=== PATIENT | male | born 1935 | race Caucasian/White ===

== ENCOUNTER 2017-09-19 16:04 | Emergency (ER) | payer MEDICARE, OTHER, SELFPAY ==
--- NOTE | 2017-09-19 16:33 | ED_ITS ---
HPI - Fall <Kina Garcia PA-C - Last Filed: 09/19/17 21:56> General Chief Complaint: Extremity Injury, Lower Stated Complaint: left foot pain,he slipped and twisted it Time Seen by Provider: 09/19/17 16:28 Source: patient Mode of arrival: ambulatory Limitations: no limitations History of Present Illness HPI Narrative: This 82 year gentleman states he was out raking his lawn at which time today when slipped and twisted his ankle behind him. He thinks he felt a snap or a pop. He states he has had swelling and is becoming increasingly painful to bear weight on this since. He states that he did not actually fall, denies hitting his head or any other injury. He does not have pain in the foot itself. Related Data Previous Rx's Medication Instructions Recorded Disabled Parking Permit ea #1 08/06/16 Test Strips - Freestyle str #100 08/06/16 hydroxyzine HCl 50 mg PO Q6HP PRN #60 tab 08/06/16 nitroglycerin [Nitrostat] 0.4 mg SUBLINGUAL PRN PRN #25 tab 08/06/16 metformin [Glucophage] 1,000 mg PO BIDCC #360 tab 04/23/17 metoprolol succinate [Toprol XL] 25 mg PO QDAY #90 ter 07/02/17 atorvastatin [Lipitor] 20 mg PO HS #90 tab 07/09/17 losartan 50 mg OR Q DAY #90 tab 07/09/17 sitagliptin [Januvia] 100 mg PO QDAY #90 tab 07/09/17 alfuzosin ER 10 mg tablet,extended 10 mg PO QDAY #90 tab 09/03/17 release 24 hr Allergies Allergy/AdvReac Type Severity Reaction Status Date / Time No Known Drug Allergies Allergy Verified 09/19/17 16:34 Review of Systems <Kina Garcia PA-C - Last Filed: 09/19/17 21:56> Review of Systems All systems reviewed & are unremarkable except as noted in HPI and below Exam <Kina Garcia PA-C - Last Filed: 09/19/17 21:56> Narrative Exam Narrative: GENERAL: Pleasant patient sitting comfortably MUSCULOSKELETAL: Left ankle trace effusion. Moderate tenderness anterior to and at the inferior border of the lateral malleolus, no tenderness elsewhere. Achilles is intact by palpation. He has normal flexion and extension of the ankle without obvious laxity. NEUROVASCULAR: Left foot is warm and pink with intact pedal pulses. Sensation grossly intact Initial Vital Signs Initial Vital Signs: Vital Signs Temperature 97.1 F L 09/19/17 16:34 Pulse Rate 65 09/19/17 16:34 Respiratory Rate 14 09/19/17 16:34 Blood Pressure 126/65 H 09/19/17 16:34 Pulse Oximetry 97 09/19/17 16:34 <DO Faizan Edward Last Filed: 09/22/17 00:50> Initial Vital Signs Initial Vital Signs: Vital Signs Temperature 97.1 F L 09/19/17 16:34 Pulse Rate 65 09/19/17 16:34 Respiratory Rate 14 09/19/17 16:34 Blood Pressure 126/65 H 09/19/17 16:34 Pulse Oximetry 97 09/19/17 16:34 Course <MAY Lopez Last Filed: 09/19/17 21:56> Orders Ordered: ED Orders 09/19/17 16:33 XR ankle LT min 3V Stat Vital Signs - 8 hr 09/19/17 16:34 09/19/17 17:44 Temperature 97.1 F L Pulse Rate 65 56 L Respiratory Rate 14 13 Blood Pressure 126/65 H Blood Pressure [Left Arm] 136/64 H Pulse Oximetry 97 97 <DO Faizan Edward Last Filed: 09/22/17 00:50> Orders Ordered: ED Orders 09/19/17 16:33 XR ankle LT min 3V Stat Vital Signs - 8 hr 09/19/17 16:34 09/19/17 17:44 Temperature 97.1 F L Pulse Rate 65 56 L Respiratory Rate 14 13 Blood Pressure 126/65 H Blood Pressure [Left Arm] 136/64 H Pulse Oximetry 97 97 MDM - Fall <MAY Lopez Last Filed: 09/19/17 21:56> Imaging Data extremity: Radiologist's impression: View Report History [address] [address] XRay Report Signed Patient: Lv Langley MR#: [id number] : 1935 Acct:[id number] Age/Sex: 82 / M Date of Service: 09/19/17 Loc: ED Accession Number: [id number] Procedure: XR ankle LT min 3V Ordering Provider: Kina Garcia P.A-C PROCEDURE: XR ANKLE LT MIN 3V INDICATIONS: twisted ankle TECHNIQUE: 3 views of the ankle were acquired. COMPARISON: [facility], , TOE MINIMUM 2 VIEWS LEFT, 03/02/2017, 12:05. FINDINGS: Bones: No fractures or dislocations. Ankle mortise is normally aligned. No suspicious bony lesions. Soft tissues: No tibiotalar joint effusion. Achilles tendon appears normal. IMPRESSION: No trauma found. Dictated by: Dedrick Zhou M.D. on 09/19/2017 at 16:56 Approved by: Dedrick Zhou M.D. on 09/19/2017 at 16:57 Discharge Plan Departure Patient Disposition: Home, Self-Care Clinical Impression: Ankle sprain Discharge Date/Time: 09/19/17 17:46 Interventions: ED Discharge Assessment Last Done: 09/19/17 17:45 Instructions: DI for Ankle Sprain Activity Restrictions/Additional Instructions: Use ice tonight. Use Tylenol as needed for pain. Use the Arya wrap for support comfort. Gentle walking on flat ground is okay as tolerated. Return if you have any new or acutely worsening symptoms. Follow up with your PCP next week as this may need repeat x-rays or further testing if it is not better. Prescriptions: No Action hydroxyzine HCl 50 MG tablet 50 mg PO Q6HP PRNQty: 60 RF: 3 nitroglycerin [Nitrostat] 0.4 MG tablet, sublingual 0.4 mg Sublingual PRN PRNQty: 25 RF: 3 Disabled Parking Permit Qty: 1 RF: 0 Test Strips - Freestyle Qty: 100 RF: 3 metformin [Glucophage] 500 MG tablet 1,000 mg PO BIDCC Qty: 360 RF: 2 metoprolol succinate [Toprol XL] 25 MG tablet extended release 24 hr 25 mg PO QDAY Qty: 90 RF: 0 atorvastatin [Lipitor] 20 MG tablet 20 mg PO HS Qty: 90 RF: 0 sitagliptin [Januvia] 100 MG tablet 100 mg PO QDAY Qty: 90 RF: 0 losartan 50 MG tablet 50 mg OR Q DAY Qty: 90 RF: 3 alfuzosin 10 mg tablet extended release 24 hr 10 mg PO QDAY Qty: 90 RF: 3 Referrals: Chris Ivy MD [Primary Care Provider] - <Reji Pike DO - Last Filed: 09/22/17 00:50> Cosign ED Attending Coscarterature Attestation: I was immediately available in the department for consultation. Documentation has been reviewed. I agree with assessment and plan.
[2017-09-19 16:34] VITALS: BP 126/65; PULSE 65; RESP 14; TEMP 36.2; O2SAT 97; BMI 29.2
[2017-09-19 17:44] VITALS: BP 136/64; PULSE 56; RESP 13; O2SAT 97
== END 2017-09-19 17:46 | disposition home or self-care (01) ==
PROVIDERS: Emergency Provider Internal Medicine; Family Provider Family Medicine; PCP Family Medicine
DX: S93.402A Sprain of unspecified ligament of left ankle, initial encounter (principal); W01.0XXA Fall on same level from slipping, tripping and stumbling without subsequent striking against object, initial encounter
CPT/HCPCS: 73610; 99283

== ENCOUNTER → 2017-10-17 06:58 | Outpatient (CLI) | payer MEDICARE, OTHER, SELFPAY ==
[2017-10-17 08:32] LABS: Add Manual Diff / Slide Review NO; Basophils Percent Auto 0.7 % (0-2); Eosinophils Percent Auto 4.2 % (2-4); Hematocrit 36.9 % (41-53); Hemoglobin 12.3 g/dL (13.5-17.5); Lymphocytes Percent Auto 14.3 % (25-40); Mean Corpuscular HGB Conc 33.3 % (30-36); Monocytes Percent Auto 8.3 % (3-14); Neutrophils Absolute Auto 7300 /uL (3000-5900); Neutrophils Percent Auto 72.5 % (50-75); Platelet Count 245 X10^3/uL (150-400); Red Blood Cell Count 4.39 X10^6/uL (4.5-5.9); Red Cell Distribution Width 15.8 % (11.6-14.8); White Blood Cell Count 10.1 X10^3/uL (4.5-11.0)
[2017-10-17 08:39] LABS: Hemoglobin A1C% w Est Avg Glu 7.8 % (4.0-6.0)
[2017-10-17 08:55] LABS: Creatinine Urine Random 151.6 mg/dL
[2017-10-17 08:58] LABS: Alanine Aminotransferase 32 IU/L (21-72); Albumin Globulin Ratio 1.3 (1.0-2.8); Alkaline Phosphatase 70 U/L (38-126); Aspartate Aminotransferase 24 IU/L (17-59); Bilirubin Total 0.5 mg/dL (0.2-1.3); Blood Urea Nitrogen 13 mg/dL (9-20); Calcium 9.2 mg/dL (8.4-10.2); Carbon Dioxide 27 mmol/L (22-32); Chloride 104 mmol/L (98-107); Cholesterol 175 mg/dL (140-199); Estimated Glomerular Filt Rate > 60.0 mL/min (>60); Globulin 3.1 g/dL (1.7-4.1); Glucose 156 mg/dL (80-110); HDL Cholesterol 28 mg/dL (40-60); HEMOLYSIS < 15 (0-50); LDL Cholesterol Calculated 105 mg/dL (<100); Potassium 4.3 mmol/L (3.4-5.1); Sodium 140 mmol/L (137-145); Total Protein 7.1 g/dL (6.3-8.2); Triglycerides 209 mg/dL (35-150)
[2017-10-17 09:00] LABS: Microalbumi Creatinin Ratio Ur 75.1 ug/mg CR (<30); Microalbumin Urine Random 11.4 mg/dL (0-1.6)
[2017-10-17 09:23] LABS: Prostate Specific Antigen 0.405 ng/mL (0.10-4.00)
== END ==
PROVIDERS: PCP Family Medicine; Visit Provider Family Medicine
DX: E11.9 Type 2 diabetes mellitus without complications (principal); Z12.5 Encounter for screening for malignant neoplasm of prostate; E78.00 Pure hypercholesterolemia, unspecified
CPT/HCPCS: 36415; 80053; 80061; 82043; 82570; 83036; 84153; 85025; G0103

== ENCOUNTER → 2017-10-24 15:32 | Outpatient (CLI) | payer MEDICARE, OTHER, SELFPAY ==
--- NOTE | 2017-10-24 15:34 | DI.US.S_ITS ---
PROCEDURE: US ABDOMEN COMPLETE INDICATIONS: ABDOMINAL DISTENTION TECHNIQUE: Real-time scanning was performed of the abdominal and retroperitoneal organs, with image documentation. COMPARISON: None. FINDINGS: Liver: Liver is diffusely increased in echogenicity. No focal hepatic abnormalities identified. Normal hepatic size. Gallbladder: Multiple mobile gallstones present largest measuring 1.3 cm. No gallbladder wall thickening. Biliary ducts: Intrahepatic bile ducts are non-dilated. Extrahepatic bile duct caliber measures 5.0 mm. Normal is 6-7 mm or less in diameter, or 10 mm or less post-cholecystectomy. Pancreas: Not visualized. Spleen: Spleen is normal in size and homogeneous in echotexture. Kidneys: Kidneys are normal in size and echotexture. Right kidney measures 12.1 cm long; left kidney measures 12.0 cm long. Mild bilateral renal cortical thinning. No hydronephrosis or nephrolithiasis. No solid masses. Aorta: Visualized aorta is normal in caliber at less than 3 cm. Iliacs: Proximal common iliac arteries are normal in caliber at less than 2.5 cm. IVC: Intrahepatic inferior vena cava is patent. Miscellaneous: No free abdominal fluid. IMPRESSION: 1. Increased hepatic echogenicity noted possibly related to hepatic steatosis but other sources of hepatocellular disease cannot be excluded. Recommend clinical correlation. 2. Mild bilateral renal cortical thinning. 3. Cholelithiasis without acute cholecystitis. Dictated by: Rios DODD Interpreted: Dev Morillo MD on 10/24/2017 at 16:52 Approved by: Dev Morillo M.D. on 10/28/2017 at 9:02
== END ==
PROVIDERS: PCP Family Medicine; Visit Provider Family Medicine
DX: R14.0 Abdominal distension (gaseous) (principal); K80.20 Calculus of gallbladder without cholecystitis without obstruction
CPT/HCPCS: 76700

== ENCOUNTER → 2017-11-05 11:23 | Outpatient (CLI) | payer MEDICARE, OTHER, SELFPAY ==
[2017-11-05 14:15] LABS: BUN Creatinine Ratio 10.9 (6-22); Blood Urea Nitrogen 12 mg/dL (9-20); Estimated Glomerular Filt Rate > 60.0 mL/min (>60)
== END ==
PROVIDERS: PCP Family Medicine; Visit Provider Family Medicine
DX: E11.9 Type 2 diabetes mellitus without complications (principal)
CPT/HCPCS: 36415; 82565; 84520

== ENCOUNTER → 2017-11-07 07:45 | Outpatient (CLI) | payer MEDICARE, OTHER, SELFPAY ==
--- NOTE | 2017-11-07 08:32 | DI.CT.S_ITS ---
PROCEDURE: CT ABDOMEN PELVIS W CON INDICATIONS: Abdominal distension and pain. TECHNIQUE: After the administration of oral and intravenous contrast, 5 mm thick sections acquired from the diaphragms to the symphysis. 5 mm thick coronal and sagittal reformats were performed. For radiation dose reduction, the following was used: automated exposure control, adjustment of mA and/or kV according to patient size. COMPARISON: [facility], , US ABDOMEN COMPLETE, 10/24/2017, 16:17. FINDINGS: Image quality: Excellent. ABDOMEN: Lung bases: There is a 5 mm nodule in the left lower lobe (series 3 image 1). Lung bases are clear. Heart size is normal. Small hiatal hernia. Solid organs: There is diffuse hepatic fatty infiltration. Liver is normal in size and enhancement. Gallbladder contains gallstones. Biliary system is non-dilated. Pancreas enhances normally. Spleen is normal in size and enhancement. No adrenal nodules. Kidneys are normal in size and enhancement, without hydronephrosis. There is a 2.4 x 1.6 cm exophytic cortical cyst in the right kidney. Peritoneum and bowel: Stomach, small bowel, and colon loops are normal in caliber and wall thickness. There are scattered colonic diverticula. There is no evidence for active diverticulitis. Appendix is normal. No free fluid or air. Nodes and vessels: No retroperitoneal or mesenteric adenopathy. No infrarenal abdominal aortic aneurysm measuring 3 cm. There are postsurgical in the distal aorta. There is atherosclerosis. Miscellaneous: There is ventral hernia repair. No evidence for recurrent ventral hernia. PELVIS: Genitourinary: Bladder wall thickness is normal. Prostate is enlarged. Miscellaneous: No inguinal hernias or adenopathy. Bones: No suspicious bony lesions. No vertebral body compression fractures. IMPRESSION: 1. Prior ventral hernia repair. No evidence for recurrent ventral hernia. 2. Diverticulosis without acute diverticulitis. 3. Mild infrarenal abdominal aortic aneurysm measuring 3 cm. Post surgical changes in the distal aorta is noted. 4. Cholelithiasis. No acute cholecystitis. 5. A 2.4 x 1.6 cm simple appearing right renal cortical cyst. 6. Hepatic steatosis. 7. A 5 mm left lower lobe nodule. Please see enclosed followup recommendation. Fleischner Society criteria for SOLID lung nodule followup. Nodule size (mm)Low-risk patientHigh-risk patient?4No follow-up neededFollow-up at 12 mo; if no change, no further follow-up>[id number] CT at 12 mo; if no change, no further follow-up needed.Initial follow-up CT at 6-12 mo, then 18-24 mo if no change. >6-8Initial follow-up CT at 6-12 mo, then 18-24 mo if no change. Initial follow-up CT at 3-6 mo, then 9-12 mo and 24 mo if no change. Multiple sub-solid nodulesPure ground glass nodules [address] at 2 and 4 years. Pure ground glass nodules >5 mm without dominant lesion. [address] to confirm persistence, then annual followup CT for at least 3 years. Dominant nodule(s) with part-solid or solid component. [address] to confirm persistence. If persistent, consider biopsy or surgical resection, bee if lesions have >5 mm solid component. Dictated by: Bobby Holder M.D. on 11/07/2017 at 14:59 Approved by: Bobby Holder M.D. on 11/07/2017 at 15:24
== END ==
PROVIDERS: PCP Family Medicine; Visit Provider Family Medicine
DX: I71.4 Abdominal aortic aneurysm, without rupture (principal); K57.90 Diverticulosis of intestine, part unspecified, without perforation or abscess without bleeding; N28.1 Cyst of kidney, acquired; K76.0 Fatty (change of) liver, not elsewhere classified; R91.1 Solitary pulmonary nodule; K80.20 Calculus of gallbladder without cholecystitis without obstruction; R14.0 Abdominal distension (gaseous); R10.9 Unspecified abdominal pain
CPT/HCPCS: 74177; Q9967

== ENCOUNTER → 2018-01-03 12:43 | Outpatient (CLI) | payer MEDICARE, OTHER, SELFPAY ==
--- NOTE | 2018-01-03 | DI.MRI.S_ITS ---
PROCEDURE: MR LUMBAR SPINE WO CON INDICATIONS: LOW BACK PAIN TECHNIQUE: Noncontrast sagittal T1 spin echo and T2 fast echo, sagittal STIR, axial T1 and T2 fast spin echo through the lumbar spine. In cases with scoliosis, additional coronal T2 fast spin echo may be performed. COMPARISON: [facility], CT, CT ABDOMEN PELVIS W CON, 11/07/2017, 8:35. [facility], CR, XR LUMBAR SPINE WITH OLBIQUES PLUS FLEXION EXTENSION, 12/17/2017, 10:24. FINDINGS: Image quality: Excellent. Alignment and Curvature: There is normal bony alignment. Bone Marrow: There is an intraosseous hemangioma in right iliac bone. Marrow signal is otherwise normal. No acute vertebral body compression fractures. Spinal Cord: Conus medullaris terminates at the L1-L2 level. Visualized cord demonstrates normal signal and size. Paraspinous Soft Tissues: No paravertebral masses. There is a 2 cm right renal cortical cyst. L1-L2: Preserved disc height. Moderate disc desiccation. There is diffuse posterior disc bulge. Mild bilateral facet arthropathy. The central canal is patent. No foraminal stenosis. L2-L3: Preserved disc height. Moderate disc desiccation. There is diffuse posterior disc bulge. Mild bilateral facet arthropathy. The central canal is patent. Moderate left foraminal stenosis. No right foraminal stenosis. L3-L4: Mild loss of disc height. Moderate disc desiccation. There is diffuse posterior disc bulge. Mild bilateral facet arthropathy. The central canal is patent. Moderate left and mild right foraminal stenosis. L4-L5: Mild loss of disc height. Moderate disc desiccation. There is diffuse posterior disc bulge. Mild bilateral facet arthropathy. The central canal is patent. [id number] left and [id number] right foraminal stenosis. L5-S1: Preserved disc height and mild disc desiccation. There is diffuse posterior disc bulge. The central canal is patent. Qbyj-[id number] bilateral foraminal stenosis. IMPRESSION: 1. Multilevel degenerative disc disease and facet arthropathy as described. 2. No central canal stenosis. 3. Multilevel foraminal stenosis as described. Dictated by: Bobby Holder M.D. on 01/03/2018 at 17:14 Transcribed by: INDRA on 01/03/2018 at 17:21 Approved by: Bobby Holder M.D. on 01/03/2018 at 18:31
== END ==
PROVIDERS: PCP Family Medicine; Visit Provider Physical Medicine & Rehabilitation
DX: M54.5 Low back pain (principal); M51.36 Other intervertebral disc degeneration, lumbar region; M51.37 Other intervertebral disc degeneration, lumbosacral region; M47.816 Spondylosis without myelopathy or radiculopathy, lumbar region; M48.061 Spinal stenosis, lumbar region without neurogenic claudication; M48.07 Spinal stenosis, lumbosacral region
CPT/HCPCS: 72148

== ENCOUNTER → 2018-01-30 10:31 | Outpatient (CLI) | payer MEDICARE, OTHER, SELFPAY | PROVIDERS: PCP Student in an Organized Health Care Education/Training Program; Visit Provider Nurse Practitioner Family | DX: T17.908A Unspecified foreign body in respiratory tract, part unspecified causing other injury, initial encounter (principal); Z53.9 Procedure and treatment not carried out, unspecified reason ==

== ENCOUNTER → 2018-05-13 14:39 | Outpatient (CLI) | payer MEDICARE, OTHER, SELFPAY ==
[2018-05-13 15:00] LABS: Add Manual Diff / Slide Review NO; Basophils Absolute Auto 100 /uL (0-100); Basophils Percent Auto 1.2 % (0-2); Eosinophils Absolute Auto 300 /uL (0-450); Eosinophils Percent Auto 4.8 % (2-4); Hematocrit 36.4 % (41-53); Hemoglobin 12.2 g/dL (13.5-17.5); Lymphocytes Absolute Auto 1300 /uL (1100-4500); Lymphocytes Percent Auto 22.7 % (25-40); Mean Corpuscular HGB Conc 33.4 % (30-36); Mean Corpuscular Hemoglobin 28.2 PG (26-34); Mean Corpuscular Volume 84.4 fL (80-100); Monocytes Absolute Auto 500 /uL (0-900); Monocytes Percent Auto 9.8 % (3-14); Neutrophils Absolute Auto 3400 /uL (1500-7000); Neutrophils Percent Auto 61.5 % (50-75); Platelet Count 215 X10^3/uL (150-400); Red Blood Cell Count 4.31 X10^6/uL (4.5-5.9); Red Cell Distribution Width 15.8 % (11.6-14.8); White Blood Cell Count 5.6 X10^3/uL (4.5-11.0)
[2018-05-13 15:15] LABS: Hemoglobin A1C% w Est Avg Glu 9.9 % (4.0-6.0)
[2018-05-13 15:29] LABS: Blood Urea Nitrogen 13 mg/dL (9-20); Carbon Dioxide 26 mmol/L (22-32); Chloride 102 mmol/L (98-107); Estimated Glomerular Filt Rate > 60.0 mL/min (>60); Glucose 259 mg/dL (80-110); HEMOLYSIS < 15 (0-50); Potassium 4.2 mmol/L (3.4-5.1); Sodium 139 mmol/L (137-145)
[2018-05-13 15:45] LABS: Vitamin D 25 Hydroxy (D3) 55.7 ng/mL (30.0-100.0)
== END ==
PROVIDERS: PCP Student in an Organized Health Care Education/Training Program; Visit Provider Student in an Organized Health Care Education/Training Program
DX: E55.9 Vitamin D deficiency, unspecified (principal); D64.9 Anemia, unspecified; I10 Essential (primary) hypertension; E11.9 Type 2 diabetes mellitus without complications
CPT/HCPCS: 36415; 80048; 82306; 83036; 85025

== ENCOUNTER → 2018-05-28 09:29 | Outpatient (CLI) | payer MEDICARE, OTHER, SELFPAY ==
--- NOTE | 2018-05-28 09:33 | DI.US.S_ITS ---
PROCEDURE: US RETRO PERITONEAL LIMITED INDICATIONS: ABDOMINAL AORTIC ANEURYSM FOLLOW UP TECHNIQUE: Real time scanning was performed of the aorta and iliac arteries, with image documentation. COMPARISON: [facility], , RENAL OR RETROPERITONEAL LIMIT, 02/24/2015, 13:08. [facility], US, US ABDOMEN COMPLETE, 10/24/2017, 16:17. [facility], CT, CT ABDOMEN PELVIS W CON, 11/07/2017, 8:35. FINDINGS: Aorta: Proximal aortic diameter measures 2.4 x 2.3 cm (previously 2.1 cm). Mid-aorta measures 2.2 x 2.1 cm (previously obscured). Distal aortic obscured by overlying bowel gas (previously 2.3 cm). Iliac arteries: Right common iliac artery measures 1.4 cm (previously 1.0 cm). Left common iliac artery measures 1.5 cm (previously 0.9 cm). IMPRESSION: The abdominal aorta is normal in caliber measuring up to 2.4 cm in the proximal aorta. It has slightly increased in size since 02/24/2015. Distal abdominal aorta is obscured by overlying bowel gas. The proximal common iliac arteries also demonstrate mildly interval enlargement since the last exam. A followup exam is shifted in 5 years. Dictated by: Bobby Holder M.D. on 05/28/2018 at 16:29 Approved by: Bobby Holder M.D. on 05/28/2018 at 16:36
--- NOTE | 2018-05-28 09:33 | DI.ECHO.S_ITS ---
[place] [facility]---------+ [facility] +---------+ : : [id number] : : : : [id number] : : : : Phone: [phone]+ Echocardiogram Report + + :Name: PRASHANT FENG Study Date: 05/28/2018 Height: 69 in : :[facility] Exam Location: [facility] Weight: 212 lb : : Gender: Male BSA: 2.1 m2 : :: 1935 Age: 83 yrs BP: 120/70 mmHg: :Reason For Study: Thoracic aortic ectasia : : Performed By: Caitlyn Page : :Referring: OZIEL HARO : + + Interpretation Summary The left ventricle is normal in size. Left ventricular systolic function is normal without focal wall motion abnormalities. The ejection fraction is estimated to be 60-65%. Diastolic parameters suggest a relaxation abnormality of the left ventricle, consistent with probable normal filling pressures. The right ventricle is normal in size and function. Pulmonary artery pressures cannot be estimated because of the lack of a measurable TR jet velocity. Both atria are normal in size. A PFO was suspected on the prior exam but is not appreciated on today's exam. There is no significant valvular heart disease. The aortic root is moderately dilated. This is increased compared to the previous study. The ascending aorta is mild-moderately enlarged. This is increased compared to the previous study. Procedure: A two-dimensional transthoracic echocardiogram with color flow and Doppler was performed. The study quality was technically adequate. Comparison is made with the echocardiogram of 02/01/2016. The patient was in normal sinus rhythm during the exam. Left Ventricle: The left ventricle is normal in size. Left ventricular wall thickness is borderline increased. Left ventricular systolic function is normal without focal wall motion abnormalities. The ejection fraction is estimated to be 60-65%. Diastolic parameters suggest a relaxation abnormality of the left ventricle, consistent with probable normal filling pressures. Right Ventricle: The right ventricle is normal in size and function. Atria: Both atria are normal in size. There is no Doppler evidence for an interatrial shunt. A PFO was suspected on the prior exam but is not appreciated on today's exam. Mitral Valve: The mitral valve leaflets appear mildly thickened, but open well. There is trace mitral regurgitation. Aortic Valve: The aortic valve is trileaflet. The aortic valve opens well. There is trace aortic regurgitation. Tricuspid Valve: The tricuspid valve is normal in structure and function. There is a trace or physiologic amount of tricuspid regurgitation. Pulmonary artery pressures cannot be estimated because of the lack of a measurable TR jet velocity. Pulmonic Valve: The pulmonic valve is not well visualized. There is trace pulmonic regurgitation. There is no significant valvular heart disease. Great Vessels: The aortic root is moderately dilated. This is increased compared to the previous study. The ascending aorta is mild-moderately enlarged. This is increased compared to the previous study. The aortic arch is normal in size. The pulmonary artery is not well visualized, but is probably normal size. The inferior vena cava was not visualized. Pericardium/ Pleura There is no pericardial effusion. There is no pleural effusion. MMode/2D Measurements & Calculations LVIDd: 5.1 cm LVOT diam: 2.4 cm LVIDs: 2.7 cm Ao root diam: 4.7 cm FS: 46.3 % asc Aorta Diam: 4.1 cm EPSS: 0.54 cm Ao Arch Diam (Prox Trans): 2.9 cm IVSd: 0.98 cm LVPWd: 0.90 cm LV perdomo. diameter/BSA (cm/m^2): 2.4 LV sys. diameter/BSA (cm/m^2): 1.3 LA A2 area: 23.0 cm2 RA long axis: 5.8 cm LA A4 area: 18.1 cm2 RA area: 15.9 cm2 LA length (vol): 5.3 cm RA vol: 37.2 ml LA vol: 66.7 ml RA : 17.6 ml/m2 LA vol index: 31.5 ml/m2 RVD1 (basal): 3.9 cm TAPSE: 2.4 cm Doppler Measurements & Calculations Ao V2 max: 116.1 cm/sec LVOT Max Romeo: 113.6 cm/sec Ao V2 mean: 81.2 cm/sec LV V1 max P.2 mmHg Ao max P.4 mmHg LV V1 VTI: 19.6 cm Ao mean P.9 mmHg KAMERON(I,D): 3.5 cm2 Ao V2 VTI: 25.2 cm KAMERON(V,D): 4.5 cm2 sev ratio: 0.78 KAMERON indexed to BSA (cm^2/m^2): 1.7 MV E max romeo: 52.3 cm/sec PA V2 max: 76.8 cm/sec MV A max romeo: 101.6 cm/sec PA V2 mean: 53.4 cm/sec MV E/A: 0.51 PA mean P.2 mmHg Med Peak E' Romeo: 3.7 cm/sec PA Accel Time: 0.12 sec E/E' med: 14.2 Lat Peak E' Romeo: 4.5 cm/sec E/E' lat: 11.5 E/e' average: 12.9 MV dec time: 0.29 sec MV P1/2t: 86.1 msec MV P1/2t max romeo: 52.8 cm/sec SV(LVOT): 89.1 ml MVA(P1/2t): 2.6 cm2 Reading Physician:12:27 PM
--- NOTE | 2018-05-28 09:40 | DI.CT.S_ITS ---
PROCEDURE: CT CHEST WO CON INDICATIONS: follow up lung nodule TECHNIQUE: Noncontrast 2.0-2.5 mm thick sections acquired from the pulmonary apices to the posterior costophrenic angles. 7 mm thick coronal and sagittal MIP reformats were then acquired. A low radiation dose technique was utilized. COMPARISON: [facility], CT, CT ABDOMEN PELVIS W CON, 11/07/2017, 8:35. FINDINGS: Image quality: Diagnostic, given the low radiation dose technique. Lungs and pleura: A 4 mm pulmonary nodule is present within the right upper lobe (series 2, image 39). A 4 mm pulmonary nodule is present in the right oblique fissure at the right lung base (series 2, image 108). A 5 mm pulmonary nodule is redemonstrated at the left lung base unchanged in the study dated 11/07/17 (series 2, image 117). A partially calcified 5 mm nodule is present in the lingula (series 2, image 88). A 5 mm pulmonary nodule is present within the left upper lobe (series 2, image 40). No acute air space opacities. No pleural effusion or pneumothorax. Mediastinum: Heart size is normal. No pericardial effusion. No mediastinal adenopathy by size criteria. The central pulmonary arteries are normal in size. There is ectasia of the ascending thoracic aorta which measures up to 4.4 cm in oblique axial diameter. Scattered atheromatous calcifications are present within the aortic arch. Esophagus is normal in caliber. No hiatal hernia. Bones and chest wall: No suspicious bony lesions. No vertebral body compression fractures. No axillary or supraclavicular adenopathy by size criteria. Thyroid gland is unremarkable. Abdomen: Visualized upper abdomen solid organs and bowel loops appear normal in the absence of contrast. IMPRESSION: 1. Multiple bilateral 4 and 5 mm in diameter pulmonary nodules as above. Please see followup guidelines below. As nodule the left lung base is now demonstrated 7 months stability. In a low risk patient, no further followup is needed. In high risk patient, consider 12 month followup. 2. Annuloaortic ectasia. Cardiology consultation recommended. Fleischner Society criteria for SOLID lung nodule followup. Nodule size (mm)Low-risk patientHigh-risk patient<6 (single or multiple)No routine followup.Optional CT at 12 months. 6-8 (single or multiple)CT at 6-12 months, then optional CT at 18-24 mo.CT at 6-12 months, then CT at 18-24 months. >8 (single)CT at 3 months, PET-CT, or biopsy. Same as for low-risk pts. >8 (multiple)CT at 3-6 months, then optional CT at 18-24 mo.CT at 3-6 months, then CT at 18-24 months. Fleischner Society criteria for SUB-SOLID lung nodule followup. Solitary pure ground-glass nodules<6 mm (ground glass or part solid)No followup needed. 6 mm or larger (ground glass)CT at 6-12 months to confirm persistence, then CT every 2 years until 5 years.6 mm or larger (part solid)CT at 3-6 months to confirm persistence, then annual CT until 5 years if unchanged and solid component remains <6 mm. Multiple sub-solid nodules<6 mmCT at 3-6 months, then CT consider at 2 & 4 years for high risk patients. [address] at 3-6 months. Subsequent management based on most suspicious lesions. Recommendations do not apply to lung cancer screening, patients with immunosuppression, or patients with known primary cancer. Dictated by: Heather Rivera M.D. on 05/28/2018 at 9:59 Approved by: Heather Rivera M.D. on 05/28/2018 at 10:06
== END ==
PROVIDERS: PCP Student in an Organized Health Care Education/Training Program; Visit Provider Student in an Organized Health Care Education/Training Program
DX: I77.810 Thoracic aortic ectasia (principal); R91.8 Other nonspecific abnormal finding of lung field
CPT/HCPCS: 71250; 76775; 93306

== ENCOUNTER → 2018-08-04 08:10 | Outpatient (CLI) | payer MEDICARE, OTHER, SELFPAY ==
--- NOTE | 2018-08-04 | DI.NM.S_ITS ---
PROCEDURE: IN [facility] PERF SPECT R&S PHARM Rest and pharmacological stress myocardial perfusion SPECT with gated imaging and ejection fraction RADIOPHARMACEUTICAL: 24.4 mCi Tc-99m tetrafosmin IV at rest and 25.7 mCi Tc-99m tetrafosmin IV at peak effect of pharmacological stress. [id number] was performed. INDICATIONS: Disorder of arteries and arterioles, unspecified TECHNIQUE: Radiopharmaceutical was injected at peak stress test, and also at rest. SPECT images were obtained. SPECT myocardial perfusion images were displayed in short axis, horizontal long axis, and vertical long axis views. Gated images were reviewed using [employer] software. COMPARISON: [facility], [place], LEXISCAN MYOCARDIAL PERFUSION, 02/24/2015, 14:01. CARDIAC STRESS: A pharmacologic stress test was performed under the supervision of an attending staff, using an infusion of lexiscan 0.4mg IV X1. Hemodynamic data: There is normal blood pressure and heart rate response to pharmacologic stress. Symptoms: The patient denied anginal chest pain. Aminophylline: none EKG: Resting ECG shows sinus rhythm with non-specific T wave changes. No diagnostic changes of ischemia with lexiscan; occasional PVCs present. FINDINGS: Raw data: There is good myocardial uptake of radiotracer. No significant motion artifacts. Czrd-zz-rdnob ratio is 0.35 (normal is less than 0.38 for tetrafosmin tracer). Left ventricle function: Gated images demonstrate normal left ventricular wall thickening. No segmental wall motion abnormalities. No transient ischemic dilation; TID is 1.17 (normal less than 1.3). Left ventricle resting end diastolic volume is 72 mL. Left ventricle stress ejection fraction is 85%; normal range is above 45%. Myocardial perfusion: There is a mild defect in the inferior wall and the inferoapex that worsens with stress but improves significantly with prone imaging, suggesting probable soft tissue attenuation but underlying ischemia can't be excluded. SSS 7, SRS 1. Direct comparison of images [facility] the [facility] 02/24/2015 reveal very similar perfusion images IMPRESSION: Probably normal study but small amount of ischemia can not be excluded. 1) Probably normal perfusion images. There is a mild defect in the inferior wall and the inferoapex that worsens with stress but improves significantly with prone imaging, suggesting probable soft tissue attenuation but small amount of underlying ischemia or small prior subendocardial DE can't be excluded. SSS 7, SRS 1. Direct comparison of images from the [facility] 02/24/2015 reveal very similar perfusion images. 2) Normal left ventricular size, wall motion, and systolic function (post stress EF 85%. 3) No ischemic ECG changes with lexiscan. 4) No angina during the study. 5) Compared to the prior lexiscan nuclear stress test done 02/24/2015, no significant change when compared visually. Dictated by: Allen Mace MD on 08/05/2018 at 13:03 Approved by: Allen Mace MD on 08/05/2018 at 13:10
--- NOTE | 2018-08-04 09:17 | P.PCN_ITS ---
Cardiac Stress Test Report Referral & Results Date Patient Seen: 08/04/18 Requesting provider: Shoaib Orozco Indication: Chest pain Rest ECG: Unremarkable Procedure Note: After both written and verbal informed consent the patient had an IV started by the diagnostic imaging RN and then was hooked up to the treadmill monitoring system. The patient was placed on the treadmill at 1 mile an hour with no elevation and was then injected with the Patricia scan material. The Cardiolite was then immediately administered. The patient spent an additional 2-3 minutes on the treadmill before being returned to the [facility] in the supine position. The patient had a normal response to all infused materials. Patient had occasional PVC during the monitoring period. Impression: Normal response to infuse materials Please see perfusion imaging report for details regarding possible ischemia Please note: Actual ECG tracings can be found in the PACS system.
== END ==
PROVIDERS: PCP Student in an Organized Health Care Education/Training Program; Visit Provider Internal Medicine Cardiovascular Disease
DX: R07.9 Chest pain, unspecified (principal); I77.9 Disorder of arteries and arterioles, unspecified; I49.3 Ventricular premature depolarization
CPT/HCPCS: 78452; 93016; 93017; 93018; A9502; J2785

== ENCOUNTER → 2018-08-08 12:32 | Outpatient (CLI) | payer MEDICARE, OTHER, SELFPAY ==
[2018-08-08 13:20] LABS: Hemoglobin A1C% w Est Avg Glu 7.3 % (4.0-6.0)
== END ==
PROVIDERS: PCP Student in an Organized Health Care Education/Training Program; Visit Provider Student in an Organized Health Care Education/Training Program
DX: E11.9 Type 2 diabetes mellitus without complications (principal)
CPT/HCPCS: 36415; 83036

== ENCOUNTER → 2018-11-10 09:22 | Outpatient (CLI) | payer MEDICARE, OTHER, SELFPAY ==
[2018-11-10 10:06] LABS: Hemoglobin A1C% w Est Avg Glu 8.6 % (4.0-6.0)
== END ==
PROVIDERS: PCP Student in an Organized Health Care Education/Training Program; Visit Provider Student in an Organized Health Care Education/Training Program
DX: E11.9 Type 2 diabetes mellitus without complications (principal)
CPT/HCPCS: 36415; 83036

== ENCOUNTER → 2019-01-30 06:50 | Outpatient (CLI) | payer MEDICARE, OTHER, SELFPAY ==
[2019-01-30 09:24] LABS: Blood Urea Nitrogen 15 mg/dL (9-20); Carbon Dioxide 29 mmol/L (22-32); Chloride 103 mmol/L (98-107); Cholesterol 176 mg/dL (140-199); Estimated Glomerular Filt Rate > 60.0 mL/min (>60); Glucose 143 mg/dL (80-110); HEMOLYSIS < 15 (0-50); Potassium 4.1 mmol/L (3.4-5.1); Sodium 140 mmol/L (137-145); Triglycerides 251 mg/dL (35-150)
[2019-01-30 09:26] LABS: HDL Cholesterol 25 mg/dL (40-60); LDL Cholesterol Calculated 101 mg/dL (<100)
[2019-01-30 09:33] LABS: Hemoglobin A1C% w Est Avg Glu 7.2 % (4.0-6.0)
== END ==
PROVIDERS: PCP Student in an Organized Health Care Education/Training Program; Visit Provider Student in an Organized Health Care Education/Training Program
DX: E11.9 Type 2 diabetes mellitus without complications (principal); I10 Essential (primary) hypertension
CPT/HCPCS: 36415; 80048; 80061; 83036

== ENCOUNTER 2019-04-25 16:26 | Emergency (ER) | payer MEDICARE, OTHER, SELFPAY ==
[2019-04-25 16:34] VITALS: BP 154/87; PULSE 70; RESP 16; TEMP 36.6; O2SAT 96; BMI 31.0
--- NOTE | 2019-04-25 16:34 | DI.RAD.S_ITS ---
PROCEDURE: XR CHEST 1V INDICATIONS: chest pain TECHNIQUE: One view of the chest was acquired. COMPARISON: [facility], , CHEST 1 VIEW, 07/29/2015, 6:18. FINDINGS: Surgical changes and devices: None. Lungs and pleura: Lungs are clear. No pleural effusions or pneumothorax. Mediastinum: Mediastinal contours appear normal. Heart size is normal. Bones and chest wall: No suspicious bony lesions. Overlying soft tissues appear unremarkable. IMPRESSION: No acute cardiopulmonary pathology. Dictated by: Franki Dior M.D. on 04/25/2019 at 17:22 Approved by: Franki Dior M.D. on 04/25/2019 at 17:23
--- NOTE | 2019-04-25 16:37 | ED.CHESTPAIN ---
HPI - Chest Pain <Latisha Kadeem, DO - Last Filed: 04/26/19 07:19> General Chief Complaint: Chest Pain Stated Complaint: Chest Pain Time Seen by Provider: 04/25/19 16:32 Source: patient Mode of arrival: Ambulatory Limitations: no limitations History of Present Illness HPI narrative: Patient is an 84-year-old male history of diabetes presenting with generalized weakness and chest pain. He says that for the past week he has overall been extremely weak use gotten worse over last 2 days and especially this afternoon. As I said he woke up from his nap any weak all over and can't get warm. He also complains of some chest discomfort which she has intermittently but today had it when he woke up from his nap in the center of his chest which lasted for about 30 seconds. He currently does not have any chest pain he has no known history of coronary artery disease. He denies any productive cough or fevers. He says that he continues to feel weak but speaks in full sentences without any difficulty and appears comfortable. Related Data Previous Rx's Medication Instructions Recorded nitroglycerin [Nitrostat] 0.4 mg SUBLINGUAL PRN PRN #25 tab 08/06/16 metoprolol succinate 25 mg 25 mg PO QDAY #90 ter 06/06/18 tablet,extended release 24 hr alfuzosin 10 mg tablet,extended 10 mg PO QDAY #90 tab 08/29/18 release 24 hr Test Strips - Freestyle #100 each 09/01/18 losartan 50 mg tablet 50 mg PO Q DAY #90 tab 09/04/18 triamcinolone acetonide 0.5 % 1 applictn TOP BID #15 gram 11/14/18 topical ointment glipizide 5 mg tablet 7.5 mg PO DAILY #135 tab 12/25/18 metformin 500 mg tablet 1,000 mg PO BIDCC #360 tab 01/05/19 sitagliptin 100 mg tablet 100 mg PO QDAY #90 tab 01/13/19 atorvastatin 20 mg tablet 20 mg PO HS #90 tab 01/19/19 furosemide 40 mg tablet 40 mg PO QAM #30 tab 02/06/19 hydroxyzine HCl 50 mg tablet 50 mg PO Q6H PRN #60 tab 02/06/19 Allergies Allergy/AdvReac Type Severity Reaction Status Date / Time No Known Drug Allergies Allergy Verified 02/06/19 09:51 Review of Systems <Latisha Quan DO - Last Filed: 04/26/19 07:19> Review of Systems ROS Unobtainable: All systems reviewed & are unremarkable except as noted in HPI and below Constitutional Constitutional: Reports chills, Denies fever(s), Denies frequent falls, Denies headache(s), Denies malaise and Reports weakness Eyes Eyes: Denies change in vision, Denies eye discharge, Denies irritation and Denies loss of vision ENT Ears, Nose, Mouth, and Throat: Denies headache(s) Cardiovascular Cardiovascular: Reports as per HPI and Reports chest pain Gastrointestinal Gastrointestinal: Denies abdominal pain, Denies change in bowel habits, Denies diarrhea, Denies nausea and Denies vomiting Musculoskeletal Musculoskeletal: Denies back pain, Denies muscle weakness, Denies numbness and Denies tingling Integumentary/Breasts Skin/Breast: Denies pruritus, Denies erythema, Denies rash and Denies wounds Neurologic Neurologic: Denies frequent falls, Denies headache(s), Denies loss of vision, Denies numbness, Denies tingling and Reports weakness Patient History <Latisha Quan DO - Last Filed: 04/26/19 07:19> Medical History Abdominal aortic aneurysm (AAA) without rupture (Chronic 07/26/15) Benign non-nodular prostatic hyperplasia without lower urinary tract symptoms (Chronic 04/26/15) BPH (benign prostatic hyperplasia) (Chronic) Diabetes (Chronic) Essential hypertension (Chronic 04/26/15) 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) HTN (hypertension) (Chronic) EMILEE (obstructive sleep apnea) (Chronic) Pre-ulcerative corn or callous (Chronic 01/06/16) Pulmonary nodule, left (Chronic) Pure hypercholesterolemia (Chronic 11/09/16) Type 2 diabetes mellitus without complication (Chronic 04/26/15) Surgical History S/P aneurysm repair (Resolved) Status post epigastric hernia repair, follow-up exam (Resolved) Family History Father Heart disease Mother Cancer Social History marital status: household members: spouse lives independently: Yes Smoking Status: Former smoker alcohol intake: never substance use type: does not use Smoking Status: Former smoker alcohol intake frequency: 0-2 drinks per day Substance Use Type: does not use Exam <Latisha Quan DO - Last Filed: 04/26/19 07:19> Initial Vital Signs Initial Vital Signs: Vital Signs Temperature 97.8 F 04/25/19 16:34 Pulse Rate 70 04/25/19 16:34 Respiratory Rate 16 04/25/19 16:34 Blood Pressure 154/87 H 04/25/19 16:34 Pulse Oximetry 96 04/25/19 16:34 GENERAL alert talkative well-appearing 84-year-old male HEENT: Head atraumatic,EOMI, pupils reactive, face symmetric CARDIOVASCULAR: Regular rate and rhythm without murmurs, rubs or gallops. RESPIRATORY: Breath sounds equal bilaterally, no wheezes rales or rhonchi. ABDOMEN: Soft, nontender. Normoactive bowel sounds all 4 quadrants. No guarding or rebound. No pulsatile masses : No CVA tenderness EXTREMITIES: Normal range of motion, no clubbing or edema. Neurovascularly intact NEUROLOGICAL: Alert and oriented x4.Normal gait and speech. SKIN: Warm, dry, no laceration, no petechiae, no rashes or lesions. <Reji Pike DO - Last Filed: 04/26/19 03:24> Initial Vital Signs Initial Vital Signs: Vital Signs Temperature 97.8 F 04/25/19 16:34 Pulse Rate 70 04/25/19 16:34 Respiratory Rate 16 04/25/19 16:34 Blood Pressure 154/87 H 04/25/19 16:34 Pulse Oximetry 96 04/25/19 16:34 Course <Latisha Quan DO - Last Filed: 04/26/19 07:19> Orders Ordered: ED Orders 04/25/19 18:53 Troponin I Stat Vital Signs Vital signs: Vital Signs - 8 hr 04/25/19 20:06 Pulse Rate 71 Respiratory Rate 14 Blood Pressure 131/44 L Pulse Oximetry 95 <Reji Pike DO - Last Filed: 04/26/19 03:24> Course Course Narrative: Received in sign-out from Dr. Quan. I have performed an independent history and physical. Description of pain is nonischemic, repeat troponin continues to be unremarkable. Patient understands and agrees with plan for discharge that was set forth by Dr. Quan. He has had his questions answered to his apparent satisfaction and understands return precautions Orders Ordered: ED Orders 04/25/19 18:53 Troponin I Stat Vital Signs Vital signs: Vital Signs - 8 hr 04/25/19 20:06 Pulse Rate 71 Respiratory Rate 14 Blood Pressure 131/44 L Pulse Oximetry 95 MDM - Chest Pain <Latisha Quan, - Last Filed: 04/26/19 07:19> Lab Data Attestation: I reviewed the patient's lab results. Result diagrams: 04/25/19 16:45 04/25/19 16:45 Labs: Lab Results 04/25/19 04/25/19 04/25/19 Range/Units 16:45 16:45 16:45 WBC 7.6 (4.5-11.0) X10^3/uL RBC 4.03 L (4.5-5.9) X10^6/uL Hgb 12.0 L (13.5-17.5) g/dL Hct 35.7 L (41-53) % MCV 88.6 (80-100) fL MCH 29.8 (26-34) PG MCHC 33.6 (30-36) % RDW 16.1 H (11.6-14.8) % Plt Count 210 (150-400) X10^3/uL Neut % (Auto) 61.0 (50-75) % Lymph % (Auto) 22.5 L (25-40) % [place] % (Auto) 10.5 (3-14) % Eos % (Auto) 5.0 H (2-4) % Baso % (Auto) 1.0 (0-2) % Neut # (Auto) 4600 (8039-5687) /uL Lymph # (Auto) 1700 (4219-5757) /uL [place] # (Auto) 800 (0-900) /uL Eos # (Auto) 400 (0-450) /uL Baso # (Auto) 100 (0-100) /uL PT 11.0 (10.1-12.7) SECONDS INR 1.0 (0.9-1.3) APTT 27 (26.4-36.2) SECONDS Sodium 140 (137-145) mmol/L Potassium 4.3 (3.4-5.1) mmol/L Chloride 104 (98-107) mmol/L Carbon Dioxide 27 (22-32) mmol/L BUN 17 (9-20) mg/dL Creatinine 1.00 (0.66-1.25) mg/dL Estimated GFR > 60.0 (>60) mL/min BUN/Creatinine Ratio 17.0 (6-22) Glucose 147 H (80-110) mg/dL Calcium 9.6 (8.4-10.2) mg/dL Total Bilirubin 0.3 (0.2-1.3) mg/dL AST 21 (17-59) IU/L ALT 16 (<50) IU/L Alkaline Phosphatase 53 (38-126) U/L Total Creatine Kinase 61 (55-170) U/L CK-MB (CK-2) TNP CK-MB (CK-2) Rel Index TNP Troponin I < 0.012 (0.01-0.034) ng/mL B-Natriuretic Peptide (<100) Total Protein 6.9 (6.3-8.2) g/dL Albumin 4.3 (3.5-5.0) g/dL Globulin 2.6 (1.7-4.1) g/dL Albumin/Globulin Ratio 1.7 (1.0-2.8) Lipase 336 H (23-300) U/L Influenza A (RT-PCR) (NEGATIVE) Influenza B (RT-PCR) (NEGATIVE) 04/25/19 04/25/19 04/25/19 Range/Units 16:49 17:45 18:53 WBC (4.5-11.0) X10^3/uL RBC (4.5-5.9) X10^6/uL Hgb (13.5-17.5) g/dL Hct (41-53) % MCV (80-100) fL MCH (26-34) PG MCHC (30-36) % RDW (11.6-14.8) % Plt Count (150-400) X10^3/uL Neut % (Auto) (50-75) % Lymph % (Auto) (25-40) % [place] % (Auto) (3-14) % Eos % (Auto) (2-4) % Baso % (Auto) (0-2) % Neut # (Auto) (7408-4115) /uL Lymph # (Auto) (7654-8423) /uL [place] # (Auto) (0-900) /uL Eos # (Auto) (0-450) /uL Baso # (Auto) (0-100) /uL PT (10.1-12.7) SECONDS INR (0.9-1.3) APTT (26.4-36.2) SECONDS Sodium (137-145) mmol/L Potassium (3.4-5.1) mmol/L Chloride (98-107) mmol/L Carbon Dioxide (22-32) mmol/L BUN (9-20) mg/dL Creatinine (0.66-1.25) mg/dL Estimated GFR (>60) mL/min BUN/Creatinine Ratio (6-22) Glucose (80-110) mg/dL Calcium (8.4-10.2) mg/dL Total Bilirubin (0.2-1.3) mg/dL AST (17-59) IU/L ALT (<50) IU/L Alkaline Phosphatase (38-126) U/L Total Creatine Kinase (55-170) U/L CK-MB (CK-2) CK-MB (CK-2) Rel Index Troponin I < 0.012 (0.01-0.034) ng/mL B-Natriuretic Peptide < 100 (<100) Total Protein (6.3-8.2) g/dL Albumin (3.5-5.0) g/dL Globulin (1.7-4.1) g/dL Albumin/Globulin Ratio (1.0-2.8) Lipase (23-300) U/L Influenza A (RT-PCR) Flu a negative (NEGATIVE) Influenza B (RT-PCR) Flu b negative (NEGATIVE) Imaging Data Chest x-ray: Radiologist's Impression: PROCEDURE: XR CHEST 1V INDICATIONS: chest pain TECHNIQUE: One view of the chest was acquired. COMPARISON: [facility], , CHEST 1 VIEW, 07/29/2015, 6:18. FINDINGS: Surgical changes and devices: None. Lungs and pleura: Lungs are clear. No pleural effusions or pneumothorax. Mediastinum: Mediastinal contours appear normal. Heart size is normal. Bones and chest wall: No suspicious bony lesions. Overlying soft tissues appear unremarkable. IMPRESSION: No acute cardiopulmonary pathology. Dictated by: Franki Dior M.D. on 04/25/2019 at 17:22 ECG Data Attestation: I personally reviewed and interpreted this ECG as follows: Prior ECG tracings: available for review Interpretation: Normal sinus rhythm rate 76 p.r. interval 199 QRS 90 QTC 421 low voltage through out similar to previous EKG Q-waves noted in anterior septal leads similar to previous EKG in 2016 <Reji Pike DO - Last Filed: 04/26/19 03:24> Lab Data Labs: Lab Results 04/25/19 04/25/19 04/25/19 Range/Units 16:45 16:45 16:45 WBC 7.6 (4.5-11.0) X10^3/uL RBC 4.03 L (4.5-5.9) X10^6/uL Hgb 12.0 L (13.5-17.5) g/dL Hct 35.7 L (41-53) % MCV 88.6 (80-100) fL MCH 29.8 (26-34) PG MCHC 33.6 (30-36) % RDW 16.1 H (11.6-14.8) % Plt Count 210 (150-400) X10^3/uL Neut % (Auto) 61.0 (50-75) % Lymph % (Auto) 22.5 L (25-40) % [place] % (Auto) 10.5 (3-14) % Eos % (Auto) 5.0 H (2-4) % Baso % (Auto) 1.0 (0-2) % Neut # (Auto) 4600 (5238-7824) /uL Lymph # (Auto) 1700 (0970-6294) /uL [place] # (Auto) 800 (0-900) /uL Eos # (Auto) 400 (0-450) /uL Baso # (Auto) 100 (0-100) /uL PT 11.0 (10.1-12.7) SECONDS INR 1.0 (0.9-1.3) APTT 27 (26.4-36.2) SECONDS Sodium 140 (137-145) mmol/L Potassium 4.3 (3.4-5.1) mmol/L Chloride 104 (98-107) mmol/L Carbon Dioxide 27 (22-32) mmol/L BUN 17 (9-20) mg/dL Creatinine 1.00 (0.66-1.25) mg/dL Estimated GFR > 60.0 (>60) mL/min BUN/Creatinine Ratio 17.0 (6-22) Glucose 147 H (80-110) mg/dL Calcium 9.6 (8.4-10.2) mg/dL Total Bilirubin 0.3 (0.2-1.3) mg/dL AST 21 (17-59) IU/L ALT 16 (<50) IU/L Alkaline Phosphatase 53 (38-126) U/L Total Creatine Kinase 61 (55-170) U/L CK-MB (CK-2) TNP CK-MB (CK-2) Rel Index TNP Troponin I < 0.012 (0.01-0.034) ng/mL B-Natriuretic Peptide (<100) Total Protein 6.9 (6.3-8.2) g/dL Albumin 4.3 (3.5-5.0) g/dL Globulin 2.6 (1.7-4.1) g/dL Albumin/Globulin Ratio 1.7 (1.0-2.8) Lipase 336 H (23-300) U/L Influenza A (RT-PCR) (NEGATIVE) Influenza B (RT-PCR) (NEGATIVE) 04/25/19 04/25/19 04/25/19 Range/Units 16:49 17:45 18:53 WBC (4.5-11.0) X10^3/uL RBC (4.5-5.9) X10^6/uL Hgb (13.5-17.5) g/dL Hct (41-53) % MCV (80-100) fL MCH (26-34) PG MCHC (30-36) % RDW (11.6-14.8) % Plt Count (150-400) X10^3/uL Neut % (Auto) (50-75) % Lymph % (Auto) (25-40) % [place] % (Auto) (3-14) % Eos % (Auto) (2-4) % Baso % (Auto) (0-2) % Neut # (Auto) (2365-6767) /uL Lymph # (Auto) (7339-6251) /uL [place] # (Auto) (0-900) /uL Eos # (Auto) (0-450) /uL Baso # (Auto) (0-100) /uL PT (10.1-12.7) SECONDS INR (0.9-1.3) APTT (26.4-36.2) SECONDS Sodium (137-145) mmol/L Potassium (3.4-5.1) mmol/L Chloride (98-107) mmol/L Carbon Dioxide (22-32) mmol/L BUN (9-20) mg/dL Creatinine (0.66-1.25) mg/dL Estimated GFR (>60) mL/min BUN/Creatinine Ratio (6-22) Glucose (80-110) mg/dL Calcium (8.4-10.2) mg/dL Total Bilirubin (0.2-1.3) mg/dL AST (17-59) IU/L ALT (<50) IU/L Alkaline Phosphatase (38-126) U/L Total Creatine Kinase (55-170) U/L CK-MB (CK-2) CK-MB (CK-2) Rel Index Troponin I < 0.012 (0.01-0.034) ng/mL B-Natriuretic Peptide < 100 (<100) Total Protein (6.3-8.2) g/dL Albumin (3.5-5.0) g/dL Globulin (1.7-4.1) g/dL Albumin/Globulin Ratio (1.0-2.8) Lipase (23-300) U/L Influenza A (RT-PCR) Flu a negative (NEGATIVE) Influenza B (RT-PCR) Flu b negative (NEGATIVE) Discharge Plan Departure Patient Disposition: Home Clinical Impression: Atypical chest pain Discharge Date/Time: 04/25/19 20:08 Instructions: DI for Atypical Chest Pain Prescriptions: No Action nitroglycerin [Nitrostat] 0.4 MG tablet, sublingual 0.4 mg Sublingual PRN PRNQty: 25 RF: 3 metoprolol succinate [Toprol XL] 25 mg tablet extended release 24 hr 25 mg PO QDAY Qty: 90 RF: 3 alfuzosin 10 mg tablet extended release 24 hr 10 mg PO QDAY Qty: 90 RF: 3 (DME) Test Strips - Freestyle 0 .Route .MEDSUPPLY Qty: 100 RF: 3 losartan 50 mg tablet 50 mg PO Q DAY Qty: 90 RF: 3 glipizide 5 mg tablet 7.5 mg PO DAILY Qty: 135 RF: 1 metformin [Glucophage] 500 mg tablet 1,000 mg PO BIDCC Qty: 360 RF: 1 Januvia 100 mg tablet 100 mg PO QDAY Qty: 90 RF: 1 atorvastatin [Lipitor] 20 mg tablet 20 mg PO HS Qty: 90 RF: 1 triamcinolone acetonide 0.5 % ointment 1 applictn TOP BID Qty: 15 RF: 2 hydroxyzine HCl 50 mg tablet 50 mg PO Q6H PRN (Reason: itching) Qty: 60 RF: 5 furosemide 40 mg tablet 40 mg PO QAM Qty: 30 RF: 0 Referrals: Trenton Oliveira MD [Primary Care Provider] -
[2019-04-25 17:00] VITALS: BP 136/74; PULSE 72; RESP 18; O2SAT 96
[2019-04-25 17:01] LABS: Add Manual Diff / Slide Review NO; Basophils Absolute Auto 100 /uL (0-100); Eosinophils Absolute Auto 400 /uL (0-450); Hematocrit 35.7 % (41-53); Lymphocytes Absolute Auto 1700 /uL (1100-4500); Lymphocytes Percent Auto 22.5 % (25-40); Mean Corpuscular HGB Conc 33.6 % (30-36); Mean Corpuscular Hemoglobin 29.8 PG (26-34); Mean Corpuscular Volume 88.6 fL (80-100); Monocytes Absolute Auto 800 /uL (0-900); Monocytes Percent Auto 10.5 % (3-14); Neutrophils Absolute Auto 4600 /uL (1500-7000); Platelet Count 210 X10^3/uL (150-400); Red Blood Cell Count 4.03 X10^6/uL (4.5-5.9); Red Cell Distribution Width 16.1 % (11.6-14.8); White Blood Cell Count 7.6 X10^3/uL (4.5-11.0)
[2019-04-25 17:09] LABS: PTT Partial Thromboplastin Tim 27 SECONDS (26.4-36.2)
[2019-04-25 17:11] LABS: Alanine Aminotransferase 16 IU/L (<50); Albumin 4.3 g/dL (3.5-5.0); Albumin Globulin Ratio 1.7 (1.0-2.8); Alkaline Phosphatase 53 U/L (38-126); Aspartate Aminotransferase 21 IU/L (17-59); Bilirubin Total 0.3 mg/dL (0.2-1.3); Blood Urea Nitrogen 17 mg/dL (9-20); Calcium 9.6 mg/dL (8.4-10.2); Carbon Dioxide 27 mmol/L (22-32); Chloride 104 mmol/L (98-107); Creatine Kinase 61 U/L (55-170); Estimated Glomerular Filt Rate > 60.0 mL/min (>60); Globulin 2.6 g/dL (1.7-4.1); Glucose 147 mg/dL (80-110); HEMOLYSIS < 15 (0-50); Lipase 336 U/L (23-300); Potassium 4.3 mmol/L (3.4-5.1); Sodium 140 mmol/L (137-145); Total Protein 6.9 g/dL (6.3-8.2)
[2019-04-25 17:21] LABS: Troponin I < 0.012 ng/mL (0.01-0.034)
[2019-04-25 17:26] LABS: B Type Natriuretic Peptide < 100 (<100)
[2019-04-25 17:30] VITALS: BP 144/69; PULSE 72; RESP 14; O2SAT 96
[2019-04-25 18:00] VITALS: BP 125/57; PULSE 70; RESP 16; O2SAT 97
[2019-04-25 18:21] LABS: Influenza A - CEPHEID Flu A NEGATIVE (NEGATIVE); Influenza B - CEPHEID Flu B NEGATIVE (NEGATIVE)
[2019-04-25 19:09] VITALS: BP 135/62; PULSE 67; RESP 17; O2SAT 96
[2019-04-25 19:24] LABS: Troponin I < 0.012 ng/mL (0.01-0.034)
[2019-04-25 20:06] VITALS: BP 131/44; PULSE 71; RESP 14; O2SAT 95
== END 2019-04-25 20:08 | disposition home or self-care (01) ==
PROVIDERS: Emergency Medicine; Emergency Provider Emergency Medicine; PCP Student in an Organized Health Care Education/Training Program
DX: R07.89 Other chest pain (principal); R53.1 Weakness
CPT/HCPCS: 36415; 71045; 80053; 82550; 83690; 83880; 84484; 85025; 85610; 85730; 87502; 93005; 99284; 99285

== ENCOUNTER → 2019-07-08 06:56 | Outpatient (CLI) | payer MEDICARE, OTHER, SELFPAY ==
[2019-07-08 08:39] LABS: Hemoglobin A1C% w Est Avg Glu 8.5 % (4.0-6.0)
== END ==
PROVIDERS: PCP Student in an Organized Health Care Education/Training Program; Referring Provider Student in an Organized Health Care Education/Training Program; Visit Provider Student in an Organized Health Care Education/Training Program
DX: E11.9 Type 2 diabetes mellitus without complications (principal)
CPT/HCPCS: 36415; 83036

== ENCOUNTER → 2019-09-09 14:39 | Outpatient (CLI) | payer MEDICARE, OTHER, SELFPAY ==
--- NOTE | 2019-09-09 | DI.ECHO.S_ITS ---
[facility] [place] +---------+ [facility] +---------+ : : [address] : : : : [id number] : : : : Phone: [phone]+ Echocardiogram Report + + :Name: PRASHANT FENG Study Date: 09/09/2019 Height: 69 in : :[facility] Weight: 215 lb : : Gender: Male BSA: 2.1 m2 : :: 1935 Age: 84 yrs BP: 150/70 mmHg: :Reason For Study: Thoracic aortic ectasia : :Ordering Physician: Rudi : :Ernesto Aguilar Performed By: Yesika Sibley : :Referring: RUDI OROZCO : + + Interpretation Summary There is mild concentric left ventricular hypertrophy. Left ventricular systolic function is normal without focal wall motion abnormalities. The ejection fraction is estimated to be 55-60%. There is a mild dyssynchronous contraction pattern due to the paced rhythm. Diastolic function could not be accurately assessed due to paced rhythm. The right ventricle is normal in size and function. Pulmonary artery pressures cannot be estimated because of the lack of a measurable TR jet velocity. Both atria are normal in size. There is no significant valvular heart disease. The ascending aorta is mild-moderately enlarged. Procedure: A two-dimensional transthoracic echocardiogram with color flow and Doppler was performed. The study quality was technically adequate. Comparison is made with the echocardiogram of 05/28/2018. The patient was in normal sinus rhythm during the exam. The patient had occasional PVCs during the exam. Segment of bigeminy visualized during exam. Left Ventricle: The left ventricle is normal in size. There is mild concentric left ventricular hypertrophy. Left ventricular systolic function is normal without focal wall motion abnormalities. The ejection fraction is estimated to be 55-60%. There is a mild dyssynchronous contraction pattern due to the paced rhythm. Diastolic function could not be accurately assessed due to paced rhythm. Right Ventricle: The right ventricle is normal in size and function. Atria: Both atria are normal in size. There is no Doppler evidence for an interatrial shunt. Mitral Valve: The mitral valve is normal in structure and function. There is trace mitral regurgitation. Aortic Valve: The aortic valve opens well. There is no aortic valve stenosis. No aortic regurgitation is present. Tricuspid Valve: The tricuspid valve is normal in structure and function. There is a trace or physiologic amount of tricuspid regurgitation. Pulmonary artery pressures cannot be estimated because of the lack of a measurable TR jet velocity. Pulmonic Valve: The pulmonic valve is not well seen, but is grossly normal. There is mild pulmonic regurgitation. There is no significant valvular heart disease. Great Vessels: The aortic root is normal size. The ascending aorta is mild- moderately enlarged. The inferior vena cava was not well visualized. Pericardium/ Pleura There is no pericardial effusion. There is an anterior echo-free space consistent with a fat pad. There is no pleural effusion. MMode/2D Measurements & Calculations LVIDd: 5.3 cm LVOT diam: 2.4 cm LVIDs: 3.7 cm Ao root diam: 4.4 cm FS: 30.6 % asc Aorta Diam: 4.0 cm IVSd: 0.98 cm Ao Arch Diam (Prox Trans): 3.1 cm LVPWd: 1.2 cm LV perdomo. diameter/BSA (cm/m^2): 2.5 LV sys. diameter/BSA (cm/m^2): 1.7 LA A2 area: 22.6 cm2 RA long axis: 5.2 cm LA A4 area: 13.8 cm2 RA area: 15.4 cm2 LA length (vol): 4.6 cm RA vol: 38.9 ml LA vol: 58.0 ml RA : 18.3 ml/m2 LA vol index: 27.2 ml/m2 RVD1 (basal): 3.3 cm TAPSE: 2.0 cm Doppler Measurements & Calculations Ao V2 max: 112.0 cm/sec LVOT Max Romeo: 89.6 cm/sec Ao V2 mean: 73.8 cm/sec LV V1 max P.2 mmHg Ao max P.0 mmHg LV V1 VTI: 21.3 cm Ao mean P.6 mmHg KAMERON(I,D): 3.4 cm2 Ao V2 VTI: 27.3 cm KAMERON(V,D): 3.5 cm2 sev ratio: 0.78 KAMERON indexed to BSA (cm^2/m^2): 1.6 MV E max romeo: 61.4 cm/sec PA V2 max: 89.3 cm/sec MV A max romeo: 112.8 cm/sec PA V2 mean: 57.2 cm/sec MV E/A: 0.54 PA mean P.5 mmHg Med Peak E' Romeo: 4.9 cm/sec E/E' med: 12.4 Lat Peak E' Romeo: 8.5 cm/sec E/E' lat: 7.2 E/e' average: 9.8 MV dec time: 0.40 sec SV(LVOT): 93.1 ml Reading Physician:05:27 PM
== END ==
PROVIDERS: PCP Student in an Organized Health Care Education/Training Program; Referring Provider Internal Medicine Cardiovascular Disease; Visit Provider Internal Medicine Cardiovascular Disease
DX: I37.1 Nonrheumatic pulmonary valve insufficiency (principal); I77.810 Thoracic aortic ectasia
CPT/HCPCS: 93306

== ENCOUNTER → 2019-10-26 08:39 | Outpatient (CLI) | payer MEDICARE, OTHER, SELFPAY ==
[2019-10-26 10:49] LABS: Hemoglobin A1C% w Est Avg Glu 8.5 % (4.0-6.0)
== END ==
PROVIDERS: PCP Student in an Organized Health Care Education/Training Program; Referring Provider Student in an Organized Health Care Education/Training Program; Visit Provider Student in an Organized Health Care Education/Training Program
DX: E11.9 Type 2 diabetes mellitus without complications (principal)
CPT/HCPCS: 36415; 83036

== ENCOUNTER 2019-11-06 14:56 | Inpatient (IN) | payer MEDICARE, OTHER, SELFPAY ==
[2019-11-06] VITALS (10 sets, daily range): BP systolic 147–169; BP diastolic 68–81; PULSE 62–76; RESP 15–36; TEMP 36.3–37.2; O2SAT 94–98; BMI 31.0
[2019-11-06 16:04] LABS: Prothrombin Time 11.2 SECONDS (10.1-12.7)
[2019-11-06 16:06] LABS: Add Manual Diff / Slide Review NO; Basophils Absolute Auto 100 /uL (0-100); Basophils Percent Auto 0.5 % (0-2); Eosinophils Absolute Auto 300 /uL (0-450); Eosinophils Percent Auto 2.9 % (2-4); Hematocrit 39.5 % (41-53); Hemoglobin 13.2 g/dL (13.5-17.5); Lymphocytes Absolute Auto 900 /uL (1100-4500); Lymphocytes Percent Auto 8.6 % (25-40); Mean Corpuscular HGB Conc 33.3 % (30-36); Mean Corpuscular Hemoglobin 29.5 PG (26-34); Mean Corpuscular Volume 88.4 fL (80-100); Monocytes Absolute Auto 800 /uL (0-900); Monocytes Percent Auto 7.4 % (3-14); Neutrophils Absolute Auto 8300 /uL (1500-7000); Neutrophils Percent Auto 80.6 % (50-75); Platelet Count 213 X10^3/uL (150-400); Red Blood Cell Count 4.47 X10^6/uL (4.5-5.9); Red Cell Distribution Width 14.8 % (11.6-14.8); White Blood Cell Count 10.3 X10^3/uL (4.5-11.0)
[2019-11-06 16:07] LABS: PTT Partial Thromboplastin Tim 30 SECONDS (26.4-36.2)
[2019-11-06 16:08] LABS: Alanine Aminotransferase 26 IU/L (<50); Albumin 4.5 g/dL (3.5-5.0); Albumin Globulin Ratio 1.6 (1.0-2.8); Alkaline Phosphatase 69 U/L (38-126); Aspartate Aminotransferase 27 IU/L (17-59); BUN Creatinine Ratio 16.8 (6-22); Bilirubin Total 0.6 mg/dL (0.2-1.3); Blood Urea Nitrogen 17 mg/dL (9-20); Calcium 10.1 mg/dL (8.4-10.2); Carbon Dioxide 26 mmol/L (22-32); Chloride 101 mmol/L (98-107); Estimated Glomerular Filt Rate > 60.0 mL/min (>60); Globulin 2.8 g/dL (1.7-4.1); Glucose 220 mg/dL (80-110); HEMOLYSIS < 15 (0-50); Lipase 111 U/L (23-300); Potassium 4.6 mmol/L (3.4-5.1); Sodium 136 mmol/L (137-145); Total Protein 7.3 g/dL (6.3-8.2)
--- NOTE | 2019-11-06 16:42 | ED_ITS ---
HPI - Abdominal Pain General Chief Complaint: Abdominal Pain Stated Complaint: stomach pains and weakness Time Seen by Provider: 11/06/19 16:16 Source: patient Mode of arrival: Family Vehicle Limitations: no limitations History of Present Illness HPI narrative: An 84-year-old male with history of AAA repair and diabetes presenting with lower abdominal pain. He said he has had some cramping for the last few days however this morning it was quite intense. He has had some nausea but no vomiting or change in bowel habits. He does feel like his abdomen is a little bit more distended and hard in some places. He denies any fever, chest pain or shortness of breath MD complaint: abdominal pain Onset (ago): day(s) Pain Consistency: constant Location: diffuse Quality: cramping Radiation: none Migration to: no migration Relieving factors: nothing Exacerbating factors: nothing Related Data Previous Rx's Medication Instructions Recorded nitroglycerin [Nitrostat] 0.4 mg SUBLINGUAL PRN PRN #25 tab 08/06/16 alfuzosin 10 mg tablet,extended 10 mg PO QDAY #90 tab 08/29/18 release 24 hr Test Strips - Freestyle #100 each 09/01/18 triamcinolone acetonide 0.5 % 1 applictn TOP BID #15 gram 11/14/18 topical ointment furosemide 40 mg tablet 40 mg PO QAM #30 tab 02/06/19 hydroxyzine HCl 50 mg tablet 50 mg PO Q6H PRN #60 tab 02/06/19 metoprolol succinate 25 mg 25 mg PO QDAY #90 ter 06/02/19 tablet,extended release 24 hr sitagliptin 100 mg tablet 100 mg PO QDAY #90 tab 07/07/19 metformin 500 mg tablet 1,000 mg PO BIDCC #360 tab 07/14/19 atorvastatin 20 mg tablet 20 mg PO HS #90 tab 07/20/19 losartan 50 mg tablet 50 mg PO Q DAY #90 tab 09/02/19 glipizide 10 mg tablet, extended 10 mg PO BID #180 tab 10/27/19 release 24 hr Allergies Allergy/AdvReac Type Severity Reaction Status Date / Time No Known Drug Allergies Allergy Verified 11/06/19 15:38 Review of Systems Review of Systems Narrative: GENERAL: Denies chills, fatigue, malaise, fever, sweats, travel HEENT: Denies sinus pain, ear pain, sore throat, difficulty swallowing, neck pain RESPIRATORY: Denies dyspnea, cough, wheezing, hemoptysis, sputum. CARDIOVASCULAR: Denies chest pain, palpitations, orthopnea, edema GASTROINTESTINAL: See HPI : Denies dysuria, frequency, incontinence, hematuria, urinary retention, flank pain. MUSCULOSKELETAL: Denies weakness, joint pain, or bony pain SKIN: No rash, no erythema, no pruritus NEUROLOGIC: Denies weakness, dizziness, headache, numbness, change in speech, confusion PSYCHIATRIC: No concerning psychosocial issues. 12 point review of systems is negative except for those stated above and HPI Patient History Medical History Abdominal aortic aneurysm (AAA) without rupture (Chronic 07/26/15) Benign non-nodular prostatic hyperplasia without lower urinary tract symptoms (Chronic 04/26/15) BPH (benign prostatic hyperplasia) (Chronic) Diabetes (Chronic) Essential hypertension (Chronic 04/26/15) 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) HTN (hypertension) (Chronic) EMILEE (obstructive sleep apnea) (Chronic) Pre-ulcerative corn or callous (Chronic 01/06/16) Pulmonary nodule, left (Chronic) Pure hypercholesterolemia (Chronic 11/09/16) Type 2 diabetes mellitus without complication (Chronic 04/26/15) Surgical History S/P aneurysm repair (Resolved) Status post epigastric hernia repair, follow-up exam (Resolved) Family History Father Heart disease Mother Cancer Social History marital status: household members: spouse lives independently: Yes Smoking Status: Former smoker alcohol intake: never substance use type: does not use Smoking Status: Former smoker alcohol intake frequency: 0-2 drinks per day Substance Use Type: does not use Exam Initial Vital Signs Initial Vital Signs: Vital Signs Temperature 97.3 F L 11/06/19 15:34 Pulse Rate 70 11/06/19 15:34 Respiratory Rate 19 11/06/19 15:34 Blood Pressure 152/71 H 11/06/19 15:34 Pulse Oximetry 96 11/06/19 15:34 GENERAL: Alert pleasant well-appearing elderly male and in no acute distress. HEENT: Head atraumatic,EOMI, pupils reactive, face symmetric, moist mucous membranes CARDIOVASCULAR: Regular rate and rhythm without murmurs, rubs or gallops. RESPIRATORY: Breath sounds equal bilaterally, no wheezes rales or rhonchi. ABDOMEN: Soft, slightly distended large scar noted sternum to pelvis, increased bowel sounds, mild tenderness no guarding no rebound EXTREMITIES: Normal range of motion, no clubbing or edema. Neurovascularly intact NEUROLOGICAL: Alert and oriented x4.Normal gait and speech. Cranial nerves II through XII grossly intact. SKIN: Warm, dry, no laceration, no petechiae, no rashes or lesions. Course Orders Ordered: ED Orders 11/06/19 15:39 EKG-12 Lead Stat 11/06/19 15:49 Complete Blood Count AUTO DIFF Stat Comprehensive Metabolic Panel Stat Lipase Stat Partial Thromboplastin Time Stat Prothrombin Time INR Stat 11/06/19 16:56 CT abdomen pelvis w con Stat Discontinued Medications Ondansetron HCl (Zofran) 4 mg IV NOW ONE Stop: 11/06/19 16:57 Last Admin: 11/06/19 17:34 Dose: 4 mg Documented by: RODGER Vital Signs Vital signs: Vital Signs - 8 hr 11/06/19 15:34 11/06/19 17:25 11/06/19 17:26 Temperature 97.3 F L Pulse Rate 70 67 65 Respiratory Rate 19 Blood Pressure 152/71 H 154/68 H Pulse Oximetry 96 98 96 MDM - Abdominal Pain Lab Data Attestation: I reviewed the patient's lab results. Result diagrams: 11/06/19 15:49 11/06/19 15:49 Labs: Lab Results 11/06/19 11/06/19 11/06/19 Range/Units 15:49 15:49 15:49 WBC 10.3 (4.5-11.0) X10^3/uL RBC 4.47 L (4.5-5.9) X10^6/uL Hgb 13.2 L (13.5-17.5) g/dL Hct 39.5 L (41-53) % MCV 88.4 (80-100) fL MCH 29.5 (26-34) PG MCHC 33.3 (30-36) % RDW 14.8 (11.6-14.8) % Plt Count 213 (150-400) X10^3/uL Neut % (Auto) 80.6 H (50-75) % Lymph % (Auto) 8.6 L (25-40) % [place] % (Auto) 7.4 (3-14) % Eos % (Auto) 2.9 (2-4) % Baso % (Auto) 0.5 (0-2) % Neut # (Auto) 8300 H (4480-7674) /uL Lymph # (Auto) 900 L (3099-7571) /uL [place] # (Auto) 800 (0-900) /uL Eos # (Auto) 300 (0-450) /uL Baso # (Auto) 100 (0-100) /uL PT 11.2 (10.1-12.7) SECONDS INR 1.0 (0.9-1.3) APTT 30 D (26.4-36.2) SECONDS Sodium 136 L (137-145) mmol/L Potassium 4.6 (3.4-5.1) mmol/L Chloride 101 (98-107) mmol/L Carbon Dioxide 26 (22-32) mmol/L BUN 17 (9-20) mg/dL Creatinine 1.01 (0.66-1.25) mg/dL Estimated GFR > 60.0 (>60) mL/min BUN/Creatinine Ratio 16.8 (6-22) Glucose 220 H (80-110) mg/dL Calcium 10.1 (8.4-10.2) mg/dL Total Bilirubin 0.6 (0.2-1.3) mg/dL AST 27 (17-59) IU/L ALT 26 (<50) IU/L Alkaline Phosphatase 69 (38-126) U/L Total Protein 7.3 (6.3-8.2) g/dL Albumin 4.5 (3.5-5.0) g/dL Globulin 2.8 (1.7-4.1) g/dL Albumin/Globulin Ratio 1.6 (1.0-2.8) Lipase 111 (23-300) U/L Imaging Data CT scan - abdomen/pelvis: Radiologist's Impression: PROCEDURE: CT ABDOMEN PELVIS W CON INDICATIONS: ab pain and nausea hx AAA TECHNIQUE: After the administration of intravenous contrast, 5 mm thick sections acquired from the diaphragm to the symphysis. 5 mm coronal and sagittal reformats were acquired. For radiation dose reduction, the following was used: automated exposure control, a djustment of mA and/or kV according to patient size. COMPARISON: [facility], CT, CT ABDOMEN PELVIS W CON, 11/07/2017, 8:35. FINDINGS: Image quality: Excellent. ABDOMEN: Lung bases: Lung bases are clear. Heart size is normal. Coronary artery calcifications. Solid organs: Liver is normal in size and enhancement. Gallbladder is contracted and contains multiple stones. No gallbladder wall thickening.. Biliary system is non dilated. Pancreas enhances normally. Spleen is normal in size and enhancement. No adrenal nodules. Kidneys demonstrate normal size and enhancement, without hydronephrosis. Peritoneum and bowel: Moderate gastric distention. Dilated jejunum measuring up to 4.3 cm. Small bowel obstruction. Ileal loops are normal in caliber. No free fluid or air. Sigmoid diverticulosis without evidence of diverticulitis. Nodes and vessels: No retroperitoneal or mesenteric adenopathy by size criteria. Small infrarenal abdominal aortic aneurysm, measuring 3.3 cm. Miscellaneous: No ventral hernias. PELVIS: Genitourinary: Bladder wall thickness is normal. Miscellaneous: No inguinal hernias or adenopathy. Bones: No suspicious bony lesions. No vertebral body compression fractures. IMPRESSION: 1. Proximal small bowel obstruction. 2. Cholelithiasis. 3. Coronary artery disease. 4. Small infrarenal abdominal aortic aneurysm. Dictated by: Goyo Wheat M.D. on 11/06/2019 at 17:56 Approved by: Goyo Wheat M.D. on 11/06/2019 at 18:00 ECG Data Attestation: I personally reviewed and interpreted this ECG as follows: Prior ECG tracings: available for review Interpretation: Low voltage sinus rhythm rate 65 p.r. interval 192 QTC [address] changes MDM Narrative Medical decision making narrative: The patient does not want anything for pain or nausea. He is found to have a small-bowel obstruction on CT. Patient is hemodynamically stable and overall appears well. Dr. Huerta, surgery notified of results recommends NG tube and observation. Discharge Plan Departure Patient Disposition: Admitted as Observation Clinical Impression: Complete small bowel obstruction Admit Date/Time: 11/06/19 18:26 Admit Provider: Jen Huerta
--- NOTE | 2019-11-06 16:56 | DI.CT.S_ITS ---
PROCEDURE: CT ABDOMEN PELVIS W CON INDICATIONS: ab pain and nausea hx AAA TECHNIQUE: After the administration of intravenous contrast, 5 mm thick sections acquired from the diaphragm to the symphysis. 5 mm coronal and sagittal reformats were acquired. For radiation dose reduction, the following was used: automated exposure control, adjustment of mA and/or kV according to patient size. COMPARISON: [facility], CT, CT ABDOMEN PELVIS W CON, 11/07/2017, 8:35. FINDINGS: Image quality: Excellent. ABDOMEN: Lung bases: Lung bases are clear. Heart size is normal. Coronary artery calcifications. Solid organs: Liver is normal in size and enhancement. Gallbladder is contracted and contains multiple stones. No gallbladder wall thickening.. Biliary system is non dilated. Pancreas enhances normally. Spleen is normal in size and enhancement. No adrenal nodules. Kidneys demonstrate normal size and enhancement, without hydronephrosis. Peritoneum and bowel: Moderate gastric distention. Dilated jejunum measuring up to 4.3 cm. Small bowel obstruction. Ileal loops are normal in caliber. No free fluid or air. Sigmoid diverticulosis without evidence of diverticulitis. Nodes and vessels: No retroperitoneal or mesenteric adenopathy by size criteria. Small infrarenal abdominal aortic aneurysm, measuring 3.3 cm. Miscellaneous: No ventral hernias. PELVIS: Genitourinary: Bladder wall thickness is normal. Miscellaneous: No inguinal hernias or adenopathy. Bones: No suspicious bony lesions. No vertebral body compression fractures. IMPRESSION: 1. Proximal small bowel obstruction. 2. Cholelithiasis. 3. Coronary artery disease. 4. Small infrarenal abdominal aortic aneurysm. Dictated by: Goyo Wheat M.D. on 11/06/2019 at 17:56 Approved by: Goyo Wheat M.D. on 11/06/2019 at 18:00
[2019-11-06] MEDS: ONDANSETRON 4 MG/2 ML INJ IV (17:34)
--- NOTE | 2019-11-06 19:31 | PM.HP.1 ---
History of Present Illness History of Present Illness Date Patient Seen: 11/06/19 Time Patient Seen: 19:31 Chief complaint: stomach pains and weakness Narrative: This is an 84-year-old man with history of AAA repair, laparoscopic ventral hernia repair with intraperitoneal mesh, HTN, and diabetes. He came intot he ER today complaining of several days of lower abdominal pain and cramping. He has had nausea but no vomiting. He passes some gas and stool today. He feels he is markedly distended, although better since NGT was placed in the ER. CT scan in the ER was consistent with SBO. His last colonoscopy was over ten years ago. ROS: GENERAL: Denies chills, fatigue, malaise, fever, sweats, travel HEENT: Denies sinus pain, ear pain, sore throat, difficulty swallowing, neck pain RESPIRATORY: Denies dyspnea, cough, wheezing, hemoptysis, sputum. CARDIOVASCULAR: Denies chest pain, palpitations, orthopnea, edema GASTROINTESTINAL: See HPI : Denies dysuria, frequency, incontinence, hematuria, urinary retention, flank pain. MUSCULOSKELETAL: Denies weakness, joint pain, or bony pain SKIN: No rash, no erythema, no pruritus NEUROLOGIC: Denies weakness, dizziness, headache, numbness, change in speech, confusion PSYCHIATRIC: No concerning psychosocial issues. Thirteen system review is otherwise negative other than as mentioned below and in HPI. PE: GENERAL: Alert, comfortable. Appears stated age. Answers questions promptly and appropriately. Vital signs noted. HENT: Normocephalic, atraumatic. Hearing intact. Oral mucosa is pink and moist. NGT in place with thick quintana/bilious output EYES: Conjunctiva pink, sclera white, no periorbital swelling. CARDIOVASCULAR: Regular rate. No pedal edema. RESPIRATORY: Non-tachypneic, breathing comfortably on room air. GASTROINTESTINAL: Abdomen tense, distended, nontender, well healed midline incisional scar GENITALURINARY: No flank tenderness. MUSCULOSKELETAL: Equal tone and mass bilaterally. SKIN: Warm, dry, soft, appropriate color for ethnicity. No other lesions, rashes, or wounds. NEURO: Alert and Oriented X 3. No gross sensory deficits, or cognitive issues. PSYCH: Appropriate affect and mood. Patient History Medical History Abdominal aortic aneurysm (AAA) without rupture (Chronic 04/05/16) Benign non-nodular prostatic hyperplasia without lower urinary tract symptoms (Chronic 04/26/15) BPH (benign prostatic hyperplasia) (Chronic) Diabetes (Chronic) Essential hypertension (Chronic 04/26/15) 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) HTN (hypertension) (Chronic) EMILEE (obstructive sleep apnea) (Chronic) Pre-ulcerative corn or callous (Chronic 01/06/16) Pulmonary nodule, left (Chronic) Pure hypercholesterolemia (Chronic 11/09/16) Type 2 diabetes mellitus without complication (Chronic 04/26/15) Surgical History S/P aneurysm repair (Resolved) Status post epigastric hernia repair, follow-up exam (Resolved) Family & Social History Family History Father Heart disease Mother Cancer Social History: household members spouse lives independently Yes Safety & Behavioral: Feels Safe in Current Yes Environment Been Physically Hurt or No Threatened By a Person Tobacco & Substance use: Smoking Status Former smoker alcohol intake never alcohol intake frequency 0-2 drinks per day Substance Use Type does not use Meds Home Medications and Allergies Home Medications Medication Instructions Recorded Confirmed Type nitroglycerin [Nitrostat] 0.4 mg SUBLINGUAL PRN PRN #25 tab 08/06/16 07/14/19 Rx alfuzosin 10 mg tablet,extended 10 mg PO QDAY #90 tab 08/29/18 07/14/19 Rx release 24 hr Test Strips - Freestyle #100 each 09/01/18 07/14/19 Rx triamcinolone acetonide 0.5 % 1 applictn TOP BID #15 gram 11/14/18 07/14/19 Rx topical ointment furosemide 40 mg tablet 40 mg PO QAM #30 tab 02/06/19 07/14/19 Rx hydroxyzine HCl 50 mg tablet 50 mg PO Q6H PRN #60 tab 02/06/19 07/14/19 Rx metoprolol succinate 25 mg 25 mg PO QDAY #90 ter 06/02/19 07/14/19 Rx tablet,extended release 24 hr sitagliptin 100 mg tablet 100 mg PO QDAY #90 tab 07/07/19 07/14/19 Rx metformin 500 mg tablet 1,000 mg PO BIDCC #360 tab 07/14/19 07/14/19 Rx atorvastatin 20 mg tablet 20 mg PO HS #90 tab 07/20/19 Rx losartan 50 mg tablet 50 mg PO Q DAY #90 tab 09/02/19 Rx glipizide 10 mg tablet, extended 10 mg PO BID #180 tab 10/27/19 Rx release 24 hr Allergies Allergy/AdvReac Type Severity Reaction Status Date / Time No Known Drug Allergies Allergy Verified 11/06/19 15:38 Exam Vital Signs (past 8 hours): - 11/06/19 15:34 11/06/19 17:25 11/06/19 17:26 Temperature 97.3 F L Pulse Rate 70 67 65 Respiratory Rate 19 Blood Pressure 152/71 H 154/68 H Pulse Oximetry 96 98 96 11/06/19 17:30 11/06/19 18:00 11/06/19 18:01 Temperature Pulse Rate 62 67 69 Respiratory Rate 15 25 H 32 H Blood Pressure 169/77 H 151/70 H Pulse Oximetry 97 94 94 11/06/19 18:30 11/06/19 18:31 11/06/19 19:00 Temperature Pulse Rate 69 67 76 Respiratory Rate 24 18 36 H Blood Pressure 168/72 H 147/76 H Pulse Oximetry 96 96 94 Oxygen Delivery Method Room Air Objective Imaging CT scan - abdomen: My impression: SBO; large ventral mesh intraperitoneal position with tacks Radiologist's impression: [place] [address] CT Scan Report Signed Patient: Lv Langley R#: [id number] : [id number] Age/Sex: 84 / MDate of Service: 11/06/19 Loc: ED Accession Number: [id number] Procedure: CT abdomen pelvis w con Ordering Provider: Latisha Quan D.O. PROCEDURE: CT ABDOMEN PELVIS W CON INDICATIONS: ab pain and nausea hx AAA TECHNIQUE: After the administration of intravenous contrast, 5 mm thick sections acquired from the diaphragm to the symphysis. 5 mm coronal and sagittal reformats were acquired. For radiation dose reduction, the following was used: automated exposure control, adjustment of mA and/or kV according to patient size. COMPARISON: [facility], CT, CT ABDOMEN PELVIS W CON, 11/07/2017, 8:35. FINDINGS: Image quality: Excellent. ABDOMEN: Lung bases: Lung bases are clear. Heart size is normal. Coronary artery calcifications. Solid organs: Liver is normal in size and enhancement. Gallbladder is contracted and contains multiple stones. No gallbladder wall thickening.. Biliary system is non dilated. Pancreas enhances normally. Spleen is normal in size and enhancement. No adrenal nodules. Kidneys demonstrate normal size and enhancement, without hydronephrosis. Peritoneum and bowel: Moderate gastric distention. Dilated jejunum measuring up to 4.3 cm. Small bowel obstruction. Ileal loops are normal in caliber. No free fluid or air. Sigmoid diverticulosis without evidence of diverticulitis. Nodes and vessels: No retroperitoneal or mesenteric adenopathy by size criteria. Small infrarenal abdominal aortic aneurysm, measuring 3.3 cm. Miscellaneous: No ventral hernias. PELVIS: Genitourinary: Bladder wall thickness is normal. Miscellaneous: No inguinal hernias or adenopathy. Bones: No suspicious bony lesions. No vertebral body compression fractures. IMPRESSION: 1. Proximal small bowel obstruction. 2. Cholelithiasis. 3. Coronary artery disease. 4. Small infrarenal abdominal aortic aneurysm. Dictated by: Goyo Wheat M.D. on 11/06/2019 at 17:56 Approved by: Goyo Wheat M.D. on 11/06/2019 at 18:00 Labs Result Diagrams: 11/06/19 15:49 11/06/19 15:49 Labs: Laboratory Results - last 24 hr 11/06/19 11/06/19 11/06/19 15:49 15:49 15:49 WBC 10.3 RBC 4.47 L Hgb 13.2 L Hct 39.5 L MCV 88.4 MCH 29.5 MCHC 33.3 RDW 14.8 Plt Count 213 Neut % (Auto) 80.6 H Lymph % (Auto) 8.6 L [place] % (Auto) 7.4 Eos % (Auto) 2.9 Baso % (Auto) 0.5 Neut # (Auto) 8300 H Lymph # (Auto) 900 L [place] # (Auto) 800 Eos # (Auto) 300 Baso # (Auto) 100 PT 11.2 INR 1.0 APTT 30 D Sodium 136 L Potassium 4.6 Chloride 101 Carbon Dioxide 26 BUN 17 Creatinine 1.01 Estimated GFR > 60.0 BUN/Creatinine Ratio 16.8 Glucose 220 H Calcium 10.1 Total Bilirubin 0.6 AST 27 ALT 26 Alkaline Phosphatase 69 Total Protein 7.3 Albumin 4.5 Globulin 2.8 Albumin/Globulin Ratio 1.6 Lipase 111 Assessment & Plan Assessment and plan (1) SBO (small bowel obstruction): Status: Acute (2) Obesity (BMI 30.0-34.9): Status: Acute (3) Type 2 diabetes mellitus without complication: Qualifiers: 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 I discussed with the patient the plan for management which includes NG tube, ambulation, correct electrolytes, and IV fluid hydration. Once the NG tube output slows down, we will attempt a diagnostic and therapeutic small-bowel follow-through study. Right now he has copious output from the NG tube in so we will likely delay this study until at least tomorrow. Given his history of hypertension and diabetes, we will attempt medical management of this through IV medications. We will consider hospitalist consult if assistance is needed. Plan: NG tube, NPO, IV fluids, ambulation, correct electrolytes, small-bowel follow-through possibly tomorrow DVT prophylaxis GI prophylaxis Home meds or similar COVID-19 test COVID-19 COVID-19 status: Result pending Time Spent With Patient Time with patient: Greater than 35 minutes Quality VTE Deep Vein Thrombosis/Pulmonary Embolism Present on Admission: No
[2019-11-06 19:51] LABS: COVID19 -Nasal RAPID Negative (Negative)
--- NOTE | 2019-11-06 19:59 | PC.NURSE ---
Addendum entered by Dennise Buckley R.N. 11/06/19 23:33: Resting quietly in bed with eyes closed. No concerns or complaints verbalized. No retching or c/o pain. Abdomen remains large and distended. Pt admits to passing flatus. NG to LIS continues to draw light brown colored fluid. Addendum entered by Dennise Buckley R.N. 11/06/19 20:27: Pt was informed pharmacy does not stock alfuzosin as per [facility] pharmacist and pt will need to provide. Tele placed on pt to administer iv metoprolol. Addendum entered by Dennise Buckley R.N. 11/06/19 20:26: Phone call to clarify iv fluid orders with Dr. Huerta. Verbal order pt may have ice chips/sips with po meds. Original Note: Pt to room 206 from E.R. awake, alert, conversant and ambulatory. Toilets self in bathroom. Denies abdominal pain. NG connected to LIS with brown liquid freely flowing. Bowel tones are present prior to connecting pt to suction at wall. Abdomen is firm and distended. Admits to slight nausea and gags periodically. Noted was medicated in E.R. for nausea and will continue to monitor. NPO. Head of bed elevated. Bed alarm set and call light available with instruction provided to pt.
[2019-11-06] MEDS: METOPROLOL TARTRATE 5 MG/5 ML INJ IV (20:37)
[2019-11-06] MEDS: SODIUM CHLORIDE 0.9% 1,000 ML 100 ML IV (20:42)
[2019-11-06] MEDS: PANTOPRAZOLE 40 MG VIAL 20 MG IV (21:36)
[2019-11-07] VITALS (7 sets, daily range): BP systolic 118–140; BP diastolic 62–94; PULSE 74–89; RESP 17–20; TEMP 35.3–37.1; O2SAT 92–95
[2019-11-07] MEDS: MORPHINE 2 MG/ML INJ IV (01:55)
[2019-11-07] MEDS: METOPROLOL TARTRATE 5 MG/5 ML INJ IV ×4 (02:10→20:00)
[2019-11-07] MEDS: ONDANSETRON 4 MG/2 ML INJ IV ×3 (02:27→11:45)
--- NOTE | 2019-11-07 03:29 | PC.NURSE ---
Pt sleeping now after medicated with 2 mg. of Morphine for abdominal pain. 4 mg. of Zofran IVP C/O nausea, no emesis noted NGT draining approximately 300 cc of brown drainage. Will cont. POC & monitor.
[2019-11-07 06:03] LABS: Add Manual Diff / Slide Review NO; Basophils Absolute Auto 100 /uL (0-100); Basophils Percent Auto 0.5 % (0-2); Eosinophils Absolute Auto 0 /uL (0-450); Eosinophils Percent Auto 0.2 % (2-4); Hematocrit 40.8 % (41-53); Hemoglobin 13.1 g/dL (13.5-17.5); Lymphocytes Absolute Auto 300 /uL (1100-4500); Lymphocytes Percent Auto 2.6 % (25-40); Mean Corpuscular HGB Conc 32.2 % (30-36); Mean Corpuscular Hemoglobin 28.7 PG (26-34); Mean Corpuscular Volume 89.2 fL (80-100); Monocytes Absolute Auto 700 /uL (0-900); Monocytes Percent Auto 6.5 % (3-14); Neutrophils Absolute Auto 9900 /uL (1500-7000); Neutrophils Percent Auto 90.2 % (50-75); Platelet Count 216 X10^3/uL (150-400); Red Blood Cell Count 4.57 X10^6/uL (4.5-5.9); Red Cell Distribution Width 15.4 % (11.6-14.8)
[2019-11-07 06:12] LABS: BUN Creatinine Ratio 17.3 (6-22); Blood Urea Nitrogen 18 mg/dL (9-20); Calcium 9.3 mg/dL (8.4-10.2); Carbon Dioxide 25 mmol/L (22-32); Chloride 101 mmol/L (98-107); Estimated Glomerular Filt Rate > 60.0 mL/min (>60); Glucose 246 mg/dL (80-110); HEMOLYSIS 15 (0-50); Potassium 4.6 mmol/L (3.4-5.1); Sodium 136 mmol/L (137-145)
[2019-11-07 06:24] LABS: Magnesium 1.7 mg/dL (1.6-2.3)
[2019-11-07] MEDS: SODIUM CHLORIDE 0.9% 1,000 ML 100 ML IV ×2 (07:35→19:59)
[2019-11-07] MEDS: ENOXAPARIN 40 MG/0.4 ML SYRINGE SUBCUT (08:20)
[2019-11-07] MEDS: PANTOPRAZOLE 40 MG VIAL 20 MG IV ×2 (08:36→20:50)
[2019-11-07] MEDS: INSULIN ASPART 100 UNIT/ML INSULN PEN SUBCUT ×2 (08:43→17:42)
[2019-11-07] MEDS: FUROSEMIDE 20 MG/2 ML VIAL IV (08:54)
[2019-11-07] MEDS: MAGNESIUM SULFATE 2 GM/50 ML PIGGYBACK IV (10:07)
--- NOTE | 2019-11-07 10:17 | CM.DANOTE ---
DCP: Case received, EMR reviewed and met with patient. Introduced self and role. Was able to meet with patient in his room and obtain some information regarding his baseline activity level prior to hospitalization, and living situation. DCP assessment completed with information currently available. Patient is an 84 year old male who admitted yesterday afternoon to the care of the hospitalist team. PCP: Dr. Oliveira. Payer: confirmed: Medicare/[employer]. Patient came to the hospital via private vehicle secondary to abdominal pain and cramping. Patient holds current diagnosis of proximal small bowel obstruction. He currently has an NG tube. Patient also has history of aortic aneurism. Met with patient in his room. He is alert and oriented, and was laying in bed. According to nursing note, patient has been ambulating in room to the bathroom with no barriers. He is independent at baseline, drives. He mentioned that he lives with his who has dementia, but indicated that her children are caring for her while he is here in the hospital. P:DCP to continue to follow for any needs. Patient should be able to go home when he is medically stable. Ale Gandhi RN/Systems Planner
--- NOTE | 2019-11-07 10:33 | DI.RAD.S_ITS ---
PROCEDURE: FL SMALL BOWEL FOLLOW THROUGH INDICATIONS: small bowel obstruction, use Gastrografin, timed films COMPARISON: [facility], CT, CT ABDOMEN PELVIS W CON, 11/06/2019, 17:08. FINDINGS: KUB: No suspicious abdominal calcifications. Visualized solid organ contours appear normal. No suspicious bony abnormalities. Herniorrhaphy sutures are present at midline. Small bowel: At 2 hours after oral Gastrografin administration, the patient had a large loose bowel movement. The study was terminated at that time. Prior to this bowel movement, contrast is visualized throughout the small bowel which appears moderately dilated throughout its course. No mucosal thickening. Oral contrast is visualized within the ascending colon and likely within the proximal portion of the transverse colon. No definite contrast visualized within the descending colon or sigmoid colon. IMPRESSION: 1. Early termination of the Gastrografin challenge secondary to large bowel movement at 2 hours. Of note, the small bowel appears dilated throughout its course without mucosal thickening. In the setting of a recent bowel movement, findings suggest partial bowel obstruction or ileus. Dictated by: Heather Rivera M.D. on 11/07/2019 at 15:40 Approved by: Heather Rivera M.D. on 11/07/2019 at 15:44
--- NOTE | 2019-11-07 10:58 | PM.PN.1 ---
Subjective Subjective Date Patient Seen: 11/07/19 Time Patient Seen: 10:58 Interval history: No acute overnight events. Nasogastric tube continues to have high volume bilious output. Maybe flatus, no bowel movement Exam Vital Signs (past 8 hours): - 11/07/19 04:21 11/07/19 08:00 Temperature 97.9 F 95.6 F L Pulse Rate 78 87 Respiratory Rate 20 18 Blood Pressure 138/62 139/77 Pulse Oximetry 94 93 Oxygen Delivery Method Room Air Oxygen Flow Rate 0 Narrative Exam Narrative: General adult male alert oriented no acute distress Abdomen distended minimally tender to palpation Extremities warm well perfused Objective Labs Result Diagrams: 11/07/19 05:40 11/07/19 05:40 Labs: Laboratory Results - last 24 hr 11/06/19 11/06/19 11/06/19 15:49 15:49 15:49 WBC 10.3 RBC 4.47 L Hgb 13.2 L Hct 39.5 L MCV 88.4 MCH 29.5 MCHC 33.3 RDW 14.8 Plt Count 213 Neut % (Auto) 80.6 H Lymph % (Auto) 8.6 L [place] % (Auto) 7.4 Eos % (Auto) 2.9 Baso % (Auto) 0.5 Neut # (Auto) 8300 H Lymph # (Auto) 900 L [place] # (Auto) 800 Eos # (Auto) 300 Baso # (Auto) 100 PT 11.2 INR 1.0 APTT 30 D Sodium 136 L Potassium 4.6 Chloride 101 Carbon Dioxide 26 BUN 17 Creatinine 1.01 Estimated GFR > 60.0 BUN/Creatinine Ratio 16.8 Glucose 220 H Calcium 10.1 Magnesium Total Bilirubin 0.6 AST 27 ALT 26 Alkaline Phosphatase 69 Total Protein 7.3 Albumin 4.5 Globulin 2.8 Albumin/Globulin Ratio 1.6 Lipase 111 COVID-19 PCR 11/06/19 11/07/19 11/07/19 18:54 05:40 05:40 WBC 11.0 RBC 4.57 Hgb 13.1 L Hct 40.8 L MCV 89.2 MCH 28.7 MCHC 32.2 RDW 15.4 H Plt Count 216 Neut % (Auto) 90.2 H Lymph % (Auto) 2.6 L [place] % (Auto) 6.5 Eos % (Auto) 0.2 L Baso % (Auto) 0.5 Neut # (Auto) 9900 H Lymph # (Auto) 300 L [place] # (Auto) 700 Eos # (Auto) 0 Baso # (Auto) 100 PT INR APTT Sodium 136 L Potassium 4.6 Chloride 101 Carbon Dioxide 25 BUN 18 Creatinine 1.04 Estimated GFR > 60.0 BUN/Creatinine Ratio 17.3 Glucose 246 H Calcium 9.3 Magnesium 1.7 Total Bilirubin AST ALT Alkaline Phosphatase Total Protein Albumin Globulin Albumin/Globulin Ratio Lipase COVID-19 PCR Negative Assessment & Plan Assessment & Plan narrative: 84-year-old man with previous abdominal surgery here with a small-bowel obstruction. He has a nasogastric tube in place with high volume output. No indication for surgical intervention at this time, no peritonitis no leukocytosis. Will perform a small-bowel follow-through today. -sliding scale insulin for diabetes -SCDs and Lovenox for VT prophylaxis Quality VTE Deep Vein Thrombosis/Pulmonary Embolism Present on Admission: No
[2019-11-07 12:29] LABS: Bacteria Urine None Seen; RBC Urine None Seen (0-5/HPF); WBC Urine None Seen (0-5/HPF)
[2019-11-07 12:30] LABS: Appearance Urine UA CLEAR; Bilirubin Urine UA NEGATIVE (NEGATIVE); Color Urine UA YELLOW; Glucose Urine UA TRACE g/dL (Negative); Ketones Urine UA NEGATIVE (NEGATIVE); Leukocyte Esterase Urine UA NEGATIVE (NEGATIVE); Nitrite Urine UA NEGATIVE (Negative); Occult Blood Urine UA TRACE-LYSED (Negative); Protein Urine UA NEGATIVE (Negative); Urobilinogen Urine UA 0.2 E.U./dL (0.2)
[2019-11-07 12:40] LABS: Culture Indicated Urine Cult Not Indicated
--- NOTE | 2019-11-07 15:39 | PC.NURSE ---
Addendum entered by Dennise Buckley R.N. 11/07/19 17:46: Blood sugar rechecked for 89. Multiple staff members assist pt to stand and pt is able to assist with standing and pivot transfer to bed. Easily tearful. Explained to pt what is happening and pt verbalizes agreement and understanding. To CT scanner and pt is awake throughout. Appropriate conversation. Scan completed and pt returned to room 208 for more careful observation. Holding prandial insulin until pt consumes some of evening meal. Dr. Guerra aware warfarin not yet given pending CT scan. Original Note: Pt awake and alert resting quietly in bed. Head of bed is elevated. NG to LIS with light green fluid in tubing. Injected air into blue NG pigtail to clear of gastric secretions and filter replaced. Watery brown stool emptied from commode. Pt admits to abdominal soreness, but denies pain and refuses analgesia. Denies nausea. Occasional moist cough and pt reports sputum is white in color. Sips and chips sparingly and this was reinforced to pt.
--- NOTE | 2019-11-07 17:52 | PC.NURSE ---
Addendum entered by Dennise Buckley R.N. 11/07/19 22:20: No complaints of nausea or abdominal pain this shift. States feeling overall better. Attempting to moderate pt's po intake as requests water frequently. Stopped pt after 240 cc's oral intake for this shift. Addendum entered by Dennise Buckley R.N. 11/07/19 18:49: Irrigated NG with 60 cc's sterile water without resistance or difficulty. Returned to LIS. Addendum entered by Dennise Buckley R.N. 11/07/19 18:40: Ambulates in hallway with standby assistance. NG clamped for this activity. Original Note: Pt awake and alert in bed with head of bed elevated. NG to LIS draining scant amount light green colored fluid. Pt admits to abdominal soreness, but denies pain. Denies nausea. Blue pigtail of NG flushed with air bolus to clear gastric secretions and filter replaced. Discussed with pt sips and chips and limiting these amounts per MD. Pt had watery brown stool on commode.
[2019-11-08 00:10] VITALS: BP 151/80; PULSE 72; RESP 18; TEMP 36.9; O2SAT 93
[2019-11-08] MEDS: METOPROLOL TARTRATE 5 MG/5 ML INJ IV (02:04)
[2019-11-08 04:00] VITALS: BP 135/68; PULSE 65; RESP 20; TEMP 37.2; O2SAT 94
[2019-11-08 05:09] LABS: Add Manual Diff / Slide Review NO; Basophils Absolute Auto 0 /uL (0-100); Basophils Percent Auto 0.6 % (0-2); Eosinophils Absolute Auto 100 /uL (0-450); Eosinophils Percent Auto 0.9 % (2-4); Hematocrit 36.6 % (41-53); Lymphocytes Absolute Auto 1000 /uL (1100-4500); Mean Corpuscular HGB Conc 32.7 % (30-36); Mean Corpuscular Hemoglobin 29.2 PG (26-34); Mean Corpuscular Volume 89.3 fL (80-100); Monocytes Absolute Auto 900 /uL (0-900); Monocytes Percent Auto 11.4 % (3-14); Neutrophils Absolute Auto 5800 /uL (1500-7000); Neutrophils Percent Auto 74.1 % (50-75); Platelet Count 213 X10^3/uL (150-400); Red Cell Distribution Width 15.4 % (11.6-14.8); White Blood Cell Count 7.9 X10^3/uL (4.5-11.0)
[2019-11-08 05:15] LABS: BUN Creatinine Ratio 19.6 (6-22); Blood Urea Nitrogen 20 mg/dL (9-20); Calcium 8.6 mg/dL (8.4-10.2); Carbon Dioxide 29 mmol/L (22-32); Chloride 105 mmol/L (98-107); Estimated Glomerular Filt Rate > 60.0 mL/min (>60); Glucose 167 mg/dL (80-110); HEMOLYSIS < 15 (0-50); Magnesium 2.3 mg/dL (1.6-2.3); Potassium 4.2 mmol/L (3.4-5.1); Sodium 138 mmol/L (137-145)
[2019-11-08] MEDS: SODIUM CHLORIDE 0.9% 1,000 ML 100 ML IV (05:58)
--- NOTE | 2019-11-08 06:07 | PC.NURSE ---
No output this shift from NG tube. Bowel tones hypoactive. The patient had 2 small mixed urine and stool output. 60cc of icechips given. Irrigation of NG done w/ sterile water 30cc.
[2019-11-08 08:00] VITALS: BP 140/69; PULSE 66; RESP 18; TEMP 36.9; O2SAT 95
[2019-11-08] MEDS: METOPROLOL ER 25 MG TABLET PO (08:09)
[2019-11-08] MEDS: FUROSEMIDE 20 MG/2 ML VIAL IV (08:09)
[2019-11-08] MEDS: PANTOPRAZOLE 40 MG VIAL 20 MG IV (08:09)
[2019-11-08 09:15] VITALS: PULSE 73
--- NOTE | 2019-11-08 09:34 | PM.DS.1 ---
History of Present Illness History of Present Illness Date Patient Seen: 11/08/19 Time Patient Seen: 09:34 Chief complaint: stomach pains and weakness Narrative: This 84-year-old man with history of prior abdominal surgery who presents with a small-bowel obstruction. On admission he was afebrile without leukocytosis CT abdomen pelvis demonstrates a small-bowel obstruction. Discharge Providers Provider Date of admission: 11/06/19 18:26 Discharge Date: 11/08/19 Primary care physician: Trenton Oliveira MD Discharge provider: Colby Sanchez MD Summary Hospital Course Discharge Diagnosis: Small-bowel obstruction Hospital Course: He was managed for a small-bowel obstruction conservatively. Nasogastric tube was placed he had a small-bowel follow-through performed that demonstrates normal passage of contrast into the colon. He had return of bowel function his nasogastric tube was discontinued and his diet was advanced as tolerated. On the date of discharge he is feeling well he has no abdominal pain he is tolerating a regular diet. Status at Discharge Cognitive/behavioral status at discharge: oriented Time Spent with Patient Time spent: Greater than 30 minutes Exam Vital Signs (past 8 hours): - 11/08/19 04:00 11/08/19 08:00 11/08/19 09:15 Temperature 98.9 F 98.5 F Pulse Rate 65 66 73 Respiratory Rate 20 18 Blood Pressure 135/68 140/69 Pulse Oximetry 94 95 Oxygen Delivery Method Room Air Oxygen Flow Rate 0 Narrative Exam Narrative: General elderly man alert oriented no acute distress Abdomen soft obese nontender nondistended Objective Labs Result Diagrams: 11/08/19 04:55 11/08/19 04:55 Labs: Laboratory Results - last 24 hr 11/07/19 11/08/19 11/08/19 12:15 04:55 04:55 WBC 7.9 RBC 4.10 L Hgb 12.0 L Hct 36.6 L MCV 89.3 MCH 29.2 MCHC 32.7 RDW 15.4 H Plt Count 213 Neut % (Auto) 74.1 Lymph % (Auto) 13.0 L [place] % (Auto) 11.4 Eos % (Auto) 0.9 L Baso % (Auto) 0.6 Neut # (Auto) 5800 Lymph # (Auto) 1000 L [place] # (Auto) 900 Eos # (Auto) 100 Baso # (Auto) 0 Sodium 138 Potassium 4.2 Chloride 105 Carbon Dioxide 29 BUN 20 Creatinine 1.02 Estimated GFR > 60.0 BUN/Creatinine Ratio 19.6 Glucose 167 H Calcium 8.6 Magnesium 2.3 Urine Color Yellow Urine Appearance Clear Urine pH 5.0 Ur Specific [place] 1.020 Urine Protein Negative Urine Glucose (UA) Trace H Urine Ketones Negative Urine Occult Blood Trace-lysed Urine Nitrate Negative Urine Bilirubin Negative Urine Urobilinogen 0.2 Ur Leukocyte Esterase Negative Urine RBC None seen Urine WBC None seen Urine Bacteria None seen Ur Culture Indicated? Cult not indicated Discharge Plan Discharge Plan Patient Disposition: Home Discharge orders & Medications Prescriptions: Continued nitroglycerin [Nitrostat] 0.4 MG tablet, sublingual 0.4 mg Sublingual PRN PRNQty: 25 RF: 3 alfuzosin 10 mg tablet extended release 24 hr 10 mg PO QDAY Qty: 90 RF: 3 (DME) Test Strips - Freestyle 0 .Route .MEDSUPPLY Qty: 100 RF: 3 metoprolol succinate [Toprol XL] 25 mg tablet extended release 24 hr 25 mg PO QDAY Qty: 90 RF: 3 Januvia 100 mg tablet 100 mg PO QDAY Qty: 90 RF: 1 atorvastatin [Lipitor] 20 mg tablet 20 mg PO HS Qty: 90 RF: 3 losartan 50 mg tablet 50 mg PO Q DAY Qty: 90 RF: 3 glipizide 10 mg tablet extended release 24hr 10 mg PO BID Qty: 180 RF: 1 metformin [Glucophage] 500 mg tablet 1,000 mg PO BIDCC Qty: 360 RF: 1 triamcinolone acetonide 0.5 % ointment 1 applictn TOP BID Qty: 15 RF: 2 hydroxyzine HCl 50 mg tablet 50 mg PO Q6H PRN (Reason: itching) Qty: 60 RF: 5 furosemide 40 mg tablet 40 mg PO QAM Qty: 30 RF: 0 aspirin 325 mg Tablet 325 mg PO DAILY RF: 0 Follow up/Referrals: Trenton Oliveira MD [Primary Care Provider] - Diet/Activity/Treatments Diet: Regular Skin/Wound/Dressing Care Report to your healthcare provider any signs of infection, such as:: increased pain Visit Report/Discharge Packet Visit Report Forms: Patient Portal/API, Stroke Signs & Symptoms Discharge Data Primary Care Provider: Trenton Oliveira Attending Provider: Jen Huerta Admit Date/Time: 11/06/19 18:26 Quality VTE Deep Vein Thrombosis/Pulmonary Embolism Present on Admission: No
--- NOTE | 2019-11-08 10:06 | PC.NURSE ---
PT DISCHARGED TO HOME FOLLOWING MD REMOVAL OF NGT - TOOK FLUIDS WELL AND ADVANCED TO E[employer] SANDWICH WITHOUT DIFFICULTY- PT EAGER TO BE DISCHARGED AND REVIEWED POST HOPSITALIZATION PLAN FWITH HIM AND ANSWERED ALL HIS QUESTIONS TO HIS SATISFACTION- DISCHARGED FROM HOSPITAL AT THIS TIME
== END 2019-11-08 10:12 | disposition home or self-care (01) | DRG 390 ==
LOC: ED 16:16 → AC 18:27
PROVIDERS: Surgery; Admitting Provider Surgery; Emergency Provider Emergency Medicine; PCP Student in an Organized Health Care Education/Training Program; Referring Provider Emergency Medicine; Visit Provider Surgery
DX: K56.50 Intestinal adhesions [bands], unspecified as to partial versus complete obstruction (principal); I10 Essential (primary) hypertension; E11.9 Type 2 diabetes mellitus without complications; Z79.84 Long term (current) use of oral hypoglycemic drugs; Z11.59 Encounter for screening for other viral diseases
CPT/HCPCS: 36415; 74177; 74250; 80048; 80053; 81001; 82962; 83690; 83735; 85025; 85610; 85730; 87635; 93005; 93010; 96374; 99221; 99232; 99238; 99285; G0378; C9113; J1650; J1940; J2270; J2405

== ENCOUNTER → 2020-02-01 10:18 | Outpatient (CLI) | payer MEDICARE, OTHER, SELFPAY ==
[2019-11-06 19:39] VITALS: BMI 31.0
[2020-02-01 11:36] LABS: Hemoglobin A1C% w Est Avg Glu 6.7 % (4.0-6.0)
== END ==
PROVIDERS: PCP Student in an Organized Health Care Education/Training Program; Referring Provider Student in an Organized Health Care Education/Training Program; Visit Provider Student in an Organized Health Care Education/Training Program
DX: E11.9 Type 2 diabetes mellitus without complications (principal)
CPT/HCPCS: 36415; 83036

== ENCOUNTER → 2020-05-11 06:56 | Outpatient (CLI) | payer MEDICARE, OTHER, SELFPAY ==
[2019-11-06 19:39] VITALS: BMI 31.0
[2020-05-11 08:03] LABS: Hemoglobin A1C% w Est Avg Glu 7.6 % (4.0-6.0)
== END ==
PROVIDERS: PCP Student in an Organized Health Care Education/Training Program; Referring Provider Student in an Organized Health Care Education/Training Program; Visit Provider Student in an Organized Health Care Education/Training Program
DX: E11.9 Type 2 diabetes mellitus without complications (principal)
CPT/HCPCS: 36415; 83036

== ENCOUNTER → 2020-08-02 08:05 | Outpatient (CLI) | payer MEDICARE, OTHER, SELFPAY ==
[2019-11-06 19:39] VITALS: BMI 31.0
[2020-08-02 09:40] LABS: Hemoglobin A1C% w Est Avg Glu 7.9 % (4.0-6.0)
== END ==
PROVIDERS: PCP Student in an Organized Health Care Education/Training Program; Referring Provider Student in an Organized Health Care Education/Training Program; Visit Provider Student in an Organized Health Care Education/Training Program
DX: E11.9 Type 2 diabetes mellitus without complications (principal)
CPT/HCPCS: 36415; 83036

== ENCOUNTER → 2020-10-03 12:34 | Outpatient (CLI) | payer MEDICARE, OTHER, SELFPAY ==
[2019-11-06 19:39] VITALS: BMI 31.0
== END ==
PROVIDERS: PCP Student in an Organized Health Care Education/Training Program; Visit Provider Physician Assistant
DX: N34.3 Urethral syndrome, unspecified (principal)
CPT/HCPCS: 87077; 87086

== ENCOUNTER → 2020-11-09 06:52 | Outpatient (CLI) | payer MEDICARE, OTHER, SELFPAY ==
[2019-11-06 19:39] VITALS: BMI 31.0
[2020-11-09 07:48] LABS: Hemoglobin A1C% w Est Avg Glu 7.3 % (4.0-6.0)
== END ==
PROVIDERS: PCP Student in an Organized Health Care Education/Training Program; Referring Provider Student in an Organized Health Care Education/Training Program; Visit Provider Student in an Organized Health Care Education/Training Program
DX: E11.9 Type 2 diabetes mellitus without complications (principal)
CPT/HCPCS: 36415; 83036

== ENCOUNTER 2020-11-17 09:00 | Emergency (ER) | payer MEDICARE, OTHER, SELFPAY ==
[2019-11-06 19:39] VITALS: BMI 31.0
[2020-11-17] VITALS (8 sets, daily range): BP systolic 140–172; BP diastolic 60–67; PULSE 56–71; RESP 13–19; TEMP 36.6; O2SAT 95–97; BMI 28.8
[2020-11-17 10:06] LABS: Add Manual Diff / Slide Review NO; Basophils Absolute Auto 100 /uL (0-100); Eosinophils Absolute Auto 400 /uL (0-450); Eosinophils Percent Auto 6.6 % (2-4); Hematocrit 34.3 % (41-53); Hemoglobin 11.2 g/dL (13.5-17.5); Lymphocytes Absolute Auto 1100 /uL (1100-4500); Lymphocytes Percent Auto 17.6 % (25-40); Mean Corpuscular HGB Conc 32.5 % (30-36); Mean Corpuscular Hemoglobin 28.3 PG (26-34); Mean Corpuscular Volume 86.8 fL (80-100); Monocytes Absolute Auto 500 /uL (0-900); Monocytes Percent Auto 7.4 % (3-14); Neutrophils Absolute Auto 4200 /uL (1500-7000); Neutrophils Percent Auto 67.4 % (50-75); Platelet Count 228 X10^3/uL (150-400); Red Blood Cell Count 3.95 X10^6/uL (4.5-5.9); Red Cell Distribution Width 16.1 % (11.6-14.8); White Blood Cell Count 6.2 X10^3/uL (4.5-11.0)
[2020-11-17 10:15] LABS: Alanine Aminotransferase 19 IU/L (<50); Albumin 3.8 g/dL (3.5-5.0); Albumin Globulin Ratio 1.3 (1.0-2.8); Alkaline Phosphatase 58 U/L (38-126); Aspartate Aminotransferase 25 IU/L (17-59); BUN Creatinine Ratio 13.1 (6-22); Bilirubin Total 0.4 mg/dL (0.2-1.3); Blood Urea Nitrogen 13 mg/dL (9-20); Calcium 9.4 mg/dL (8.4-10.2); Carbon Dioxide 23 mmol/L (22-32); Chloride 106 mmol/L (98-107); Estimated Glomerular Filt Rate > 60.0 mL/min (>60); Globulin 2.9 g/dL (1.7-4.1); Glucose 230 mg/dL (80-110); HEMOLYSIS < 15 (0-50); Potassium 4.6 mmol/L (3.4-5.1); Sodium 136 mmol/L (137-145); Total Protein 6.7 g/dL (6.3-8.2)
[2020-11-17 10:26] LABS: Troponin I < 0.012 ng/mL (0.01-0.034)
--- NOTE | 2020-11-17 12:46 | ED_ITS ---
HPI - Dizziness General Chief Complaint: Dizziness Stated Complaint: Vertigo. Ingrown toenail/bleeding Time Seen by Provider: 11/17/20 09:08 Source: patient Mode of arrival: Ambulatory Limitations: no limitations History of Present Illness HPI Narrative: 85-year-old male former smoker with history of hypertension hy perlipidemia as well as diabetes presents with a chief complaint of some dizziness when standing off and on for the past days, weeks or months. He denies any head injury. He denies any chest pain or shortness of breath. Denies nausea, vomiting or diarrhea. Denies any fever or chills. He denies any change in medication or diet. He largely feels well. Denies any recent upper respiratory infection such as runny nose, sore throat or cough. Additionally use changing his socks yesterday and noted his great toe and his left foot was bleeding and he is concerned about a ingrown toenail which he knows is concerning given his history of diabetes Related Data Home Medications Medication Instructions Recorded Confirmed aspirin 325 mg tablet 325 mg PO DAILY 11/06/19 10/03/20 Previous Rx's Medication Instructions Recorded nitroglycerin 0.4 mg sublingual 0.4 mg SUBLINGUAL PRN PRN #25 tab 08/06/16 tablet (Nitrostat) triamcinolone acetonide 0.5 % 1 applictn TOP BID #15 gram 11/14/18 topical ointment Test Strips - Freestyle #250 each 12/01/19 alfuzosin 10 mg tablet,extended 10 mg PO QDAY #90 tab 05/18/20 release 24 hr atorvastatin 20 mg tablet (Lipitor) 20 mg PO HS #90 tab 05/18/20 hydroxyzine HCl 50 mg tablet 50 mg PO Q6H PRN #120 tab 05/18/20 metformin 500 mg tablet 1,000 mg PO BIDCC #360 tab 05/18/20 (Glucophage) metoprolol succinate 25 mg 25 mg PO QDAY #90 tab 05/18/20 tablet,extended release 24 hr (Toprol XL) sitagliptin 100 mg tablet (Januvia) 100 mg PO QDAY #90 tab 07/01/20 glipizide 10 mg tablet, extended 10 mg PO BID #180 tab 07/25/20 release 24 hr losartan 50 mg tablet 50 mg PO Q DAY #90 tab 08/29/20 Allergies Allergy/AdvReac Type Severity Reaction Status Date / Time No Known Drug Allergies Allergy Verified 11/17/20 09:23 Review of Systems Review of Systems Narrative: GENERAL: See HP HEENT: Denies sinus pain, ear pain, sore throat, difficulty swallowing, dizziness. RESPIRATORY: Denies dyspnea, cough, wheezing, hemoptysis, sputum. CARDIOVASCULAR: See HPI GASTROINTESTINAL: Denies nausea, vomiting, abdominal pain, diarrhea, constipation, melena. : Denies dysuria, frequency, incontinence, hematuria, urinary retention. MUSCULOSKELETAL: See HPI SKIN: Denies rash, skin lesions, or other NEUROLOGIC: Denies weakness, headache, numbness, change in speech, confusion, seizures, incoordination. PSYCHIATRIC: No concerning psychosocial issues. 12 point review of systems is negative except for those stated above Patient History Medical History Abdominal aortic aneurysm (AAA) without rupture (07/26/15) Benign non-nodular prostatic hyperplasia without lower urinary tract symptoms (04/26/15) BPH (benign prostatic hyperplasia) Closed nondisplaced fracture of distal phalanx of right great toe with routine healing, subsequent encounter (03/20/17) Diabetes Essential hypertension (04/26/15) Fracture of left great toe Hammer toe of right foot (01/06/16) HTN (hypertension) Laceration of left great toe EMILEE (obstructive sleep apnea) Pulmonary nodule, left Type 2 diabetes mellitus without complication (04/26/15) Surgical History S/P aneurysm repair Status post epigastric hernia repair, follow-up exam Family History Father Heart disease Mother Cancer Social History marital status: household members: spouse lives independently: Yes Smoking Status: Former smoker alcohol intake: former substance use type: does not use Smoking Status: Former smoker alcohol intake frequency: holidays/special occasions only Substance Use Type: does not use Exam Narrative Exam Narrative: GENERAL: [85] year old patient appears stated age. Well- developed patient, in mild distress. HEAD: Atraumatic. Normocephalic. EYES: Pupils equal round and reactive. Extraocular motions intact. No scleral icterus. No injection or drainage. No nystagmus, no positional change ENT: Nose without bleeding, purulent drainage. Throat without erythema, tonsillar hypertrophy or exudate. Airway patent. NECK: Trachea midline. Non tender CARDIOVASCULAR: Regular rate and rhythm without murmurs, gallops, or rubs. RESPIRATORY: Clear to auscultation. Breath sounds equal bilaterally. No wheezes, rales, or rhonchi. GASTROINTESTINAL: Abdomen soft, non-tender, nondistended. EXTREMITIES: Left great toe with mild ingrown toenail, no fluctuance or exudate, no red streaking or erythema No edema or joint tenderness. BACK: Nontender without deformity or crepitance. No flank tenderness. NEURO: AOx3. SKIN: No rash or erythema of visible areas Initial Vital Signs Initial Vital Signs: Vital Signs Temperature 97.8 F 11/17/20 09:23 Pulse Rate 71 11/17/20 09:23 Respiratory Rate 16 11/17/20 09:23 Blood Pressure 144/66 H 11/17/20 09:23 Pulse Oximetry 97 11/17/20 09:23 Procedures [facility] Procedure Name of Procedure: ingrown toenail trimmed on L great toe nail Course Orders Ordered: ED Orders 11/17/20 09:30 Complete Blood Count AUTO DIFF Stat Comprehensive Metabolic Panel Stat Troponin I Stat 11/17/20 09:31 EKG-12 Lead Stat 11/17/20 13:18 Troponin I Stat Discontinued Medications Lidocaine/Sodium Bicarbonate (Lido 1%/Sod Bicarb 8.4% (10ml) 10 Ml Syringe) 10 ml INJ NOW ONE Stop: 11/17/20 13:08 Last Admin: 11/17/20 13:35 Dose: 10 ml Documented by: [email or web address] Vital Signs Vital signs: Vital Signs - 8 hr 11/17/20 09:23 11/17/20 12:44 11/17/20 12:46 Temperature 97.8 F Pulse Rate 71 60 64 Respiratory Rate 16 19 Blood Pressure 144/66 H 172/65 H Pulse Oximetry 97 97 96 11/17/20 13:00 11/17/20 13:30 Temperature Pulse Rate 60 64 Respiratory Rate 18 Blood Pressure 140/60 146/67 H Pulse Oximetry 95 96 MDM - Dizziness Lab Data Result diagrams: 11/17/20 09:30 11/17/20 09:30 Labs: Lab Results 11/17/20 11/17/20 11/17/20 Range/Units 09:30 09:30 13:18 WBC 6.2 (4.5-11.0) X10^3/uL RBC 3.95 L (4.5-5.9) X10^6/uL Hgb 11.2 L (13.5-17.5) g/dL Hct 34.3 L (41-53) % MCV 86.8 (80-100) fL MCH 28.3 (26-34) PG MCHC 32.5 (30-36) % RDW 16.1 H (11.6-14.8) % Plt Count 228 (150-400) X10^3/uL Neut % (Auto) 67.4 (50-75) % Lymph % (Auto) 17.6 L (25-40) % [place] % (Auto) 7.4 (3-14) % Eos % (Auto) 6.6 H (2-4) % Baso % (Auto) 1.0 (0-2) % Neut # (Auto) 4200 (3580-4096) /uL Lymph # (Auto) 1100 (5511-4256) /uL [place] # (Auto) 500 (0-900) /uL Eos # (Auto) 400 (0-450) /uL Baso # (Auto) 100 (0-100) /uL Sodium 136 L (137-145) mmol/L Potassium 4.6 (3.4-5.1) mmol/L Chloride 106 (98-107) mmol/L Carbon Dioxide 23 (22-32) mmol/L BUN 13 (9-20) mg/dL Creatinine 0.99 (0.66-1.25) mg/dL Estimated GFR > 60.0 (>60) mL/min BUN/Creatinine Ratio 13.1 (6-22) Glucose 230 H (80-110) mg/dL Calcium 9.4 (8.4-10.2) mg/dL Total Bilirubin 0.4 (0.2-1.3) mg/dL AST 25 (17-59) IU/L ALT 19 (<50) IU/L Alkaline Phosphatase 58 (38-126) U/L Troponin I < 0.012 < 0.012 (0.01-0.034) ng/mL Total Protein 6.7 (6.3-8.2) g/dL Albumin 3.8 (3.5-5.0) g/dL Globulin 2.9 (1.7-4.1) g/dL Albumin/Globulin Ratio 1.3 (1.0-2.8) Point of Care Testing Glucose POC 204 Discharge Plan Departure Patient Disposition: Home Clinical Impression: Dizziness, Ingrown left big toenail Instructions: DI for Ingrown Toenail, DI for Dizziness-Nonvertigo Activity Restrictions/Additional Instructions: *You have been diagnosed with [acute on chronic episodic dizziness and mild left ingrown toenail] *What to do: *Please continue to take your regular medications as directed. [ ] New medication prescriptions sent to your pharmacy: [ ] [ ] New medication written as a paper prescription [x ] No new medications given *Please follow up with your primary care provider in 2-3 days, call for an appointment. Let them know you were seen in the Emergency Department and that we ask that you be seen in follow up. We will electronically transmit a record of today's note if your PCP is in our system *If you do not have a primary care provider please contact the [facility] Resource line at [phone]. They will ask some questions about your medical history and help get you set up with a doctor in the community. *Return to Emergency Department if you should have any new, worsening or concerning symptoms, such as [fever greater than 101 F, shaking chills, worsening pain, persistent vomiting or other bothersome symptoms] Prescriptions: No Action nitroglycerin [Nitrostat] 0.4 MG tablet, sublingual 0.4 mg Sublingual PRN PRNQty: 25 RF: 3 (DME) Test Strips - Freestyle 0 .Route .MEDSUPPLY Qty: 250 RF: 3 Januvia 100 mg tablet 100 mg PO QDAY Qty: 90 RF: 1 glipizide 10 mg tablet extended release 24hr 10 mg PO BID Qty: 180 RF: 1 losartan 50 mg tablet 50 mg PO Q DAY Qty: 90 RF: 2 alfuzosin 10 mg tablet extended release 24 hr 10 mg PO QDAY Qty: 90 RF: 3 hydroxyzine HCl 50 mg tablet 50 mg PO Q6H PRN (Reason: itching) Qty: 120 RF: 5 atorvastatin [Lipitor] 20 mg tablet 20 mg PO HS Qty: 90 RF: 3 metformin [Glucophage] 500 mg tablet 1,000 mg PO BIDCC Qty: 360 RF: 1 metoprolol succinate [Toprol XL] 25 mg tablet extended release 24 hr 25 mg PO QDAY Qty: 90 RF: 3 triamcinolone acetonide 0.5 % ointment 1 applictn TOP BID Qty: 15 RF: 2 aspirin 325 mg Tablet 325 mg PO DAILY RF: 0 Referrals: Trenton Oliveira MD [Primary Care Provider] -
[2020-11-17] MEDS: LIDO 1%/SOD BICARB 8.4% (10ML) 10 ML SYRINGE INJ (13:35)
[2020-11-17 13:53] LABS: Troponin I < 0.012 ng/mL (0.01-0.034)
== END 2020-11-17 14:53 | disposition home or self-care (01) ==
PROVIDERS: Emergency Provider Emergency Medicine; PCP Student in an Organized Health Care Education/Training Program
DX: R42 Dizziness and giddiness (principal); L60.0 Ingrowing nail
CPT/HCPCS: 36415; 80053; 82962; 84484; 85025; 93005; 99283; 99284

== ENCOUNTER → 2021-05-19 06:55 | Outpatient (CLI) | payer MEDICARE, OTHER, SELFPAY ==
[2019-11-06 19:39] VITALS: BMI 31.0
[2021-05-19 08:23] LABS: Hemoglobin A1C% w Est Avg Glu 8.1 % (4.0-6.0)
[2021-05-19 09:06] LABS: Creatinine Urine Random 63.5 mg/dL
[2021-05-19 09:10] LABS: Microalbumi Creatinin Ratio Ur 64.5 ug/mg CR (<30); Microalbumin Urine Random 4.1 mg/dL (0-1.6)
== END ==
PROVIDERS: PCP Student in an Organized Health Care Education/Training Program; Referring Provider Student in an Organized Health Care Education/Training Program; Visit Provider Student in an Organized Health Care Education/Training Program
DX: E11.9 Type 2 diabetes mellitus without complications (principal)
CPT/HCPCS: 36415; 82043; 82570; 83036

== ENCOUNTER → 2021-08-24 09:51 | Outpatient (CLI) | payer MEDICARE, OTHER, SELFPAY ==
[2019-11-06 19:39] VITALS: BMI 31.0
[2021-08-24 11:09] LABS: Hemoglobin A1C% w Est Avg Glu 7.8 % (4.0-6.0)
[2021-08-24 11:16] LABS: BUN Creatinine Ratio 16.2 (6-22); Blood Urea Nitrogen 18 mg/dL (9-20); Estimated Glomerular Filt Rate > 60 mL/min (>60)
== END ==
PROVIDERS: PCP Student in an Organized Health Care Education/Training Program; Referring Provider Student in an Organized Health Care Education/Training Program; Visit Provider Student in an Organized Health Care Education/Training Program
DX: E11.9 Type 2 diabetes mellitus without complications (principal); I10 Essential (primary) hypertension; R80.9 Proteinuria, unspecified
CPT/HCPCS: 82565; 83036; 84520

== ENCOUNTER → 2021-08-29 14:50 | Outpatient (CLI) | payer MEDICARE, OTHER, SELFPAY ==
[2019-11-06 19:39] VITALS: BMI 31.0
--- NOTE | 2021-08-29 | DI.RAD.S_ITS ---
PROCEDURE: XR HAND LT MIN 3V INDICATIONS: pain in left thumb, crush injury TECHNIQUE: 3 views of the hand(s) acquired. COMPARISON: None. FINDINGS: Bones: No fractures or dislocations. Degenerative changes of the 3rd metacarpophalangeal joint. Carpal bones are normally aligned. No suspicious bony lesions. Soft tissues: No suspicious soft tissue calcifications. IMPRESSION: No acute abnormality of the left hand Dictated by: Soham Johnson M.D. on 08/29/2021 at 17:15 Approved by: Soham Johnson M.D. on 08/29/2021 at 17:16
== END ==
PROVIDERS: PCP Student in an Organized Health Care Education/Training Program; Referring Provider Physician Assistant; Visit Provider Physician Assistant
DX: S67.02XA Crushing injury of left thumb, initial encounter (principal); M79.645 Pain in left finger(s); X58.XXXA Exposure to other specified factors, initial encounter
CPT/HCPCS: 73130

== ENCOUNTER → 2021-11-20 09:52 | Outpatient (CLI) | payer MEDICARE, OTHER, SELFPAY ==
[2019-11-06 19:39] VITALS: BMI 31.0
[2021-11-20 11:02] LABS: Add Manual Diff / Slide Review NO; Basophils Absolute Auto 100 /uL (0-100); Basophils Percent Auto 0.7 % (0-2); Eosinophils Absolute Auto 300 /uL (0-450); Eosinophils Percent Auto 3.7 % (2-4); Hemoglobin 10.2 g/dL (13.5-17.5); Lymphocytes Absolute Auto 1100 /uL (1100-4500); Lymphocytes Percent Auto 13.9 % (25-40); Mean Corpuscular Hemoglobin 26.1 PG (26-34); Mean Corpuscular Volume 79.2 fL (80-100); Monocytes Absolute Auto 500 /uL (0-900); Neutrophils Absolute Auto 5800 /uL (1500-7000); Neutrophils Percent Auto 74.7 % (50-75); Platelet Count 303 X10^3/uL (150-400); Red Blood Cell Count 3.91 X10^6/uL (4.5-5.9); Red Cell Distribution Width 16.6 % (11.6-14.8); White Blood Cell Count 7.8 X10^3/uL (4.5-11.0)
[2021-11-20 11:47] LABS: Alanine Aminotransferase 15 IU/L (<50); Albumin 3.8 g/dL (3.5-5.0); Albumin Globulin Ratio 1.2 (1.0-2.8); Alkaline Phosphatase 69 U/L (38-126); Aspartate Aminotransferase 21 IU/L (17-59); BUN Creatinine Ratio 11.8 (6-22); Bilirubin Total 0.4 mg/dL (0.2-1.3); Blood Urea Nitrogen 12 mg/dL (9-20); Calcium 8.8 mg/dL (8.4-10.2); Carbon Dioxide 23 mmol/L (22-32); Chloride 104 mmol/L (98-107); Estimated Glomerular Filt Rate > 60 mL/min (>60); Globulin 3.2 g/dL (1.7-4.1); Glucose 184 mg/dL (80-110); HEMOLYSIS < 15 (0-50); Potassium 4.3 mmol/L (3.4-5.1); Sodium 137 mmol/L (137-145)
[2021-11-20 12:00] LABS: Microalbumi Creatinin Ratio Ur 42.8 ug/mg CR (<30); Microalbumin Urine Random 4.2 mg/dL (0-1.6)
[2021-11-21 08:09] LABS: Fructosamine 227 umol/L (0-285)
== END ==
PROVIDERS: PCP Student in an Organized Health Care Education/Training Program; Referring Provider Student in an Organized Health Care Education/Training Program; Visit Provider Student in an Organized Health Care Education/Training Program
DX: I10 Essential (primary) hypertension (principal); E11.9 Type 2 diabetes mellitus without complications; R80.9 Proteinuria, unspecified; E16.2 Hypoglycemia, unspecified; R53.83 Other fatigue; E11.69 Type 2 diabetes mellitus with other specified complication; E78.5 Hyperlipidemia, unspecified
CPT/HCPCS: 36415; 80053; 82043; 82570; 82985; 85025

== ENCOUNTER → 2021-12-19 13:53 | Outpatient (CLI) | payer MEDICARE, OTHER, SELFPAY ==
[2019-11-06 19:39] VITALS: BMI 31.0
[2021-12-19 14:28] LABS: Hematocrit 31.7 % (41-53); Hemoglobin 10.4 g/dL (13.5-17.5); Mean Corpuscular Hemoglobin 26.7 PG (26-34); Mean Corpuscular Volume 81.1 fL (80-100); Platelet Count 221 X10^3/uL (150-400); Red Cell Distribution Width 17.9 % (11.6-14.8); Reticulocyte Count, Percent 1.7 % (0.9-2.6); White Blood Cell Count 5.8 X10^3/uL (4.5-11.0)
[2021-12-19 14:55] LABS: BUN Creatinine Ratio 15.7 (6-22); Blood Urea Nitrogen 17 mg/dL (9-20); Estimated Glomerular Filt Rate > 60 mL/min (>60)
[2021-12-19 15:09] LABS: HEMOLYSIS < 15 (0-50); Iron 57 ug/dL (49-181)
[2021-12-19 15:21] LABS: Ferritin 9 ng/mL (18-464); Percent Iron Saturation 15 % (20-50); Total Iron Binding Capacity 376 ug/dL (261-462); Transferrin 277 mg/dL (206-381)
== END ==
PROVIDERS: PCP Student in an Organized Health Care Education/Training Program; Referring Provider Student in an Organized Health Care Education/Training Program; Visit Provider Student in an Organized Health Care Education/Training Program
DX: D50.9 Iron deficiency anemia, unspecified (principal); E11.9 Type 2 diabetes mellitus without complications; R80.9 Proteinuria, unspecified
CPT/HCPCS: 36415; 82565; 82728; 83540; 83550; 84520; 85027; 85045

== ENCOUNTER 2021-12-26 13:51 | Observation (INO) | payer MEDICARE, OTHER, SELFPAY ==
[2019-11-06 19:39] VITALS: BMI 31.0
[2021-12-26] VITALS (12 sets, daily range): BP systolic 115–176; BP diastolic 63–76; PULSE 78–104; RESP 14–24; TEMP 35.8–36.6; O2SAT 94–98; BMI 28.2
--- NOTE | 2021-12-26 | DI.ECHO.S_ITS ---
[facility] +---------+ : : [address] : : : : [id number] : : : : Phone: [phone] Echocardiogram Report + + :Name: PRASHANT FENG Study Date: 12/27/2021 Height: 66 in : :[facility] ReadingLocation: Weight: 175 lb : : Gender: Male BSA: 1.9 m2 : :: 1935 Age: 86 yrs BP: 126/68 mmHg: :Reason For Study: CHEST PAIN, LEFT BUNDLE BRANCH BLOCK : :Ordering Physician: Macy INTERIANOformed By: Yesika Sibley : :Referring: GURINDER INTERIANO : + + Interpretation Summary The left ventricle is normal in size and wall thickness. The ejection fraction is estimated to be 40-45%. There is a significant dyssynchronous contraction pattern, consistent with a conduction abnormality. There appears to be at least mild global hypokinesis with worsening hypokinesis and distal inferior wall. Previous LV EF reported to be 55 to 60%. LV function has decreased. The right ventricle is normal in size and function. Previously pacemaker was mentioned. I do not see any obvious pacemaker lead. Reviewed the patient's chart. No mentioning of permanent pacemaker. No significant valvular pathology. The ascending aorta is moderately enlarged. 4.1 cm in diameter. Previously 4.0 cm in diameter. Procedure: A two-dimensional transthoracic echocardiogram with color flow and Doppler was performed. The study quality was technically adequate. Comparison is made with the echocardiogram of 09/09/2019. The heart rate ranged between 50-76 bpm during the study. The patient was in normal sinus rhythm during the exam. The patient had a bundle branch block rhythm during the exam. Left Ventricle: The left ventricle is normal in size and wall thickness. There is no thrombus. The ejection fraction is estimated to be 40-45%. There is a significant dyssynchronous contraction pattern, consistent with a conduction abnormality. Diastolic parameters suggest a relaxation abnormality of the left ventricle, consistent with probable normal filling pressures. Right Ventricle: The right ventricle is normal in size and function. Atria: The left atrial size is normal. There has been no significant change since the previous study. Right atrial size is normal. There is no Doppler evidence for an interatrial shunt. Mitral Valve: The mitral valve leaflets are slightly calcified. There is systolic anterior motion of the chordal apparatus. The mitral valve chordae are thickened and/or calcified. There is trace mitral regurgitation. Aortic Valve: The aortic valve opens well. The aortic valve is trileaflet. There is no aortic valve stenosis. There is trace aortic regurgitation. Tricuspid Valve: The tricuspid valve is normal in structure and function. There is trace tricuspid regurgitation. Pulmonary artery pressures cannot be estimated because of the lack of a measurable TR jet velocity. Pulmonic Valve: The pulmonic valve is not well visualized. There is no pulmonic valvular regurgitation. Great Vessels: The aortic root is normal size. The ascending aorta is moderately enlarged. The IVC is dilated (diameter is greater than 2.1 cm) yet it collapses greater than 50% with a sniff. This suggests a right atrial pressure of 8 mm Hg. Pericardium/ Pleura There is no pericardial effusion. There is no pleural effusion. MMode/2D Measurements & Calculations LVIDd: 5.4 cm asc Aorta Diam: 4.1 cm LVIDs: 3.9 cm Ao Arch Diam (Prox Trans): 2.7 cm FS: 26.4 % IVSd: 1.1 cm LVPWd: 0.98 cm LV perdomo. diameter/BSA (cm/m^2): 2.8 LV sys. diameter/BSA (cm/m^2): 2.1 LA A2 area: 17.2 cm2 RA long axis: 4.8 cm LA A4 area: 14.3 cm2 RA area: 14.3 cm2 LA length (vol): 4.8 cm RA vol: 36.5 ml LA vol: 43.4 ml RA : 19.3 ml/m2 LA vol index: 23.0 ml/m2 IVC diam: 2.3 cm RVD1 (basal): 3.9 cm RVD2 (mid): 3.3 cm TAPSE: 2.1 cm Doppler Measurements & Calculations Ao V2 max: 118.4 cm/sec LVOT Max Romeo: 80.9 cm/sec Ao V2 mean: 91.0 cm/sec LV V1 max P.6 mmHg Ao max P.6 mmHg LV V1 VTI: 17.7 cm Ao mean P.6 mmHg sev ratio: 0.65 Ao V2 VTI: 27.3 cm MV E max romeo: 42.5 cm/sec PA V2 max: 87.9 cm/sec MV A max romeo: 93.4 cm/sec PA V2 mean: 62.7 cm/sec MV E/A: 0.46 PA mean P.7 mmHg Med Peak E' Romeo: 4.5 cm/sec PA pr(Accel): 36.2 mmHg E/E' med: 9.4 Lat Peak E' Romeo: 11.2 cm/sec E/E' lat: 3.8 E/e' average: 6.6 MV dec time: 0.46 sec Reading Physician:11:29 AM
--- NOTE | 2021-12-26 14:00 | DI.RAD.S_ITS ---
PROCEDURE: XR CHEST 1V INDICATIONS: chest pain TECHNIQUE: One view of the chest was acquired. COMPARISON: [facility], CR, XR CHEST 1V, 04/25/2019, 16:50. FINDINGS: Surgical changes and devices: None. Lungs and pleura: Streaky opacities are present at the right lung base. The lungs are otherwise clear. No pleural effusion or pneumothorax. Mediastinum: Mediastinal contours appear normal. Heart size is normal. Bones and chest wall: No suspicious bony lesions. Overlying soft tissues appear unremarkable. IMPRESSION: Right basilar pulmonary radiopacities suspicious for atelectasis. Aspiration/infection could also be considered in the differential. Short interval followup is recommended with resolution of the patient's symptoms to ensure there is no underlying pulmonary pathology. Dictated by: Heather Rivera M.D. on 12/26/2021 at 15:08 Approved by: Heather Rivera M.D. on 12/26/2021 at 15:09
[2021-12-26 14:18] LABS: Add Manual Diff / Slide Review NO; Basophils Absolute Auto 100 /uL (0-100); Basophils Percent Auto 0.9 % (0-2); Eosinophils Absolute Auto 200 /uL (0-450); Eosinophils Percent Auto 3.2 % (2-4); Hematocrit 34.5 % (41-53); Hemoglobin 11.3 g/dL (13.5-17.5); Lymphocytes Absolute Auto 1200 /uL (1100-4500); Lymphocytes Percent Auto 15.1 % (25-40); Mean Corpuscular HGB Conc 32.8 % (30-36); Mean Corpuscular Hemoglobin 26.9 PG (26-34); Mean Corpuscular Volume 82.1 fL (80-100); Monocytes Absolute Auto 700 /uL (0-900); Monocytes Percent Auto 9.4 % (3-14); Neutrophils Absolute Auto 5600 /uL (1500-7000); Neutrophils Percent Auto 71.4 % (50-75); Platelet Count 261 X10^3/uL (150-400); Red Cell Distribution Width 18.3 % (11.6-14.8); White Blood Cell Count 7.9 X10^3/uL (4.5-11.0)
[2021-12-26 14:26] LABS: Prothrombin Time 11.4 SECONDS (10.1-12.7)
[2021-12-26 14:29] LABS: PTT Partial Thromboplastin Tim 29 SECONDS (26-36)
[2021-12-26 14:33] LABS: Alanine Aminotransferase 21 IU/L (<50); Albumin 4.3 g/dL (3.5-5.0); Albumin Globulin Ratio 1.4 (1.0-2.8); Alkaline Phosphatase 58 U/L (38-126); Aspartate Aminotransferase 26 IU/L (17-59); BUN Creatinine Ratio 18.6 (6-22); Bilirubin Total 0.5 mg/dL (0.2-1.3); Blood Urea Nitrogen 21 mg/dL (9-20); Calcium 9.6 mg/dL (8.4-10.2); Carbon Dioxide 21 mmol/L (22-32); Chloride 102 mmol/L (98-107); Creatine Kinase 40 U/L (55-170); Estimated Glomerular Filt Rate > 60 mL/min (>60); Glucose 133 mg/dL (80-110); HEMOLYSIS < 15 (0-50); Lipase 117 U/L (23-300); Magnesium 1.5 mg/dL (1.6-2.3); Sodium 137 mmol/L (137-145); Total Protein 7.3 g/dL (6.3-8.2)
[2021-12-26 14:44] LABS: COVID19 -Nasal RAPID Negative (Negative)
[2021-12-26 14:45] LABS: Troponin I < 0.012 ng/mL (0.01-0.034)
--- NOTE | 2021-12-26 15:17 | ED.CHESTPAIN ---
HPI - Chest Pain General Chief Complaint: Chest Pain Stated Complaint: Weakness, fast pulse Time Seen by Provider: 12/26/21 15:11 History of Present Illness HPI narrative: Lv Langley is an 86-year-old man with intermittent chest pains and fast heart rate. He is noticed fast heart rate over the past few days as high as 125 beats per minute. Also reports intermittent chest pain that is sharp and in the anterior chest lasting for a few moments to up to a half an hour at a time. He sometimes feels quite lightheaded as if he might faint but he has not fainted. He does not have shortness of breath or sweats. He has no abdominal pain or vomiting but does have some nausea. No urinary symptoms. No fever, no cough no URI symptoms. Related Data Home Medications Medication Instructions Recorded Confirmed aspirin 325 mg tablet 325 mg PO DAILY 11/06/19 12/19/21 clobetasol 0.05 % topical ointment 1 applic topical BID 02/08/21 12/19/21 ferrous sulfate 325 mg (65 mg 325 mg PO DAILY 12/21/21 12/21/21 iron) tablet Previous Rx's Medication Instructions Recorded nitroglycerin 0.4 mg sublingual 0.4 mg sublingual PRN PRN #25 tabs 08/06/16 tablet (Nitrostat) metoprolol succinate 25 mg 25 mg PO QDAY #90 tabs 04/10/21 tablet,extended release 24 hr (Toprol XL) losartan 25 mg tablet 25 mg PO DAILY #90 tabs 05/19/21 hydroxyzine HCl 50 mg tablet 50 mg PO Q6H PRN itching #120 tabs 08/01/21 alfuzosin 10 mg tablet,extended 10 mg PO QDAY #90 tabs 09/07/21 release 24 hr famotidine 40 mg tablet 40 mg PO BEDTIME #90 tabs 09/07/21 metformin 500 mg tablet 1,000 mg PO BIDCC #360 tabs 09/07/21 sitagliptin 100 mg tablet (Januvia) 100 mg PO DAILY #90 tabs 09/07/21 Test Strips - Freestyle #250 ea 10/30/21 atorvastatin 20 mg tablet (Lipitor) 20 mg PO HS #90 tabs 12/11/21 Allergies Allergy/AdvReac Type Severity Reaction Status Date / Time No Known Drug Allergies Allergy Verified 12/19/21 13:22 Review of Systems Review of Systems Narrative: Complete review of systems is negative other than as noted above. Patient History Medical History (Updated 12/26/21 @ 15:33 by Mp Hercules MD) Abdominal aortic aneurysm (AAA) without rupture (07/26/15) Benign non-nodular prostatic hyperplasia without lower urinary tract symptoms (04/26/15) BPH (benign prostatic hyperplasia) Closed nondisplaced fracture of distal phalanx of right great toe with routine healing, subsequent encounter (03/20/17) Costochondritis Diabetes Essential hypertension (04/26/15) Fracture of left great toe Hammer toe of right foot (01/06/16) HTN (hypertension) Laceration of left great toe EMILEE (obstructive sleep apnea) Pulmonary nodule, left Type 2 diabetes mellitus without complication (04/26/15) Surgical History S/P aneurysm repair Status post epigastric hernia repair, follow-up exam Family History Father Heart disease Mother Cancer Social History marital status: household members: spouse lives independently: Yes Smoking Status: Former smoker alcohol intake: former substance use type: does not use Smoking Status: Former smoker alcohol intake frequency: holidays/special occasions only Substance Use Type: does not use Exam Narrative Exam Narrative: GENERAL: Alert, cooperative and in no distress. HEAD: Atraumatic. Normocephalic. EYES: Sclera are clear without icterus. Extraocular movements are full. ENT: No rhinorrhea. Oropharynx is moist. Mouth exam is benign. NECK: Supple. Full range of motion. CARDIOVASCULAR: Normal rate and rhythm without murmur gallop or rub. RESPIRATORY: Clear to auscultation. Breath sounds equal bilaterally. No wheezes, rales, or rhonchi. GASTROINTESTINAL: Abdomen soft, non-tender, nondistended. EXTREMITIES: No edema, full range of motion. No obvious trauma. BACK: Normal inspection, no CVA tenderness. NEURO: Nonfocal examination, normal speech, normal gait. SKIN: No rash or erythema of visible areas PSYCH: Normally oriented. Normal range of affect. Appropriate behavior Initial Vital Signs Initial Vital Signs: Vital Signs Temperature 97.8 F 12/26/21 13:53 Pulse Rate 103 H 12/26/21 13:53 Respiratory Rate 18 12/26/21 13:53 Blood Pressure 149/68 H 12/26/21 13:53 Pulse Oximetry 96 12/26/21 13:53 Oxygen Delivery Method 12/26/21 13:53 Course Orders Ordered: ED Orders 12/26/21 14:00 XR chest 1V Stat EKG-12 Lead Stat 12/26/21 14:11 Complete Blood Count AUTO DIFF Stat Comprehensive Metabolic Panel Stat Lipase Stat Magnesium Stat Partial Thromboplastin Time Stat Prothrombin Time INR Stat Troponin & CK Cardiac Panel Stat 12/26/21 14:14 COVID19 -Nasal RAPID/Pre-Proc Stat Vital Signs Vital signs: Vital Signs - 8 hr 12/26/21 13:53 12/26/21 13:59 12/26/21 14:00 Temperature 97.8 F Pulse Rate 103 H Respiratory Rate 18 Blood Pressure 149/68 H 176/73 H Pulse Oximetry 96 98 Oxygen Delivery Method Room Air 12/26/21 14:00 12/26/21 14:30 Temperature Pulse Rate 104 H 93 H Respiratory Rate 15 Blood Pressure Pulse Oximetry 96 95 Oxygen Delivery Method MDM - Chest Pain Lab Data Result diagrams: 12/26/21 14:11 12/26/21 14:11 Labs: Lab Results 12/26/21 12/26/21 12/26/21 Range/Units 14:11 14:11 14:11 WBC 7.9 (4.5-11.0) X10^3/uL RBC 4.20 L (4.5-5.9) X10^6/uL Hgb 11.3 L (13.5-17.5) g/dL Hct 34.5 L (41-53) % MCV 82.1 (80-100) fL MCH 26.9 (26-34) PG MCHC 32.8 (30-36) % RDW 18.3 H (11.6-14.8) % Plt Count 261 (150-400) X10^3/uL Neut % (Auto) 71.4 (50-75) % Lymph % (Auto) 15.1 L (25-40) % [place] % (Auto) 9.4 (3-14) % Eos % (Auto) 3.2 (2-4) % Baso % (Auto) 0.9 (0-2) % Neut # (Auto) 5600 (1674-9696) /uL Lymph # (Auto) 1200 (9634-1854) /uL [place] # (Auto) 700 (0-900) /uL Eos # (Auto) 200 (0-450) /uL Baso # (Auto) 100 (0-100) /uL PT 11.4 (10.1-12.7) SECONDS INR 1.0 (0.9-1.3) APTT 29 (26-36) SECONDS Sodium 137 (137-145) mmol/L Potassium 4.0 (3.4-5.1) mmol/L Chloride 102 (98-107) mmol/L Carbon Dioxide 21 L (22-32) mmol/L BUN 21 H (9-20) mg/dL Creatinine 1.13 (0.66-1.25) mg/dL Estimated GFR > 60 (>60) mL/min BUN/Creatinine Ratio 18.6 (6-22) Glucose 133 H (80-110) mg/dL Calcium 9.6 (8.4-10.2) mg/dL Magnesium 1.5 L (1.6-2.3) mg/dL Total Bilirubin 0.5 (0.2-1.3) mg/dL AST 26 (17-59) IU/L ALT 21 (<50) IU/L Alkaline Phosphatase 58 (38-126) U/L Total Creatine Kinase 40 L (55-170) U/L CK-MB (CK-2) TNP CK-MB (CK-2) Rel Index TNP Troponin I < 0.012 (0.01-0.034) ng/mL Total Protein 7.3 (6.3-8.2) g/dL Albumin 4.3 (3.5-5.0) g/dL Globulin 3.0 (1.7-4.1) g/dL Albumin/Globulin Ratio 1.4 (1.0-2.8) Lipase 117 (23-300) U/L SARS-CoV-2 (PCR) (Negative) 12/26/21 Range/Units 14:14 WBC (4.5-11.0) X10^3/uL RBC (4.5-5.9) X10^6/uL Hgb (13.5-17.5) g/dL Hct (41-53) % MCV (80-100) fL MCH (26-34) PG MCHC (30-36) % RDW (11.6-14.8) % Plt Count (150-400) X10^3/uL Neut % (Auto) (50-75) % Lymph % (Auto) (25-40) % [place] % (Auto) (3-14) % Eos % (Auto) (2-4) % Baso % (Auto) (0-2) % Neut # (Auto) (8726-1933) /uL Lymph # (Auto) (0316-6480) /uL [place] # (Auto) (0-900) /uL Eos # (Auto) (0-450) /uL Baso # (Auto) (0-100) /uL PT (10.1-12.7) SECONDS INR (0.9-1.3) APTT (26-36) SECONDS Sodium (137-145) mmol/L Potassium (3.4-5.1) mmol/L Chloride (98-107) mmol/L Carbon Dioxide (22-32) mmol/L BUN (9-20) mg/dL Creatinine (0.66-1.25) mg/dL Estimated GFR (>60) mL/min BUN/Creatinine Ratio (6-22) Glucose (80-110) mg/dL Calcium (8.4-10.2) mg/dL Magnesium (1.6-2.3) mg/dL Total Bilirubin (0.2-1.3) mg/dL AST (17-59) IU/L ALT (<50) IU/L Alkaline Phosphatase (38-126) U/L Total Creatine Kinase (55-170) U/L CK-MB (CK-2) CK-MB (CK-2) Rel Index Troponin I (0.01-0.034) ng/mL Total Protein (6.3-8.2) g/dL Albumin (3.5-5.0) g/dL Globulin (1.7-4.1) g/dL Albumin/Globulin Ratio (1.0-2.8) Lipase (23-300) U/L SARS-CoV-2 (PCR) Negative (Negative) Imaging Data Chest x-ray: Radiologist's Impression: IMPRESSION: Right basilar pulmonary radiopacities suspicious for atelectasis. Aspiration/infection could also be considered in the differential. Short interval followup is recommended with resolution of the patient's symptoms to ensure there is no underlying pulmonary pathology. Dictated by: Heather Rivera M.D. on 12/26/2021 at 15:08 Approved by: Heather Rivera M.D. on 12/26/2021 at 15:09 ECG Data Interpretation: EKG obtained at 2:04 p.m. reveals a ventricular rate of 92 beats per minute. Sinus rhythm. QTC 484. Left bundle branch block. MDM Narrative Medical decision making narrative: Last stress test was done 3 years ago was probably normal. New symptoms now for a number of days with intermittent chest pain that is nonexertional and intermittent tachycardia. I feel like more definitive workup needs to be accomplished prior to discharge from the hospital. Workup here in the ED is reassuring. EKG shows no acute ischemia. Initial troponin is negative. I spoke to Dr. Carlisle who agrees to admit the patient for further workup. Discharge Plan Departure Patient Disposition: Admitted As Inpatient Clinical Impression: Chest pain, Tachycardia Prescriptions: No Action nitroglycerin [Nitrostat] 0.4 MG tablet, sublingual 0.4 mg Sublingual PRN PRNQty: 25 3RF clobetasol 0.05 % ointment 1 applic topical BID metoprolol succinate [Toprol XL] 25 mg tablet extended release 24 hr 25 mg PO QDAY Qty: 90 2RF losartan 25 mg tablet 25 mg PO DAILY Qty: 90 3RF Hold Instructions: Dizziness hydroxyzine HCl 50 mg tablet 50 mg PO Q6H PRN (Reason: itching) Qty: 120 5RF (DME) Test Strips - Freestyle 0 .Route .MEDSUPPLY Qty: 250 3RF Dose Instruction: As directed Rx Instructions: As directed CHECK BLOOD SUGAR TWICE A DAY atorvastatin [Lipitor] 20 mg tablet 20 mg PO HS Qty: 90 1RF famotidine 40 mg tablet 40 mg PO BEDTIME Qty: 90 1RF Rx Instructions: Begin after pantoprazole alfuzosin 10 mg tablet extended release 24 hr 10 mg PO QDAY Qty: 90 3RF metformin 500 mg tablet 1,000 mg PO BIDCC Qty: 360 1RF Januvia 100 mg tablet 100 mg PO DAILY Qty: 90 1RF ferrous sulfate 325 mg (65 mg iron) tablet 325 mg PO DAILY aspirin 325 mg Tablet 325 mg PO DAILY Referrals: Trenton Oliveira MD [Primary Care Provider] -
--- NOTE | 2021-12-26 18:34 | PC.NURSE ---
new admit arrived from ED: dx chest pain. a/o, voices needs. sba mobility, uses bathroom. denies c/p or discomfort at this time. reports chest pain off/on over the past 10 days. 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 appears to be a little bit stressed out about who will be taking care of her while he is here, but so far he is able to discuss clearly and seems to have a good handle on things. tele applied, NSR. diet - HH. skin issues are superficial scratches on abdomen and legs. encouraged to stop scratching.
--- NOTE | 2021-12-26 20:37 | DI.NM.S_ITS ---
PROCEDURE: NM YAMILET PERF SPECT R&S PHARM Rest and pharmacological stress myocardial perfusion SPECT with gated imaging and ejection fraction RADIOPHARMACEUTICAL: 12.9 mCi Tc-99m tetrafosmin IV at rest and 27 mCi Tc-99m tetrafosmin IV at peak effect of pharmacological stress. [id number] was performed. INDICATIONS: chest pain, lBBB TECHNIQUE: Radiopharmaceutical was injected at peak stress test, and also at rest. SPECT images were obtained. SPECT myocardial perfusion images were displayed in short axis, horizontal long axis, and vertical long axis views. Gated images were reviewed using [employer] software. COMPARISON: None. CARDIAC STRESS: A pharmacologic stress test was performed under the supervision of an attending staff, using an infusion of lexiscan 0.4mg IV X1 . Hemodynamic data: There is normal blood pressure and heart rate response to pharmacologic stress. Symptoms: The patient denied anginal chest pain. Aminophylline: none EKG: Resting ECG showed sinus rhythm with LBBB. Non-diagnostic ECG with lexiscan due to baseline LBBB; no ectopy. FINDINGS: Raw data: There is good myocardial uptake of radiotracer. No significant motion artifacts. Left ventricle function: Gated images demonstrate normal left ventricular wall thickening. No segmental wall motion abnormalities. No transient ischemic dilation; TID is 0.94 (normal less than 1.3). Left ventricle resting end diastolic volume is 92 mL. Left ventricle stress ejection fraction is 69%; normal range is above 45%. Myocardial perfusion: There is a moderately intense fixed inferior and lateral wall defect consistent with prior infarction but artifact can't be excluded given the patient declined prone imaging. No ischemia. IMPRESSION: Abnormal nuclear stress consistent with prior infarction vs artifact. No ischemia. 1) There is a moderately intense fixed inferior and lateral wall defect consistent with prior infarction but artifact can't be excluded given the patient declined prone imaging. No ischemia. 2) Normal left ventricular size, wall motion, and systolic function (EF 69% post stress). 3) Non-diagnostic ECG due to baseline LBBB. 4) No angina during the study. 5) Compared to the nuc stress done 08/04/2018, the lateral wall defect is new on this study and inferior wall defect had essentially resolved on the prior study due to prone imaging done on that study. Dictated by: Allen Mace MD on 12/28/2021 at 13:11 Approved by: Allen Mace MD on 12/28/2021 at 13:15
[2021-12-26] MEDS: ATORVASTATIN 20 MG TABLET 40 MG PO (21:06)
[2021-12-26] MEDS: LOSARTAN 25 MG TABLET PO (21:06)
[2021-12-26] MEDS: INSULIN GLARGINE 100 UNIT/ML 3ML PEN SUBCUT (21:07)
[2021-12-26 21:15] LABS: Hemoglobin A1C% w Est Avg Glu 7.3 % (4.0-6.0)
--- NOTE | 2021-12-26 21:15 | P.HP_ITS ---
History of Present Illness History of Present Illness Date Patient Seen: 12/26/21 Time Patient Seen: 21:16 Chief complaint: Weakness, fast pulse Narrative: Lv Langley is an 86 male with a history of diabetes type 2, essential hypertension, history of aortic aneurysm repair remotely, coronary artery disease, history of costochondritis presented with persistent weakness and dizziness more so than normal. He saw his PCP on December 21 apparently scheduled him for an echocardiogram this coming . His main complaint is that he has noticed that he has had palpitations and took his blood pressures and heart rates and states that his pulse has been 90 throughout past weekend and it is normally in the 70s and 80s. He also noticed that his blood pressures have been lower for example 1112/73. He states his blood pressures and heart rates have been all over the place. He states that he was taken off metoprolol in advance of the echocardiogram and started on losartan because his ?kidneys showed a leak?. Patient states that his PCP ran some sort of 2 week test that projected his A1c would be closer to 5.5. Review of Dr. Paris's notes did not indicate that he had changed his medications but did apparently order a echocardiogram during his visit on December 19. Please see extensive review of systems below. Last echocardiogram was done in 2019 indicated a preserved ejection fraction of 55-60% with a mildly enlarged ascending aorta, no valvular disease seen at that point. He also underwent stress testing in 2019 that gina cated a mild defect in the inferior wall and inferior 0 apex that worsens with stress but improves with prone imaging and at that time indicating that and a small subendocardial VT could not be excluded at that time. Chest x-ray reported the following ??Right basilar pulmonary radiopacities suspicious for atelectasis.?Aspiration/infection could also be considered in the differential.? EKG indicated a left bundle branch block which was present on priors. Patient is afebrile, blood pressure 135/76, heart rate 78, respiratory rate 18, oxygen saturation of 96% on room air, he weighs 80.5 kg with a BMI of 28.2. He is mildly anemic with a hemoglobin and hematocrit of 11.3 and 34.5 respectively, bicarb is 21, BUN barely elevated at 21, no prior abnormal renal values were noted in the chart, glucose 133, A1c is 7.3, magnesium 1.5, troponins were both negative, and COVID -19 pcr is negative. FH: Reviewed with the patient and updated as below. Patient History Medical History Abdominal aortic aneurysm (AAA) without rupture (07/26/15) Benign non-nodular prostatic hyperplasia without lower urinary tract symptoms (04/26/15) BPH (benign prostatic hyperplasia) Closed nondisplaced fracture of distal phalanx of right great toe with routine healing, subsequent encounter (03/20/17) Costochondritis Diabetes Essential hypertension (04/26/15) Fracture of left great toe Hammer toe of right foot (01/06/16) HTN (hypertension) Laceration of left great toe EMILEE (obstructive sleep apnea) Pulmonary nodule, left Type 2 diabetes mellitus without complication (04/26/15) Surgical History S/P aneurysm repair Status post epigastric hernia repair, follow-up exam Family & Social History Family History Father Heart disease Mother Cancer Brother Lung disease Social History: household members spouse Prior Living Arrangements House lives independently Yes Safety & Behavioral: Feels Safe in Current Yes Environment Been Physically Hurt or No Threatened By a Person Tobacco & Substance use: Smoking Status Former smoker alcohol intake former alcohol intake frequency holiday/special occasion Substance Use Type does not use Meds Home Medications and Allergies Home Medications Medication Instructions Recorded Confirmed Type aspirin 325 mg tablet 325 mg PO DAILY 11/06/19 12/26/21 History clobetasol 0.05 % topical ointment 1 applic topical BID PRN Itching 02/08/21 12/26/21 History alfuzosin 10 mg tablet,extended 10 mg PO QDAY #90 tabs 09/07/21 12/26/21 Rx release 24 hr famotidine 40 mg tablet 40 mg PO BEDTIME #90 tabs 09/07/21 12/26/21 Rx metformin 500 mg tablet 1,000 mg PO BIDCC #360 tabs 09/07/21 12/26/21 Rx atorvastatin 20 mg tablet (Lipitor) 20 mg PO HS #90 tabs 12/11/21 12/26/21 Rx ferrous sulfate 325 mg (65 mg 325 mg PO DAILY 12/21/21 12/26/21 History iron) tablet latanoprost 0.005 % eye drops 1 drp ophthalmic (eye) DAILY 12/26/21 12/26/21 History losartan 25 mg tablet 25 mg PO BEDTIME 12/26/21 12/26/21 History nitroglycerin 0.4 mg sublingual 0.4 mg sublingual PRN PRN Chest 12/26/21 12/26/21 History tablet (Nitrostat) Pain sitagliptin 100 mg tablet (Januvia) 100 mg PO DAILY 12/26/21 12/26/21 History Allergies Allergy/AdvReac Type Severity Reaction Status Date / Time No Known Drug Allergies Allergy Verified 12/19/21 13:22 Review of Systems Constitutional Constitutional: Denies chills, Reports fatigue, Denies fever(s), Denies frequent falls, Denies headache(s) and Reports weakness Eyes Eyes: Denies other visual disturbances ENT Ears, Nose, Mouth, and Throat: Yes dizziness and No headache(s) Cardiovascular Cardiovascular: Reports chest pain (Squeezy pain, radiates to left arm), Denies chest pain at rest, Reports rapid heart rate (Has been over 90 all weekend normally is closer to 70-80 beats per minute), Reports pedal edema, Denies irregular heart rhythm, Reports leg edema, Denies palpitations, Denies dyspnea, Denies paroxysmal nocturnal dyspnea, Denies slow heart rate and Reports other (Orthopnea) Respiratory Respiratory: Reports system reviewed and no additional complaints, except as documented, Denies cough and Denies dyspnea Gastrointestinal Gastrointestinal: Reports abdominal pain, Denies hematochezia, Reports change in bowel habits (Soft stools today), Denies constipation, Denies cramping, Reports heartburn (Started medication for bile, it stated it dropped his blood sugar.), Denies fecal incontinence and Denies nausea Genitourinary Comments: States he used to urinate every 2 hours at nighttime and now sometimes he can go better part of the night without urinating. Musculoskeletal Musculoskeletal: Denies myalgias, Reports muscle cramps (Persistent in the right leg), Denies muscle weakness and Denies numbness Comments: Previously diagnosed with costochondritis. Neurologic Neurologic: Reports dizziness, Denies frequent falls, Denies headache(s), Denies lack of coordination, Denies numbness, Denies seizure-like activity, Reports weakness and Denies other (Denies history of a CVA) Endocrine Endocrine: Reports fatigue, Denies palpitations and Reports other (Patient diabetic and started medications for heartburn dropped his sugars) Exam Vital Signs (past 8 hours): - 12/26/21 13:53 12/26/21 13:59 12/26/21 14:00 Temperature 97.8 F Pulse Rate 103 H Respiratory Rate 18 Blood Pressure 149/68 H 176/73 H Pulse Oximetry 96 98 Oxygen Delivery Method Room Air Oxygen Flow Rate 12/26/21 14:00 12/26/21 14:30 12/26/21 15:00 Temperature Pulse Rate 104 H 93 H 87 Respiratory Rate 15 14 Blood Pressure Pulse Oximetry 96 95 94 Oxygen Delivery Method Oxygen Flow Rate 12/26/21 15:26 12/26/21 15:26 12/26/21 15:30 Temperature Pulse Rate 84 Respiratory Rate 24 Blood Pressure 153/67 H 146/72 H Pulse Oximetry 94 Oxygen Delivery Method Oxygen Flow Rate 12/26/21 15:30 12/26/21 16:00 12/26/21 16:00 Temperature Pulse Rate 88 81 Respiratory Rate 24 Blood Pressure 115/63 Pulse Oximetry 95 95 Oxygen Delivery Method Oxygen Flow Rate 12/26/21 16:30 12/26/21 17:05 12/26/21 19:20 Temperature 96.5 F L 96.5 F L 97.0 F L Pulse Rate 79 79 78 Respiratory Rate 17 17 18 Blood Pressure 150/76 H 150/76 H 135/76 Pulse Oximetry 96 96 96 Oxygen Delivery Method Oxygen Flow Rate 0 0 0 12/26/21 21:06 Temperature Pulse Rate 78 Respiratory Rate Blood Pressure 135/76 Pulse Oximetry Oxygen Delivery Method Oxygen Flow Rate Oxygen Delivery Method Room Air Oxygen Flow Rate 0 Narrative Exam Narrative: Gen: Alert, oriented, well-developed 86 y.o. male, talkative HEENT: normocephalic, atraumatic, conjunctiva clear, sclera non-icteric, oral mucosa pink and moist Neck: supple, full ROM, no JVD, trachea is midline Resp: Lungs CTA, non-labored breathing CV: RRR, no murmur or rubs appreciated Abd: soft, non-tender, normoactive BTs Skin: pale, no lesions or rashes, dry and intact Neuro: Alert and oriented X 4 w/no focal deficits. Speech clear and coherent. Extremities: trace edema, moves all 4 extremities, is ambulatory, negative Canelo?s sign Psyche: normal mood and affect. Objective Labs Result Diagrams: 12/26/21 14:11 12/26/21 14:11 Labs: Laboratory Results - last 24 hr 12/26/21 12/26/21 12/26/21 14:11 14:11 14:11 WBC 7.9 RBC 4.20 L Hgb 11.3 L Hct 34.5 L MCV 82.1 MCH 26.9 MCHC 32.8 RDW 18.3 H Plt Count 261 Neut % (Auto) 71.4 Lymph % (Auto) 15.1 L [place] % (Auto) 9.4 Eos % (Auto) 3.2 Baso % (Auto) 0.9 Neut # (Auto) 5600 Lymph # (Auto) 1200 [place] # (Auto) 700 Eos # (Auto) 200 Baso # (Auto) 100 PT 11.4 INR 1.0 APTT 29 Sodium 137 Potassium 4.0 Chloride 102 Carbon Dioxide 21 L BUN 21 H Creatinine 1.13 Estimated GFR > 60 BUN/Creatinine Ratio 18.6 Glucose 133 H Calcium 9.6 Magnesium 1.5 L Total Bilirubin 0.5 AST 26 ALT 21 Alkaline Phosphatase 58 Total Creatine Kinase 40 L CK-MB (CK-2) TNP CK-MB (CK-2) Rel Index TNP Troponin I < 0.012 Total Protein 7.3 Albumin 4.3 Globulin 3.0 Albumin/Globulin Ratio 1.4 Lipase 117 SARS-CoV-2 (PCR) 12/26/21 14:14 WBC RBC Hgb Hct MCV MCH MCHC RDW Plt Count Neut % (Auto) Lymph % (Auto) [place] % (Auto) Eos % (Auto) Baso % (Auto) Neut # (Auto) Lymph # (Auto) [place] # (Auto) Eos # (Auto) Baso # (Auto) PT INR APTT Sodium Potassium Chloride Carbon Dioxide BUN Creatinine Estimated GFR BUN/Creatinine Ratio Glucose Calcium Magnesium Total Bilirubin AST ALT Alkaline Phosphatase Total Creatine Kinase CK-MB (CK-2) CK-MB (CK-2) Rel Index Troponin I Total Protein Albumin Globulin Albumin/Globulin Ratio Lipase SARS-CoV-2 (PCR) Negative Assessment & Plan Assessment & Plan narrative: Lv Langley is placed into observation for dizziness, near syncope, and chest pain. Presyncope, acute on chronic, present on admission * Orthostatic vitals Q 6 hours Hypomagnemesia, acute and present on admission * Mag was 1.5 * He is ordered for a 2 gram rider of IV magnesium Chest pain r/o ACS, acute, present on admission ? Echo in am ? Pharmacological stress test will order pending results of echo, if with reduced EF will not do. ? Start ASA 81 mg ? EKG shows chronic ischemic changes left bundle branch block ? Trend troponin X 3, 1st 2 are negative Hypertension ? Will need to confirm with Dr. Paris is office whether he was actually taken off of metoprolol but continue losartan. He appeared to have discontinued losartan at an outpatient visit on November 21. Diabetes type 2 suboptimally controlled * Oral anti diabetics are being held * Have ordered Lantus 5 units in the morning and at bedtime with low dose correctional insulin scale * Carb controlled diet with achs glucose checks HLD ? Lipid panel, pending ? Start/continue atorvastatin 40 mg po at bedtime Risk stratification ? Fasting lipid panel scheduled for 0500 labs ? A1c 7.3 suboptimally controlled % VTE Prophylaxis: Wells risk score 0 Enoxaparin 40 mg subQ once daily Bilateral SCDs Patient is placed into observation as his stay is not expected to exceed 2 midnights. FEN: IV fluids: saline lock, diet: carb controlled diet, labs: CBC, C/BMP, liver enzymes, Mag, PT/INR Consultants None Dispo: probable d/c to home Code status: Full code as discussed with the patient who identifies his son in law Jordan Armas his surrogate and POA. [X] I have utilized all available immediate resources to obtain, update, or review of the patient's current medications VTE Deep Vein Thrombosis/Pulmonary Embolism Present on Admission: No MIPS - Admit I confirm the patient?s Advance Care Plan is present, Code status is documented, Surrogate decision maker is in patient?s record: Yes MIPS - DC The patient has current or prior documentation of left ventricular ejection fr action (LVEF) less than 40%, or moderate or severely depressed left ventricular systolic function.: No COVID-19 COVID-19 status: Negative Result date/Date tested (Pos, Neg/Pending): 12/26/21 Quality VTE Deep Vein Thrombosis/Pulmonary Embolism Present on Admission: No
[2021-12-26 21:20] LABS: Troponin I < 0.012 ng/mL (0.01-0.034)
[2021-12-26] MEDS: MAGNESIUM SULFATE 2 GM/50 ML PIGGYBACK IV (22:06)
--- NOTE | 2021-12-26 22:36 | PC.NURSE ---
Patient is alert and oriented. Breath sounds CTA with RA sat of 96%. HRR w/telemetry reading of SR. Reports intermittent left chest pressure and cramping with severity no greater than 4/10 and lasting between 30 seconds and 4 minutes; declines pain medication. Denies radiation from chest pain. Complains of lightheadedness and weakness when getting up to bathroom. Denies nausea. BT present and abdomen is soft. Voiding without dysuria; urine is clear yellow. Is able to turn himself in bed and up to bathroom with SBA. Bilateral calf SCD's applied. Scabbed abrasions noted on back, abdomen and all extremities; reports problem with itchiness and has been seeing tower equipment repairer. Fall risk score is moderate and bed alarm is activated.
[2021-12-27] VITALS (12 sets, daily range): BP systolic 97–140; BP diastolic 57–69; PULSE 58–88; RESP 16–18; TEMP 36.1–36.6; O2SAT 93–98
[2021-12-27 02:58] LABS: Add Manual Diff / Slide Review NO; Basophils Absolute Auto 100 /uL (0-100); Eosinophils Absolute Auto 300 /uL (0-450); Eosinophils Percent Auto 5.8 % (2-4); Hematocrit 32.1 % (41-53); Hemoglobin 10.4 g/dL (13.5-17.5); Lymphocytes Absolute Auto 1100 /uL (1100-4500); Lymphocytes Percent Auto 20.5 % (25-40); Mean Corpuscular HGB Conc 32.6 % (30-36); Mean Corpuscular Hemoglobin 26.5 PG (26-34); Mean Corpuscular Volume 81.4 fL (80-100); Monocytes Absolute Auto 600 /uL (0-900); Monocytes Percent Auto 11.3 % (3-14); Neutrophils Absolute Auto 3400 /uL (1500-7000); Neutrophils Percent Auto 61.4 % (50-75); Platelet Count 230 X10^3/uL (150-400); Red Blood Cell Count 3.94 X10^6/uL (4.5-5.9); Red Cell Distribution Width 18.1 % (11.6-14.8); White Blood Cell Count 5.6 X10^3/uL (4.5-11.0)
[2021-12-27 03:09] LABS: Alanine Aminotransferase 17 IU/L (<50); Albumin 3.7 g/dL (3.5-5.0); Albumin Globulin Ratio 1.3 (1.0-2.8); Alkaline Phosphatase 49 U/L (38-126); Aspartate Aminotransferase 20 IU/L (17-59); Bilirubin Total 0.4 mg/dL (0.2-1.3); Blood Urea Nitrogen 20 mg/dL (9-20); Calcium 9.1 mg/dL (8.4-10.2); Carbon Dioxide 26 mmol/L (22-32); Chloride 101 mmol/L (98-107); Cholesterol 154 mg/dL (140-199); Estimated Glomerular Filt Rate > 60 mL/min (>60); Globulin 2.8 g/dL (1.7-4.1); Glucose 140 mg/dL (80-110); HDL Cholesterol 24 mg/dL (40-60); HEMOLYSIS < 15 (0-50); LDL Cholesterol Calculated 104 mg/dL (<100); Potassium 3.8 mmol/L (3.4-5.1); Sodium 135 mmol/L (137-145); Total Protein 6.5 g/dL (6.3-8.2); Triglycerides 132 mg/dL (35-150)
[2021-12-27 03:20] LABS: Troponin I < 0.012 ng/mL (0.01-0.034)
[2021-12-27 03:45] LABS: Thyroid Stimulating Hormone 3.68 uIU/mL (0.47-4.68)
[2021-12-27] MEDS: INSULIN GLARGINE 100 UNIT/ML 3ML PEN SUBCUT ×2 (08:04→20:34)
[2021-12-27] MEDS: ENOXAPARIN 40 MG/0.4 ML SYRINGE SUBCUT (08:26)
[2021-12-27] MEDS: ASPIRIN EC 81 MG TABLET PO (08:27)
[2021-12-27] MEDS: SODIUM CHLORIDE 0.9% FLUSH 10 ML IV ×2 (08:27→20:38)
[2021-12-27] MEDS: FERROUS SULFATE 325 MG TABLET PO (08:27)
--- NOTE | 2021-12-27 09:20 | P.PN_ITS ---
Subjective Subjective Date Patient Seen: 12/27/21 Time Patient Seen: 09:00 Interval history: Lv Langley is an 86 male with a history of diabetes type 2, essential hypertension, history of aortic aneurysm repair remotely, coronary artery disease, history of costochondritis presented with persistent weakness and dizziness more so than normal as well as intermittent chest pain and intermittent tachycardia. Has pending pharmacological stress test. Getting intermittent chest pain left side over the heart. Not tender in that area. Pain is mostly an aching type pain. No radiation of pain. Exam Vital Signs (past 8 hours): - 12/27/21 04:13 12/27/21 06:40 12/27/21 08:00 Temperature 97.8 F Pulse Rate 65 Pulse Rate [Orthostatic Lying] 58 L Pulse Rate [Orthostatic Sitting] 66 Pulse Rate [Orthostatic Standing] 76 Respiratory Rate 18 Blood Pressure 124/62 Blood Pressure [Orthostatic Lying] 132/69 Blood Pressure [Orthostatic Sitting] 122/57 L Blood Pressure [Orthostatic Standing] 97/66 Pulse Oximetry 94 94 Oxygen Delivery Method Room Air Oxygen Flow Rate 0 0 Oxygen Delivery Method Room Air Oxygen Flow Rate 0 Narrative Exam Narrative: Gen: Alert, oriented, well-developed 86 y.o. male, talkative HEENT: normocephalic, atraumatic, conjunctiva clear, sclera non-icteric, oral mucosa pink and moist Neck: supple, full ROM, no JVD, trachea is midline Resp: Lungs CTA, non-labored breathing CV: RRR, no murmur or rubs appreciated Abd: soft, non-tender, normoactive BTs Skin: pale, no lesions or rashes, dry and intact Neuro: Alert and oriented X 4 w/no focal deficits. Speech clear and coherent. Extremities: trace edema, moves all 4 extremities, is ambulatory, negative Canelo?s sign Psyche: normal mood and affect. Objective Labs Result Diagrams: 12/27/21 02:48 12/27/21 02:48 Labs: Laboratory Results - last 24 hr 12/26/21 12/26/21 12/26/21 14:11 14:11 14:11 WBC 7.9 RBC 4.20 L Hgb 11.3 L Hct 34.5 L MCV 82.1 MCH 26.9 MCHC 32.8 RDW 18.3 H Plt Count 261 Neut % (Auto) 71.4 Lymph % (Auto) 15.1 L [place] % (Auto) 9.4 Eos % (Auto) 3.2 Baso % (Auto) 0.9 Neut # (Auto) 5600 Lymph # (Auto) 1200 [place] # (Auto) 700 Eos # (Auto) 200 Baso # (Auto) 100 PT 11.4 INR 1.0 APTT 29 Sodium 137 Potassium 4.0 Chloride 102 Carbon Dioxide 21 L BUN 21 H Creatinine 1.13 Estimated GFR > 60 BUN/Creatinine Ratio 18.6 Glucose 133 H Hemoglobin A1c Calcium 9.6 Magnesium 1.5 L Total Bilirubin 0.5 AST 26 ALT 21 Alkaline Phosphatase 58 Total Creatine Kinase 40 L CK-MB (CK-2) TNP CK-MB (CK-2) Rel Index TNP Troponin I < 0.012 Total Protein 7.3 Albumin 4.3 Globulin 3.0 Albumin/Globulin Ratio 1.4 Triglycerides Cholesterol LDL Cholesterol, Calc HDL Cholesterol Lipase 117 TSH SARS-CoV-2 (PCR) 12/26/21 12/26/21 12/26/21 14:14 20:45 20:45 WBC RBC Hgb Hct MCV MCH MCHC RDW Plt Count Neut % (Auto) Lymph % (Auto) [place] % (Auto) Eos % (Auto) Baso % (Auto) Neut # (Auto) Lymph # (Auto) [place] # (Auto) Eos # (Auto) Baso # (Auto) PT INR APTT Sodium Potassium Chloride Carbon Dioxide BUN Creatinine Estimated GFR BUN/Creatinine Ratio Glucose Hemoglobin A1c 7.3 H Calcium Magnesium Total Bilirubin AST ALT Alkaline Phosphatase Total Creatine Kinase CK-MB (CK-2) CK-MB (CK-2) Rel Index Troponin I < 0.012 Total Protein Albumin Globulin Albumin/Globulin Ratio Triglycerides Cholesterol LDL Cholesterol, Calc HDL Cholesterol Lipase TSH SARS-CoV-2 (PCR) Negative 12/27/21 12/27/21 12/27/21 02:48 02:48 02:48 WBC 5.6 RBC 3.94 L Hgb 10.4 L Hct 32.1 L MCV 81.4 MCH 26.5 MCHC 32.6 RDW 18.1 H Plt Count 230 Neut % (Auto) 61.4 Lymph % (Auto) 20.5 L [place] % (Auto) 11.3 Eos % (Auto) 5.8 H Baso % (Auto) 1.0 Neut # (Auto) 3400 Lymph # (Auto) 1100 [place] # (Auto) 600 Eos # (Auto) 300 Baso # (Auto) 100 PT INR APTT Sodium 135 L Potassium 3.8 Chloride 101 Carbon Dioxide 26 BUN 20 Creatinine 0.91 Estimated GFR > 60 BUN/Creatinine Ratio 22.0 Glucose 140 H Hemoglobin A1c Calcium 9.1 Magnesium Total Bilirubin 0.4 AST 20 ALT 17 Alkaline Phosphatase 49 Total Creatine Kinase CK-MB (CK-2) CK-MB (CK-2) Rel Index Troponin I < 0.012 Total Protein 6.5 Albumin 3.7 Globulin 2.8 Albumin/Globulin Ratio 1.3 Triglycerides 132 Cholesterol 154 LDL Cholesterol, Calc 104 H HDL Cholesterol 24 L Lipase TSH SARS-CoV-2 (PCR) 12/27/21 02:48 WBC RBC Hgb Hct MCV MCH MCHC RDW Plt Count Neut % (Auto) Lymph % (Auto) [place] % (Auto) Eos % (Auto) Baso % (Auto) Neut # (Auto) Lymph # (Auto) [place] # (Auto) Eos # (Auto) Baso # (Auto) PT INR APTT Sodium Potassium Chloride Carbon Dioxide BUN Creatinine Estimated GFR BUN/Creatinine Ratio Glucose Hemoglobin A1c Calcium Magnesium Total Bilirubin AST ALT Alkaline Phosphatase Total Creatine Kinase CK-MB (CK-2) CK-MB (CK-2) Rel Index Troponin I Total Protein Albumin Globulin Albumin/Globulin Ratio Triglycerides Cholesterol LDL Cholesterol, Calc HDL Cholesterol Lipase TSH 3.68 SARS-CoV-2 (PCR) [facility] Medical History Abdominal aortic aneurysm (AAA) without rupture (07/26/15) Benign non-nodular prostatic hyperplasia without lower urinary tract symptoms (04/26/15) BPH (benign prostatic hyperplasia) Closed nondisplaced fracture of distal phalanx of right great toe with routine healing, subsequent encounter (03/20/17) Costochondritis Diabetes Essential hypertension (04/26/15) Fracture of left great toe Hammer toe of right foot (01/06/16) HTN (hypertension) Laceration of left great toe EMILEE (obstructive sleep apnea) Pulmonary nodule, left Type 2 diabetes mellitus without complication (04/26/15) Surgical History S/P aneurysm repair Status post epigastric hernia repair, follow-up exam Family History Father Heart disease Mother Cancer Brother Lung disease Social History marital status: household members: spouse lives independently: Yes Smoking Status: Former smoker alcohol intake: former substance use type: does not use Assessment & Plan Assessment and plan (1) Chest pain: Status: Acute Assessment & Plan narrative: 1. Presyncope, acute on chronic, present on admission Orthostatic vitals Q 6 hours 2.Hypomagnemesia, acute and present on admission Mag was 1.5 on presentation 2 gram rider of IV magnesium given 3. Chest pain r/o ACS, acute, present on admission Needs to be present. Intermittently. Echo if but not read. Pharmacological stress test pending. ASA 81 mg EKG shows chronic ischemic changes left bundle branch block Trend troponin X 3, all three are negative. 4. Hypertension. Treating with losartan. 5. Tachycardia prior to presentation. Patient reports up to 120 rate. Heart r ate 103 in the ER. We decreased to 61. Due to variability will do telemetry monitoring. 6. Diabetes type 2 suboptimally controlled Oral anti diabetics are being held Lantus 5 units in the morning and at bedtime with low dose correctional insulin scale Carb controlled diet Hemoglobin A1c 7.3. This is better than a few months ago. 7. Hyperlipidemia On atorvastatin 40 mg po at bedtime VTE Prophylaxis: Wells risk score 0 Enoxaparin 40 mg subQ once daily? Bilateral SCDs FEN: IV fluids: saline lock, diet: carb controlled diet Consultants? None Dispo: probable d/c to home Code status: Full code. Son in law Jordan Armas his surrogate and POA. Time Spent With Patient Critical Care time: I spent a total of [] minutes of critical care time on this patient's care today; this time is exclusive of procedural time. Quality VTE Deep Vein Thrombosis/Pulmonary Embolism Present on Admission: No
[2021-12-27 09:38] LABS: Troponin I < 0.012 ng/mL (0.01-0.034)
--- NOTE | 2021-12-27 10:05 | PC.NURSE ---
Pt to Radiology via w/c by [facility]. for Stress test
--- NOTE | 2021-12-27 10:57 | PC.NURSE ---
Pt back to room at 1030, tele placed back on Pt
[2021-12-27] MEDS: INSULIN LISPRO 100 UNIT/ML 3ML VIAL SUBCUT ×2 (12:15→20:35)
--- NOTE | 2021-12-27 15:24 | CM.DANOTE ---
Initial DCP Assessment Note Pt is an 86 yo male, resident [facility], arrives with persistent weakness and dizziness admitted observation for medical w/u, chest pain r/o, echo, stress test etc PCP: Trenton Oliveira Payer: [facility] Life Reviewed chart, pt discussed in multidisciplinary rounds this morning. Patient scheduled for cardiac w/u today; expected to discharge home w/supportive family and close outpatient follow up upon discharge No barriers identified at this time to patient's safe discharge home w/family to assist; close outpatient f/u recommended. GABBY Mendenhall Discharge Planning/Care Management CM Discharge Assessment Start: 12/27/21 15:19 Freq: Status: Active Protocol: Document 12/27/21 15:19 CARY (Rec: 12/27/21 15:23 CARY [id number]) Discharge Planning Assessment Assigned Home Comfort Advisor GABBY Leblanc DPOA/Assigned Designee Name Flori Langley, spouse Contact Information [phone] Advance Directives? No History Provided By Patient,Medical Record Prior Living Arrangements House Household Members spouse Type of transportation used prior to Drives own vehicle admit Independent with ADL's Yes Is patient alert and oriented? Yes Needs Assistance With Home Chores / Shopping Barriers to Discharge No Comment Home w/spouse expected Discharge Plan Home Transportation Arrangement Family member Referrals Initiated None needed Additional Comment Will follow closely to see if any resources are needed.
[2021-12-27] MEDS: ATORVASTATIN 20 MG TABLET 40 MG PO (20:33)
[2021-12-27] MEDS: LOSARTAN 25 MG TABLET PO (20:33)
--- NOTE | 2021-12-27 22:54 | PC.NURSE ---
Patient is alert and oriented. Breath sounds CTA with RA sat of 93%. HRR w/telemetry reading of SR w/BBB. States he is still having intermittent left chest pain but episodes are fewer. Still with some lightheadedness when first getting out of bed so reminded to sit on edge of bed until resolved before getting up to walk. Denies nausea. BT hyperactive; abdomen is soft. Denies dysuria, frequency or urgency with urination; urine is clear yellow. Is able to move himself in bed. Still complains of some LE weakness so is using a walker and SBA when out of bed. Wearing bilateral calf SCD's. Fall risk score is high and bed alarm is activated.
[2021-12-28] VITALS (7 sets, daily range): BP systolic 110–150; BP diastolic 61–82; PULSE 58–99; RESP 12–17; TEMP 35.9–36.2; O2SAT 92–97
[2021-12-28 06:06] LABS: Add Manual Diff / Slide Review NO; Basophils Absolute Auto 100 /uL (0-100); Basophils Percent Auto 0.9 % (0-2); Eosinophils Absolute Auto 400 /uL (0-450); Eosinophils Percent Auto 6.3 % (2-4); Hematocrit 33.2 % (41-53); Hemoglobin 11.1 g/dL (13.5-17.5); Lymphocytes Absolute Auto 1000 /uL (1100-4500); Lymphocytes Percent Auto 18.1 % (25-40); Mean Corpuscular HGB Conc 33.2 % (30-36); Mean Corpuscular Volume 81.1 fL (80-100); Monocytes Absolute Auto 600 /uL (0-900); Monocytes Percent Auto 11.2 % (3-14); Neutrophils Absolute Auto 3600 /uL (1500-7000); Neutrophils Percent Auto 63.5 % (50-75); Platelet Count 232 X10^3/uL (150-400); Red Cell Distribution Width 18.6 % (11.6-14.8); White Blood Cell Count 5.7 X10^3/uL (4.5-11.0)
[2021-12-28 06:10] LABS: Alanine Aminotransferase 17 IU/L (<50); Albumin 3.8 g/dL (3.5-5.0); Albumin Globulin Ratio 1.3 (1.0-2.8); Alkaline Phosphatase 55 U/L (38-126); Aspartate Aminotransferase 22 IU/L (17-59); BUN Creatinine Ratio 16.1 (6-22); Bilirubin Total 0.4 mg/dL (0.2-1.3); Blood Urea Nitrogen 15 mg/dL (9-20); Carbon Dioxide 27 mmol/L (22-32); Chloride 103 mmol/L (98-107); Estimated Glomerular Filt Rate > 60 mL/min (>60); Glucose 157 mg/dL (80-110); HEMOLYSIS < 15 (0-50); Potassium 4.3 mmol/L (3.4-5.1); Sodium 136 mmol/L (137-145); Total Protein 6.8 g/dL (6.3-8.2)
[2021-12-28] MEDS: FERROUS SULFATE 325 MG TABLET PO (09:14)
[2021-12-28] MEDS: ASPIRIN EC 81 MG TABLET PO (09:14)
[2021-12-28] MEDS: LATANOPROST 0.005% OPHTH 2.5 ML 1 DROPS EYE-BOTH (09:15)
[2021-12-28] MEDS: SODIUM CHLORIDE 0.9% FLUSH 10 ML IV (09:15)
[2021-12-28] MEDS: ENOXAPARIN 40 MG/0.4 ML SYRINGE SUBCUT (09:15)
[2021-12-28] MEDS: INSULIN GLARGINE 100 UNIT/ML 3ML PEN SUBCUT (09:16)
--- NOTE | 2021-12-28 11:50 | PC.NURSE ---
Pt to [facility] for second part of stress test via w/c by Radiology personnel.
[2021-12-28] MEDS: INSULIN LISPRO 100 UNIT/ML 3ML VIAL SUBCUT (12:42)
--- NOTE | 2021-12-28 13:40 | PM.DS.1 ---
History of Present Illness History of Present Illness Date Patient Seen: 12/28/21 Time Patient Seen: 13:00 Chief complaint: Weakness, fast pulse Narrative: Lv Langley is an 86 male with a history of diabetes type 2, essential hypertension, history of aortic aneurysm repair remotely, coronary artery disease, history of recent costochondritis who presented with persistent weakness and dizziness more so than normal.? His main complaint was that he has noticed that he has had palpitations and took his blood pressures and heart rates and states that his pulse has been 90 throughout past weekend and it is normally in the 70s and 80s.? He also noticed that his blood pressures have been lower for example 112/73.? He indicated that he was taken off metoprolol in advance of the echocardiogram and started on losartan.? Discharge Providers Provider Date of admission: 12/26/21 15:43 Discharge Date: 12/28/21 Primary care physician: Trenton Oliveira MD Discharge provider: Leila Payne MD Summary Hospital Course Discharge Diagnosis: Most responsible diagnosis for length of stay: Chest pain Pre admit diagnosis: Chest pain Presyncope Weakness and dizziness Uncontrolled diabetes Fixed inferior and lateral wall defect consistent with prior infarction Decreased ejection fraction and with HFrEF Elevated hemoglobin A1c (7.3) consistent with uncontrolled diabetes Post admit diagnosis: Confirmed normal stable troponin level during hospital stay Secondary diagnoses: Abdominal aortic aneurysm (AAA) without rupture (07/26/15) BPH (benign prostatic hyperplasia) Closed nondisplaced fracture of distal phalanx of right great toe with routine healing, subsequent encounter (03/20/17) Costochondritis Essential hypertension (04/26/15) Fracture of left great toe Hammer toe of right foot (01/06/16) Laceration of left great toe EMILEE (obstructive sleep apnea) Pulmonary nodule, left AAA repair Complication of cardiac standstill during AAA repair Status post epigastric hernia repair Hospital Course: The patient presented with weakness and dizziness. Orthostatic blood pressures were taken without indicating any problems. Serial troponins completed and they were normal. It was arranged for a pharmacological stress test. The quadruple stress test demonstrated a moderately intense fixed inferior and lateral wall defect consistent with prior infarction but artifact can't be excluded given the patient declined prone imaging. Patient's production support developer Dr. Orozco should be made aware of this and a follow-up appointment with him soon would be appropriate. A echocardiogram showed an ejection fraction is estimated to be 40-45%. This is a significant decrease from the previous echocardiogram completed in August of 2019. This as well should be reviewed by Dr. Orozco. Due to poor control of diabetes the patient was initiated on Lantus and also sliding scale Humalog during the hospital stay. On discharge patient will be continued on Lantus 10 units daily. His Hb A1c was 7.3. Medication changes during the hospital stay to be continued on discharge included 1) atorvastatin was increased to 40 mg daily, 2) Lantus 10 units in the evening daily and 3) nitroglycerin was provided. Status at Discharge Cognitive/behavioral status at discharge: at baseline, oriented Functional status at discharge: independent ambulation Overall status at discharge: patient is back to baseline Time Spent with Patient Time spent: Greater than 30 minutes Exam Vital Signs (past 8 hours): - 12/28/21 06:00 12/28/21 08:18 12/28/21 11:00 Temperature 96.7 F L Pulse Rate 66 Pulse Rate [Orthostatic Lying] 58 L Pulse Rate [Orthostatic Sitting] 64 Pulse Rate [Orthostatic Standing] 83 Respiratory Rate 16 Blood Pressure 136/79 Blood Pressure [Orthostatic Lying] 126/61 Blood Pressure [Orthostatic Sitting] 112/67 Blood Pressure [Orthostatic Standing] 110/63 Pulse Oximetry 97 96 Oxygen Delivery Method Room Air Oxygen Flow Rate 0 0 12/28/21 13:00 12/28/21 13:25 Temperature 96.7 F L Pulse Rate 89 Pulse Rate [Orthostatic Lying] 89 Pulse Rate [Orthostatic Sitting] 88 Pulse Rate [Orthostatic Standing] 99 H Respiratory Rate 16 Blood Pressure 150/82 H Blood Pressure [Orthostatic Lying] 150/82 H Blood Pressure [Orthostatic Sitting] 125/79 Blood Pressure [Orthostatic Standing] 147/72 H Pulse Oximetry 96 Oxygen Delivery Method Oxygen Flow Rate 0 Oxygen Delivery Method Room Air Oxygen Flow Rate 0 Narrative Exam Narrative: Gen: Alert, oriented, well-developed 86 y.o. male, talkative HEENT: normocephalic, atraumatic, conjunctiva clear, sclera non-icteric, oral mucosa pink and moist Neck: supple, full ROM, no JVD, trachea is midline Resp: Lungs CTA, non-labored breathing CV: RRR, no murmur or rubs appreciated Abd: soft, non-tender, normoactive BTs Skin: pale, no lesions or rashes, dry and intact Neuro: Alert and oriented X 4 w/no focal deficits. Speech clear and coherent. Extremities: trace edema, moves all 4 extremities, is ambulatory, negative Canelo?s sign Psyche: normal mood and affect. Objective Labs Result Diagrams: 12/28/21 05:48 12/28/21 05:48 Labs: Laboratory Results - last 24 hr 12/28/21 12/28/21 12/28/21 05:48 05:48 05:48 WBC 5.7 RBC 4.10 L Hgb 11.1 L Hct 33.2 L MCV 81.1 MCH 27.0 MCHC 33.2 RDW 18.6 H Plt Count 232 Neut % (Auto) 63.5 Lymph % (Auto) 18.1 L Ashley % (Auto) 11.2 Eos % (Auto) 6.3 H Baso % (Auto) 0.9 Neut # (Auto) 3600 Lymph # (Auto) 1000 L Ashley # (Auto) 600 Eos # (Auto) 400 Baso # (Auto) 100 Sodium 136 L Potassium 4.3 Chloride 103 Carbon Dioxide 27 BUN 15 Creatinine 0.93 Estimated GFR > 60 BUN/Creatinine Ratio 16.1 Glucose 157 H Calcium 9.0 Magnesium 2.0 Total Bilirubin 0.4 AST 22 ALT 17 Alkaline Phosphatase 55 Total Protein 6.8 Albumin 3.8 Globulin 3.0 Albumin/Globulin Ratio 1.3 [facility] Medical History Abdominal aortic aneurysm (AAA) without rupture (07/26/15) Benign non-nodular prostatic hyperplasia without lower urinary tract symptoms (04/26/15) BPH (benign prostatic hyperplasia) Closed nondisplaced fracture of distal phalanx of right great toe with routine healing, subsequent encounter (03/20/17) Costochondritis Diabetes Essential hypertension (04/26/15) Fracture of left great toe Hammer toe of right foot (01/06/16) HTN (hypertension) Laceration of left great toe EMILEE (obstructive sleep apnea) Pulmonary nodule, left Type 2 diabetes mellitus without complication (04/26/15) Surgical History S/P aneurysm repair Status post epigastric hernia repair, follow-up exam Family History Father Heart disease Mother Cancer Brother Lung disease Social History marital status: household members: spouse lives independently: Yes Smoking Status: Former smoker alcohol intake: former substance use type: does not use Discharge Assessment & Plan Assessment and Plan Assessment: Discharge home and follow-up with Dr. Oliveira within 1 week Plan of Treatment: Charge. Discharge Plan Discharge Plan Patient Disposition: Home Provider Discharge Comment: Patient to make an appointment with his family physician within 1 week. Lantus has been sent to [facility] as well as [facility]. Patient to use 10 units in the evening. He should continue this once he gets the Lantus from [facility]. However the [facility] Rx was written as 5 units twice a day. It would be reasonable to continue it at 10 units in the evening however. As well patient's atorvastatin has been increased to 40 mg daily. This new prescription has been sent to [facility]. Also nitroglycerin was sent as a prescription to [facility] Discharge orders & Medications Prescriptions: New atorvastatin [Lipitor] 20 mg Tablet 40 mg PO BEDTIME Qty: 30 0RF insulin glargine [Lantus Solostar U-100 Insulin] 100 unit/mL (3 mL) insulin pen 5 unit SUBCUT BID Qty: 15 0RF nitroglycerin [Nitrostat] 0.4 mg Tablet, Sublingual 0.4 mg sublingual [id number] PRN (Reason: Chest Pain) Qty: 30 0RF insulin glargine [Lantus Solostar U-100 Insulin] 100 unit/mL (3 mL) insulin pen 10 unit SUBCUT QPM Qty: 15 0RF Continued clobetasol 0.05 % ointment 1 applic topical BID PRN (Reason: Itching) famotidine 40 mg tablet 40 mg PO BEDTIME Qty: 90 1RF Rx Instructions: Begin after pantoprazole alfuzosin 10 mg tablet extended release 24 hr 10 mg PO QDAY Qty: 90 3RF metformin 500 mg tablet 1,000 mg PO BIDCC Qty: 360 1RF ferrous sulfate 325 mg (65 mg iron) tablet 325 mg PO DAILY aspirin 325 mg Tablet 325 mg PO DAILY Januvia 100 mg tablet 100 mg PO DAILY losartan 25 mg tablet 25 mg PO BEDTIME latanoprost 0.005 % drops 1 drp ophthalmic (eye) DAILY nitroglycerin [Nitrostat] 0.4 MG tablet, sublingual 0.4 mg Sublingual PRN PRN (Reason: Chest Pain) Discontinued atorvastatin [Lipitor] 20 mg tablet 20 mg PO HS Qty: 90 1RF Follow up/Referrals: Trenton Oliveira MD [Primary Care Provider] - Visit Report/Discharge Packet Instructions: DI for Atypical Chest Pain, DI for Iron Deficiency Anemia-Adult, DI for Tachycardia, Insulin Glargine (rDNA origin) Injection, Atorvastatin, Nitroglycerin Sublingual Discharge Data Primary Care Provider: Trenton Oliveira Attending Provider: Leila Payne VTE Deep Vein Thrombosis/Pulmonary Embolism Present on Admission: No
--- NOTE | 2021-12-28 14:24 | PC.NURSE ---
Pt is dressed and ready for discharge home with Halie. IV removed and tele removed. Went over d/c instructions with Pt -discussed d/c meds, time of last dose, new prescriptions, how to administer Lantus via pen injector and had Pt perform return demonstration, discussed use of Nitro for chest pain, follow up, and stroke education. Pt denies further questions and was taken out via w/c by RN to POV with Halie and all belongings.
== END 2021-12-28 14:28 | disposition home or self-care (01) ==
LOC: ED 15:33 → AC 15:44
PROVIDERS: Nurse Practitioner Family; Admitting Provider Neuromusculoskeletal Medicine, Sports Medicine; Emergency Provider Family Medicine Addiction Medicine; PCP Student in an Organized Health Care Education/Training Program; Referring Provider Family Medicine Addiction Medicine; Visit Provider Neuromusculoskeletal Medicine, Sports Medicine
DX: R07.9 Chest pain, unspecified (principal); E11.9 Type 2 diabetes mellitus without complications; Z79.84 Long term (current) use of oral hypoglycemic drugs; I10 Essential (primary) hypertension; G47.33 Obstructive sleep apnea (adult) (pediatric); I25.10 Atherosclerotic heart disease of native coronary artery without angina pectoris; R55 Syncope and collapse; Z20.822 Contact with and (suspected) exposure to COVID-19
CPT/HCPCS: 36415; 71045; 78452; 80053; 80061; 82550; 82962; 83036; 83690; 83735; 84443; 84484; 85025; 85610; 85730; 87635; 93005; 93010; 93017; 93306; 96360; 96361; 96372; 99284; C9803; G0378; A9502; J1650; J1815; J2785; J3475

== ENCOUNTER 2022-01-01 06:18 | Emergency (ER) | payer MEDICARE, OTHER, SELFPAY ==
[2021-12-29 16:51] VITALS: BMI 28.2
[2022-01-01] VITALS (17 sets, daily range): BP systolic 109–138; BP diastolic 57–71; PULSE 66–111; RESP 10–26; TEMP 36.3; O2SAT 93–98; BMI 28.0
--- NOTE | 2022-01-01 06:29 | DI.RAD.S_ITS ---
PROCEDURE: XR CHEST 1V INDICATIONS: chest pain TECHNIQUE: One view of the chest was acquired. COMPARISON: [facility], CR, XR CHEST 1V, 12/26/2021, 14:14. [facility], CR, XR CHEST 1V, 04/25/2019, 16:50. FINDINGS: Surgical changes and devices: None. Lungs and pleura: Mild pulmonary opacities are present at the bilateral lung bases, more confluent on the left than on the right. No pleural effusion or pneumothorax. Mediastinum: Mediastinal contours appear normal. Heart size is normal. Bones and chest wall: No suspicious bony lesions. Overlying soft tissues appear unremarkable. IMPRESSION: Mild basilar opacities. Differential considerations include atelectasis, aspiration, and infection. These findings are concordant with the overnight interpretation. Dictated by: Heather Rivera M.D. on 01/01/2022 at 8:36 Approved by: Heather Rivera M.D. on 01/01/2022 at 8:37
[2022-01-01 06:59] LABS: Add Manual Diff / Slide Review NO; Basophils Absolute Auto 0 /uL (0-100); Basophils Percent Auto 0.7 % (0-2); Eosinophils Absolute Auto 300 /uL (0-450); Eosinophils Percent Auto 5.3 % (2-4); Hemoglobin 11.2 g/dL (13.5-17.5); Lymphocytes Absolute Auto 1300 /uL (1100-4500); Lymphocytes Percent Auto 20.8 % (25-40); Mean Corpuscular HGB Conc 32.9 % (30-36); Mean Corpuscular Hemoglobin 26.9 PG (26-34); Monocytes Absolute Auto 600 /uL (0-900); Neutrophils Absolute Auto 4000 /uL (1500-7000); Neutrophils Percent Auto 63.2 % (50-75); Platelet Count 246 X10^3/uL (150-400); Prothrombin Time 11.5 SECONDS (10.1-12.7); Red Blood Cell Count 4.15 X10^6/uL (4.5-5.9); Red Cell Distribution Width 18.9 % (11.6-14.8); White Blood Cell Count 6.4 X10^3/uL (4.5-11.0)
[2022-01-01 07:02] LABS: PTT Partial Thromboplastin Tim 29 SECONDS (26-36)
[2022-01-01 07:05] LABS: Alanine Aminotransferase 20 IU/L (<50); Albumin 4.3 g/dL (3.5-5.0); Albumin Globulin Ratio 1.4 (1.0-2.8); Alkaline Phosphatase 67 U/L (38-126); Aspartate Aminotransferase 25 IU/L (17-59); BUN Creatinine Ratio 13.3 (6-22); Bilirubin Total 0.5 mg/dL (0.2-1.3); Blood Urea Nitrogen 13 mg/dL (9-20); Calcium 9.4 mg/dL (8.4-10.2); Carbon Dioxide 25 mmol/L (22-32); Chloride 100 mmol/L (98-107); Creatine Kinase 32 U/L (55-170); Estimated Glomerular Filt Rate > 60 mL/min (>60); Glucose 160 mg/dL (80-110); HEMOLYSIS < 15 (0-50); Lipase 109 U/L (23-300); Magnesium 1.7 mg/dL (1.6-2.3); Potassium 3.9 mmol/L (3.4-5.1); Sodium 134 mmol/L (137-145); Total Protein 7.3 g/dL (6.3-8.2)
--- NOTE | 2022-01-01 07:07 | ED_ITS ---
HPI - Chest Pain General Chief Complaint: Chest Pain Stated Complaint: thinks hes having a heartattack Time Seen by Provider: 01/01/22 06:20 Source: patient and family Mode of arrival: Ambulatory Limitations: no limitations History of Present Illness HPI narrative: This is an 86-year-old male with history of AAA repair, diabetes, hypertension and dyslipidemia, coronary artery disease and recent costochondritis who was hospitalized on 12/26/2021 and had stress testing and echo which showed ejection fraction of 40-45% which is decreased from prior in August of 2019 as well as a moderately intense fixed inferior and lateral wall defect consistent with prior infarct although possible artifact secondary to patient's declined prone imaging. Patient was discharged home on Lantus and had his atorvastatin increased to 40 mg daily. He states this morning he was watching news when he developed left-sided chest and shortness of breath, patient felt nauseated but did not have any diaphoresis. Denies radiation to his arms or neck. He took 3 nitro sublingual which helped but did not resolve his pain. Patient states that it made him feel very weak and lightheaded but no syncope. Patient came via private auto to the ER. Patient states he did notice some increased swelling yesterday so took an extra water pill at about 1:00 a.m. this morning. He notes he is had some abdominal discomfort for the last several days. Patient states normal bowel movements no issues with urination he is had a chronic cough which she is seen subspecialty including ENT for. The only thing that makes it better is a water and vinegar mixture. Patient had aneurysm repair in 2006 and states it was 10 cm, patient states he had ultrasound several years ago and was told that everything was stable. He denies any known drug allergies. Quit smoking 30 years ago but had a 40 pack year history before that, no alcohol, no illicit. His primary care is Dr. 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 Patient has not had his daily aspirin yet today. Related Data Home Medications Medication Instructions Recorded Confirmed aspirin 325 mg tablet 325 mg PO DAILY 11/06/19 12/26/21 clobetasol 0.05 % topical ointment 1 applic topical BID PRN Itching 02/08/21 12/26/21 ferrous sulfate 325 mg (65 mg 325 mg PO DAILY 12/21/21 12/26/21 iron) tablet latanoprost 0.005 % eye drops 1 drp ophthalmic (eye) DAILY 12/26/21 12/26/21 losartan 25 mg tablet 25 mg PO BEDTIME 12/26/21 12/26/21 nitroglycerin 0.4 mg sublingual 0.4 mg sublingual PRN PRN Chest 12/26/21 12/26/21 tablet (Nitrostat) Pain sitagliptin 100 mg tablet (Januvia) 100 mg PO DAILY 12/26/21 12/26/21 Previous Rx's Medication Instructions Recorded alfuzosin 10 mg tablet,extended 10 mg PO QDAY #90 tabs 09/07/21 release 24 hr famotidine 40 mg tablet 40 mg PO BEDTIME #90 tabs 09/07/21 metformin 500 mg tablet 1,000 mg PO BIDCC #360 tabs 09/07/21 atorvastatin 20 mg tablet (Lipitor) 40 mg PO BEDTIME #30 tabs 12/28/21 insulin glargine 100 unit/mL (3 5 unit (0.05 mL) SUBCUT BID #15 mL 12/28/21 mL) subcutaneous pen (Lantus Solostar U-100 Insulin) insulin glargine 100 unit/mL (3 10 unit (0.1 mL) SUBCUT QPM #15 mL 12/28/21 mL) subcutaneous pen (Lantus Solostar U-100 Insulin) nitroglycerin 0.4 mg sublingual 0.4 mg sublingual [id number] PRN 12/28/21 tablet (Nitrostat) Chest Pain #30 tabs pen needle, diabetic 31 gauge x #100 ea 01/01/2207/05 (BD Ultra-Fine Mini Pen Needle) Allergies Allergy/AdvReac Type Severity Reaction Status Date / Time No Known Drug Allergies Allergy Verified 12/19/21 13:22 Review of Systems Review of Systems ROS Unobtainable: All systems reviewed & are unremarkable except as noted in HPI and below Patient History Medical History Abdominal aortic aneurysm (AAA) without rupture (07/26/15) Benign non-nodular prostatic hyperplasia without lower urinary tract symptoms (04/26/15) BPH (benign prostatic hyperplasia) Closed nondisplaced fracture of distal phalanx of right great toe with routine healing, subsequent encounter (03/20/17) Costochondritis Diabetes Essential hypertension (04/26/15) Fracture of left great toe Hammer toe of right foot (01/06/16) HTN (hypertension) Laceration of left great toe EMILEE (obstructive sleep apnea) Pulmonary nodule, left Type 2 diabetes mellitus without complication (04/26/15) Surgical History S/P aneurysm repair Status post epigastric hernia repair, follow-up exam Family History Father Heart disease Mother Cancer Brother Lung disease Social History marital status: household members: spouse lives independently: Yes Smoking Status: Former smoker alcohol intake: former substance use type: does not use Smoking Status: Former smoker alcohol intake frequency: holidays/special occasions only Substance Use Type: does not use Exam Narrative Exam Narrative: GENERAL: Alert and oriented x three, elderly male in mild distress. HEENT: Head normocephalic, atraumatic, EOMI, pupils reactive, face symmetric, moist mucous membranes NECK: Supple, full range of motion CARDIOVASCULAR: Regular rate and rhythm without murmurs, rubs or gallops. No JVD. Trace edema bilateral feet. RESPIRATORY: Breath sounds equal bilaterally, no wheezes rales or rhonchi. No tachypnea or accessory muscle use. Occasional dry cough. ABDOMEN: Soft, mild generalized tenderness to palpation throughout the abdomen. Normoactive bowel sounds all 4 quadrants. No guarding or rebound, rigidity, no mass, no pulsatile mass or bruit : No CVA tenderness EXTREMITIES: Normal range of motion, no clubbing or edema. Neurovascularly intact. Pulses intact bilaterally lower extremities. NEUROLOGICAL: Cranial nerves II through XII grossly intact. Moving all extremities SKIN: Warm, dry, no petechiae, no rashes or lesions. Initial Vital Signs Initial Vital Signs: Vital Signs Temperature 97.4 F L 01/01/22 06:20 Pulse Rate 111 H 01/01/22 06:20 Respiratory Rate 20 01/01/22 06:20 Blood Pressure 132/64 01/01/22 06:20 Pulse Oximetry 95 01/01/22 06:20 Oxygen Delivery Method 01/01/22 06:20 Course Orders Ordered: Discontinued Medications Aspirin (Aspirin 81 Mg Chew Tab) 324 mg PO NOW ONE Stop: 01/01/22 07:40 Last Admin: 01/01/22 09:12 Dose: 324 mg Documented By: BEE Heparin Sodium (Porcine) (Heparin 5,000 Unit/Ml Vial) 5,000 unit IV NOW ONE Stop: 01/01/22 08:46 Last Admin: 01/01/22 09:16 Dose: 5,000 unit Documented By: BEE Heparin Sodium/Dextrose (Heparin Drip) 25,000 unit in 500 mls @ 20.684 mls/hr IV CONT SUSANNA; Protocol Last Titration: 01/01/22 11:52 Dose: 0 units/kg/hr, 0 mls/hr Documented By: Admin: 01/01/22 09:17 Dose: 12 units/kg/hr, 20.684 mls/hr Documented By: BEE Nitroglycerin (Nitroglycerin) 50 mg in 250 mls @ 1.5 mls/hr IV TITRATE SUSANNA; Protocol Last Titration: 01/01/22 11:51 Dose: 0 mcg/min, 0 mls/hr Documented By: Admin: 01/01/22 09:18 Dose: 5 mcg/min, 1.5 mls/hr Documented By: BEE Morphine Sulfate (Morphine 4 Mg/Ml Inj) 4 mg IV NOW ONE Stop: 01/01/22 07:40 Last Admin: 01/01/22 09:14 Dose: 4 mg Documented By: BEE Ondansetron HCl (Ondansetron 4 Mg/2 Ml Inj) 4 mg IV NOW ONE Stop: 01/01/22 07:40 Last Admin: 01/01/22 09:13 Dose: 4 mg Documented By: BEE Consultations Consultation #1: Dr. Brennan, cardiology at [facility]. Discussed patient's 2nd trop onin has not resulted but initial troponin was negative no acute changes on EKG with left bundle-branch still present patient had echo and stress test that showed change with a fixed defect and decrease in his EF in the last week. Also he had CT angio to evaluate his aortic aneurysm which appears stable but was noted to have 2 coronary artery aneurysms a 9 mm which he states these are more ectasia but does recommend heparin nitro and transfer for catheterization for unstable angina with serial troponins for at least 24 hours. Time: 08:46 Consultation #2: Dr. Siegel, cardiology [place] will be happy to see the patient they asked versus speak with the hospitalist. Reviewed patient's CTA findings with concern for coronary artery aneurysms versus ectasia, aortic aneurysm appears stable, troponins negative x2 with a longstanding left bundle-branch block with changes on myocardial perfusion stress and echo from 12/26/2021 Time: 10:30 Consultation #3: [facility] with plan for PC you, patient does still have some very mild chest pain 05/01. Time: 10:58 Vital Signs Vital signs: Vital Signs - 8 hr 01/01/22 06:20 01/01/22 06:30 01/01/22 06:30 Temperature 97.4 F L Pulse Rate 111 H 78 Respiratory Rate 20 10 L Blood Pressure 132/64 127/64 Pulse Oximetry 95 98 Oxygen Delivery Method Room Air 01/01/22 09:18 01/01/22 07:00 01/01/22 07:00 Temperature Pulse Rate 68 77 Respiratory Rate 13 Blood Pressure 132/60 138/65 Pulse Oximetry 95 Oxygen Delivery Method 01/01/22 07:20 01/01/22 07:20 01/01/22 07:30 Temperature Pulse Rate 69 Respiratory Rate 14 Blood Pressure 122/57 L 120/62 Pulse Oximetry 95 Oxygen Delivery Method 01/01/22 07:30 01/01/22 08:03 01/01/22 08:30 Temperature Pulse Rate 82 69 71 Respiratory Rate 22 12 23 Blood Pressure Pulse Oximetry 98 97 96 Oxygen Delivery Method 01/01/22 09:00 01/01/22 09:11 01/01/22 09:11 Temperature Pulse Rate 70 66 Respiratory Rate 22 16 Blood Pressure 132/60 Pulse Oximetry 96 97 Oxygen Delivery Method 01/01/22 09:30 01/01/22 10:00 01/01/22 10:00 Temperature Pulse Rate 71 78 Respiratory Rate 14 24 Blood Pressure 130/64 Pulse Oximetry 97 98 Oxygen Delivery Method 01/01/22 10:30 01/01/22 10:30 Temperature Pulse Rate 72 Respiratory Rate 26 H Blood Pressure 109/62 Pulse Oximetry Oxygen Delivery Method MDM - Chest Pain Lab Data Result diagrams: 01/01/22 06:40 01/01/22 06:40 Labs: Lab Results 01/01/22 01/01/22 01/01/22 Range/Units 06:40 06:40 06:40 WBC 6.4 (4.5-11.0) X10^3/uL RBC 4.15 L (4.5-5.9) X10^6/uL Hgb 11.2 L (13.5-17.5) g/dL Hct 34.0 L (41-53) % MCV 82.0 (80-100) fL MCH 26.9 (26-34) PG MCHC 32.9 (30-36) % RDW 18.9 H (11.6-14.8) % Plt Count 246 (150-400) X10^3/uL Neut % (Auto) 63.2 (50-75) % Lymph % (Auto) 20.8 L (25-40) % [place] % (Auto) 10.0 (3-14) % Eos % (Auto) 5.3 H (2-4) % Baso % (Auto) 0.7 (0-2) % Neut # (Auto) 4000 (2212-5371) /uL Lymph # (Auto) 1300 (2105-0193) /uL [place] # (Auto) 600 (0-900) /uL Eos # (Auto) 300 (0-450) /uL Baso # (Auto) 0 (0-100) /uL PT 11.5 (10.1-12.7) SECONDS INR 1.0 (0.9-1.3) APTT 29 (26-36) SECONDS Sodium 134 L (137-145) mmol/L Potassium 3.9 (3.4-5.1) mmol/L Chloride 100 (98-107) mmol/L Carbon Dioxide 25 (22-32) mmol/L BUN 13 (9-20) mg/dL Creatinine 0.98 (0.66-1.25) mg/dL Estimated GFR > 60 (>60) mL/min BUN/Creatinine Ratio 13.3 (6-22) Glucose 160 H (80-110) mg/dL Calcium 9.4 (8.4-10.2) mg/dL Magnesium 1.7 (1.6-2.3) mg/dL Total Bilirubin 0.5 (0.2-1.3) mg/dL AST 25 (17-59) IU/L ALT 20 (<50) IU/L Alkaline Phosphatase 67 (38-126) U/L Total Creatine Kinase 32 L (55-170) U/L CK-MB (CK-2) TNP CK-MB (CK-2) Rel Index TNP Troponin I < 0.012 (0.01-0.034) ng/mL NT-Pro-B Natriuret Pep (<450) pg/mL Total Protein 7.3 (6.3-8.2) g/dL Albumin 4.3 (3.5-5.0) g/dL Globulin 3.0 (1.7-4.1) g/dL Albumin/Globulin Ratio 1.4 (1.0-2.8) Lipase 109 (23-300) U/L SARS-CoV-2 (PCR) (Negative) 01/01/22 01/01/22 01/01/22 Range/Units 06:40 08:45 08:56 WBC (4.5-11.0) X10^3/uL RBC (4.5-5.9) X10^6/uL Hgb (13.5-17.5) g/dL Hct (41-53) % MCV (80-100) fL MCH (26-34) PG MCHC (30-36) % RDW (11.6-14.8) % Plt Count (150-400) X10^3/uL Neut % (Auto) (50-75) % Lymph % (Auto) (25-40) % [place] % (Auto) (3-14) % Eos % (Auto) (2-4) % Baso % (Auto) (0-2) % Neut # (Auto) (8273-7066) /uL Lymph # (Auto) (4659-0854) /uL [place] # (Auto) (0-900) /uL Eos # (Auto) (0-450) /uL Baso # (Auto) (0-100) /uL PT (10.1-12.7) SECONDS INR (0.9-1.3) APTT 30 (26-36) SECONDS Sodium (137-145) mmol/L Potassium (3.4-5.1) mmol/L Chloride (98-107) mmol/L Carbon Dioxide (22-32) mmol/L BUN (9-20) mg/dL Creatinine (0.66-1.25) mg/dL Estimated GFR (>60) mL/min BUN/Creatinine Ratio (6-22) Glucose (80-110) mg/dL Calcium (8.4-10.2) mg/dL Magnesium (1.6-2.3) mg/dL Total Bilirubin (0.2-1.3) mg/dL AST (17-59) IU/L ALT (<50) IU/L Alkaline Phosphatase (38-126) U/L Total Creatine Kinase (55-170) U/L CK-MB (CK-2) CK-MB (CK-2) Rel Index Troponin I < 0.012 (0.01-0.034) ng/mL NT-Pro-B Natriuret Pep 202 (<450) pg/mL Total Protein (6.3-8.2) g/dL Albumin (3.5-5.0) g/dL Globulin (1.7-4.1) g/dL Albumin/Globulin Ratio (1.0-2.8) Lipase (23-300) U/L SARS-CoV-2 (PCR) (Negative) 01/01/22 Range/Units 09:20 WBC (4.5-11.0) X10^3/uL RBC (4.5-5.9) X10^6/uL Hgb (13.5-17.5) g/dL Hct (41-53) % MCV (80-100) fL MCH (26-34) PG MCHC (30-36) % RDW (11.6-14.8) % Plt Count (150-400) X10^3/uL Neut % (Auto) (50-75) % Lymph % (Auto) (25-40) % [place] % (Auto) (3-14) % Eos % (Auto) (2-4) % Baso % (Auto) (0-2) % Neut # (Auto) (2608-4757) /uL Lymph # (Auto) (7041-4872) /uL [place] # (Auto) (0-900) /uL Eos # (Auto) (0-450) /uL Baso # (Auto) (0-100) /uL PT (10.1-12.7) SECONDS INR (0.9-1.3) APTT (26-36) SECONDS Sodium (137-145) mmol/L Potassium (3.4-5.1) mmol/L Chloride (98-107) mmol/L Carbon Dioxide (22-32) mmol/L BUN (9-20) mg/dL Creatinine (0.66-1.25) mg/dL Estimated GFR (>60) mL/min BUN/Creatinine Ratio (6-22) Glucose (80-110) mg/dL Calcium (8.4-10.2) mg/dL Magnesium (1.6-2.3) mg/dL Total Bilirubin (0.2-1.3) mg/dL AST (17-59) IU/L ALT (<50) IU/L Alkaline Phosphatase (38-126) U/L Total Creatine Kinase (55-170) U/L CK-MB (CK-2) CK-MB (CK-2) Rel Index Troponin I (0.01-0.034) ng/mL NT-Pro-B Natriuret Pep (<450) pg/mL Total Protein (6.3-8.2) g/dL Albumin (3.5-5.0) g/dL Globulin (1.7-4.1) g/dL Albumin/Globulin Ratio (1.0-2.8) Lipase (23-300) U/L SARS-CoV-2 (PCR) Negative (Negative) Imaging Data CT angio chest/abd/pelvis: Radiologist's Impression: Close Chest/Abdomen/Pelvis CTA (Signed) Fransico Villagomez - 01/01/22 Chest X-Ray 01/01/22 Launch?[place] [address] CT Scan Report Signed Patient: Lv Langley MR#: [id number] : 1935 Acct:[id number] Age/Sex: 86 / M Date of Service: 01/01/22 Loc: ED Accession Number: [id number] ?? Procedure: CT angio chest abdomen pelvis Ordering Provider: Hoa Zhou D.O. PROCEDURE:? CT ANGIO CHEST ABDOMEN PELVIS ? INDICATIONS:? chest/abd pain hx of aneurysm w/ repair ? TECHNIQUE:? Precontrast 5 mm thick sections acquired from the lung apices to the iliac crests.? After the administration of intravenous contrast, 2.5 mm thick sections again acquired from the lung apices to the iliac crests.? Maximum intensity projection (MIP) oblique sagittal and coronal reformats were then acquired.? For radiation dose reduction, the fo llowing was used:? automated exposure control.? ? COMPARISON:? None. ? FINDINGS:? Image quality:? Excellent.? ? AORTA:? There is mild fusiform aneurysmal dilatation of the ascending thoracic aorta measuring 42 mm short axis.? Abdominal aorta is normal in caliber.? Abdominal aortic aneurysm repair has been performed.? No evidence of dissection. ? CHEST:? Lungs and pleura:? No acute airspace opacities.? There is a spiculated nodule within the right lower lobe anteriorly and inferiorly measuring roughly 5 mm diameter .? Calcified nodule within the lateral lingula is present.? Spiculated nodular density within the anterior left lung base measuring 16 mm diameter.? 9 mm nodule within the left lateral lung base.? No pleural effusions or pneumothorax.? Central and peripheral airways are patent and normal in caliber.? ? Mediastinum:? Heart size is normal.? No pericardial effusion.? There is moderate calcification of the coronary vasculature.? There is focal aneurysmal dilatation of the left anterior descending coronary artery measuring roughly 9 mm.? There is probable aneurysmal dilatation of the right coronary artery measuring roughly 8 mm diameter.? No mediastinal or hilar adenopathy by size criteria.? Central pulmonary arteries are normal in size.? Esophagus is normal in caliber.? No hiatal hernias.? ? Bones and chest wall:? No axillary adenopathy by size criteria.? Thyroid gland is within normal limits .? No suspicious bony lesions.? No vertebral body compression fractures.? ? ? ABDOMEN:? Vasculature:? Celiac trunk and mesenteric arteries are patent.? Renal arteries are also patent.? ? Solid organs:? Liver is normal in size and enhancement.? Gallbladder demonstrates multiple dependent calculi within its lumen .? Biliary system is non dilated.? Pancreas enhances normally.? Spleen is normal in size and enhancement.? No adrenal nodules.? Both kidneys are normal in size and enhancement, without hydronephrosis.? ? Peritoneum and bowel:? No free fluid or air.? Bowel loops are normal in caliber and wall thickness.? Normal appendix. ? Nodes and vessels:? No retroperitoneal or mesenteric adenopathy by size criteria.? Inferior vena cava is normal in morphology.? ? Miscellaneous:? No ventral hernias.? Anterior abdominal wall repair has been performed. ? ? PELVIS:? Genitourinary:? Bladder wall thickness is normal.? ? Miscellaneous:? No inguinal hernias or adenopathy.? No ventral hernias.? ? Bones:? No suspicious bony lesions.? No vertebral body compression fractures.? ? ? IMPRESSION:? 1. No acute process. 2. Postsurgical sequelae. 3. Coronary artery aneurysms as described above.? This could be further assessed with coronary angiography, if clinically indicated. 4. Bilateral pulmonary nodules.? Follow-up is recommended as below. 5. Cholelithiasis.? No evidence of acute cholecystitis. 6. Normal appendix.? ? Fleischner Society criteria for SOLID lung nodule followup.? Nodule size (mm)Low-risk patientHigh-risk patient<6 (single or multiple)No routine followup.Optional CT at 12 months. 6-8 (single or multiple)CT at 6-[address], [address] at 18-24 mo.CT at 6-12 months, then CT at 18-24 months.? >8 (single)CT, PET-CT, or biopsy at 3 months. Same as for low-risk pts.? >8 (multiple)CT at 3-6 months, then optional CT at 18-24 mo.CT at 3-6 months, then CT at 18-24 months.? Fleischner Society criteria for SUB-SOLID lung nodule followup.? Solitary pure ground-glass nodules<6 mm (ground glass or part solid)No followup needed.? 6 mm or larger (ground glass)CT at 6-12 months to confirm persistence, then CT every 2 years until 5 years.6 mm or larger (part solid)CT at 3-6 months to confirm persistence, then annual CT until 5 years if unchanged and solid component remains <6 mm.? Multiple sub-solid nodules<6 mmCT at 3-6 months, then CT consider at 2 & 4 years for high risk patients. [address] at 3-6 months. Subsequent management based on most suspicious lesions. Recommendations do not apply to lung cancer screening, patients with immunosuppression, or patients with known primary cancer. ? Dictated by: Fransico Villagomez M.D. on 01/01/2022 at 8:14 ? ? Approved by: Fransico Villagomez M.D. on 01/01/2022 at 8:23 ECG Data Attestation: I personally reviewed and interpreted this ECG as follows: Interpretation: Sinus rhythm with sinus arrhythmia rate of 95 GA 176 QRS of 128 QTC of 492. Patient has left bundle-branch block with prior from 12/26/2021 appearing similar. Sinus rhythm rate of 63 GA 182 QRS of 130 care T of 480, patient has left bundle branch. MDM Narrative Medical decision making narrative: This is an 82-year-old male with chest pain that started this morning was responsive to nitro but did not completely resolve it. Initial EKG shows no dynamic changes with left bundle-branch still present. Initial lab work have a negative troponin, no other major electrolyte abnormalities normal renal function. Chest x-ray reviewed no major changes. Patient has had some abdominal discomfort as well has a history of aneurysm so CT angio was obtained aneurysm appears to be stable, patient does have some spiculated nodules which are concerning, patient also had right and left coronary artery aneurysms which were discussed and Dr. Brennan with Cardiology states this is more ectasia. Also discussed patient had stress test and echo which showed change fixed defect as well as a decrease in his EF on echo and he recommends transfer for heart catheterization with nitro and heparin. Patient already had aspirin 325 this morning. Patient initiated on heparin, nitro patient has occasional chest pain intermittently but has decreased in intensity to 1/10 at its maximum and less frequent according to the patient. Second troponin still negative. Discuss with cardiology at telling him as Dr[facility] Siegel[facility] reviewed all findings including CT angio and coronary ectasia/aneurysm it was not with cardiac angiography but chest abdomen pelvis CTA. New command findings, recent echo changes and decrease in EF, defect on nuclear med scan. Patient had aspirin 325 mg at home, morphine, nitro, heparin initiated. Patient had myocardial perfusion scan 12/26/2021 with a fixed defect appearing on the scan with mild global hypokinesis and worsening hypokinesis and distal inferior wall compared to prior. And echo that shows 40% EF decreased from 2020 when it was 55-60%. Critical Care Time Critical Care Time Critical Care Time: Yes Total Critical Care Time: 51 Attestation: The high probability of a clinically significant, sudden or life threatening deterioration of the [cardiac] system(s) required my full and direct attention, intervention and personal management. The aggregate critical care time was [] minutes. This time is in addition to time spent performing reported procedures but includes the following: [x] Data Review and interpretation [x] Patient assessment and monitoring of vital signs [x] Documentation [x] Medication orders and management Discharge Plan Departure Patient Disposition: er [facility] Clinical Impression: Aneurysm, coronary artery, Unstable angina, Lung nodules Prescriptions: No Action clobetasol 0.05 % ointment 1 applic topical BID PRN (Reason: Itching) (DME) pen needle, diabetic [BD Ultra-Fine Mini Pen Needle] 31 gauge x 3/16 needle See Rx Instructions .Route Qty: 100 3RF Rx Instructions: use for insulin twice a day famotidine 40 mg tablet 40 mg PO BEDTIME Qty: 90 1RF Rx Instructions: Begin after pantoprazole alfuzosin 10 mg tablet extended release 24 hr 10 mg PO QDAY Qty: 90 3RF metformin 500 mg tablet 1,000 mg PO BIDCC Qty: 360 1RF ferrous sulfate 325 mg (65 mg iron) tablet 325 mg PO DAILY aspirin 325 mg Tablet 325 mg PO DAILY Januvia 100 mg tablet 100 mg PO DAILY losartan 25 mg tablet 25 mg PO BEDTIME latanoprost 0.005 % drops 1 drp ophthalmic (eye) DAILY nitroglycerin [Nitrostat] 0.4 MG tablet, sublingual 0.4 mg Sublingual PRN PRN (Reason: Chest Pain) atorvastatin [Lipitor] 20 mg Tablet 40 mg PO BEDTIME Qty: 30 0RF insulin glargine [Lantus Solostar U-100 Insulin] 100 unit/mL (3 mL) insulin pen 5 unit SUBCUT BID Qty: 15 0RF nitroglycerin [Nitrostat] 0.4 mg Tablet, Sublingual 0.4 mg sublingual [id number] PRN (Reason: Chest Pain) Qty: 30 0RF insulin glargine [Lantus Solostar U-100 Insulin] 100 unit/mL (3 mL) insulin pen 10 unit SUBCUT QPM Qty: 15 0RF Referrals: Trenton Oliveira MD [Primary Care Provider] -
[2022-01-01 07:16] LABS: Troponin I < 0.012 ng/mL (0.01-0.034)
--- NOTE | 2022-01-01 07:39 | DI.CT.S_ITS ---
PROCEDURE: CT ANGIO CHEST ABDOMEN PELVIS INDICATIONS: chest/abd pain hx of aneurysm w/ repair TECHNIQUE: Precontrast 5 mm thick sections acquired from the lung apices to the iliac crests. After the administration of intravenous contrast, 2.5 mm thick sections again acquired from the lung apices to the iliac crests. Maximum intensity projection (MIP) oblique sagittal and coronal reformats were then acquired. For radiation dose reduction, the following was used: automated exposure control. COMPARISON: None. FINDINGS: Image quality: Excellent. 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 Abdominal aorta is normal in caliber. Abdominal aortic aneurysm repair has been performed. No evidence of dissection. CHEST: Lungs and pleura: No acute airspace opacities. There is a spiculated nodule within the right lower lobe anteriorly and inferiorly measuring roughly 5 mm diameter . Calcified nodule within the lateral lingula is present. Spiculated nodular density within the anterior left lung base measuring 16 mm diameter. 9 mm nodule within the left lateral lung base. No pleural effusions or pneumothorax. Central and peripheral airways are patent and normal in caliber. Mediastinum: Heart size is normal. No pericardial effusion. There is moderate calcification of the coronary vasculature. There is focal aneurysmal dilatation of the left anterior descending coronary artery measuring roughly 9 mm. There is probable aneurysmal dilatation of the right coronary artery measuring roughly 8 mm diameter. No mediastinal or hilar adenopathy by size criteria. Central pulmonary arteries are normal in size. Esophagus is normal in caliber. No hiatal hernias. Bones and chest wall: No axillary adenopathy by size criteria. Thyroid gland is within normal limits . No suspicious bony lesions. No vertebral body compression fractures. ABDOMEN: Vasculature: Celiac trunk and mesenteric arteries are patent. Renal arteries are also patent. Solid organs: Liver is normal in size and enhancement. Gallbladder demonstrates multiple dependent calculi within its lumen . Biliary system is non dilated. Pancreas enhances normally. Spleen is normal in size and enhancement. No adrenal nodules. Both kidneys are normal in size and enhancement, without hydronephrosis. Peritoneum and bowel: No free fluid or air. Bowel loops are normal in caliber and wall thickness. Normal appendix. Nodes and vessels: No retroperitoneal or mesenteric adenopathy by size criteria. Inferior vena cava is normal in morphology. Miscellaneous: No ventral hernias. Anterior abdominal wall repair has been performed. PELVIS: Genitourinary: Bladder wall thickness is normal. Miscellaneous: No inguinal hernias or adenopathy. No ventral hernias. Bones: No suspicious bony lesions. No vertebral body compression fractures. IMPRESSION: 1. No acute process. 2. Postsurgical sequelae. 3. Coronary artery aneurysms as described above. This could be further assessed with coronary angiography, if clinically indicated. 4. Bilateral pulmonary nodules. Follow-up is recommended as below. 5. Cholelithiasis. No evidence of acute cholecystitis. 6. Normal appendix. Fleischner Society criteria for SOLID lung nodule followup. Nodule size (mm)Low-risk patientHigh-risk patient<6 (single or multiple)No routine followup.Optional CT at 12 months. 6-8 (single or multiple)CT at 6-12 months, then optional CT at 18-24 mo.CT at 6-12 months, then CT at 18-24 months. >8 (single)CT, PET-CT, or biopsy at 3 months. Same as for low-risk pts. >8 (multiple)CT at 3-6 months, then optional CT at 18-24 mo.CT at 3-6 months, then CT at 18-24 months. Fleischner Society criteria for SUB-SOLID lung nodule followup. Solitary pure ground-glass nodules<6 mm (ground glass or part solid)No followup needed. 6 mm or larger (ground glass)CT at 6-12 months to confirm persistence, then CT every 2 years until 5 years.6 mm or larger (part solid)CT at 3-6 months to confirm persistence, then annual CT until 5 years if unchanged and solid component remains <6 mm. Multiple sub-solid nodules<6 mmCT at 3-6 months, then CT consider at 2 & 4 years for high risk patients. [address] at 3-6 months. Subsequent management based on most suspicious lesions. Recommendations do not apply to lung cancer screening, patients with immunosuppression, or patients with known primary cancer. Dictated by: Fransico Villagomez M.D. on 01/01/2022 at 8:14 Approved by: Fransico Villagomez M.D. on 01/01/2022 at 8:23
[2022-01-01 08:13] LABS: NT-proBNP (BNP-Adult 18+) 202 pg/mL (<450)
[2022-01-01] MEDS: ASPIRIN 81 MG CHEW TAB 324 MG PO (09:12)
[2022-01-01] MEDS: ONDANSETRON 4 MG/2 ML INJ IV (09:13)
[2022-01-01] MEDS: MORPHINE 4 MG/ML INJ IV (09:14)
[2022-01-01] MEDS: HEPARIN 5,000 UNIT/ML VIAL 5000 UNIT IV (09:16)
[2022-01-01] MEDS: HEPARIN DRIP 25,000 UNIT/500 ML IV.SOLN 20.684 UNIT IV (09:17)
[2022-01-01] MEDS: NITROGLYCERIN 50 MG/250 ML INFUS..BTL IV (09:18)
[2022-01-01 09:22] LABS: PTT Partial Thromboplastin Tim 30 SECONDS (26-36)
[2022-01-01 09:37] LABS: Troponin I < 0.012 ng/mL (0.01-0.034)
[2022-01-01 09:50] LABS: COVID19 -Nasal RAPID Negative (Negative)
--- NOTE | 2022-01-01 11:00 | PC.NURSE ---
Patient is chest pain free at this time.
== END 2022-01-01 11:54 | disposition short-term general hospital (02) ==
PROVIDERS: Emergency Medicine; Emergency Provider Emergency Medicine; PCP Student in an Organized Health Care Education/Training Program
DX: I20.0 Unstable angina (principal); I25.41 Coronary artery aneurysm; R91.8 Other nonspecific abnormal finding of lung field; Z20.822 Contact with and (suspected) exposure to COVID-19
CPT/HCPCS: 36415; 71045; 71275; 74174; 80053; 82550; 83690; 83735; 83880; 84484; 85025; 85610; 85730; 87635; 93005; 96365; 96366; 96368; 96375; 99284; 99291; C9803; J1644; J2270; J2405

== ENCOUNTER → 2022-01-31 10:12 | Outpatient (CLI) | payer MEDICARE, OTHER, SELFPAY ==
[2021-12-29 16:51] VITALS: BMI 28.2
--- NOTE | 2022-01-31 | DI.RAD.S_ITS ---
PROCEDURE: XR CHEST 2V INDICATIONS: pleural effusion TECHNIQUE: 2 views of the chest were acquired. COMPARISON: [facility], CR, XR CHEST 1V, 01/01/2022, 6:35. FINDINGS: Surgical changes and devices: Median sternotomy wires and fixation plates, CABG clips, and probable left atrial occluder device present. Lungs and pleura: Lungs are clear. No pleural effusions or pneumothorax. Mediastinum: Mediastinal contours are normal. Heart size is normal. Bones and chest wall: No suspicious bony abnormalities. Soft tissues appear unremarkable. IMPRESSION: 1. No acute opacities or pleural effusions. 2. Interval changes of cardiac surgery. Dictated by: Joyce Hope M.D. on 01/31/2022 at 13:06 Approved by: Joyce Hope M.D. on 01/31/2022 at 13:08
== END ==
PROVIDERS: PCP Student in an Organized Health Care Education/Training Program; Referring Provider Registered Nurse Registered Nurse First Assistant; Visit Provider Registered Nurse Registered Nurse First Assistant
DX: J90 Pleural effusion, not elsewhere classified (principal); Z98.890 Other specified postprocedural states; Z95.1 Presence of aortocoronary bypass graft
CPT/HCPCS: 71046

== ENCOUNTER → 2022-02-21 06:51 | Outpatient (CLI) | payer MEDICARE, OTHER, SELFPAY ==
[2021-12-29 16:51] VITALS: BMI 28.2
[2022-02-21 07:59] LABS: Hematocrit 39.6 % (41-53); Hemoglobin 12.9 g/dL (13.5-17.5); Mean Corpuscular HGB Conc 32.5 % (30-36); Mean Corpuscular Hemoglobin 28.4 PG (26-34); Mean Corpuscular Volume 87.4 fL (80-100); Platelet Count 258 X10^3/uL (150-400); Red Blood Cell Count 4.53 X10^6/uL (4.5-5.9); Red Cell Distribution Width 19.3 % (11.6-14.8); White Blood Cell Count 7.6 X10^3/uL (4.5-11.0)
[2022-02-21 08:21] LABS: HEMOLYSIS < 15 (0-50); Iron 52 ug/dL (49-181)
[2022-02-21 08:33] LABS: Percent Iron Saturation 14 % (20-50); Total Iron Binding Capacity 360 ug/dL (261-462); Transferrin 301 mg/dL (206-381)
[2022-02-22 07:09] LABS: Fructosamine 255 umol/L (0-285)
== END ==
PROVIDERS: PCP Student in an Organized Health Care Education/Training Program; Referring Provider Student in an Organized Health Care Education/Training Program; Visit Provider Student in an Organized Health Care Education/Training Program
DX: D50.9 Iron deficiency anemia, unspecified (principal); E11.9 Type 2 diabetes mellitus without complications
CPT/HCPCS: 36415; 82985; 83540; 83550; 85027

== ENCOUNTER 2022-03-17 07:44 | Emergency (ER) | payer MEDICARE, OTHER, SELFPAY ==
[2021-12-29 16:51] VITALS: BMI 28.2
[2022-03-17] VITALS (60 sets, daily range): BP systolic 103–159; BP diastolic 54–77; PULSE 61–84; RESP 13–32; TEMP 36.2; O2SAT 91–98; BMI 27.1
--- NOTE | 2022-03-17 07:59 | DI.RAD.S_ITS ---
PROCEDURE: XR CHEST 1V INDICATIONS: chest pain TECHNIQUE: One view of the chest was acquired. COMPARISON: [facility], CT, CT ANGIO CHEST ABDOMEN PELVIS, 01/01/2022, 7:51. [facility], CR, XR CHEST 1V, 01/01/2022, 6:35. [facility], CR, XR CHEST 2V, 01/31/2022, 10:23. FINDINGS: Surgical changes and devices: Sternotomy wires are seen. Stable cardiac postoperative change is seen. Right upper quadrant laparoscopic anchors are partially seen. Lungs and pleura: On this semiupright portable chest examination, no large pneumothorax or large pleural effusions are seen. No focal infiltrates are seen. Mediastinum: Mediastinal contours appear normal. Heart size is normal. Bones and chest wall: No suspicious bony lesions. Overlying soft tissues appear unremarkable. IMPRESSION: Limited portable chest abnormality, without an acute process seen. Postoperative and degenerative changes are seen. Dictated by: Sd Pinzon M.D. on 03/17/2022 at 7:30 Approved by: Sd Pinzon M.D. on 03/17/2022 at 7:32
--- NOTE | 2022-03-17 08:00 | ED_ITS ---
HPI - Chest Pain <Satya Dumas MD - Last Filed: 03/18/22 11:58> General Chief Complaint: Chest Pain Stated Complaint: cramp moved up to heart area 3am and still sore Time Seen by Provider: 03/17/22 07:59 History of Present Illness HPI narrative: Patient is status post CABG/3 vessels, January 04, 2022 at [facility]. He does see cardiology Dr. Orozco. Has been doing well since his bypass surgery. 3:00 a.m. this morning he felt discomfort in the left lower chest left upper abdominal discomfort now has settled in his left chest. At 1 point he thought it was reproducible but now it is nonreproducible chest discomfort 5/10. It is not causing him any shortness of breath. No syncope. No numbness tingling weakness. No diaphoresis. He states it does feel like his heart attack/similar to it before his bypass surgery. Patient is in no distress at this time. Related Data Home Medications Medication Instructions Recorded Confirmed latanoprost 0.005 % eye drops 1 drp ophthalmic (eye) DAILY 12/26/21 03/17/22 aspirin 81 mg tablet,delayed 81 mg PO DAILY 01/22/22 03/17/22 release atorvastatin 40 mg tablet 40 mg PO BEDTIME 01/22/22 01/22/22 clopidogrel 75 mg tablet 75 mg PO DAILY 01/22/22 01/22/22 metoprolol tartrate 25 mg tablet 12.5 mg PO BID 01/22/22 03/17/22 ferrous sulfate 325 mg (65 mg 325 mg PO 3XW 02/22/22 03/17/22 iron) tablet Previous Rx's Medication Instructions Recorded pen needle, diabetic 31 gauge x #100 ea 01/01/2207/05 (BD Ultra-Fine Mini Pen Needle) tamsulosin 0.4 mg capsule 0.4 mg PO DAILY #90 caps 02/15/22 famotidine 40 mg tablet 40 mg PO BEDTIME #90 tabs 02/16/22 sitagliptin 100 mg tablet (Januvia) 100 mg PO DAILY #90 tabs 03/06/22 metformin 500 mg tablet 1,000 mg PO BIDCC #360 tabs 03/07/22 isosorbide mononitrate 30 mg 30 mg PO DAILY #30 tabs 03/17/22 tablet,extended release 24 hr Allergies Allergy/AdvReac Type Severity Reaction Status Date / Time No Known Drug Allergies Allergy Verified 03/17/22 08:01 Review of Systems <Satya Dumas MD - Last Filed: 03/18/22 11:58> Review of Systems Narrative: GENERAL: negative chills, fatigue, malaise, fever, sweats. HEENT: negative sinus pain, ear pain, sore throat RESPIRATORY: negative dyspnea, cough CARDIOVASCULAR: Positive chest pain, negative palpitations GASTROINTESTINAL: negative nausea, vomiting, abdominal pain : negative dysuria, frequency, hematuria MUSCULOSKELETAL: negative muscle or bony pain SKIN: negative rash, skin lesions NEUROLOGIC: negative weakness, numbness ROS Unobtainable: All systems reviewed & are unremarkable except as noted in HPI and below Patient History <Satya Dumas MD - Last Filed: 03/18/22 11:58> Medical History Abdominal aortic aneurysm (AAA) without rupture (07/26/15) Benign non-nodular prostatic hyperplasia without lower urinary tract symptoms (04/26/15) BPH (benign prostatic hyperplasia) Closed nondisplaced fracture of distal phalanx of right great toe with routine healing, subsequent encounter (03/20/17) Coronary artery aneurysm Costochondritis Diabetes Essential hypertension (04/26/15) Fracture of left great toe Hammer toe of right foot (01/06/16) HTN (hypertension) Laceration of left great toe EMILEE (obstructive sleep apnea) Pulmonary nodule, left Type 2 diabetes mellitus without complication (04/26/15) Surgical History S/P aneurysm repair S/P CABG x 2 Status post epigastric hernia repair, follow-up exam Family History Father Heart disease Mother Cancer Brother Lung disease Social History marital status: household members: spouse lives independently: Yes Smoking Status: Former smoker alcohol intake: former substance use type: does not use Smoking Status: Former smoker alcohol intake frequency: holidays/special occasions only Substance Use Type: does not use Exam <Satya Dumas MD - Last Filed: 03/18/22 11:58> Narrative Exam Narrative: GENERAL: in no distress, not toxic not dyspneic HEAD: Normocephalic. EYES: Pupils equal round No scleral icterus. ENT: Mucous membranes moist. NECK: Trachea midline. CARDIOVASCULAR: Regular rate and rhythm without murmurs RESPIRATORY: Clear to auscultation. Breath sounds equal bilaterally. No wheezes, rales, or rhonchi. GASTROINTESTINAL: Abdomen soft, non-tender EXTREMITIES: No gross deformities. BACK: No flank tenderness. NEURO: AOx4. SKIN: Warm and dry PSYCH: Not anxious, is cooperative Initial Vital Signs Initial Vital Signs: Vital Signs Temperature 97.1 F L 03/17/22 07:44 Pulse Rate 70 03/17/22 07:44 Respiratory Rate 16 03/17/22 07:44 Blood Pressure 155/68 H 03/17/22 07:44 Pulse Oximetry 96 03/17/22 07:44 Oxygen Delivery Method 03/17/22 07:44 <Latisha Quan DO - Last Filed: 03/18/22 03:18> Initial Vital Signs Initial Vital Signs: Vital Signs Temperature 97.1 F L 03/17/22 07:44 Pulse Rate 70 03/17/22 07:44 Respiratory Rate 16 03/17/22 07:44 Blood Pressure 155/68 H 03/17/22 07:44 Pulse Oximetry 96 03/17/22 07:44 Oxygen Delivery Method 03/17/22 07:44 Course <Satya Dumas MD - Last Filed: 03/18/22 11:58> Course Course Narrative: 6:[address] Quan, callback pending from [facility] providers for acceptance. For continuity of care will need cardiology services for recent triple bypass surgery 2 months ago. Chest pain-free after nitro paste. Decision to Admit Date: 03/17/22 Decision to Admit time: 08:33 Orders Ordered: Discontinued Medications Aspirin (Aspirin 81 Mg Chew Tab) 324 mg PO NOW ONE Stop: 03/17/22 08:00 Last Admin: 03/17/22 08:36 Dose: 324 mg Documented By: ELLA Isosorbide Mononitrate (Isosorbide Mononitrate Er 30 Mg Tablet) 30 mg PO NOW ONE Stop: 03/17/22 19:49 Last Admin: 03/17/22 21:05 Dose: 30 mg Documented By: BT Nitroglycerin (Nitroglycerin Oint 1 Inch/Gm Oint...G.) 0.5 inch TOP NOW ONE Stop: 03/17/22 08:00 Last Admin: 03/17/22 16:07 Dose: 0.5 inch Documented By: ATTI Reevaluation(s) Reevaluation #1: Chest pain-free at this time. Updated patient results and awaiting for [facility] to get a bed. Patient understands. Time: 13:56 Vital Signs Vital signs: Vital Signs - 8 hr 03/17/22 19:20 03/17/22 19:30 03/17/22 19:30 Pulse Rate 72 67 Respiratory Rate 17 18 Blood Pressure 128/61 Pulse Oximetry 92 93 Oxygen Delivery Method 03/17/22 19:40 03/17/22 19:50 03/17/22 20:00 Pulse Rate 72 71 Respiratory Rate 20 20 Blood Pressure 121/58 L Pulse Oximetry 95 93 Oxygen Delivery Method 03/17/22 20:00 03/17/22 20:10 03/17/22 20:20 Pulse Rate 68 68 69 Respiratory Rate 22 19 18 Blood Pressure Pulse Oximetry 92 93 92 Oxygen Delivery Method 03/17/22 20:30 03/17/22 20:30 03/17/22 20:40 Pulse Rate 71 70 Respiratory Rate 21 19 Blood Pressure 132/60 Pulse Oximetry 94 92 Oxygen Delivery Method 03/17/22 20:50 03/17/22 21:00 03/17/22 21:01 Pulse Rate 70 84 77 Respiratory Rate 20 Blood Pressure Pulse Oximetry 92 95 93 Oxygen Delivery Method 03/17/22 21:01 03/17/22 21:10 03/17/22 21:20 Pulse Rate 70 72 Respiratory Rate 21 20 Blood Pressure 151/71 H 145/77 H Pulse Oximetry 94 98 Oxygen Delivery Method Room Air 03/17/22 21:47 Pulse Rate Respiratory Rate Blood Pressure 142/71 H Pulse Oximetry 98 Oxygen Delivery Method Room Air <Latisha Quan, DO - Last Filed: 03/18/22 03:18> Orders Ordered: Discontinued Medications Aspirin (Aspirin 81 Mg Chew Tab) 324 mg PO NOW ONE Stop: 03/17/22 08:00 Last Admin: 03/17/22 08:36 Dose: 324 mg Documented By: ELLA Isosorbide Mononitrate (Isosorbide Mononitrate Er 30 Mg Tablet) 30 mg PO NOW ONE Stop: 03/17/22 19:49 Last Admin: 03/17/22 21:05 Dose: 30 mg Documented By: RHIANNON Nitroglycerin (Nitroglycerin Oint 1 Inch/Gm Oint...G.) 0.5 inch TOP NOW ONE Stop: 03/17/22 08:00 Last Admin: 03/17/22 16:07 Dose: 0.5 inch Documented By: TATI Vital Signs Vital signs: Vital Signs - 8 hr 03/17/22 19:20 03/17/22 19:30 03/17/22 19:30 Pulse Rate 72 67 Respiratory Rate 17 18 Blood Pressure 128/61 Pulse Oximetry 92 93 Oxygen Delivery Method 03/17/22 19:40 03/17/22 19:50 03/17/22 20:00 Pulse Rate 72 71 Respiratory Rate 20 20 Blood Pressure 121/58 L Pulse Oximetry 95 93 Oxygen Delivery Method 03/17/22 20:00 03/17/22 20:10 03/17/22 20:20 Pulse Rate 68 68 69 Respiratory Rate 22 19 18 Blood Pressure Pulse Oximetry 92 93 92 Oxygen Delivery Method 03/17/22 20:30 03/17/22 20:30 03/17/22 20:40 Pulse Rate 71 70 Respiratory Rate 21 19 Blood Pressure 132/60 Pulse Oximetry 94 92 Oxygen Delivery Method 03/17/22 20:50 03/17/22 21:00 03/17/22 21:01 Pulse Rate 70 84 77 Respiratory Rate 20 Blood Pressure Pulse Oximetry 92 95 93 Oxygen Delivery Method 03/17/22 21:01 03/17/22 21:10 03/17/22 21:20 Pulse Rate 70 72 Respiratory Rate 21 20 Blood Pressure 151/71 H 145/77 H Pulse Oximetry 94 98 Oxygen Delivery Method Room Air 03/17/22 21:47 Pulse Rate Respiratory Rate Blood Pressure 142/71 H Pulse Oximetry 98 Oxygen Delivery Method Room Air MDM - Chest Pain <Satya Dumas MD - Last Filed: 03/18/22 11:58> Differential Diagnosis Differential diagnosis: Likely stable angina, unstable angina pectoris, atypical chest pain, st elevation myocardial infarction and chest pain Lab Data Result diagrams: 03/17/22 08:10 03/17/22 08:10 Labs: Lab Results 03/17/22 03/17/22 03/17/22 Range/Units 08:10 08:10 08:10 WBC 10.1 (4.5-11.0) X10^3/uL RBC 4.32 L (4.5-5.9) X10^6/uL Hgb 12.6 L (13.5-17.5) g/dL Hct 37.7 L (41-53) % MCV 87.4 (80-100) fL MCH 29.2 (26-34) PG MCHC 33.4 (30-36) % RDW 17.0 H (11.6-14.8) % Plt Count 208 (150-400) X10^3/uL Neut % (Auto) 73.8 (50-75) % Lymph % (Auto) 11.9 L (25-40) % [place] % (Auto) 8.7 (3-14) % Eos % (Auto) 5.1 H (2-4) % Baso % (Auto) 0.5 (0-2) % Neut # (Auto) 7400 H (5266-0063) /uL Lymph # (Auto) 1200 (8530-9893) /uL [place] # (Auto) 900 (0-900) /uL Eos # (Auto) 500 H (0-450) /uL Baso # (Auto) 100 (0-100) /uL PT 11.4 (10.1-12.7) SECONDS INR 1.0 (0.9-1.3) APTT 30 (26-36) SECONDS Sodium 136 L (137-145) mmol/L Potassium 4.1 (3.4-5.1) mmol/L Chloride 98 (98-107) mmol/L Carbon Dioxide 30 (22-32) mmol/L BUN 15 (9-20) mg/dL Creatinine 0.91 (0.66-1.25) mg/dL Estimated GFR > 60 (>60) mL/min BUN/Creatinine Ratio 16.5 (6-22) Glucose 178 H (80-110) mg/dL Calcium 9.6 (8.4-10.2) mg/dL Total Bilirubin 0.5 (0.2-1.3) mg/dL AST 25 (17-59) IU/L ALT 20 (<50) IU/L Alkaline Phosphatase 72 (38-126) U/L Total Creatine Kinase 23 L (55-170) U/L CK-MB (CK-2) TNP CK-MB (CK-2) Rel Index TNP Troponin I < 0.012 (0.01-0.034) ng/mL Total Protein 7.2 (6.3-8.2) g/dL Albumin 4.0 (3.5-5.0) g/dL Globulin 3.2 (1.7-4.1) g/dL Albumin/Globulin Ratio 1.3 (1.0-2.8) Urine RBC (0-5/HPF) Urine WBC (0-5/HPF) Urine Bacteria (None) Ur Culture Indicated? SARS-CoV-2 (PCR) (Negative) 03/17/22 03/17/22 03/17/22 Range/Units 09:18 11:11 12:15 WBC (4.5-11.0) X10^3/uL RBC (4.5-5.9) X10^6/uL Hgb (13.5-17.5) g/dL Hct (41-53) % MCV (80-100) fL MCH (26-34) PG MCHC (30-36) % RDW (11.6-14.8) % Plt Count (150-400) X10^3/uL Neut % (Auto) (50-75) % Lymph % (Auto) (25-40) % [place] % (Auto) (3-14) % Eos % (Auto) (2-4) % Baso % (Auto) (0-2) % Neut # (Auto) (5582-3153) /uL Lymph # (Auto) (8994-3235) /uL [place] # (Auto) (0-900) /uL Eos # (Auto) (0-450) /uL Baso # (Auto) (0-100) /uL PT (10.1-12.7) SECONDS INR (0.9-1.3) APTT (26-36) SECONDS Sodium (137-145) mmol/L Potassium (3.4-5.1) mmol/L Chloride (98-107) mmol/L Carbon Dioxide (22-32) mmol/L BUN (9-20) mg/dL Creatinine (0.66-1.25) mg/dL Estimated GFR (>60) mL/min BUN/Creatinine Ratio (6-22) Glucose (80-110) mg/dL Calcium (8.4-10.2) mg/dL Total Bilirubin (0.2-1.3) mg/dL AST (17-59) IU/L ALT (<50) IU/L Alkaline Phosphatase (38-126) U/L Total Creatine Kinase 20 L (55-170) U/L CK-MB (CK-2) TNP CK-MB (CK-2) Rel Index TNP Troponin I < 0.012 (0.01-0.034) ng/mL Total Protein (6.3-8.2) g/dL Albumin (3.5-5.0) g/dL Globulin (1.7-4.1) g/dL Albumin/Globulin Ratio (1.0-2.8) Urine RBC 0-1/hpf (0-5/HPF) Urine WBC 1-5/hpf (0-5/HPF) Urine Bacteria Occasional (0-1) (None) Ur Culture Indicated? Specimen cultured SARS-CoV-2 (PCR) Negative (Negative) 03/17/22 Range/Units 20:10 WBC (4.5-11.0) X10^3/uL RBC (4.5-5.9) X10^6/uL Hgb (13.5-17.5) g/dL Hct (41-53) % MCV (80-100) fL MCH (26-34) PG MCHC (30-36) % RDW (11.6-14.8) % Plt Count (150-400) X10^3/uL Neut % (Auto) (50-75) % Lymph % (Auto) (25-40) % [place] % (Auto) (3-14) % Eos % (Auto) (2-4) % Baso % (Auto) (0-2) % Neut # (Auto) (2721-2238) /uL Lymph # (Auto) (0782-2524) /uL [place] # (Auto) (0-900) /uL Eos # (Auto) (0-450) /uL Baso # (Auto) (0-100) /uL PT (10.1-12.7) SECONDS INR (0.9-1.3) APTT (26-36) SECONDS Sodium (137-145) mmol/L Potassium (3.4-5.1) mmol/L Chloride (98-107) mmol/L Carbon Dioxide (22-32) mmol/L BUN (9-20) mg/dL Creatinine (0.66-1.25) mg/dL Estimated GFR (>60) mL/min BUN/Creatinine Ratio (6-22) Glucose (80-110) mg/dL Calcium (8.4-10.2) mg/dL Total Bilirubin (0.2-1.3) mg/dL AST (17-59) IU/L ALT (<50) IU/L Alkaline Phosphatase (38-126) U/L Total Creatine Kinase (55-170) U/L CK-MB (CK-2) CK-MB (CK-2) Rel Index Troponin I < 0.012 (0.01-0.034) ng/mL Total Protein (6.3-8.2) g/dL Albumin (3.5-5.0) g/dL Globulin (1.7-4.1) g/dL Albumin/Globulin Ratio (1.0-2.8) Urine RBC (0-5/HPF) Urine WBC (0-5/HPF) Urine Bacteria (None) Ur Culture Indicated? SARS-CoV-2 (PCR) (Negative) Urine Dip Bedside Urine Glucose Negative Bedside Urine Bilirubin - Negative Bedside Urine Ketone - Negative Urine Specific [place] 1.020 Bedside Urine Occult Blood - Negative Bedside Urine pH 7 Bedside Urine Protein - Negative Bedside Urine Urobilinogen - Negative Bedside Urine Nitrite - Negative Bedside Urine Leukocytes +/- 15 Esterase Imaging Data Chest x-ray: Radiologist's Impression: [address] [address] XRay Report Signed Patient: Lv Langley MR#: [id number] : 1935 Acct:[id number] Age/Sex: 87 / M Date of Service: 03/17/22 Loc: ED Accession Number: [id number] ?? Procedure: XR chest 1V Ordering Provider: Satya Dumas MD PROCEDURE:? XR CHEST 1V ? INDICATIONS:? chest pain ? TECHNIQUE:? One view of the chest was acquired.? ? COMPARISON:? [facility], CT, CT ANGIO CHEST ABDOMEN PELVIS, 01/01/2022, 7:51.? [facility], CR, XR CHEST 1V, 01/01/2022, 6:35.? [facility], CR, XR CHEST 2V, 01/31/2022, 10:23. ? FINDINGS:? ? Surgical changes and devices:? Sternotomy wires are seen.? Stable cardiac postoperative change is seen.? Right upper quadrant laparoscopic anchors are partially seen. ? Lungs and pleura:? On this semiupright portable chest examination, no large pneumothorax or large pleural effusions are seen.? No focal infiltrates are seen.? ? Mediastinum:? Mediastinal contours appear normal.? Heart size is normal.? ? Bones and chest wall:? No suspicious bony lesions.? Overlying soft tissues appear unremarkable.? ? ? IMPRESSION:? Limited portable chest abnormality, without an acute process seen. ? Postoperative and degenerative changes are seen.? ? ? Dictated by: Sd Pinzon M.D. on 03/17/2022 at 7:30 ? ? Approved by: Sd Pinzon M.D. on 03/17/2022 at 7:32 ? ECG Data Interpretation: Normal sinus rhythm rate [address] elevation or depression MDM Narrative Medical decision making narrative: Appropriate for transfer for continuity of care. Patient just had triple bypass surgery 2 months ago. I did speak with transfer center [facility] transfer Center and they do want patient back to their facility for continuity of care <Latisha Quan, - Last Filed: 03/18/22 03:18> Lab Data Labs: Lab Results 03/17/22 03/17/22 03/17/22 Range/Units 08:10 08:10 08:10 WBC 10.1 (4.5-11.0) X10^3/uL RBC 4.32 L (4.5-5.9) X10^6/uL Hgb 12.6 L (13.5-17.5) g/dL Hct 37.7 L (41-53) % MCV 87.4 (80-100) fL MCH 29.2 (26-34) PG MCHC 33.4 (30-36) % RDW 17.0 H (11.6-14.8) % Plt Count 208 (150-400) X10^3/uL Neut % (Auto) 73.8 (50-75) % Lymph % (Auto) 11.9 L (25-40) % [place] % (Auto) 8.7 (3-14) % Eos % (Auto) 5.1 H (2-4) % Baso % (Auto) 0.5 (0-2) % Neut # (Auto) 7400 H (5764-9821) /uL Lymph # (Auto) 1200 (4788-6011) /uL [place] # (Auto) 900 (0-900) /uL Eos # (Auto) 500 H (0-450) /uL Baso # (Auto) 100 (0-100) /uL PT 11.4 (10.1-12.7) SECONDS INR 1.0 (0.9-1.3) APTT 30 (26-36) SECONDS Sodium 136 L (137-145) mmol/L Potassium 4.1 (3.4-5.1) mmol/L Chloride 98 (98-107) mmol/L Carbon Dioxide 30 (22-32) mmol/L BUN 15 (9-20) mg/dL Creatinine 0.91 (0.66-1.25) mg/dL Estimated GFR > 60 (>60) mL/min BUN/Creatinine Ratio 16.5 (6-22) Glucose 178 H (80-110) mg/dL Calcium 9.6 (8.4-10.2) mg/dL Total Bilirubin 0.5 (0.2-1.3) mg/dL AST 25 (17-59) IU/L ALT 20 (<50) IU/L Alkaline Phosphatase 72 (38-126) U/L Total Creatine Kinase 23 L (55-170) U/L CK-MB (CK-2) TNP CK-MB (CK-2) Rel Index TNP Troponin I < 0.012 (0.01-0.034) ng/mL Total Protein 7.2 (6.3-8.2) g/dL Albumin 4.0 (3.5-5.0) g/dL Globulin 3.2 (1.7-4.1) g/dL Albumin/Globulin Ratio 1.3 (1.0-2.8) Urine RBC (0-5/HPF) Urine WBC (0-5/HPF) Urine Bacteria (None) Ur Culture Indicated? SARS-CoV-2 (PCR) (Negative) 03/17/22 03/17/22 03/17/22 Range/Units 09:18 11:11 12:15 WBC (4.5-11.0) X10^3/uL RBC (4.5-5.9) X10^6/uL Hgb (13.5-17.5) g/dL Hct (41-53) % MCV (80-100) fL MCH (26-34) PG MCHC (30-36) % RDW (11.6-14.8) % Plt Count (150-400) X10^3/uL Neut % (Auto) (50-75) % Lymph % (Auto) (25-40) % [place] % (Auto) (3-14) % Eos % (Auto) (2-4) % Baso % (Auto) (0-2) % Neut # (Auto) (6032-1008) /uL Lymph # (Auto) (0803-9242) /uL [place] # (Auto) (0-900) /uL Eos # (Auto) (0-450) /uL Baso # (Auto) (0-100) /uL PT (10.1-12.7) SECONDS INR (0.9-1.3) APTT (26-36) SECONDS Sodium (137-145) mmol/L Potassium (3.4-5.1) mmol/L Chloride (98-107) mmol/L Carbon Dioxide (22-32) mmol/L BUN (9-20) mg/dL Creatinine (0.66-1.25) mg/dL Estimated GFR (>60) mL/min BUN/Creatinine Ratio (6-22) Glucose (80-110) mg/dL Calcium (8.4-10.2) mg/dL Total Bilirubin (0.2-1.3) mg/dL AST (17-59) IU/L ALT (<50) IU/L Alkaline Phosphatase (38-126) U/L Total Creatine Kinase 20 L (55-170) U/L CK-MB (CK-2) TNP CK-MB (CK-2) Rel Index TNP Troponin I < 0.012 (0.01-0.034) ng/mL Total Protein (6.3-8.2) g/dL Albumin (3.5-5.0) g/dL Globulin (1.7-4.1) g/dL Albumin/Globulin Ratio (1.0-2.8) Urine RBC 0-1/hpf (0-5/HPF) Urine WBC 1-5/hpf (0-5/HPF) Urine Bacteria Occasional (0-1) (None) Ur Culture Indicated? Specimen cultured SARS-CoV-2 (PCR) Negative (Negative) 03/17/22 Range/Units 20:10 WBC (4.5-11.0) X10^3/uL RBC (4.5-5.9) X10^6/uL Hgb (13.5-17.5) g/dL Hct (41-53) % MCV (80-100) fL MCH (26-34) PG MCHC (30-36) % RDW (11.6-14.8) % Plt Count (150-400) X10^3/uL Neut % (Auto) (50-75) % Lymph % (Auto) (25-40) % [place] % (Auto) (3-14) % Eos % (Auto) (2-4) % Baso % (Auto) (0-2) % Neut # (Auto) (5275-7356) /uL Lymph # (Auto) (2372-8136) /uL [place] # (Auto) (0-900) /uL Eos # (Auto) (0-450) /uL Baso # (Auto) (0-100) /uL PT (10.1-12.7) SECONDS INR (0.9-1.3) APTT (26-36) SECONDS Sodium (137-145) mmol/L Potassium (3.4-5.1) mmol/L Chloride (98-107) mmol/L Carbon Dioxide (22-32) mmol/L BUN (9-20) mg/dL Creatinine (0.66-1.25) mg/dL Estimated GFR (>60) mL/min BUN/Creatinine Ratio (6-22) Glucose (80-110) mg/dL Calcium (8.4-10.2) mg/dL Total Bilirubin (0.2-1.3) mg/dL AST (17-59) IU/L ALT (<50) IU/L Alkaline Phosphatase (38-126) U/L Total Creatine Kinase (55-170) U/L CK-MB (CK-2) CK-MB (CK-2) Rel Index Troponin I < 0.012 (0.01-0.034) ng/mL Total Protein (6.3-8.2) g/dL Albumin (3.5-5.0) g/dL Globulin (1.7-4.1) g/dL Albumin/Globulin Ratio (1.0-2.8) Urine RBC (0-5/HPF) Urine WBC (0-5/HPF) Urine Bacteria (None) Ur Culture Indicated? SARS-CoV-2 (PCR) (Negative) Urine Dip Bedside Urine Glucose Negative Bedside Urine Bilirubin - Negative Bedside Urine Ketone - Negative Urine Specific [place] 1.020 Bedside Urine Occult Blood - Negative Bedside Urine pH 7 Bedside Urine Protein - Negative Bedside Urine Urobilinogen - Negative Bedside Urine Nitrite - Negative Bedside Urine Leukocytes +/- 15 Esterase MDM Narrative Medical decision making narrative: Appropriate for transfer for continuity of care. Patient just had triple bypass surgery 2 months ago. I did speak with transfer center [facility] transfer Center and they do want patient back to their facility for continuity of care Patient signed out to me by Dr. Dumas. I have seen evaluated patient myself. Recent CABG in January 09 pain to at [facility] presenting today with chest discomfort. He said he has been doing cardiac rehab started having some chest discomfort will last week but thought it was tender to touch thought not to be cardiac at this time. Around last 2-3 a.m. this morning he developed a wave of chest discomfort. It comes and goes lasting sometimes seconds sometimes minutes. Goes to his left arm goes up to his jaw. He currently has nitro paste his pain is about a 2 does not completely take it away. He has 2- troponins and normal EKG. Waiting to hear back from Cardiology at [facility] , cardiology consulted he states that recheck a 3rd troponin if negative may start isosorbide. Seems to be tolerating nitro paste. Will need close outpatient follow-up. Recent EKG remains unchanged. I have discussed plan with patient who is happy with this. Patient's nitropaste was removed he tolerated isosorbide blood pressure did not drop. Pain remains about 1 to a 2 it has been fairly constant. He has 1/3- troponin no EKG changes. At this time recommend outpatient follow-up with Cardiology. Discharge Plan Departure Patient Disposition: Home Clinical Impression: Atypical chest pain Instructions: DI for Atypical Chest Pain Activity Restrictions/Additional Instructions: *You have been diagnosed with atypical chest pain *What to do: At this time it spoken to Cardiology will need close follow-up with them *Continue to take medications as directed --> SENT TO [facility] Start isosorbide 30 mg at night time. This can decrease her blood pressure if you feel dizzy or lightheaded please report this to your cord maker *Follow up with your primary care provider in 2-3 days or call [phone] *Return to ER if you should have decreasing chest pain lightheadedness shortness of breath passing out or any new, worsening or concerning symptoms Prescriptions: New isosorbide mononitrate 30 mg tablet extended release 24 hr 30 mg PO DAILY Qty: 30 0RF No Action (DME) pen needle, diabetic [BD Ultra-Fine Mini Pen Needle] 31 gauge x 3/16 needle See Rx Instructions .Route Qty: 100 3RF Rx Instructions: use for insulin twice a day tamsulosin 0.4 mg capsule 0.4 mg PO DAILY Qty: 90 3RF famotidine 40 mg tablet 40 mg PO BEDTIME Qty: 90 1RF Rx Instructions: Begin after pantoprazole ferrous sulfate 325 mg (65 mg iron) tablet 325 mg PO 3XW Januvia 100 mg tablet 100 mg PO DAILY Qty: 90 1RF metformin 500 mg tablet 1,000 mg PO BIDCC Qty: 360 1RF aspirin 81 mg tablet,delayed release (DR/EC) 81 mg PO DAILY clopidogrel 75 mg tablet 75 mg PO DAILY metoprolol tartrate 25 mg tablet 12.5 mg PO BID atorvastatin 40 mg tablet 40 mg PO BEDTIME latanoprost 0.005 % drops 1 drp ophthalmic (eye) DAILY Referrals: Trenton Oliveira MD [Primary Care Provider] - Shoaib Orozco MD [Physician] - Visit Report Forms: Patient Portal/API
[2022-03-17 08:35] LABS: Add Manual Diff / Slide Review NO; Basophils Absolute Auto 100 /uL (0-100); Basophils Percent Auto 0.5 % (0-2); Eosinophils Absolute Auto 500 /uL (0-450); Eosinophils Percent Auto 5.1 % (2-4); Hematocrit 37.7 % (41-53); Hemoglobin 12.6 g/dL (13.5-17.5); Lymphocytes Absolute Auto 1200 /uL (1100-4500); Lymphocytes Percent Auto 11.9 % (25-40); Mean Corpuscular HGB Conc 33.4 % (30-36); Mean Corpuscular Hemoglobin 29.2 PG (26-34); Mean Corpuscular Volume 87.4 fL (80-100); Monocytes Absolute Auto 900 /uL (0-900); Monocytes Percent Auto 8.7 % (3-14); Neutrophils Absolute Auto 7400 /uL (1500-7000); Neutrophils Percent Auto 73.8 % (50-75); Platelet Count 208 X10^3/uL (150-400); Red Blood Cell Count 4.32 X10^6/uL (4.5-5.9); White Blood Cell Count 10.1 X10^3/uL (4.5-11.0)
[2022-03-17] MEDS: ASPIRIN 81 MG CHEW TAB 324 MG PO (08:36)
[2022-03-17 08:43] LABS: Prothrombin Time 11.4 SECONDS (10.1-12.7)
[2022-03-17 08:46] LABS: PTT Partial Thromboplastin Tim 30 SECONDS (26-36)
[2022-03-17 08:47] LABS: Alanine Aminotransferase 20 IU/L (<50); Albumin Globulin Ratio 1.3 (1.0-2.8); Alkaline Phosphatase 72 U/L (38-126); Aspartate Aminotransferase 25 IU/L (17-59); BUN Creatinine Ratio 16.5 (6-22); Bilirubin Total 0.5 mg/dL (0.2-1.3); Blood Urea Nitrogen 15 mg/dL (9-20); Calcium 9.6 mg/dL (8.4-10.2); Carbon Dioxide 30 mmol/L (22-32); Chloride 98 mmol/L (98-107); Creatine Kinase 23 U/L (55-170); Estimated Glomerular Filt Rate > 60 mL/min (>60); Globulin 3.2 g/dL (1.7-4.1); Glucose 178 mg/dL (80-110); HEMOLYSIS 17 (0-50); Potassium 4.1 mmol/L (3.4-5.1); Sodium 136 mmol/L (137-145); Total Protein 7.2 g/dL (6.3-8.2)
[2022-03-17 08:59] LABS: Troponin I < 0.012 ng/mL (0.01-0.034)
[2022-03-17 09:41] LABS: COVID19 -Nasal RAPID Negative (Negative)
[2022-03-17 11:43] LABS: Creatine Kinase 20 U/L (55-170)
[2022-03-17 11:55] LABS: Troponin I < 0.012 ng/mL (0.01-0.034)
[2022-03-17 12:46] LABS: Bacteria Urine Occasional (0-1); Culture Indicated Urine Specimen Cultured; RBC Urine 0-1/HPF (0-5/HPF); WBC Urine 1-5/HPF (0-5/HPF)
--- NOTE | 2022-03-17 16:00 | PC.NURSE ---
Pt reports 4-8/10 chest pain. Provider ordered for topical nitro to be applied per order. Applied to left chest.
[2022-03-17] MEDS: NITROGLYCERIN OINT 1 INCH/GM OINT...G. 0.5 INCH TOP (16:07)
[2022-03-17 20:39] LABS: Troponin I < 0.012 ng/mL (0.01-0.034)
[2022-03-17] MEDS: ISOSORBIDE MONONITRATE ER 30 MG TABLET PO (21:05)
== END 2022-03-17 21:48 | disposition home or self-care (01) ==
PROVIDERS: Emergency Medicine; Emergency Provider Emergency Medicine; PCP Student in an Organized Health Care Education/Training Program
DX: R07.89 Other chest pain (principal); Z20.822 Contact with and (suspected) exposure to COVID-19
CPT/HCPCS: 36415; 71045; 80053; 81003; 81015; 82550; 84484; 85025; 85610; 85730; 87086; 87635; 93005; 99284; C9803

== ENCOUNTER → 2022-05-08 16:14 | Outpatient (CLI) | payer MEDICARE, OTHER, SELFPAY ==
[2021-12-29 16:51] VITALS: BMI 28.2
[2022-05-08 16:46] LABS: Add Manual Diff / Slide Review NO; Basophils Absolute Auto 100 /uL (0-100); Basophils Percent Auto 0.9 % (0-2); Eosinophils Absolute Auto 700 /uL (0-450); Eosinophils Percent Auto 8.8 % (2-4); Hematocrit 38.6 % (41-53); Hemoglobin 12.7 g/dL (13.5-17.5); Lymphocytes Absolute Auto 1800 /uL (1100-4500); Lymphocytes Percent Auto 22.8 % (25-40); Mean Corpuscular HGB Conc 32.9 % (30-36); Mean Corpuscular Hemoglobin 28.8 PG (26-34); Mean Corpuscular Volume 87.6 fL (80-100); Monocytes Absolute Auto 700 /uL (0-900); Monocytes Percent Auto 8.6 % (3-14); Neutrophils Absolute Auto 4700 /uL (1500-7000); Neutrophils Percent Auto 58.9 % (50-75); Platelet Count 262 X10^3/uL (150-400); Red Blood Cell Count 4.41 X10^6/uL (4.5-5.9); Red Cell Distribution Width 15.7 % (11.6-14.8)
[2022-05-08 17:10] LABS: Hemoglobin A1C% w Est Avg Glu 7.4 % (4.0-6.0)
[2022-05-08 17:56] LABS: Alanine Aminotransferase 20 IU/L (<50); Alkaline Phosphatase 70 U/L (38-126); Aspartate Aminotransferase 21 IU/L (17-59); BUN Creatinine Ratio 14.6 (6-22); Bilirubin Total 0.3 mg/dL (0.2-1.3); Blood Urea Nitrogen 14 mg/dL (9-20); Calcium 9.7 mg/dL (8.4-10.2); Carbon Dioxide 25 mmol/L (22-32); Chloride 100 mmol/L (98-107); Estimated Glomerular Filt Rate > 60 mL/min (>60); Glucose 135 mg/dL (80-110); HEMOLYSIS < 15 (0-50); Potassium 4.4 mmol/L (3.4-5.1); Sodium 138 mmol/L (137-145)
[2022-05-11 17:51] LABS: Albumin 4.1 g/dL (3.5-5.0); Albumin Globulin Ratio 1.4 (1.0-2.8); Globulin 2.9 g/dL (1.7-4.1)
== END ==
PROVIDERS: PCP Student in an Organized Health Care Education/Training Program; Referring Provider Student in an Organized Health Care Education/Training Program; Visit Provider Student in an Organized Health Care Education/Training Program
DX: D50.9 Iron deficiency anemia, unspecified (principal); E11.9 Type 2 diabetes mellitus without complications; I10 Essential (primary) hypertension; N14.11 Contrast-induced nephropathy; R10.30 Lower abdominal pain, unspecified; T50.8X5A Adverse effect of diagnostic agents, initial encounter
CPT/HCPCS: 36415; 80053; 83036; 85025

== ENCOUNTER → 2022-05-11 09:21 | Outpatient (CLI) | payer MEDICARE, OTHER, SELFPAY ==
[2021-12-29 16:51] VITALS: BMI 28.2
--- NOTE | 2022-05-11 09:23 | DI.CT.S_ITS ---
PROCEDURE: CT CHEST ABD PEL W CON INDICATIONS: Reassess left lung base nodule; assess new lower abd pain TECHNIQUE: After the administration of oral and intravenous contrast, axial sections acquired from the supraclavicular neck to the pubic symphysis. Coronal and sagittal reformats were performed. For radiation dose reduction, the following was used: automated exposure control, adjustment of mA and/or kV according to patient size. COMPARISON: [facility], CT, CT CHEST WO CON, 05/28/2018, 9:29. [facility], CT, CT ANGIO CHEST ABDOMEN PELVIS, 01/01/2022, 7:51. FINDINGS: Image quality: Excellent. CHEST: Lower Neck: No enlarged lymph nodes. Thyroid: Within normal limits. Axillae: No enlarged lymph nodes. Chest Wall: Unremarkable. Lungs and Airways: No new or enlarging pulmonary nodules. A few small pulmonary nodules since 2019. For example: -left upper lobe 0.7 cm, (3/201). Partially calcified and likely a granuloma. -left lung base 0.9 cm, (3/247). -right upper lobe 0.4 cm, (3/90). Mild atelectasis at the left lung base. Pleura: No pneumothorax or pleural effusions. Heart: Dense calcifications at the LAD and right circumflex coronary arteries. Small coronary artery aneurysms, unchanged since 2019. Atrial appendage clip. Post median sternotomy. Thoracic Vessels: Ascending aorta measures 3.7 cm, aneurysmal dilatation. No dissection. No central pulmonary embolism. Mediastinum and Hannah: No enlarged lymph nodes. Esophagus: No wall thickening. No hiatal hernia. ABDOMEN: Liver: No focal lesion. Gallbladder: Layering gallstones. Biliary ducts: Unremarkable. Pancreas: Unremarkable. Spleen: Unremarkable. Adrenal Glands: Unremarkable. Kidneys and Ureters: No hydronephrosis. Small simple right ovarian cyst. Stomach and Bowel: Stomach, small bowel loops, and colon are unremarkable. Diverticulosis. Normal appendix. Peritoneum: No abnormal intraperitoneal fluid. No free air. Ventral Wall: No hernia. Ventral abdominal wall mesh. Abdominal Nodes: No retroperitoneal or mesenteric adenopathy by size criteria. Vessels: Extensive calcified plaque. Prior aneurysm repair. Hepatic artery originates off the SMA., variant anatomy. PELVIS: Pelvic Organs: Prominent prostate gland. Bladder: No stone. Pelvic Nodes: No enlarged lymph nodes. Miscellaneous: No inguinal hernias are seen. Subtle hypodensity in the musculature anterior to the right hip, unchanged. Bones: No suspicious lesion IMPRESSION: 1. No new or enlarging pulmonary nodules. Several small pulmonary nodules which are unchanged since 2019 suggesting a benign etiology. 2. No acute abnormality is identified in the abdomen or pelvis. No free fluid. 3. Diverticulosis. Normal appendix. Gallstones. Dictated by: Marc Power M.D. on 05/11/2022 at 14:55 Approved by: Marc Power M.D. on 05/11/2022 at 15:16
== END ==
PROVIDERS: PCP Student in an Organized Health Care Education/Training Program; Referring Provider Student in an Organized Health Care Education/Training Program; Visit Provider Student in an Organized Health Care Education/Training Program
DX: I25.41 Coronary artery aneurysm; R91.8 Other nonspecific abnormal finding of lung field; K57.90 Diverticulosis of intestine, part unspecified, without perforation or abscess without bleeding; I71.40 Abdominal aortic aneurysm, without rupture, unspecified; K80.20 Calculus of gallbladder without cholecystitis without obstruction; I25.10 Atherosclerotic heart disease of native coronary artery without angina pectoris; R10.31 Right lower quadrant pain; R10.32 Left lower quadrant pain
CPT/HCPCS: 71260; 74177

== ENCOUNTER 2022-05-30 08:30 | Outpatient (RCR) | payer MEDICARE, OTHER, SELFPAY ==
[2021-12-29 16:51] VITALS: BMI 28.2
== END 2022-05-30 10:30 ==
LOC: CAR 08:30
PROVIDERS: PCP Student in an Organized Health Care Education/Training Program; Referring Provider Thoracic Surgery (Cardiothoracic Vascular Surgery); Visit Provider Thoracic Surgery (Cardiothoracic Vascular Surgery)
DX: Z95.1 Presence of aortocoronary bypass graft (principal)
CPT/HCPCS: 93798

== ENCOUNTER → 2022-06-20 13:49 | Outpatient (CLI) | payer MEDICARE, OTHER, SELFPAY ==
[2021-12-29 16:51] VITALS: BMI 28.2
[2022-06-20 15:33] LABS: BUN Creatinine Ratio 17.5 (6-22); Blood Urea Nitrogen 17 mg/dL (9-20); Calcium 9.2 mg/dL (8.4-10.2); Carbon Dioxide 25 mmol/L (22-32); Chloride 100 mmol/L (98-107); Estimated Glomerular Filt Rate > 60 mL/min (>60); Glucose 187 mg/dL (80-110); HEMOLYSIS < 15 (0-50); Potassium 4.3 mmol/L (3.4-5.1); Sodium 138 mmol/L (137-145)
== END ==
PROVIDERS: PCP Student in an Organized Health Care Education/Training Program; Referring Provider Internal Medicine Cardiovascular Disease; Visit Provider Internal Medicine Cardiovascular Disease
DX: I25.5 Ischemic cardiomyopathy (principal)
CPT/HCPCS: 36415; 80048

== ENCOUNTER → 2022-09-04 09:29 | Outpatient (CLI) | payer MEDICARE, OTHER, SELFPAY ==
[2021-12-29 16:51] VITALS: BMI 28.2
--- NOTE | 2022-09-04 09:32 | DI.RAD.S_ITS ---
PROCEDURE: XR ABDOMEN MIN 2V INDICATIONS: Variable abd pain TECHNIQUE: 2 views of the abdomen were acquired. COMPARISON: None. FINDINGS: Surgical changes and devices: Abdominal repair has been performed. Bowel: No pneumoperitoneum. The bowel gas pattern is normal. Soft tissues: No masses; visualized solid organ contours appear normal in size. No suspicious abdominal calcifications. Bones: No suspicious bony abnormalities. IMPRESSION: No acute process. Dictated by: Fransico Villagomez M.D. on 09/04/2022 at 12:03 Transcribed by: AMBER on 09/04/2022 at 12:03 Approved by: Franscio Villagomez M.D. on 09/04/2022 at 15:58
[2022-09-04 10:18] LABS: Hematocrit 35.8 % (41-53); Mean Corpuscular HGB Conc 33.6 % (30-36); Mean Corpuscular Hemoglobin 29.9 PG (26-34); Mean Corpuscular Volume 88.9 fL (80-100); Platelet Count 214 X10^3/uL (150-400); Red Blood Cell Count 4.03 X10^6/uL (4.5-5.9); Red Cell Distribution Width 14.7 % (11.6-14.8); White Blood Cell Count 6.9 X10^3/uL (4.5-11.0)
[2022-09-04 10:45] LABS: Alanine Aminotransferase 21 IU/L (<50); Albumin Globulin Ratio 1.5 (1.0-2.8); Alkaline Phosphatase 63 U/L (38-126); Aspartate Aminotransferase 20 IU/L (17-59); BUN Creatinine Ratio 15.2 (6-22); Bilirubin Total 0.3 mg/dL (0.2-1.3); Blood Urea Nitrogen 15 mg/dL (9-20); Calcium 9.3 mg/dL (8.4-10.2); Carbon Dioxide 24 mmol/L (22-32); Chloride 103 mmol/L (98-107); Estimated Glomerular Filt Rate > 60 mL/min (>60); Globulin 2.7 g/dL (1.7-4.1); Glucose 190 mg/dL (80-110); HEMOLYSIS < 15 (0-50); Potassium 4.6 mmol/L (3.4-5.1); Sodium 138 mmol/L (137-145); Total Protein 6.7 g/dL (6.3-8.2)
[2022-09-04 11:47] LABS: Neutrophils Absolute Manual 3933 /uL (3000-5900); RBC Morphology Norm; Total Cells Counted 100
[2022-09-04 12:02] LABS: Appearance Urine UA CLEAR; Bilirubin Urine UA NEGATIVE (NEGATIVE); Color Urine UA YELLOW; Glucose Urine UA NEGATIVE (Negative); Ketones Urine UA NEGATIVE (NEGATIVE); Leukocyte Esterase Urine UA NEGATIVE (NEGATIVE); Nitrite Urine UA NEGATIVE (Negative); Occult Blood Urine UA NEGATIVE (Negative); Protein Urine UA NEGATIVE (Negative); Specific Gravity Urine UA 1.025 (1.000-1.035); Urobilinogen Urine UA 0.2 E.U./dL (0.2)
[2022-09-04 12:31] LABS: Bacteria Urine None Seen; RBC Urine 0-1/HPF (0-5/HPF); Squamous Epithelial Cell Urine 0-1 /HPF (0-5/HPF); WBC Urine 1-5/HPF (0-5/HPF)
[2022-09-04 12:32] LABS: Amorphous Sediment Urine 1+; Calcium Oxalate Crystals Urine Many
[2022-09-04 12:33] LABS: Culture Indicated Urine Cult Not Indicated
== END ==
PROVIDERS: PCP Student in an Organized Health Care Education/Training Program; Referring Provider Family Medicine; Visit Provider Family Medicine
DX: K57.32 Diverticulitis of large intestine without perforation or abscess without bleeding (principal)
CPT/HCPCS: 36415; 74019; 80053; 81001; 85025

== ENCOUNTER → 2022-09-18 10:21 | Outpatient (CLI) | payer MEDICARE, OTHER, SELFPAY ==
[2021-12-29 16:51] VITALS: BMI 28.2
--- NOTE | 2022-09-18 11:54 | DI.CT.S_ITS ---
PROCEDURE: CT ABDOMEN PELVIS W CON INDICATIONS: Reoccurent abdominal pain TECHNIQUE: After the administration of oral and intravenous contrast, axial sections were acquired from the lung bases to the pubic symphysis. Coronal and sagittal reformats were performed. For radiation dose reduction, the following was used: automated exposure control, adjustment of mA and/or kV according to patient size. COMPARISON:[facility], CT, CT CHEST ABD PEL W CON, 05/11/2022, 11:00. [facility], CT, CT ABDOMEN PELVIS W CON, 11/07/2017, 8:35. FINDINGS: Image quality: Excellent. Lung bases: Unremarkable. Heart: Dense coronary artery calcifications. ABDOMEN: Liver: Unremarkable. Gallbladder: Calcified gallstones and gravel are present. No gallbladder wall thickening. Biliary ducts: Unremarkable. Pancreas: Unremarkable. Spleen: Unremarkable. Adrenal Glands: Unremarkable. Kidneys and Ureters: Unremarkable. Stomach and Bowel: Moderate sigmoid diverticulosis without evidence of diverticulitis. No obstructing or constricting lesions. No dilated loops of bowel. Peritoneum: No abnormal intraperitoneal fluid. No free air. Ventral Wall: No hernia. Abdominal Nodes: No retroperitoneal or mesenteric adenopathy by size criteria. Vessels: Remote open repair of an abdominal aortic aneurysm, with satisfactory postsurgical appearance. Patent lumen. Patent iliac arteries, as well. SMA and celiac are widely patent. Renal arteries are grossly patent. PELVIS: Pelvic Organs: Unremarkable. Bladder: Unremarkable. Pelvic Nodes: No enlarged lymph nodes. Miscellaneous: No inguinal hernias are seen. Bones: Lumbar degenerative change. No lytic or blastic bony lesions. No compression fractures. IMPRESSION: 1. No evidence acute abdominal process. 2. Remote surgical repair of abdominal aortic aneurysm. 3. Moderate sigmoid diverticulosis. 4. Coronary artery disease. Dictated by: Goyo Wheat M.D. on 09/18/2022 at 18:07 Approved by: Goyo Wheat M.D. on 09/18/2022 at 18:12
== END ==
PROVIDERS: PCP Family Medicine; Referring Provider Family Medicine; Visit Provider Family Medicine
DX: R10.9 Unspecified abdominal pain (principal); K57.30 Diverticulosis of large intestine without perforation or abscess without bleeding; I25.10 Atherosclerotic heart disease of native coronary artery without angina pectoris
CPT/HCPCS: 74177; Q9967

== ENCOUNTER → 2022-11-05 06:47 | Outpatient (CLI) | payer MEDICARE, OTHER, SELFPAY ==
[2021-12-29 16:51] VITALS: BMI 28.2
[2022-11-05 08:11] LABS: Hematocrit 38.2 % (41-53); Hemoglobin 12.9 g/dL (13.5-17.5); Mean Corpuscular HGB Conc 33.8 % (30-36); Mean Corpuscular Hemoglobin 29.9 PG (26-34); Mean Corpuscular Volume 88.2 fL (80-100); Platelet Count 183 X10^3/uL (150-400); Red Blood Cell Count 4.33 X10^6/uL (4.5-5.9); Red Cell Distribution Width 14.5 % (11.6-14.8); White Blood Cell Count 5.7 X10^3/uL (4.5-11.0)
[2022-11-05 08:28] LABS: Alanine Aminotransferase 18 IU/L (<50); Albumin 4.1 g/dL (3.5-5.0); Albumin Globulin Ratio 1.5 (1.0-2.8); Alkaline Phosphatase 57 U/L (38-126); Aspartate Aminotransferase 21 IU/L (17-59); BUN Creatinine Ratio 15.6 (6-22); Bilirubin Total 0.5 mg/dL (0.2-1.3); Blood Urea Nitrogen 15 mg/dL (9-20); Calcium 9.2 mg/dL (8.4-10.2); Carbon Dioxide 27 mmol/L (22-32); Chloride 101 mmol/L (98-107); Cholesterol 175 mg/dL (140-199); Estimated Glomerular Filt Rate > 60 mL/min (>60); Globulin 2.8 g/dL (1.7-4.1); Glucose 150 mg/dL (80-110); HDL Cholesterol 31 mg/dL (40-60); HEMOLYSIS < 15 (0-50); LDL Cholesterol Calculated 119 mg/dL (<100); Potassium 4.4 mmol/L (3.4-5.1); Sodium 138 mmol/L (137-145); Total Protein 6.9 g/dL (6.3-8.2); Triglycerides 125 mg/dL (35-150)
[2022-11-05 10:16] LABS: Microalbumi Creatinin Ratio Ur 48.7 ug/mg CR (<30); Microalbumin Urine Random 5.9 mg/dL (0-1.6)
[2022-11-06 02:07] LABS: x Labcorp Estim. Avg Glu (eAG) 166 mg/dL (.); x Labcorp Hemoglobin A1c 7.4 % (4.8-5.6)
== END ==
PROVIDERS: Student in an Organized Health Care Education/Training Program; PCP Family Medicine; Referring Provider Internal Medicine Cardiovascular Disease; Visit Provider Internal Medicine Cardiovascular Disease
DX: I25.5 Ischemic cardiomyopathy (principal); I10 Essential (primary) hypertension; E11.9 Type 2 diabetes mellitus without complications; R80.9 Proteinuria, unspecified
CPT/HCPCS: 36415; 80053; 80061; 82043; 82570; 83036; 85027

== ENCOUNTER 2022-12-15 06:35 | Emergency (ER) | payer MEDICARE, OTHER, SELFPAY ==
[2021-12-29 16:51] VITALS: BMI 28.2
[2022-12-15] VITALS (21 sets, daily range): BP systolic 142–179; BP diastolic 65–75; PULSE 52–72; RESP 11–24; TEMP 36.3; O2SAT 95–98; BMI 27.6
--- NOTE | 2022-12-15 06:38 | DI.RAD.S_ITS ---
PROCEDURE: XR CHEST 1V INDICATIONS: Chest pain, dizziness; recent heart surgery (2021) TECHNIQUE: One view of the chest was acquired. COMPARISON: [facility], CR, XR CHEST 1V, 03/17/2022, 8:09. [facility], CR, XR CHEST 2V, 01/31/2022, 10:23. FINDINGS: Surgical changes and devices: Sternotomy wires. Stable cardiac postoperative changes. Lungs and pleura: Lungs are clear. No pleural effusions or pneumothorax. Mediastinum: Mediastinal contours appear normal. Heart size is normal. Bones and chest wall: No suspicious bony lesions. Overlying soft tissues appear unremarkable. IMPRESSION: No acute cardiopulmonary process. Dictated by: Keshav Morales M.D. on 12/15/2022 at 7:55 Approved by: Keshav Morales M.D. on 12/15/2022 at 7:56
[2022-12-15 07:19] LABS: Add Manual Diff / Slide Review NO; Basophils Absolute Auto 100 /uL (0-100); Basophils Percent Auto 0.9 % (0-2); Eosinophils Absolute Auto 600 /uL (0-450); Hemoglobin 13.1 g/dL (13.5-17.5); Lymphocytes Absolute Auto 1400 /uL (1100-4500); Lymphocytes Percent Auto 20.9 % (25-40); Mean Corpuscular HGB Conc 33.7 % (30-36); Mean Corpuscular Hemoglobin 29.9 PG (26-34); Mean Corpuscular Volume 88.8 fL (80-100); Monocytes Absolute Auto 800 /uL (0-900); Monocytes Percent Auto 11.3 % (3-14); Neutrophils Absolute Auto 4000 /uL (1500-7000); Neutrophils Percent Auto 57.9 % (50-75); Platelet Count 200 X10^3/uL (150-400); Red Blood Cell Count 4.39 X10^6/uL (4.5-5.9); White Blood Cell Count 6.8 X10^3/uL (4.5-11.0)
[2022-12-15 07:26] LABS: Alanine Aminotransferase 19 IU/L (<50); Albumin 4.4 g/dL (3.5-5.0); Albumin Globulin Ratio 1.5 (1.0-2.8); Alkaline Phosphatase 53 U/L (38-126); Aspartate Aminotransferase 24 IU/L (17-59); BUN Creatinine Ratio 13.2 (6-22); Bilirubin Total 0.6 mg/dL (0.2-1.3); Blood Urea Nitrogen 12 mg/dL (9-20); Calcium 9.5 mg/dL (8.4-10.2); Carbon Dioxide 24 mmol/L (22-32); Chloride 104 mmol/L (98-107); Creatine Kinase 31 U/L (55-170); Estimated Glomerular Filt Rate > 60 mL/min (>60); Glucose 144 mg/dL (80-110); HEMOLYSIS < 15 (0-50); Lipase 420 U/L (23-300); Magnesium 1.8 mg/dL (1.6-2.3); Potassium 4.6 mmol/L (3.4-5.1); Sodium 135 mmol/L (137-145); Total Protein 7.4 g/dL (6.3-8.2)
--- NOTE | 2022-12-15 07:35 | ED.CHESTPAIN ---
HPI - Chest Pain General Chief Complaint: Chest Pain Stated Complaint: Chest Pain, dizzy. Time Seen by Provider: 12/15/22 06:36 Source: patient Mode of arrival: Ambulatory Limitations: no limitations History of Present Illness HPI narrative: 87-year-old male former smoker with history of coronary artery disease with CABG about 1 year ago as well as AAA, type 2 diabetes presents today with various vague symptoms upon waking. He states that he went to bed in his normal state of health and denies any recent nausea, vomiting, fever chills. He is had no exertional symptoms or exercise intolerance. He denies recent upper respiratory symptoms such as runny nose, sneezing or cough. He states that when he got out of bed this morning he felt lightheaded and developed some chest pressure. He denies any obvious reproducibility of the dizziness and states that it lasted about 1 minute but the chest pressure lasted a bit longer. He denies obvious provocation, palliation or radiation of the chest pressure. He denies other cardiac equivalent such as shortness of breath, nausea, vomiting or unexplained diaphoresis. He is asymptomatic at time of exam other than he complains of some left-sided jaw pain that feels like a toothache. He states this pain is worse when he presses his jaw or when he turns his head. He denies any drainage or known tooth abnormalities. He denies any change in medications or diet. He denies neurologic symptoms such as blurred vision or trouble with speech, he denies any numbness of his face nor numbness, tingling or weakness of extremities Related Data Home Medications Medication Instructions Recorded Confirmed latanoprost 0.005 % eye drops 1 drp ophthalmic (eye) DAILY 12/26/21 11/08/22 aspirin 81 mg tablet,delayed 81 mg PO DAILY 01/22/22 11/08/22 release atorvastatin 40 mg tablet 40 mg PO BEDTIME 01/22/22 11/08/22 metoprolol tartrate 25 mg tablet 12.5 mg PO BID 01/22/22 11/08/22 ferrous sulfate 325 mg (65 mg 325 mg PO 3XW 02/22/22 11/08/22 iron) tablet sucralfate 100 mg/mL oral PO 03/30/22 11/08/22 suspension Previous Rx's Medication Instructions Recorded pen needle, diabetic 31 gauge x #100 ea 01/01/2207/05 (BD Ultra-Fine Mini Pen Needle) tamsulosin 0.4 mg capsule 0.4 mg PO DAILY #90 caps 02/15/22 sitagliptin phosphate 100 mg 100 mg PO DAILY #90 tabs 09/03/22 tablet (Januvia) metformin 500 mg tablet 1,000 mg PO BIDCC #360 tabs 09/14/22 famotidine 20 mg tablet 20 mg PO DAILY #90 tabs 09/28/22 blood sugar diagnostic #100 ea 11/29/22 Allergies Allergy/AdvReac Type Severity Reaction Status Date / Time No Known Drug Allergies Allergy Verified 11/08/22 08:39 Review of Systems Review of Systems Narrative: GENERAL: Denies chills, fatigue, malaise, fever, sweats. HEENT: see hPI RESPIRATORY: Denies dyspnea, cough, wheezing, hemoptysis, sputum. CARDIOVASCULAR: see HPI GASTROINTESTINAL: Denies nausea, vomiting, abdominal pain, diarrhea, constipation, melena. : Denies dysuria, frequency, incontinence, hematuria, urinary retention. MUSCULOSKELETAL: denies weakness, joint pain, or bony pain SKIN: Denies rash, skin lesions, or other NEUROLOGIC: Denies weakness, headache, numbness, change in speech, confusion, seizures, incoordination. PSYCHIATRIC: No concerning psychosocial issues. 12 point review of systems is negative except for those stated above Patient History Medical History Abdominal aortic aneurysm (AAA) without rupture (07/26/15) Benign non-nodular prostatic hyperplasia without lower urinary tract symptoms (04/26/15) BPH (benign prostatic hyperplasia) Closed nondisplaced fracture of distal phalanx of right great toe with routine healing, subsequent encounter (03/20/17) Coronary artery aneurysm Costochondritis Diabetes Essential hypertension (04/26/15) Fracture of left great toe Hammer toe of right foot (01/06/16) HTN (hypertension) Laceration of left great toe EMILEE (obstructive sleep apnea) Pulmonary nodule, left Type 2 diabetes mellitus without complication (04/26/15) Surgical History S/P aneurysm repair S/P CABG x 2 Status post epigastric hernia repair, follow-up exam Family History Father Heart disease Mother Cancer Brother Lung disease Social History marital status: household members: spouse lives independently: Yes Smoking Status: Former smoker alcohol intake: former substance use type: does not use Smoking Status: Former smoker alcohol intake frequency: holidays/special occasions only Substance Use Type: does not use Exam Narrative Exam Narrative: GENERAL: [87] year old patient appears stated age. Well-developed patient, in mild distress. HEAD: Atraumatic. Normocephalic. EYES: Pupils equal round and reactive. Extraocular motions intact. No scleral icterus. No injection or drainage. ENT: Nose without bleeding, purulent drainage. Throat without erythema, tonsillar hypertrophy or exudate. Airway patent. No facial swelling or redness, no obvious intraoral abnormality NECK: Trachea midline. Non tender CARDIOVASCULAR: Regular rate and rhythm without murmurs, gallops, or rubs. RESPIRATORY: Clear to auscultation. Breath sounds equal bilaterally. No wheezes, rales, or rhonchi. GASTROINTESTINAL: Abdomen soft, non-tender, nondistended. EXTREMITIES: No edema or joint tenderness. BACK: Nontender without deformity or crepitance. No flank tenderness. NEURO: AOx3. SKIN: No rash or erythema of visible areas Initial Vital Signs Initial Vital Signs: Vital Signs Pulse Rate 60 12/15/22 06:41 Respiratory Rate 20 12/15/22 06:41 Course Orders Ordered: ED Orders 12/15/22 06:38 XR chest 1V Stat 12/15/22 06:39 EKG-12 Lead Stat 12/15/22 07:08 Complete Blood Count AUTO DIFF Stat Comprehensive Metabolic Panel Stat Lipase Stat Magnesium Stat NT-proBNP (BNP-Adult 18+) Stat Troponin & CK Cardiac Panel Stat 12/15/22 07:39 CT angio chest abdomen pelvis Stat Vital Signs Vital signs: Vital Signs - 8 hr 12/15/22 06:42 Temperature 97.3 F L Pulse Rate 61 Respiratory Rate 22 Blood Pressure 179/74 H Pulse Oximetry 97 Oxygen Delivery Method Room Air MDM - Chest Pain Lab Data 12/15/22 07:08 12/15/22 07:08 Labs: Lab Results 12/15/22 12/15/22 12/15/22 Range/Units 07:08 07:08 08:12 WBC 6.8 (4.5-11.0) X10^3/uL RBC 4.39 L (4.5-5.9) X10^6/uL Hgb 13.1 L (13.5-17.5) g/dL Hct 39.0 L (41-53) % MCV 88.8 (80-100) fL MCH 29.9 (26-34) PG MCHC 33.7 (30-36) % RDW 15.0 H (11.6-14.8) % Plt Count 200 (150-400) X10^3/uL Neut % (Auto) 57.9 (50-75) % Lymph % (Auto) 20.9 L (25-40) % [place] % (Auto) 11.3 (3-14) % Eos % (Auto) 9.0 H (2-4) % Baso % (Auto) 0.9 (0-2) % Neut # (Auto) 4000 (5199-9521) /uL Lymph # (Auto) 1400 (3746-7028) /uL [place] # (Auto) 800 (0-900) /uL Eos # (Auto) 600 H (0-450) /uL Baso # (Auto) 100 (0-100) /uL Sodium 135 L (137-145) mmol/L Potassium 4.6 (3.4-5.1) mmol/L Chloride 104 (98-107) mmol/L Carbon Dioxide 24 (22-32) mmol/L BUN 12 (9-20) mg/dL Creatinine 0.91 (0.66-1.25) mg/dL Estimated GFR > 60 (>60) mL/min BUN/Creatinine Ratio 13.2 (6-22) Glucose 144 H (80-110) mg/dL Calcium 9.5 (8.4-10.2) mg/dL Magnesium 1.8 (1.6-2.3) mg/dL Total Bilirubin 0.6 (0.2-1.3) mg/dL AST 24 (17-59) IU/L ALT 19 (<50) IU/L Alkaline Phosphatase 53 (38-126) U/L Total Creatine Kinase 31 L (55-170) U/L Troponin I < 0.012 (0.01-0.034) ng/mL NT-Pro-B Natriuret Pep 218 (<450) pg/mL Total Protein 7.4 (6.3-8.2) g/dL Albumin 4.4 (3.5-5.0) g/dL Globulin 3.0 (1.7-4.1) g/dL Albumin/Globulin Ratio 1.5 (1.0-2.8) Lipase 420 H (23-300) U/L Urine RBC 1-5/hpf (0-5/HPF) Urine WBC 5-10/hpf H (0-5/HPF) Ur Squamous Epith Cells 1-5 /hpf (0-5/HPF) Urine Bacteria Few (2-10) H (None) Ur Culture Indicated? Specimen cultured 12/15/22 Range/Units 10:20 WBC (4.5-11.0) X10^3/uL RBC (4.5-5.9) X10^6/uL Hgb (13.5-17.5) g/dL Hct (41-53) % MCV (80-100) fL MCH (26-34) PG MCHC (30-36) % RDW (11.6-14.8) % Plt Count (150-400) X10^3/uL Neut % (Auto) (50-75) % Lymph % (Auto) (25-40) % [place] % (Auto) (3-14) % Eos % (Auto) (2-4) % Baso % (Auto) (0-2) % Neut # (Auto) (4572-3486) /uL Lymph # (Auto) (2815-4446) /uL [place] # (Auto) (0-900) /uL Eos # (Auto) (0-450) /uL Baso # (Auto) (0-100) /uL Sodium (137-145) mmol/L Potassium (3.4-5.1) mmol/L Chloride (98-107) mmol/L Carbon Dioxide (22-32) mmol/L BUN (9-20) mg/dL Creatinine (0.66-1.25) mg/dL Estimated GFR (>60) mL/min BUN/Creatinine Ratio (6-22) Glucose (80-110) mg/dL Calcium (8.4-10.2) mg/dL Magnesium (1.6-2.3) mg/dL Total Bilirubin (0.2-1.3) mg/dL AST (17-59) IU/L ALT (<50) IU/L Alkaline Phosphatase (38-126) U/L Total Creatine Kinase 26 L (55-170) U/L Troponin I < 0.012 (0.01-0.034) ng/mL NT-Pro-B Natriuret Pep (<450) pg/mL Total Protein (6.3-8.2) g/dL Albumin (3.5-5.0) g/dL Globulin (1.7-4.1) g/dL Albumin/Globulin Ratio (1.0-2.8) Lipase (23-300) U/L Urine RBC (0-5/HPF) Urine WBC (0-5/HPF) Ur Squamous Epith Cells (0-5/HPF) Urine Bacteria (None) Ur Culture Indicated? Urine Dip Bedside Urine Glucose Negative Bedside Urine Bilirubin - Negative Bedside Urine Ketone - Negative Urine Specific [place] 1.010 Bedside Urine Occult Blood - Negative Bedside Urine pH 6.5 Bedside Urine Protein - Negative Bedside Urine Urobilinogen - Negative Bedside Urine Nitrite - Negative Bedside Urine Leukocytes +++ 500 Esterase ECG Data Interpretation: [59] EKG is normal sinus rhythm rate [59 ] and free of any signs of ischemia or ectopy. No ST segmental elevation or depression. Unchanged from prior on 03/17/2022 [facility] Narrative Medical decision making narrative: CC: 87-year-old male with dizziness, lightheadedness, jaw pain, chest pain, abdominal pain Complicating co-morbidities: Age, coronary artery disease, former CABG, AAA, diabetes Data collected from: Patient Medical records reviewed: Prior notes reviewed in our EMR Differential considered, but not limited to: Cardiac ischemia versus dissection versus AAA complication versus peripheral vertigo versus other Exam documented above, pertinent findings include: Heart rate regular, lungs clear, abdomen soft, no obvious focal neurologic findings Lab Test results independently reviewed as above. Pertinent findings: No leukocytosis or left shift, no signs of anemia, electrolytes and renal function, as well as LFTs all within normal limits. Troponin x2 is negative, lipase slightly elevated at 420 of unknown significance given lack of pain or findings on imaging. Independently reviewed EKG as above Imaging studies independently reviewed: CXR without acute findings, CTA of chest abdomen and pelvis with dissection protocol essentially unremarkable. No acute aortic pathology, stable aneurysmal dilatation with stable postsurgical changes, coronary artery aneurysms are stable compared to prior no focal pulmonary consolidations. Discussion: Patient has extensive medical history but largely very reassuring history and physical exam. He is essentially asymptomatic for the duration of his visit. Multiple diagnoses considered as noted above. Cardiac ischemia considered unlikely given lack of exertional symptoms, cardiac equivalent such as dizziness or lightheadedness nor shortness of breath, no new occlusive changes on EKG, no ongoing symptoms and troponin negative x2. Pulmonary embolism, dissection, AAA and other vascular catastrophe considered but thought unlikely given asymptomatic for the duration of visit, no abnormal findings on imaging. Patient encouraged to follow closely with his primary care provider, return precautions including but not limited to chest pain, shortness of breath, dizziness, near-syncope, fever or shaking chills as well as any other symptoms particularly concerning to the patient. Questions answered to his apparent satisfaction Disposition: see below, along with detailed discharge instructions that have been reviewed with patient as well as indications for ED re-evaluation and additional outpatient follow up Discharge Plan Departure Patient Disposition: Home Clinical Impression: Atypical chest pain Instructions: DI for Atypical Chest Pain Activity Restrictions/Additional Instructions: *You have been diagnosed with [atypical chest pain. As we discussed your history and physical exam as well as labs and advanced imaging are reassuring there is no evidence of heart attack, blood clot, problem with your aneurysm repair or other diagnosis that would require a specific or immediate intervention] *What to do: *Please continue to take your regular medications as directed. [ ] New medication prescriptions sent to your pharmacy: [ ] [ ] New medication written as a paper prescription [ ] No new medications given *Please follow up with your primary care provider in 2-3 days, call for an appointment. Let them know you were seen in the Emergency Department and that we ask that you be seen in follow up. We will electronically transmit a record of today's note if your PCP is in our system *If you do not have a primary care provider please contact the [facility] Resource line at [phone]. They will ask some questions about your medical history and help get you set up with a doctor in the community. *Return to Emergency Department if you should have any new, worsening or concerning symptoms, such as [fever greater than 101 F, shaking chills, worsening pain, persistent vomiting or other bothersome symptoms] Prescriptions: No Action (DME) pen needle, diabetic [BD Ultra-Fine Mini Pen Needle] 31 gauge x 3/16 needle See Rx Instructions .Route Qty: 100 3RF Rx Instructions: use for insulin twice a day tamsulosin 0.4 mg capsule 0.4 mg PO DAILY Qty: 90 3RF ferrous sulfate 325 mg (65 mg iron) tablet 325 mg PO 3XW Januvia 100 mg tablet 100 mg PO DAILY Qty: 90 2RF metformin 500 mg tablet 1,000 mg PO BIDCC Qty: 360 1RF (DME) blood sugar diagnostic Strip See Rx Instructions .Route Qty: 100 4RF Rx Instructions: Use to test blood sugars BID aspirin 81 mg tablet,delayed release (DR/EC) 81 mg PO DAILY metoprolol tartrate 25 mg tablet 12.5 mg PO BID atorvastatin 40 mg tablet 40 mg PO BEDTIME famotidine 20 mg tablet 20 mg PO DAILY Qty: 90 3RF sucralfate 100 mg/mL suspension PO latanoprost 0.005 % drops 1 drp ophthalmic (eye) DAILY Referrals: Manish Cerda, [Primary Care Provider] - Stand Alone Forms: Patient Portal/API
[2022-12-15 07:37] LABS: NT-proBNP (BNP-Adult 18+) 218 pg/mL (<450); Troponin I < 0.012 ng/mL (0.01-0.034)
--- NOTE | 2022-12-15 07:39 | DI.CT.S_ITS ---
PROCEDURE: CT ANGIO CHEST ABDOMEN PELVIS INDICATIONS: chest/abd pain, dizzy, jaw, hx CABG, AAA TECHNIQUE: Precontrast 5 mm thick sections acquired from the lung apices to the iliac crests. After the administration of intravenous contrast, 2.5 mm thick sections again acquired from the lung apices to the iliac crests. Maximum intensity projection (MIP) oblique sagittal and coronal reformats were then acquired. For radiation dose reduction, the following was used: automated exposure control. COMPARISON: [facility], CT, CT ANGIO CHEST ABDOMEN PELVIS, 01/01/2022, 7:51. FINDINGS: Image quality: Excellent. 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 Atherosclerotic vascular calcifications throughout the aorta. The abdominal aorta is normal in caliber. Postsurgical changes from abdominal aortic aneurysm repair. No evidence of dissection or intramural hematoma. CHEST: Lungs and pleura: No acute airspace opacities. No pleural effusions or pneumothorax. Central and peripheral airways are patent and normal in caliber. Stable 6 millimeter left upper lobe nodule (6/95). Previous spiculated anterior left lung base opacity appears to have resolved and was likely infectious. Stable left lingula 5 millimeter nodule (6/195). Stable right anterior lower lobe 5 millimeter nodule (6/249). Stable 9 millimeter nodule at the left base (6/233). Scattered smaller nodules remain stable. Mediastinum: Heart size is normal. No pericardial effusion. Moderate coronary artery calcifications. 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 No mediastinal or hilar adenopathy by size criteria. Central pulmonary arteries are normal in size. Esophagus is normal in caliber. No hiatal hernias. Bones and chest wall: No axillary adenopathy by size criteria. Thyroid gland is within normal limits . No suspicious bony lesions. No vertebral body compression fractures. ABDOMEN: Vasculature: Celiac trunk and mesenteric arteries are patent. Renal arteries are also patent. Solid organs: Liver is normal in size and enhancement. Gallbladder contains gallstones without gallbladder wall thickening or pericholecystic fluid. . Biliary system is non dilated. Pancreas enhances normally. Spleen is normal in size and enhancement. No adrenal nodules. Both kidneys are normal in size and enhancement, without hydronephrosis. Bilateral renal cysts. Peritoneum and bowel: No free fluid or air. Bowel loops are normal in caliber and wall thickness. Diverticulosis without evidence of acute diverticulitis. Nodes and vessels: No retroperitoneal or mesenteric adenopathy by size criteria. Inferior vena cava is normal in morphology. Miscellaneous: No ventral hernias. Postsurgical changes along the anterior abdominal wall. PELVIS: Genitourinary: Bladder wall thickness is normal. Miscellaneous: No inguinal hernias or adenopathy. No ventral hernias. Bones: No suspicious bony lesions. No vertebral body compression fractures. Sternotomy wires in place. IMPRESSION: 1. No acute aortic pathology. 2. Stable aneurysmal dilatation of the ascending thoracic aorta. Stable postsurgical changes from abdominal aortic aneurysm repair. 3. 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 4. Resolution of left anterior nodular opacity. Otherwise, stable bilateral pulmonary nodules, continued follow-up is recommended. 5. No focal pulmonary consolidations. 6. Cholelithiasis without evidence of acute cholecystitis. Dictated by: Keshav Morales M.D. on 12/15/2022 at 8:52 Approved by: Keshav Morales M.D. on 12/15/2022 at 9:04
[2022-12-15 08:31] LABS: Bacteria Urine Few (2-10); Culture Indicated Urine Specimen Cultured; RBC Urine 1-5/HPF (0-5/HPF); Squamous Epithelial Cell Urine 1-5 /HPF (0-5/HPF); WBC Urine 5-10/HPF (0-5/HPF)
[2022-12-15 10:41] LABS: Creatine Kinase 26 U/L (55-170)
[2022-12-15 10:54] LABS: Troponin I < 0.012 ng/mL (0.01-0.034)
== END 2022-12-15 11:59 | disposition home or self-care (01) ==
PROVIDERS: Emergency Medicine; Emergency Provider Emergency Medicine; PCP Family Medicine
DX: R07.89 Other chest pain (principal); Z79.899 Other long term (current) drug therapy
CPT/HCPCS: 36415; 71045; 71275; 74174; 80053; 81003; 81015; 82550; 83690; 83735; 83880; 84484; 85025; 87077; 87086; 87185; 87186; 93005; 99283; 99284; Q9967

== ENCOUNTER → 2022-12-17 07:58 | Outpatient (CLI) | payer MEDICARE, OTHER, SELFPAY ==
[2021-12-29 16:51] VITALS: BMI 28.2
--- NOTE | 2022-12-17 | DI.ECHO.S_ITS ---
[facility] +---------+ : : [address] : : : : [id number] : : : : Phone: [phone]+ Echocardiogram Report + + :Name: PRASHANT FENG Study Date: 12/17/2022 Height: 69 in : :[facility] ReadingLocation: Weight: 187 lb : : Gender: Male BSA: 2.0 m2 : :: 1935 Age: 87 yrs BP: 130/69 mmHg: :Reason For Study: CARDIOMYOPATHY : :Ordering Physician: BERNARDO, : :SHOAIB Performed By: Yesika Sibley : :Referring: SHOAIB OROZCO : + + Interpretation Summary The ejection fraction is estimated to be 50-55%. Left ventricular systolic function has mildly improved compared to the previous exam. Septal motion is consistent with conduction abnormality. Diastolic parameters suggest a relaxation abnormality of the left ventricle, consistent with probable normal filling pressures. The right ventricle is normal in size and function. The right ventricular systolic pressure is estimated to be at least 30 mmHg based on an estimated right atrial pressure of 3 mm Hg. The ascending aorta is moderately enlarged. Procedure: A two-dimensional transthoracic echocardiogram with color flow and Doppler was performed. The study quality was technically adequate. Comparison is made with the echocardiogram of 12/27/2021. The patient was in sinus rhythm with heart rates between 50-68 bpm during the exam. Left Ventricle: The left ventricle is normal in size and wall thickness. The ejection fraction is estimated to be 50-55%. Left ventricular systolic function has mildly improved compared to the previous exam. Septal motion is consistent with conduction abnormality. Diastolic parameters suggest a relaxation abnormality of the left ventricle, consistent with probable normal filling pressures. Right Ventricle: The right ventricle is normal in size and function. Atria: The left atrial size is normal. Right atrial size is normal. There is no Doppler evidence for an interatrial shunt. Mitral Valve: The mitral valve leaflets are slightly calcified. There is mild mitral annular calcification. There is mild mitral regurgitation. Aortic Valve: The aortic valve is trileaflet. The aortic valve opens well. There is no aortic valve stenosis. There is trace aortic regurgitation. Tricuspid Valve: The tricuspid valve is normal in structure and function. There is mild tricuspid regurgitation. The right ventricular systolic pressure is estimated to be at least 30 mmHg based on an estimated right atrial pressure of 3 mm Hg. Pulmonic Valve: The pulmonic valve leaflets are thin and pliable; valve motion is normal. There is trace pulmonic regurgitation. Great Vessels: The aortic root is borderline dilated. The ascending aorta is moderately enlarged. The IVC is of normal diameter and collapses greater than 50% with a sniff. This suggests a low right atrial pressure of 3 mm Hg. Pericardium/ Pleura There is no pericardial effusion. There is no pleural effusion. MMode/2D Measurements & Calculations LVIDd: 5.3 cm LVOT diam: 2.1 cm LVIDs: 3.8 cm Ao root diam: 4.3 cm FS: 28.2 % asc Aorta Diam: 4.2 cm IVSd: 0.89 cm Ao Arch Diam (Prox Trans): 2.6 cm LVPWd: 0.90 cm LV perdomo. diameter/BSA (cm/m^2): 2.6 LV sys. diameter/BSA (cm/m^2): 1.9 LA A2 area: 19.7 cm2 RA long axis: 5.0 cm LA A4 area: 11.9 cm2 RA area: 11.9 cm2 LA length (vol): 4.4 cm RA vol: 24.1 ml LA vol: 45.6 ml RA : 12.0 ml/m2 LA vol index: 22.7 ml/m2 IVC diam: 1.7 cm RVD1 (basal): 2.9 cm RVD2 (mid): 2.7 cm TAPSE: 1.9 cm Doppler Measurements & Calculations Ao V2 max: 125.3 cm/sec LVOT Max Romeo: 90.3 cm/sec Ao V2 mean: 94.1 cm/sec LV V1 max P.3 mmHg Ao max P.3 mmHg LV V1 VTI: 20.6 cm Ao mean P.8 mmHg KAMERON(I,D): 2.1 cm2 Ao V2 VTI: 32.9 cm KAMERON(V,D): 2.4 cm2 sev ratio: 0.63 KAMERON indexed to BSA (cm^2/m^2): 1.0 AI P1/2t: 705.9 msec AI dec slope: 128.6 cm/sec2 MV E max romeo: 63.4 cm/sec TR max romeo: 261.4 cm/sec MV A max romeo: 91.7 cm/sec TR max P.3 mmHg MV E/A: 0.69 PA V2 max: 98.7 cm/sec Med Peak E' Romeo: 5.8 cm/sec PA V2 mean: 70.4 cm/sec E/E' med: 10.9 PA mean P.2 mmHg Lat Peak E' Romeo: 9.4 cm/sec PA pr(Accel): 43.0 mmHg E/E' lat: 6.8 E/e' average: 8.8 MV dec time: 0.30 sec SV(LVOT): 68.9 ml Reading Physician:06:39 PM
== END ==
PROVIDERS: PCP Family Medicine; Referring Provider Internal Medicine Cardiovascular Disease; Visit Provider Internal Medicine Cardiovascular Disease
DX: I25.5 Ischemic cardiomyopathy (principal); I08.1 Rheumatic disorders of both mitral and tricuspid valves; I77.89 Other specified disorders of arteries and arterioles
CPT/HCPCS: 93306

== ENCOUNTER → 2022-12-21 08:40 | Outpatient (CLI) | payer MEDICARE, OTHER, SELFPAY ==
[2021-12-29 16:51] VITALS: BMI 28.2
--- NOTE | 2022-12-21 08:40 | DI.US.S_ITS ---
PROCEDURE: US CAROTID DOPPLER BI INDICATIONS: CHRONIC DIZZINESS TECHNIQUE: Color and pulse Doppler interrogation was performed of both carotid systems, with image documentation and velocity measurements. COMPARISON: None. FINDINGS: Stenosis calculations are based on SRU (Society of Radiologists in Ultrasound) criteria. Right side: Brachial blood pressure: 118/61 mm Hg. Common carotid artery peak systolic velocity: 82 cm/sec. Internal carotid artery peak systolic velocity: 83 cm/sec. Internal carotid artery end diastolic velocity: 19 cm/sec. External carotid artery peak systolic velocity: 227 cm/sec. ICA/CCA peak systolic ratio: 1.2 Ross scale imaging description: Mild plaque at the bifurcation Percent internal carotid artery stenosis: Less than 50% . Vertebral artery: Flow direction is antegrade. Left side: Brachial blood pressure: 132/69 mm Hg. Common carotid artery peak systolic velocity: 82 cm/sec. Internal carotid artery peak systolic velocity: 68 cm/sec. Internal carotid artery end diastolic velocity: 25 cm/sec. External carotid artery peak systolic velocity: 125 cm/sec. ICA/CCA peak systolic ratio: 0.8 Ross scale imaging description: Moderate plaque at the bifurcation Percent internal carotid artery stenosis: Less than 50% . Vertebral artery: Flow direction is antegrade. IMPRESSION: Less than 50% stenosis of the internal carotid arteries bilaterally. 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 Dictated by: Keely Lerner M.D. on 12/21/2022 at 13:19 Approved by: Keely Lerner M.D. on 12/21/2022 at 13:22
== END ==
PROVIDERS: PCP Family Medicine; Referring Provider Family Medicine; Visit Provider Family Medicine
DX: I65.23 Occlusion and stenosis of bilateral carotid arteries (principal); R42 Dizziness and giddiness
CPT/HCPCS: 93880

== ENCOUNTER 2022-12-28 15:06 | Emergency (ER) | payer MEDICARE, OTHER, SELFPAY ==
[2021-12-29 16:51] VITALS: BMI 28.2
[2022-12-28] VITALS (40 sets, daily range): BP systolic 111–141; BP diastolic 56–75; PULSE 33–73; RESP 12–29; TEMP 36.3–36.4; O2SAT 93–97; BMI 27.6
--- NOTE | 2022-12-28 15:14 | DI.RAD.S_ITS ---
PROCEDURE: XR CHEST 1V INDICATIONS: chest pain TECHNIQUE: One view of the chest was acquired. COMPARISON: [facility], CR, XR CHEST 1V, 12/15/2022, 6:39. FINDINGS: Surgical changes and devices: Sternal wires. Lungs and pleura: Lungs are clear. No pleural effusions or pneumothorax. Mediastinum: Mediastinal contours appear normal. Heart size is mildly prominent. Bones and chest wall: No suspicious bony lesions. Overlying soft tissues appear unremarkable. IMPRESSION: Mild cardiomegaly. Dictated by: Keely Lerner M.D. on 12/28/2022 at 15:50 Approved by: Keely Lerner M.D. on 12/28/2022 at 15:50
[2022-12-28 15:46] LABS: Add Manual Diff / Slide Review NO; Basophils Absolute Auto 100 /uL (0-100); Basophils Percent Auto 0.8 % (0-2); Eosinophils Absolute Auto 500 /uL (0-450); Hemoglobin 12.4 g/dL (13.5-17.5); INR 1.1 (0.9-1.3); Lymphocytes Absolute Auto 1600 /uL (1100-4500); Lymphocytes Percent Auto 18.4 % (25-40); Mean Corpuscular HGB Conc 33.6 % (30-36); Mean Corpuscular Hemoglobin 30.2 PG (26-34); Mean Corpuscular Volume 89.8 fL (80-100); Monocytes Absolute Auto 900 /uL (0-900); Monocytes Percent Auto 10.1 % (3-14); Neutrophils Absolute Auto 5600 /uL (1500-7000); Neutrophils Percent Auto 64.7 % (50-75); Platelet Count 199 X10^3/uL (150-400); Prothrombin Time 12.2 SECONDS (10.1-12.7); Red Blood Cell Count 4.12 X10^6/uL (4.5-5.9); Red Cell Distribution Width 15.1 % (11.6-14.8); White Blood Cell Count 8.7 X10^3/uL (4.5-11.0)
[2022-12-28 15:48] LABS: PTT Partial Thromboplastin Tim 30 SECONDS (26-36)
[2022-12-28 15:50] LABS: Alanine Aminotransferase 18 IU/L (<50); Albumin 4.1 g/dL (3.5-5.0); Albumin Globulin Ratio 1.5 (1.0-2.8); Alkaline Phosphatase 50 U/L (38-126); Aspartate Aminotransferase 22 IU/L (17-59); BUN Creatinine Ratio 13.3 (6-22); Bilirubin Total 0.5 mg/dL (0.2-1.3); Blood Urea Nitrogen 15 mg/dL (9-20); Calcium 9.4 mg/dL (8.4-10.2); Carbon Dioxide 22 mmol/L (22-32); Chloride 104 mmol/L (98-107); Creatine Kinase 45 U/L (55-170); Estimated Glomerular Filt Rate > 60 mL/min (>60); Globulin 2.8 g/dL (1.7-4.1); Glucose 169 mg/dL (80-110); HEMOLYSIS < 15 (0-50); Lipase 155 U/L (23-300); Magnesium 1.6 mg/dL (1.6-2.3); Potassium 4.8 mmol/L (3.4-5.1); Sodium 137 mmol/L (137-145); Total Protein 6.9 g/dL (6.3-8.2)
[2022-12-28 16:01] LABS: Troponin I < 0.012 ng/mL (0.01-0.034)
[2022-12-28] MEDS: ASPIRIN 81 MG CHEW TAB 324 MG PO (16:04)
--- NOTE | 2022-12-28 19:31 | ED.ARRPALP ---
HPI - Arrhythmia/Palpitations General Chief Complaint: Arrhythmia/Palpitations Stated Complaint: Dizziness, Blood pressure problems Time Seen by Provider: 12/28/22 18:03 Source: patient Mode of arrival: Wheelchair History of Present Illness HPI narrative: Patient is an 87-year-old male. Is an insulin-dependent diabetic. History of hypertension. Is on 12.5 mg of metoprolol twice a day. He did take his metoprolol dose this morning. He states that approximately 1 week ago he had an episode of what he states was vertigo. He states that those symptoms have actually improved however today he had a fairly sudden onset of lightheadedness when he stood up. He states he is also very short of breath when he walks around. The lightheadedness he had today is different than his vertigo he had several days ago. He states he feels fine when he is either sitting or lying down. He does use a walker at baseline. He is still able to walk just gets very short of breath and lightheaded. No chest pain. No lower extremity swelling. Related Data Home Medications Medication Instructions Recorded Confirmed latanoprost 0.005 % eye drops 1 drp ophthalmic (eye) DAILY 12/26/21 12/18/22 aspirin 81 mg tablet,delayed 81 mg PO DAILY 01/22/22 12/18/22 release atorvastatin 40 mg tablet 40 mg PO BEDTIME 01/22/22 12/18/22 metoprolol tartrate 25 mg tablet 12.5 mg PO BID 01/22/22 12/18/22 ferrous sulfate 325 mg (65 mg 325 mg PO 3XW 02/22/22 12/18/22 iron) tablet sucralfate 100 mg/mL oral PO 03/30/22 12/18/22 suspension Previous Rx's Medication Instructions Recorded tamsulosin 0.4 mg capsule 0.4 mg PO DAILY #90 caps 02/15/22 sitagliptin phosphate 100 mg 100 mg PO DAILY #90 tabs 09/03/22 tablet (Januvia) metformin 500 mg tablet 1,000 mg PO BIDCC #360 tabs 09/14/22 famotidine 20 mg tablet 20 mg PO DAILY #90 tabs 09/28/22 blood sugar diagnostic #100 ea 11/29/22 insulin glargine 100 unit/mL (3 10 unit (0.1 mL) SUBCUT QPM #15 mL 12/18/22 mL) subcutaneous pen (Lantus Solostar U-100 Insulin) pen needle, diabetic 31 gauge x #100 ea 12/18/2207/05 (BD Ultra-Fine Mini Pen Needle) Allergies Allergy/AdvReac Type Severity Reaction Status Date / Time No Known Drug Allergies Allergy Verified 12/28/22 15:08 Review of Systems Constitutional Constitutional: Reports system reviewed and no additional complaints, except as documented Cardiovascular Cardiovascular: Reports system reviewed and no additional complaints, except as documented Respiratory Respiratory: Reports system reviewed and no additional complaints, except as documented Gastrointestinal Gastrointestinal: Reports system reviewed and no additional complaints, except as documented Integumentary/Breasts Skin/Breast: Reports system reviewed and no additional complaints, except as documented Hematologic/Lymphatic On Anticoagulants: No Patient History Medical History Abdominal aortic aneurysm (AAA) without rupture (07/26/15) Benign non-nodular prostatic hyperplasia without lower urinary tract symptoms (04/26/15) BPH (benign prostatic hyperplasia) Closed nondisplaced fracture of distal phalanx of right great toe with routine healing, subsequent encounter (03/20/17) Coronary artery aneurysm Costochondritis Diabetes Dizziness Essential hypertension (04/26/15) Fracture of left great toe Hammer toe of right foot (01/06/16) HTN (hypertension) Laceration of left great toe EMILEE (obstructive sleep apnea) Pulmonary nodule, left Type 2 diabetes mellitus without complication (04/26/15) Surgical History S/P aneurysm repair S/P CABG x 2 Status post epigastric hernia repair, follow-up exam Family History Father Heart disease Mother Cancer Brother Lung disease Social History marital status: household members: spouse lives independently: Yes Smoking Status: Former smoker alcohol intake: former substance use type: does not use Smoking Status: Former smoker alcohol intake frequency: holidays/special occasions only Substance Use Type: does not use Exam Initial Vital Signs Initial Vital Signs: Vital Signs Temperature 97.4 F L 12/28/22 15:08 Pulse Rate 36 L 12/28/22 15:08 Respiratory Rate 18 12/28/22 15:08 Blood Pressure 125/60 12/28/22 15:08 Pulse Oximetry 97 12/28/22 15:08 Oxygen Delivery Method Room Air 12/28/22 15:08 Const General: cooperative, comfortable and No ill appearing HENMT Head: normal to inspection and normocephalic Resp Effort & Inspection: normal respiratory effort Auscultation: clear to auscultation bilaterally Cardio Rate: bradycardic Rhythm: regular rhythm GI Inspection: normal to inspection Skin General: no rashes or lesions noted Neuro General: patient alert, patient awake, patient oriented x3 and moves all extremities Speech: speech normal Extrem General: capillary refill normal Scores GCS Ramiro coma scale eye opening: Spontaneous Ramiro coma scale verbal response: Orientated [place] coma scale motor response: Obey commands Ramiro coma scale total score: 15 Course Orders Ordered: ED Orders 12/28/22 19:50 Troponin & CK Cardiac Panel Stat 12/28/22 23:42 COVID19 -Nasal RAPID Stat Discontinued Medications Aspirin (Aspirin 81 Mg Chew Tab) 324 mg PO NOW ONE Stop: 12/28/22 15:15 Last Admin: 12/28/22 16:04 Dose: 324 mg Documented By: KINGA Vital Signs Vital signs: Vital Signs - 8 hr 12/28/22 17:15 12/28/22 17:30 12/28/22 17:31 Temperature Pulse Rate 33 L 34 L Respiratory Rate 17 21 Blood Pressure 127/58 L Pulse Oximetry 97 95 Oxygen Delivery Method 12/28/22 17:31 12/28/22 17:45 12/28/22 18:00 Temperature Pulse Rate 34 L 34 L 34 L Respiratory Rate 16 24 18 Blood Pressure Pulse Oximetry 95 96 95 Oxygen Delivery Method 12/28/22 18:01 12/28/22 18:01 12/28/22 18:15 Temperature Pulse Rate 34 L 34 L Respiratory Rate 29 H 24 Blood Pressure 125/61 Pulse Oximetry 95 94 Oxygen Delivery Method 12/28/22 18:30 12/28/22 18:31 12/28/22 18:31 Temperature Pulse Rate 35 L 34 L Respiratory Rate 16 19 Blood Pressure 123/59 L Pulse Oximetry 94 93 Oxygen Delivery Method 12/28/22 18:45 12/28/22 19:40 12/28/22 19:00 Temperature Pulse Rate 36 L 39 L 35 L Respiratory Rate 23 20 Blood Pressure Pulse Oximetry 95 97 95 Oxygen Delivery Method 12/28/22 19:01 12/28/22 19:01 12/28/22 19:15 Temperature Pulse Rate 34 L 34 L Respiratory Rate 17 18 Blood Pressure 138/62 Pulse Oximetry 94 94 Oxygen Delivery Method 12/28/22 19:30 12/28/22 19:30 12/28/22 19:45 Temperature Pulse Rate 36 L 73 Respiratory Rate 25 H 21 Blood Pressure 141/75 H Pulse Oximetry 97 94 Oxygen Delivery Method 12/28/22 19:46 12/28/22 19:46 12/28/22 20:00 Temperature Pulse Rate 35 L Respiratory Rate 14 Blood Pressure 135/62 139/63 Pulse Oximetry 95 Oxygen Delivery Method 12/28/22 20:00 12/28/22 20:15 12/28/22 20:30 Temperature Pulse Rate 35 L 34 L 34 L Respiratory Rate 26 H 17 17 Blood Pressure Pulse Oximetry 96 95 94 Oxygen Delivery Method 12/28/22 20:31 12/28/22 20:31 12/28/22 20:45 Temperature Pulse Rate 34 L 34 L Respiratory Rate 16 17 Blood Pressure 111/56 L Pulse Oximetry 94 95 Oxygen Delivery Method 12/28/22 21:00 12/28/22 21:15 12/28/22 21:30 Temperature Pulse Rate 34 L 35 L 34 L Respiratory Rate 12 12 15 Blood Pressure Pulse Oximetry 95 94 94 Oxygen Delivery Method Room Air 12/28/22 21:31 12/28/22 21:31 12/28/22 21:45 Temperature Pulse Rate 34 L 35 L Respiratory Rate 16 13 Blood Pressure 132/59 L Pulse Oximetry 94 94 Oxygen Delivery Method 12/28/22 22:00 12/28/22 22:01 12/28/22 22:01 Temperature Pulse Rate 34 L 34 L Respiratory Rate 19 22 Blood Pressure 122/60 Pulse Oximetry 94 94 Oxygen Delivery Method 12/28/22 22:15 12/28/22 22:30 12/28/22 22:30 Temperature Pulse Rate 34 L 34 L Respiratory Rate 13 16 Blood Pressure 128/60 Pulse Oximetry 94 95 Oxygen Delivery Method 12/28/22 22:45 12/28/22 23:00 12/28/22 23:15 Temperature Pulse Rate 34 L 33 L 34 L Respiratory Rate 23 16 16 Blood Pressure Pulse Oximetry 96 96 95 Oxygen Delivery Method 12/28/22 23:30 12/28/22 23:31 12/28/22 23:31 Temperature 97.6 F Pulse Rate 34 L 34 L Respiratory Rate 16 18 Blood Pressure 119/57 L Pulse Oximetry 96 97 Oxygen Delivery Method Room Air 12/28/22 23:45 12/29/22 00:00 12/29/22 00:15 Temperature Pulse Rate 34 L 35 L 35 L Respiratory Rate 19 13 14 Blood Pressure Pulse Oximetry 95 96 96 Oxygen Delivery Method MDM - Arrhythmia/Palpitations Medical Records Attestation: I reviewed the patient's medical records. Lab Data Attestation: I reviewed the patient's lab results. 12/28/22 15:30 12/28/22 15:30 Labs: Lab Results 12/28/22 12/28/22 12/28/22 Range/Units 15:30 15:30 15:30 WBC 8.7 (4.5-11.0) X10^3/uL RBC 4.12 L (4.5-5.9) X10^6/uL Hgb 12.4 L (13.5-17.5) g/dL Hct 37.0 L (41-53) % MCV 89.8 (80-100) fL MCH 30.2 (26-34) PG MCHC 33.6 (30-36) % RDW 15.1 H (11.6-14.8) % Plt Count 199 (150-400) X10^3/uL Neut % (Auto) 64.7 (50-75) % Lymph % (Auto) 18.4 L (25-40) % Harrison % (Auto) 10.1 (3-14) % Eos % (Auto) 6.0 H (2-4) % Baso % (Auto) 0.8 (0-2) % Neut # (Auto) 5600 (2348-9994) /uL Lymph # (Auto) 1600 (0329-1088) /uL Harrison # (Auto) 900 (0-900) /uL Eos # (Auto) 500 H (0-450) /uL Baso # (Auto) 100 (0-100) /uL PT 12.2 (10.1-12.7) SECONDS INR 1.1 (0.9-1.3) APTT 30 (26-36) SECONDS Sodium 137 (137-145) mmol/L Potassium 4.8 (3.4-5.1) mmol/L Chloride 104 (98-107) mmol/L Carbon Dioxide 22 (22-32) mmol/L BUN 15 (9-20) mg/dL Creatinine 1.13 (0.66-1.25) mg/dL Estimated GFR > 60 (>60) mL/min BUN/Creatinine Ratio 13.3 (6-22) Glucose 169 H (80-110) mg/dL Calcium 9.4 (8.4-10.2) mg/dL Magnesium 1.6 (1.6-2.3) mg/dL Total Bilirubin 0.5 (0.2-1.3) mg/dL AST 22 (17-59) IU/L ALT 18 (<50) IU/L Alkaline Phosphatase 50 (38-126) U/L Total Creatine Kinase 45 L (55-170) U/L Troponin I < 0.012 (0.01-0.034) ng/mL Total Protein 6.9 (6.3-8.2) g/dL Albumin 4.1 (3.5-5.0) g/dL Globulin 2.8 (1.7-4.1) g/dL Albumin/Globulin Ratio 1.5 (1.0-2.8) Lipase 155 (23-300) U/L SARS-CoV-2 (PCR) (Negative) 12/28/22 12/28/22 Range/Units 19:50 23:42 WBC (4.5-11.0) X10^3/uL RBC (4.5-5.9) X10^6/uL Hgb (13.5-17.5) g/dL Hct (41-53) % MCV (80-100) fL MCH (26-34) PG MCHC (30-36) % RDW (11.6-14.8) % Plt Count (150-400) X10^3/uL Neut % (Auto) (50-75) % Lymph % (Auto) (25-40) % Harrison % (Auto) (3-14) % Eos % (Auto) (2-4) % Baso % (Auto) (0-2) % Neut # (Auto) (9169-2366) /uL Lymph # (Auto) (9459-1130) /uL Harrison # (Auto) (0-900) /uL Eos # (Auto) (0-450) /uL Baso # (Auto) (0-100) /uL PT (10.1-12.7) SECONDS INR (0.9-1.3) APTT (26-36) SECONDS Sodium (137-145) mmol/L Potassium (3.4-5.1) mmol/L Chloride (98-107) mmol/L Carbon Dioxide (22-32) mmol/L BUN (9-20) mg/dL Creatinine (0.66-1.25) mg/dL Estimated GFR (>60) mL/min BUN/Creatinine Ratio (6-22) Glucose (80-110) mg/dL Calcium (8.4-10.2) mg/dL Magnesium (1.6-2.3) mg/dL Total Bilirubin (0.2-1.3) mg/dL AST (17-59) IU/L ALT (<50) IU/L Alkaline Phosphatase (38-126) U/L Total Creatine Kinase 29 L (55-170) U/L Troponin I < 0.012 (0.01-0.034) ng/mL Total Protein (6.3-8.2) g/dL Albumin (3.5-5.0) g/dL Globulin (1.7-4.1) g/dL Albumin/Globulin Ratio (1.0-2.8) Lipase (23-300) U/L SARS-CoV-2 (PCR) Negative (Negative) Imaging Data Chest x-ray: Radiologist's Impresson: PROCEDURE:? XR CHEST 1V ? INDICATIONS:? chest pain ? TECHNIQUE:? One view of the chest was acquired.? ? COMPARISON:? [facility], , XR CHEST 1V, 12/15/2022, 6:39. ? FINDINGS:? ? Surgical changes and devices:? Sternal wires. ? Lungs and pleura:? Lungs are clear.? No pleural effusions or pneumothorax.? ? Mediastinum:? Mediastinal contours appear normal.? Heart size is mildly prominent. ? Bones and chest wall:? No suspicious bony lesions.? Overlying soft tissues appear unremarkable.? ? ? IMPRESSION:? Mild cardiomegaly. ECG Data Interpretation: Idioventricular rhythm Ventricular rate of 35 QRS 136 milliseconds Right bundle-branch block MDM Narrative Medical decision making narrative: Patient is bradycardic. He did take his metoprolol this morning. He is not been hypotensive. Not tachypneic. Not hypoxic. He ambulated here in the emergency department with a walker which is his baseline to the bathroom but he states he just does not feel right in his very fatigued and short of breath. He feels better when he is lying down. Labs are relatively unremarkable. Troponins are negative. He does take his blood pressure on a regular basis and he showed me these numbers. His heart rate is normally in the 60s to low 70s. I did discuss the case with Dr. medina on-call for cardiology who did review the EKG. 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 Because the patient has been stable specifically with lying down no specific intervention for his bradycardia has been needed although we are ready to intervene. I did discuss the case with Dr. Hernandez Cardiology at [facility] who accepts the patient for transfer. Patient is stable for transport. Critical Care Time Critical Care Time Critical Care Time: Yes Total Critical Care Time: 40 Attestation: The high probability of a clinically significant, sudden or life threatening deterioration of the cardiovascular system(s) required my full and direct attention, intervention and personal management. The aggregate critical care time was [40] minutes. This time is in addition to time spent performing reported procedures but includes the following: [x] Data Review and interpretation [x] Patient assessment and monitoring of vital signs [x] Documentation [x] Medication orders and management Discharge Plan Departure Patient Disposition: [facility] Clinical Impression: Symptomatic bradycardia Prescriptions: No Action tamsulosin 0.4 mg capsule 0.4 mg PO DAILY Qty: 90 3RF ferrous sulfate 325 mg (65 mg iron) tablet 325 mg PO 3XW Januvia 100 mg tablet 100 mg PO DAILY Qty: 90 2RF metformin 500 mg tablet 1,000 mg PO BIDCC Qty: 360 1RF (DME) blood sugar diagnostic Strip See Rx Instructions .Route Qty: 100 4RF Rx Instructions: Use to test blood sugars BID aspirin 81 mg tablet,delayed release (DR/EC) 81 mg PO DAILY metoprolol tartrate 25 mg tablet 12.5 mg PO BID atorvastatin 40 mg tablet 40 mg PO BEDTIME famotidine 20 mg tablet 20 mg PO DAILY Qty: 90 3RF (DME) pen needle, diabetic [BD Ultra-Fine Mini Pen Needle] 31 gauge x 3/16 needle See Rx Instructions .Route Qty: 100 3RF Rx Instructions: use for insulin twice a day insulin glargine [Lantus Solostar U-100 Insulin] 100 unit/mL (3 mL) insulin pen 10 unit SUBCUT QPM Qty: 15 5RF sucralfate 100 mg/mL suspension PO latanoprost 0.005 % drops 1 drp ophthalmic (eye) DAILY Referrals: Manish Cerda, [Primary Care Provider] - Stand Alone Forms: Patient Portal/API
[2022-12-28 20:06] LABS: Creatine Kinase 29 U/L (55-170)
[2022-12-28 20:18] LABS: Troponin I < 0.012 ng/mL (0.01-0.034)
--- NOTE | 2022-12-28 23:26 | PC.NURSE ---
SHEAR OPERATOR note: Attempting to transfer patient out. 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 Their doctor that [facility] pacemakers [facility] patient on [facility]. [facility]: Brianna 2147- 2-3 days would be the earliest. No waitlist. [facility]: Breanne 2149- No beds tonight [facility]: Claudia- 230 pushed images/face sheet. Called back at 2334. Speaking to the doctor now. CC: [phone] Ricarda- will call us back
[2022-12-29] VITALS (12 sets, daily range): BP systolic 116–140; BP diastolic 54–62; PULSE 34–36; RESP 13–30; O2SAT 95–98
[2022-12-29 00:05] LABS: COVID19 -Nasal RAPID Negative (Negative)
== END 2022-12-29 02:30 | disposition short-term general hospital (02) ==
PROVIDERS: Emergency Medicine; Emergency Provider Emergency Medicine; PCP Family Medicine
DX: R00.1 Bradycardia, unspecified (principal); R07.9 Chest pain, unspecified; Z79.899 Other long term (current) drug therapy; Z20.822 Contact with and (suspected) exposure to COVID-19
CPT/HCPCS: 36415; 71045; 80053; 82550; 83690; 83735; 84484; 85025; 85610; 85730; 87635; 93005; 93010; 99284; 99285; C9803

== ENCOUNTER → 2023-04-30 06:23 | Outpatient (CLI) | payer MEDICARE, OTHER, SELFPAY ==
[2021-12-29 16:51] VITALS: BMI 28.2
[2023-04-30 08:01] LABS: Add Manual Diff / Slide Review NO; Basophils Absolute Auto 100 /uL (0-100); Basophils Percent Auto 0.9 % (0-2); Eosinophils Absolute Auto 700 /uL (0-450); Eosinophils Percent Auto 8.5 % (2-4); Hematocrit 40.5 % (41-53); Hemoglobin 13.5 g/dL (13.5-17.5); Lymphocytes Absolute Auto 1400 /uL (1100-4500); Lymphocytes Percent Auto 17.4 % (25-40); Mean Corpuscular HGB Conc 33.2 % (30-36); Mean Corpuscular Hemoglobin 30.1 PG (26-34); Mean Corpuscular Volume 90.6 fL (80-100); Monocytes Absolute Auto 800 /uL (0-900); Monocytes Percent Auto 10.1 % (3-14); Neutrophils Absolute Auto 5100 /uL (1500-7000); Neutrophils Percent Auto 63.1 % (50-75); Platelet Count 195 X10^3/uL (150-400); Red Blood Cell Count 4.47 X10^6/uL (4.5-5.9); Red Cell Distribution Width 14.7 % (11.6-14.8); White Blood Cell Count 8.1 X10^3/uL (4.5-11.0)
[2023-04-30 08:24] LABS: Hemoglobin A1C% w Est Avg Glu 7.3 % (4.0-6.0)
[2023-04-30 08:28] LABS: HEMOLYSIS < 15 (0-50); Iron 87 ug/dL (49-181)
[2023-04-30 08:40] LABS: Percent Iron Saturation 23 % (20-50); Total Iron Binding Capacity 382 ug/dL (261-462); Transferrin 304 mg/dL (206-381)
[2023-04-30 09:07] LABS: Vitamin B12 212 pg/mL (239-931)
== END ==
LOC: LAB 06:24
PROVIDERS: PCP Family Medicine; Referring Provider Family Medicine; Visit Provider Family Medicine
DX: D50.9 Iron deficiency anemia, unspecified (principal); E11.9 Type 2 diabetes mellitus without complications; K21.9 Gastro-esophageal reflux disease without esophagitis; I10 Essential (primary) hypertension
CPT/HCPCS: 36415; 82607; 83036; 83540; 83550; 85025

== ENCOUNTER 2023-06-11 13:43 | Emergency (ER) | payer MEDICARE, OTHER, SELFPAY ==
[2021-12-29 16:51] VITALS: BMI 28.2
[2023-06-11] VITALS (16 sets, daily range): BP systolic 121–175; BP diastolic 65–108; PULSE 65–80; RESP 15–31; TEMP 36.8; O2SAT 92–97; BMI 28.8
--- NOTE | 2023-06-11 14:15 | PC.NURSE ---
tender to palpation of left flank
[2023-06-11 14:16] LABS: Add Manual Diff / Slide Review NO; Basophils Absolute Auto 100 /uL (0-100); Basophils Percent Auto 0.6 % (0-2); Eosinophils Absolute Auto 600 /uL (0-450); Eosinophils Percent Auto 6.4 % (2-4); Hematocrit 40.5 % (41-53); Hemoglobin 13.7 g/dL (13.5-17.5); Lymphocytes Absolute Auto 1600 /uL (1100-4500); Lymphocytes Percent Auto 16.5 % (25-40); Mean Corpuscular HGB Conc 33.7 % (30-36); Mean Corpuscular Hemoglobin 30.6 PG (26-34); Mean Corpuscular Volume 90.8 fL (80-100); Monocytes Absolute Auto 800 /uL (0-900); Monocytes Percent Auto 8.6 % (3-14); Neutrophils Absolute Auto 6500 /uL (1500-7000); Neutrophils Percent Auto 67.9 % (50-75); Platelet Count 229 X10^3/uL (150-400); Red Blood Cell Count 4.46 X10^6/uL (4.5-5.9); Red Cell Distribution Width 14.9 % (11.6-14.8); White Blood Cell Count 9.6 X10^3/uL (4.5-11.0)
[2023-06-11 14:29] LABS: Alanine Aminotransferase 18 IU/L (<50); Albumin 4.5 g/dL (3.5-5.0); Albumin Globulin Ratio 1.4 (1.0-2.8); Alkaline Phosphatase 46 U/L (38-126); Aspartate Aminotransferase 29 IU/L (17-59); BUN Creatinine Ratio 18.6 (6-22); Bilirubin Total 0.9 mg/dL (0.2-1.3); Blood Urea Nitrogen 18 mg/dL (9-20); Calcium 9.5 mg/dL (8.4-10.2); Carbon Dioxide 21 mmol/L (22-32); Chloride 104 mmol/L (98-107); Estimated Glomerular Filt Rate > 60 mL/min (>60); Globulin 3.3 g/dL (1.7-4.1); Glucose 134 mg/dL (80-110); HEMOLYSIS 79 (0-50); Lipase 106 U/L (23-300); Potassium 4.8 mmol/L (3.4-5.1); Sodium 138 mmol/L (137-145); Total Protein 7.8 g/dL (6.3-8.2)
[2023-06-11 16:06] LABS: Bacteria Urine Occasional (0-1); RBC Urine None Seen (0-5/HPF); Squamous Epithelial Cell Urine 0-1 /HPF (0-5/HPF); Urine Volume 10mL (spun); WBC Urine 1-5/HPF (0-5/HPF)
[2023-06-11 16:07] LABS: Culture Indicated Urine Specimen Cultured
--- NOTE | 2023-06-11 17:54 | DI.CT.S_ITS ---
PROCEDURE: CT ABDOMEN PELVIS W CON INDICATIONS: tender LLQ x days, 2006 aneurysm w/ repair TECHNIQUE: After the administration of intravenous contrast, axial sections acquired from the lung bases to the pubic symphysis. Coronal and sagittal reformats were performed. For radiation dose reduction, the following was used: automated exposure control, adjustment of mA and/or kV according to patient size. COMPARISON: CT, CT CHEST ABD PEL W CON, 05/11/2022, 11:00. CT, CT ANGIO CHEST ABDOMEN PELVIS, 12/15/2022, 7:49. [facility], CT, CT ABDOMEN PELVIS W CON, 09/18/2022, 11:54. FINDINGS: Image quality: Diagnostic. Lower Chest: There is a calcified nodule in the left lower lobe. Heart size is normal. There is a cardiac pacemaker. ABDOMEN: Liver: No solid mass. Normal size. Mild hepatic steatosis. Gallbladder: There are small gallstones in gravity dependent gallbladder lumen. Biliary ducts: No biliary dilation. Pancreas: No ductal dilation. Spleen: Size is within normal limits. Adrenal Glands: No adrenal nodules. Kidneys and Ureters: No hydronephrosis. No solid mass. No complex renal cystic lesion which requires follow up. Stomach and Bowel: Normal bowel caliber, without significant wall thickening. Diverticulosis without acute diverticulitis. Normal appendix. Peritoneum: No abnormal intraperitoneal fluid. No free air. Ventral Wall: No significant ventral hernia. Abdominal Nodes: No retroperitoneal or mesenteric adenopathy by size criteria. Vessels: Mild infrarenal abdominal aortic aneurysm measuring 3.1 x 3.2 cm in diameter. Remote abdominal aortic aneurysm repair noted. Moderate to severe atherosclerotic calcifications. PELVIS: Pelvic Organs: Prostate is enlarged.. Bladder: No bladder wall thickening, accounting for underdistention. Pelvic Nodes: No enlarged lymph nodes. Miscellaneous: No inguinal hernias are seen. Postsurgical changes related to ventral hernia repair. Bones: No aggressive osseous abnormality. Moderate spondylitic changes in lumbar spine. IMPRESSION: 1. Diverticulosis. No acute diverticulitis. 2. Cholelithiasis. 3. Mild infrarenal abdominal aortic aneurysm. Remote aortic aneurysm repair. Dictated by: Bobby Holder M.D. on 06/11/2023 at 19:10 Approved by: Bobby Holder M.D. on 06/11/2023 at 19:15
--- NOTE | 2023-06-11 17:55 | ED_ITS ---
HPI - Abdominal Pain <Hoa Zhou DO - Last Filed: 06/14/23 22:54> General Chief Complaint: Abdominal Pain Stated Complaint: L side abd/back pain Time Seen by Provider: 06/11/23 15:57 Source: patient Mode of arrival: Ambulatory History of Present Illness HPI narrative: 88-year-old former smoker with history of coronary disease with a CABG, prior AAA with repair in 2006 which has been stable, diabetes type 2 who presents with left lower quadrant pain for the past several days. Worse when bending over but present even when still. Patient states little bit of pain back towards the flank. But mostly in the front. No fevers or chills. No nausea or vomiting. Has had regular bowel movements daily but states they started out firm and then get very diarrhea like an liquid he is the day goes by. No dysuria urgency or frequency. Patient states has not had similar pain in the past. Related Data Home Medications Medication Instructions Recorded Confirmed latanoprost 0.005 % eye drops 1 drp ophthalmic (eye) DAILY 12/26/21 04/30/23 losartan 25 mg tablet 25 mg PO DAILY 01/10/23 04/30/23 metoprolol succinate 25 mg 25 mg PO DAILY 01/10/23 04/30/23 tablet,extended release 24 hr Previous Rx's Medication Instructions Recorded famotidine 20 mg tablet 20 mg PO DAILY #90 tabs 09/28/22 insulin glargine 100 unit/mL (3 10 unit (0.1 mL) SUBCUT QPM #15 mL 12/18/22 mL) subcutaneous pen (Lantus Solostar U-100 Insulin) pen needle, diabetic 31 gauge x #100 ea 12/18/22 3/ (BD Ultra-Fine Mini Pen Needle) atorvastatin 40 mg tablet 40 mg PO BEDTIME #90 tabs 01/10/23 ferrous sulfate 324 mg (65 mg 324 mg PO DAILY #90 tabs 01/10/23 iron) tablet,delayed release metformin 500 mg tablet 1,000 mg (2 x 500 mg) PO BIDCC 03/04/23 #360 tabs benzonatate 200 mg capsule 200 mg PO BID PRN cough #60 caps 04/30/23 blood sugar diagnostic (FreeStyle #100 strips 05/08/23 Lite Strips) sitagliptin phosphate 100 mg 100 mg PO DAILY #90 tabs 05/31/23 tablet (Januvia) levofloxacin 500 mg tablet 500 mg PO DAILY #5 tabs 06/14/23 Allergies Allergy/AdvReac Type Severity Reaction Status Date / Time No Known Drug Allergies Allergy Verified 06/11/23 13:53 Review of Systems <Hoa Zhou DO - Last Filed: 06/14/23 22:54> Review of Systems ROS Unobtainable: All systems reviewed & are unremarkable except as noted in HPI and below Patient History <Hoa Zhou DO - Last Filed: 06/14/23 22:54> Medical History Sleep apnea Dizziness Coronary artery aneurysm Costochondritis Pulmonary nodule, left EMILEE (obstructive sleep apnea) BPH (benign prostatic hyperplasia) Diabetes HTN (hypertension) Closed nondisplaced fracture of distal phalanx of right great toe with routine healing, subsequent encounter (03/20/17) Hammer toe of right foot (01/06/16) Abdominal aortic aneurysm (AAA) without rupture (07/26/15) Type 2 diabetes mellitus without complication (04/26/15) Essential hypertension (04/26/15) Benign non-nodular prostatic hyperplasia without lower urinary tract symptoms (04/26/15) Fracture of left great toe Laceration of left great toe Surgical History S/P CABG x 2 Status post epigastric hernia repair, follow-up exam S/P aneurysm repair Family History Father Heart disease Mother Cancer Brother Lung disease Social History marital status: household members: spouse lives independently: Yes Smoking Status: Former smoker alcohol intake: former substance use type: does not use Smoking Status: Former smoker alcohol intake frequency: holidays/special occasions only Substance Use Type: does not use Exam <Hoa Zhou DO - Last Filed: 06/14/23 22:54> Narrative Exam Narrative: GENERAL: Alert and oriented x three, elderly male in mild distress HEENT: Head normocephalic, atraumatic, EOMI, pupils reactive, face symmetric, moist mucous membranes NECK: Supple, full range of motion CARDIOVASCULAR: Regular rate and rhythm without murmurs, rubs or gallops. RESPIRATORY: Breath sounds equal bilaterally, no wheezes rales or rhonchi. ABDOMEN: Soft, positive for left lower quadrant tenderness. Normoactive bowel sounds all 4 quadrants. No guarding or rebound, rigidity, no mass : No CVA tenderness EXTREMITIES: Normal range of motion, no clubbing or edema. Neurovascularly intact NEUROLOGICAL: Cranial nerves II through XII grossly intact. Moving all extremities SKIN: Warm, dry, no petechiae, no rashes or lesions. Initial Vital Signs Initial Vital Signs: Vital Signs Temperature 98.2 F 06/11/23 13:48 Pulse Rate 80 06/11/23 13:48 Respiratory Rate 18 06/11/23 13:48 Blood Pressure 128/67 06/11/23 13:48 Pulse Oximetry 96 06/11/23 13:48 Oxygen Delivery Method Room Air 06/11/23 13:48 <Mp Hercules MD - Last Filed: 06/11/23 20:06> Initial Vital Signs Initial Vital Signs: Vital Signs Temperature 98.2 F 06/11/23 13:48 Pulse Rate 80 06/11/23 13:48 Respiratory Rate 18 06/11/23 13:48 Blood Pressure 128/67 06/11/23 13:48 Pulse Oximetry 96 06/11/23 13:48 Oxygen Delivery Method Room Air 06/11/23 13:48 <Latisha Quan DO - Last Filed: 06/14/23 20:00> Initial Vital Signs Initial Vital Signs: Vital Signs Temperature 98.2 F 06/11/23 13:48 Pulse Rate 80 06/11/23 13:48 Respiratory Rate 18 06/11/23 13:48 Blood Pressure 128/67 06/11/23 13:48 Pulse Oximetry 96 06/11/23 13:48 Oxygen Delivery Method Room Air 06/11/23 13:48 Course <Hoa Zhou DO - Last Filed: 06/14/23 22:54> Orders Ordered: Discontinued Medications Ondansetron HCl (Ondansetron 4 Mg/2 Ml Inj) 4 mg IV NOW PRN PRN Reason: Nausea And Vomiting Vital Signs Vital signs: Vital Signs - 8 hr 06/11/23 13:48 06/11/23 14:08 06/11/23 14:10 Temperature 98.2 F Pulse Rate 80 73 Respiratory Rate 18 20 Blood Pressure 128/67 152/77 H Pulse Oximetry 96 Oxygen Delivery Method Room Air 06/11/23 14:10 06/11/23 14:30 06/11/23 14:30 Temperature Pulse Rate 74 71 Respiratory Rate 25 H 15 Blood Pressure 133/66 Pulse Oximetry 97 92 Oxygen Delivery Method 06/11/23 15:00 06/11/23 15:30 06/11/23 16:00 Temperature Pulse Rate 66 73 70 Respiratory Rate 16 28 H 20 Blood Pressure Pulse Oximetry 92 93 94 Oxygen Delivery Method 06/11/23 16:30 06/11/23 17:00 06/11/23 17:30 Temperature Pulse Rate 69 69 67 Respiratory Rate 17 22 31 H Blood Pressure Pulse Oximetry 94 93 Oxygen Delivery Method 06/11/23 18:00 06/11/23 18:20 06/11/23 18:20 Temperature Pulse Rate 74 65 Respiratory Rate 25 H 16 Blood Pressure 173/72 H Pulse Oximetry 93 Oxygen Delivery Method 06/11/23 18:30 06/11/23 18:30 06/11/23 19:00 Temperature Pulse Rate 71 67 Respiratory Rate 27 H 17 Blood Pressure 121/68 Pulse Oximetry 96 95 Oxygen Delivery Method Room Air 06/11/23 19:00 06/11/23 19:30 06/11/23 19:30 Temperature Pulse Rate 68 Respiratory Rate 20 Blood Pressure 140/65 156/108 H Pulse Oximetry 94 Oxygen Delivery Method 06/11/23 20:00 06/11/23 20:00 Temperature Pulse Rate 70 Respiratory Rate 20 Blood Pressure 175/82 H Pulse Oximetry Oxygen Delivery Method <Mp Hercules MD - Last Filed: 06/11/23 20:06> Orders Ordered: Discontinued Medications Ondansetron HCl (Ondansetron 4 Mg/2 Ml Inj) 4 mg IV NOW PRN PRN Reason: Nausea And Vomiting Vital Signs Vital signs: Vital Signs - 8 hr 06/11/23 13:48 06/11/23 14:08 06/11/23 14:10 Temperature 98.2 F Pulse Rate 80 73 Respiratory Rate 18 20 Blood Pressure 128/67 152/77 H Pulse Oximetry 96 Oxygen Delivery Method Room Air 06/11/23 14:10 06/11/23 14:30 06/11/23 14:30 Temperature Pulse Rate 74 71 Respiratory Rate 25 H 15 Blood Pressure 133/66 Pulse Oximetry 97 92 Oxygen Delivery Method 06/11/23 15:00 06/11/23 15:30 06/11/23 16:00 Temperature Pulse Rate 66 73 70 Respiratory Rate 16 28 H 20 Blood Pressure Pulse Oximetry 92 93 94 Oxygen Delivery Method 06/11/23 16:30 06/11/23 17:00 06/11/23 17:30 Temperature Pulse Rate 69 69 67 Respiratory Rate 17 22 31 H Blood Pressure Pulse Oximetry 94 93 Oxygen Delivery Method 06/11/23 18:00 06/11/23 18:20 06/11/23 18:20 Temperature Pulse Rate 74 65 Respiratory Rate 25 H 16 Blood Pressure 173/72 H Pulse Oximetry 93 Oxygen Delivery Method 06/11/23 18:30 06/11/23 18:30 06/11/23 19:00 Temperature Pulse Rate 71 67 Respiratory Rate 27 H 17 Blood Pressure 121/68 Pulse Oximetry 96 95 Oxygen Delivery Method Room Air 06/11/23 19:00 06/11/23 19:30 06/11/23 19:30 Temperature Pulse Rate 68 Respiratory Rate 20 Blood Pressure 140/65 156/108 H Pulse Oximetry 94 Oxygen Delivery Method 06/11/23 20:00 06/11/23 20:00 Temperature Pulse Rate 70 Respiratory Rate 20 Blood Pressure 175/82 H Pulse Oximetry Oxygen Delivery Method <Latisha Quan, DO - Last Filed: 06/14/23 20:00> Orders Ordered: Discontinued Medications Ondansetron HCl (Ondansetron 4 Mg/2 Ml Inj) 4 mg IV NOW PRN PRN Reason: Nausea And Vomiting Vital Signs Vital signs: Vital Signs - 8 hr 06/11/23 13:48 06/11/23 14:08 06/11/23 14:10 Temperature 98.2 F Pulse Rate 80 73 Respiratory Rate 18 20 Blood Pressure 128/67 152/77 H Pulse Oximetry 96 Oxygen Delivery Method Room Air 06/11/23 14:10 06/11/23 14:30 06/11/23 14:30 Temperature Pulse Rate 74 71 Respiratory Rate 25 H 15 Blood Pressure 133/66 Pulse Oximetry 97 92 Oxygen Delivery Method 06/11/23 15:00 06/11/23 15:30 06/11/23 16:00 Temperature Pulse Rate 66 73 70 Respiratory Rate 16 28 H 20 Blood Pressure Pulse Oximetry 92 93 94 Oxygen Delivery Method 06/11/23 16:30 06/11/23 17:00 06/11/23 17:30 Temperature Pulse Rate 69 69 67 Respiratory Rate 17 22 31 H Blood Pressure Pulse Oximetry 94 93 Oxygen Delivery Method 06/11/23 18:00 06/11/23 18:20 06/11/23 18:20 Temperature Pulse Rate 74 65 Respiratory Rate 25 H 16 Blood Pressure 173/72 H Pulse Oximetry 93 Oxygen Delivery Method 06/11/23 18:30 06/11/23 18:30 06/11/23 19:00 Temperature Pulse Rate 71 67 Respiratory Rate 27 H 17 Blood Pressure 121/68 Pulse Oximetry 96 95 Oxygen Delivery Method Room Air 06/11/23 19:00 06/11/23 19:30 06/11/23 19:30 Temperature Pulse Rate 68 Respiratory Rate 20 Blood Pressure 140/65 156/108 H Pulse Oximetry 94 Oxygen Delivery Method 06/11/23 20:00 06/11/23 20:00 Temperature Pulse Rate 70 Respiratory Rate 20 Blood Pressure 175/82 H Pulse Oximetry Oxygen Delivery Method MDM - Abdominal Pain <Hoa Zhou, DO - Last Filed: 06/14/23 22:54> Lab Data 06/11/23 14:00 06/11/23 14:00 Labs: Lab Results 06/11/23 06/11/23 Range/Units 14:00 14:36 WBC 9.6 (4.5-11.0) X10^3/uL RBC 4.46 L (4.5-5.9) X10^6/uL Hgb 13.7 (13.5-17.5) g/dL Hct 40.5 L (41-53) % MCV 90.8 (80-100) fL MCH 30.6 (26-34) PG MCHC 33.7 (30-36) % RDW 14.9 H (11.6-14.8) % Plt Count 229 (150-400) X10^3/uL Neut % (Auto) 67.9 (50-75) % Lymph % (Auto) 16.5 L (25-40) % Hardy % (Auto) 8.6 (3-14) % Eos % (Auto) 6.4 H (2-4) % Baso % (Auto) 0.6 (0-2) % Neut # (Auto) 6500 (6023-6002) /uL Lymph # (Auto) 1600 (1162-9020) /uL Hardy # (Auto) 800 (0-900) /uL Eos # (Auto) 600 H (0-450) /uL Baso # (Auto) 100 (0-100) /uL Sodium 138 (137-145) mmol/L Potassium 4.8 (3.4-5.1) mmol/L Chloride 104 (98-107) mmol/L Carbon Dioxide 21 L (22-32) mmol/L BUN 18 (9-20) mg/dL Creatinine 0.97 (0.66-1.25) mg/dL Estimated GFR > 60 (>60) mL/min BUN/Creatinine Ratio 18.6 (6-22) Glucose 134 H (80-110) mg/dL Calcium 9.5 (8.4-10.2) mg/dL Total Bilirubin 0.9 (0.2-1.3) mg/dL AST 29 (17-59) IU/L ALT 18 (<50) IU/L Alkaline Phosphatase 46 (38-126) U/L Total Protein 7.8 (6.3-8.2) g/dL Albumin 4.5 (3.5-5.0) g/dL Globulin 3.3 (1.7-4.1) g/dL Albumin/Globulin Ratio 1.4 (1.0-2.8) Lipase 106 (23-300) U/L Urine RBC None seen (0-5/HPF) Urine WBC 1-5/hpf (0-5/HPF) Ur Squamous Epith Cells 0-1 /hpf (0-5/HPF) Urine Bacteria Occasional (0-1) (None) Ur Culture Indicated? Specimen cultured Vol Urine Centrifuged 10ml (spun) Point of care testing: Urine Dip Bedside Urine Glucose Negative Bedside Urine Bilirubin - Negative Bedside Urine Ketone - Negative Urine Specific [place] 1.030 Bedside Urine Occult Blood - Negative Bedside Urine pH 5.5 Bedside Urine Protein +/- 15 Bedside Urine Urobilinogen - Negative Bedside Urine Nitrite - Negative Bedside Urine Leukocytes +/- 15 Esterase ECG Data Attestation: I personally reviewed and interpreted this ECG as follows: Interpretation: Paced rhythm rate of 68 MT 202 QRS 166, QTC 514. MDM Narrative Medical decision making narrative: Pleasant 88-year-old male who comes in with complaint of left lower quadrant pain for the past several days worse with bending over but does quite tender on left lower quadrant exam. Patient has a prior history of remote aneurysm with repair he states has been stable without any issues. He has had some diarrheal stools at times but not persistently with no black or blood. Labs show white count of 9, hemoglobin of 13 platelets of 229. Electrolytes are appropriate CO2 is 21, renal functions 0.97 creatinine, LFTs are negative.; urine shows leuks, blood no nitrates. Micro 1-5 WBCs 1 squamous, sent for culture. CT abdomen pelvis was obtained secondary to left lower quadrant tenderness, waiting results. Patient signed out to Dr. Hercules. Signed out 200206/11/23 I, Mp Hercules, assumed care of this patient from Dr. Dockery at approximately 6:00 p.m.. I have reviewed the documentation in detail and interviewed the patient myself. CT scan is reassuring. I re-examined his abdomen which is soft with mild tenderness left lower quadrant without guarding or mass. I think home disposition with careful outpatient follow-up return precautions given is appropriate. roderick-culture returned positive for Enterococcus fast Gin Cazares sent to pharmacy [facility] nursing staff to call patient <Mp Hercules MD - Last Filed: 06/11/23 20:06> Lab Data Labs: Lab Results 06/11/23 06/11/23 Range/Units 14:00 14:36 WBC 9.6 (4.5-11.0) X10^3/uL RBC 4.46 L (4.5-5.9) X10^6/uL Hgb 13.7 (13.5-17.5) g/dL Hct 40.5 L (41-53) % MCV 90.8 (80-100) fL MCH 30.6 (26-34) PG MCHC 33.7 (30-36) % RDW 14.9 H (11.6-14.8) % Plt Count 229 (150-400) X10^3/uL Neut % (Auto) 67.9 (50-75) % Lymph % (Auto) 16.5 L (25-40) % Hardy % (Auto) 8.6 (3-14) % Eos % (Auto) 6.4 H (2-4) % Baso % (Auto) 0.6 (0-2) % Neut # (Auto) 6500 (9611-2546) /uL Lymph # (Auto) 1600 (0833-8856) /uL Hardy # (Auto) 800 (0-900) /uL Eos # (Auto) 600 H (0-450) /uL Baso # (Auto) 100 (0-100) /uL Sodium 138 (137-145) mmol/L Potassium 4.8 (3.4-5.1) mmol/L Chloride 104 (98-107) mmol/L Carbon Dioxide 21 L (22-32) mmol/L BUN 18 (9-20) mg/dL Creatinine 0.97 (0.66-1.25) mg/dL Estimated GFR > 60 (>60) mL/min BUN/Creatinine Ratio 18.6 (6-22) Glucose 134 H (80-110) mg/dL Calcium 9.5 (8.4-10.2) mg/dL Total Bilirubin 0.9 (0.2-1.3) mg/dL AST 29 (17-59) IU/L ALT 18 (<50) IU/L Alkaline Phosphatase 46 (38-126) U/L Total Protein 7.8 (6.3-8.2) g/dL Albumin 4.5 (3.5-5.0) g/dL Globulin 3.3 (1.7-4.1) g/dL Albumin/Globulin Ratio 1.4 (1.0-2.8) Lipase 106 (23-300) U/L Urine RBC None seen (0-5/HPF) Urine WBC 1-5/hpf (0-5/HPF) Ur Squamous Epith Cells 0-1 /hpf (0-5/HPF) Urine Bacteria Occasional (0-1) (None) Ur Culture Indicated? Specimen cultured Vol Urine Centrifuged 10ml (spun) Point of care testing: Urine Dip Bedside Urine Glucose Negative Bedside Urine Bilirubin - Negative Bedside Urine Ketone - Negative Urine Specific [place] 1.030 Bedside Urine Occult Blood - Negative Bedside Urine pH 5.5 Bedside Urine Protein +/- 15 Bedside Urine Urobilinogen - Negative Bedside Urine Nitrite - Negative Bedside Urine Leukocytes +/- 15 Esterase MDM Narrative Medical decision making narrative: Pleasant 88-year-old male who comes in with complaint of left lower quadrant pain for the past several days worse with bending over but does quite tender on left lower quadrant exam. Patient has a prior history of remote aneurysm with repair he states has been stable without any issues. He has had some diarrheal stools at times but not persistently with no black or blood. Labs show white count of 9, hemoglobin of 13 platelets of 229. Electrolytes are appropriate CO2 is 21, renal functions 0.97 creatinine, LFTs are negative.; urine shows leuks, blood no nitrates. Micro 1-5 WBCs 1 squamous, sent for culture. CT abdomen pelvis was obtained secondary to left lower quadrant tenderness. Signed out 2003 06/11/23 I, Mp Hercules, assumed care of this patient from Dr. Dockery at approximately 6:00 p.m.. I have reviewed the documentation in detail and interviewed the patient myself. CT scan is reassuring. I re-examined his abdomen which is soft with mild tenderness left lower quadrant without guarding or mass. I think home disposition with careful outpatient follow-up return precautions given is appropriate. <Latisha Quan, DO - Last Filed: 06/14/23 20:00> Lab Data Labs: Lab Results 06/11/23 06/11/23 Range/Units 14:00 14:36 WBC 9.6 (4.5-11.0) X10^3/uL RBC 4.46 L (4.5-5.9) X10^6/uL Hgb 13.7 (13.5-17.5) g/dL Hct 40.5 L (41-53) % MCV 90.8 (80-100) fL MCH 30.6 (26-34) PG MCHC 33.7 (30-36) % RDW 14.9 H (11.6-14.8) % Plt Count 229 (150-400) X10^3/uL Neut % (Auto) 67.9 (50-75) % Lymph % (Auto) 16.5 L (25-40) % Hardy % (Auto) 8.6 (3-14) % Eos % (Auto) 6.4 H (2-4) % Baso % (Auto) 0.6 (0-2) % Neut # (Auto) 6500 (0971-3342) /uL Lymph # (Auto) 1600 (3857-0292) /uL Hardy # (Auto) 800 (0-900) /uL Eos # (Auto) 600 H (0-450) /uL Baso # (Auto) 100 (0-100) /uL Sodium 138 (137-145) mmol/L Potassium 4.8 (3.4-5.1) mmol/L Chloride 104 (98-107) mmol/L Carbon Dioxide 21 L (22-32) mmol/L BUN 18 (9-20) mg/dL Creatinine 0.97 (0.66-1.25) mg/dL Estimated GFR > 60 (>60) mL/min BUN/Creatinine Ratio 18.6 (6-22) Glucose 134 H (80-110) mg/dL Calcium 9.5 (8.4-10.2) mg/dL Total Bilirubin 0.9 (0.2-1.3) mg/dL AST 29 (17-59) IU/L ALT 18 (<50) IU/L Alkaline Phosphatase 46 (38-126) U/L Total Protein 7.8 (6.3-8.2) g/dL Albumin 4.5 (3.5-5.0) g/dL Globulin 3.3 (1.7-4.1) g/dL Albumin/Globulin Ratio 1.4 (1.0-2.8) Lipase 106 (23-300) U/L Urine RBC None seen (0-5/HPF) Urine WBC 1-5/hpf (0-5/HPF) Ur Squamous Epith Cells 0-1 /hpf (0-5/HPF) Urine Bacteria Occasional (0-1) (None) Ur Culture Indicated? Specimen cultured Vol Urine Centrifuged 10ml (spun) Point of care testing: Urine Dip Bedside Urine Glucose Negative Bedside Urine Bilirubin - Negative Bedside Urine Ketone - Negative Urine Specific [place] 1.030 Bedside Urine Occult Blood - Negative Bedside Urine pH 5.5 Bedside Urine Protein +/- 15 Bedside Urine Urobilinogen - Negative Bedside Urine Nitrite - Negative Bedside Urine Leukocytes +/- 15 Esterase MDM Narrative Medical decision making narrative: Pleasant 88-year-old male who comes in with complaint of left lower quadrant pain for the past several days worse with bending over but does quite tender on left lower quadrant exam. Patient has a prior history of remote aneurysm with repair he states has been stable without any issues. He has had some diarrheal stools at times but not persistently with no black or blood. Labs show white count of 9, hemoglobin of 13 platelets of 229. Electrolytes are appropriate CO2 is 21, renal functions 0.97 creatinine, LFTs are negative.; urine shows leuks, blood no nitrates. Micro 1-5 WBCs 1 squamous, sent for culture. CT abdomen pelvis was obtained secondary to left lower quadrant tenderness. Signed out 200206/11/23 I, Mp Hercules, assumed care of this patient from Dr. Dockery at approximately 6:00 p.m.. I have reviewed the documentation in detail and interviewed the patient myself. CT scan is reassuring. I re-examined his abdomen which is soft with mild tenderness left lower quadrant without guarding or mass. I think home disposition with careful outpatient follow-up return precautions given is appropriate. roderick-culture returned positive for Enterococcus fast Gin Garciayolandasherry sent to pharmacy [facility] nursing staff to call patient Discharge Plan Departure Patient Disposition: Home Clinical Impression: Abdominal pain Qualifiers: Abdominal location: left lower quadrant Qualified Code(s): R10.32 - Left lower quadrant pain Instructions: DI for Abdominal Pain-Adult Activity Restrictions/Additional Instructions: Thank you for trusting us with your care. I am sorry you had to wait so long to get results. Fortunately, no dangerous cause for her abdominal pain was identified after careful evaluation, physical examination, laboratory testing and CT scanning. I recommend immediate follow-up if you develop fever repeated vomiting or worsening pain. If the pain does not resolve in the next couple of days you should see the doctor again either at your primary care clinic, urgent care or back in the ER. Prescriptions: New levofloxacin 500 mg tablet 500 mg PO DAILY Qty: 5 0RF No Action metformin 500 mg tablet 1,000 mg PO BIDCC Qty: 360 1RF (DME) FreeStyle Lite Strips Strip See Rx Instructions .ROUTE .COMPLEX Qty: 100 6RF Dose Instruction: USE TO TEST BLOOD SUGARS TWICE A DAY Rx Instructions: USE TO TEST BLOOD SUGARS TWICE A DAY Januvia 100 mg tablet 100 mg PO DAILY Qty: 90 2RF famotidine 20 mg tablet 20 mg PO DAILY Qty: 90 3RF (DME) pen needle, diabetic [BD Ultra-Fine Mini Pen Needle] 31 gauge x 3/16 needle See Rx Instructions .Route Qty: 100 3RF Rx Instructions: use for insulin twice a day insulin glargine [Lantus Solostar U-100 Insulin] 100 unit/mL (3 mL) insulin pen 10 unit SUBCUT QPM Qty: 15 5RF metoprolol succinate 25 mg tablet extended release 24 hr 25 mg PO DAILY losartan 25 mg tablet 25 mg PO DAILY atorvastatin 40 mg tablet 40 mg PO BEDTIME Qty: 90 3RF ferrous sulfate 324 mg (65 mg iron) tablet,delayed release (DR/EC) 324 mg PO DAILY Qty: 90 1RF benzonatate 200 mg capsule 200 mg PO BID PRN (Reason: cough) Qty: 60 1RF latanoprost 0.005 % drops 1 drp ophthalmic (eye) DAILY Referrals: Manish Cerda DO [Primary Care Provider] - Stand Alone Forms: Patient Portal/API
== END 2023-06-11 20:16 | disposition home or self-care (01) ==
PROVIDERS: Emergency Medicine; Emergency Provider Family Medicine Addiction Medicine; PCP Family Medicine
DX: R10.32 Left lower quadrant pain (principal)
CPT/HCPCS: 36415; 74177; 80053; 81003; 81015; 83690; 85025; 87077; 87086; 87186; 99284

== ENCOUNTER → 2023-06-18 06:23 | Outpatient (CLI) | payer MEDICARE, OTHER, SELFPAY ==
[2021-12-29 16:51] VITALS: BMI 28.2
[2023-06-18 08:36] LABS: Alanine Aminotransferase 14 IU/L (<50); Albumin 4.2 g/dL (3.5-5.0); Albumin Globulin Ratio 1.4 (1.0-2.8); Alkaline Phosphatase 59 U/L (38-126); Aspartate Aminotransferase 21 IU/L (17-59); BUN Creatinine Ratio 15.6 (6-22); Bilirubin Total 0.9 mg/dL (0.2-1.3); Blood Urea Nitrogen 17 mg/dL (9-20); Carbon Dioxide 27 mmol/L (22-32); Chloride 101 mmol/L (98-107); Cholesterol 184 mg/dL (140-199); Estimated Glomerular Filt Rate > 60 mL/min (>60); Globulin 2.9 g/dL (1.7-4.1); Glucose 136 mg/dL (80-110); HDL Cholesterol 33 mg/dL (40-60); HEMOLYSIS < 15 (0-50); LDL Cholesterol Calculated 122 mg/dL (<100); Potassium 4.6 mmol/L (3.4-5.1); Sodium 137 mmol/L (137-145); Total Protein 7.1 g/dL (6.3-8.2); Triglycerides 144 mg/dL (35-150)
== END ==
PROVIDERS: PCP Family Medicine; Referring Provider Internal Medicine Cardiovascular Disease; Visit Provider Internal Medicine Cardiovascular Disease
DX: E78.2 Mixed hyperlipidemia (principal)
CPT/HCPCS: 36415; 80053; 80061

== ENCOUNTER 2023-06-25 15:06 | Emergency (ER) | payer MEDICARE, OTHER, SELFPAY ==
[2021-12-29 16:51] VITALS: BMI 28.2
[2023-06-25] VITALS (10 sets, daily range): BP systolic 133–160; BP diastolic 63–78; PULSE 58–74; RESP 18; TEMP 36.3; O2SAT 93–97; BMI 28.8
[2023-06-25 16:17] LABS: Add Manual Diff / Slide Review NO; Basophils Absolute Auto 100 /uL (0-100); Eosinophils Absolute Auto 700 /uL (0-450); Eosinophils Percent Auto 8.9 % (2-4); Hematocrit 40.5 % (41-53); Hemoglobin 13.6 g/dL (13.5-17.5); Lymphocytes Absolute Auto 1600 /uL (1100-4500); Lymphocytes Percent Auto 19.4 % (25-40); Mean Corpuscular HGB Conc 33.6 % (30-36); Mean Corpuscular Hemoglobin 30.6 PG (26-34); Mean Corpuscular Volume 91.1 fL (80-100); Monocytes Absolute Auto 800 /uL (0-900); Monocytes Percent Auto 9.9 % (3-14); Neutrophils Absolute Auto 4900 /uL (1500-7000); Neutrophils Percent Auto 60.8 % (50-75); Platelet Count 203 X10^3/uL (150-400); Red Blood Cell Count 4.45 X10^6/uL (4.5-5.9); White Blood Cell Count 8.1 X10^3/uL (4.5-11.0)
[2023-06-25 16:28] LABS: Alanine Aminotransferase 16 IU/L (<50); Albumin 4.3 g/dL (3.5-5.0); Albumin Globulin Ratio 1.4 (1.0-2.8); Alkaline Phosphatase 51 U/L (38-126); Aspartate Aminotransferase 21 IU/L (17-59); BUN Creatinine Ratio 17.5 (6-22); Bilirubin Total 0.6 mg/dL (0.2-1.3); Blood Urea Nitrogen 18 mg/dL (9-20); Calcium 9.7 mg/dL (8.4-10.2); Carbon Dioxide 23 mmol/L (22-32); Chloride 104 mmol/L (98-107); Estimated Glomerular Filt Rate > 60 mL/min (>60); Glucose 163 mg/dL (80-110); HEMOLYSIS < 15 (0-50); Lipase 154 U/L (23-300); Potassium 4.5 mmol/L (3.4-5.1); Sodium 137 mmol/L (137-145); Total Protein 7.3 g/dL (6.3-8.2)
--- NOTE | 2023-06-25 19:19 | ED_ITS ---
HPI - General Adult General Chief complaint: Abdominal Pain Stated complaint: abd pain Time Seen by Provider: 06/25/23 18:08 Source: patient Mode of arrival: Ambulatory History of Present Illness HPI narrative: 88-year-old gentleman with a history of diabetes, hypertension, coronary artery disease post CABG, pacemaker, repaired AAA chronic abdominal pain comes in with recurrent abdominal pain sent in after being evaluated by his operator control room this afternoon. He states that the pain is across his mid abdomen worse when he bends over, it has not changed with eating or fasting, does not change with bowel movements and he notes that he had a bowel movement just prior to coming to the emergency department today. He has not complaining of nausea or vomiting he notes that he has a bit more weakness and some dyspnea with exertion and his operator control room is setting up an outpatient echocardiogram to further evaluate that finding. He has not complaining of fevers, has not had any recent viral illnesses. Related Data Home Medications Medication Instructions Recorded Confirmed latanoprost 0.005 % eye drops 1 drp ophthalmic (eye) DAILY 12/26/21 06/24/23 metoprolol succinate 25 mg 25 mg PO DAILY 01/10/23 06/24/23 tablet,extended release 24 hr Previous Rx's Medication Instructions Recorded famotidine 20 mg tablet 20 mg PO DAILY #90 tabs 09/28/22 insulin glargine 100 unit/mL (3 10 unit (0.1 mL) SUBCUT QPM #15 mL 12/18/22 mL) subcutaneous pen (Lantus Solostar U-100 Insulin) pen needle, diabetic 31 gauge x #100 ea 12/18/22 3 (BD Ultra-Fine Mini Pen Needle) atorvastatin 40 mg tablet 40 mg PO BEDTIME #90 tabs 01/10/23 ferrous sulfate 324 mg (65 mg 324 mg PO DAILY #90 tabs 01/10/23 iron) tablet,delayed release metformin 500 mg tablet 1,000 mg (2 x 500 mg) PO BIDCC 03/04/23 #360 tabs benzonatate 200 mg capsule 200 mg PO BID PRN cough #60 caps 04/30/23 blood sugar diagnostic (FreeStyle #100 strips 05/08/23 Lite Strips) sitagliptin phosphate 100 mg 100 mg PO DAILY #90 tabs 05/31/23 tablet (Januvia) Allergies Allergy/AdvReac Type Severity Reaction Status Date / Time No Known Drug Allergies Allergy Verified 06/24/23 08:44 Review of Systems Review of Systems Narrative: Pertinent positive and negative findings as per HPI Patient History Medical History (Updated 06/25/23 @ 21:21 by Vangie Ureña MD) Cholelithiasis Coronary artery aneurysm Sleep apnea Dizziness Costochondritis Pulmonary nodule, left EMILEE (obstructive sleep apnea) BPH (benign prostatic hyperplasia) Diabetes HTN (hypertension) Closed nondisplaced fracture of distal phalanx of right great toe with routine healing, subsequent encounter (03/20/17) Hammer toe of right foot (01/06/16) Abdominal aortic aneurysm (AAA) without rupture (07/26/15) Type 2 diabetes mellitus without complication (04/26/15) Essential hypertension (04/26/15) Benign non-nodular prostatic hyperplasia without lower urinary tract symptoms (04/26/15) Fracture of left great toe Laceration of left great toe Surgical History S/P CABG x 2 Status post epigastric hernia repair, follow-up exam S/P aneurysm repair Family History Father Heart disease Mother Cancer Brother Lung disease Social History marital status: household members: spouse lives independently: Yes Smoking Status: Former smoker alcohol intake: former substance use type: does not use Smoking Status: Former smoker alcohol intake frequency: holidays/special occasions only Substance Use Type: does not use Exam Initial Vital Signs Initial Vital Signs: Vital Signs Temperature 97.4 F L 06/25/23 15:08 Pulse Rate 72 06/25/23 15:08 Respiratory Rate 18 06/25/23 15:08 Blood Pressure 141/67 H 06/25/23 15:08 Pulse Oximetry 96 06/25/23 15:08 Oxygen Delivery Method Room Air 06/25/23 15:08 General: Healthy appearing, in no acute distress. Able to give a complete and coherent history. Well-nourished well-developed HEENT: Moist mucous membranes, normal sclera with reactive pupils, Respiratory: Lungs are clear to auscultation, no wheezing no rales no rhonchi. Full and symmetrical air movement Cardiac: Regular rate and rhythm no murmurs no bruits Abdomen: Distended, tympanitic, mild tenderness across the mid abdomen without rebound or guarding Skin: Warm and dry, no rashes Neurologic: Grossly neurologically intact with no obvious asymmetries or abnormalities Extremities: No trauma, well perfused, no significant lower extremity edema Psych: Cooperative, appropriate insight and affect Course Orders Ordered: ED Orders 06/25/23 15:14 EKG-12 Lead Stat 06/25/23 16:09 Complete Blood Count AUTO DIFF Stat Comprehensive Metabolic Panel Stat Lipase Stat 06/25/23 19:36 CT abdomen pelvis w con Stat Ondansetron HCl (Ondansetron 4 Mg/2 Ml Inj) 4 mg IV NOW PRN PRN Reason: Nausea And Vomiting Ondansetron HCl (Ondansetron 4 Mg Odt) 4 mg PO NOW PRN PRN Reason: Nausea And Vomiting Vital Signs Vital signs: Vital Signs - 8 hr 06/25/23 15:08 06/25/23 18:25 06/25/23 18:26 Temperature 97.4 F L Pulse Rate 72 63 63 Respiratory Rate 18 Blood Pressure 141/67 H Pulse Oximetry 96 96 96 Oxygen Delivery Method Room Air 06/25/23 18:26 06/25/23 18:30 06/25/23 18:30 Temperature Pulse Rate 64 Respiratory Rate Blood Pressure 150/74 H 153/71 H Pulse Oximetry 96 Oxygen Delivery Method 06/25/23 19:00 06/25/23 19:00 06/25/23 19:30 Temperature Pulse Rate 58 L Respiratory Rate Blood Pressure 152/74 H 160/78 H Pulse Oximetry 96 Oxygen Delivery Method 06/25/23 19:30 06/25/23 19:57 06/25/23 19:57 Temperature Pulse Rate 74 62 Respiratory Rate Blood Pressure 160/67 H Pulse Oximetry 96 97 Oxygen Delivery Method 06/25/23 20:00 06/25/23 20:00 Temperature Pulse Rate 61 Respiratory Rate 18 Blood Pressure 141/65 H Pulse Oximetry 96 Oxygen Delivery Method Medical Decision Making Lab Data 06/25/23 16:09 06/25/23 16:09 Labs: Lab Results 06/25/23 Range/Units 16:09 WBC 8.1 (4.5-11.0) X10^3/uL RBC 4.45 L (4.5-5.9) X10^6/uL Hgb 13.6 (13.5-17.5) g/dL Hct 40.5 L (41-53) % MCV 91.1 (80-100) fL MCH 30.6 (26-34) PG MCHC 33.6 (30-36) % RDW 15.0 H (11.6-14.8) % Plt Count 203 (150-400) X10^3/uL Neut % (Auto) 60.8 (50-75) % Lymph % (Auto) 19.4 L (25-40) % [place] % (Auto) 9.9 (3-14) % Eos % (Auto) 8.9 H (2-4) % Baso % (Auto) 1.0 (0-2) % Neut # (Auto) 4900 (3631-3990) /uL Lymph # (Auto) 1600 (1844-2516) /uL [place] # (Auto) 800 (0-900) /uL Eos # (Auto) 700 H (0-450) /uL Baso # (Auto) 100 (0-100) /uL Sodium 137 (137-145) mmol/L Potassium 4.5 (3.4-5.1) mmol/L Chloride 104 (98-107) mmol/L Carbon Dioxide 23 (22-32) mmol/L BUN 18 (9-20) mg/dL Creatinine 1.03 (0.66-1.25) mg/dL Estimated GFR > 60 (>60) mL/min BUN/Creatinine Ratio 17.5 (6-22) Glucose 163 H (80-110) mg/dL Calcium 9.7 (8.4-10.2) mg/dL Total Bilirubin 0.6 (0.2-1.3) mg/dL AST 21 (17-59) IU/L ALT 16 (<50) IU/L Alkaline Phosphatase 51 (38-126) U/L Total Protein 7.3 (6.3-8.2) g/dL Albumin 4.3 (3.5-5.0) g/dL Globulin 3.0 (1.7-4.1) g/dL Albumin/Globulin Ratio 1.4 (1.0-2.8) Lipase 154 (23-300) U/L Urine Dip Bedside Urine Glucose Negative Bedside Urine Bilirubin - Negative Bedside Urine Ketone - Negative Urine Specific [place] 1.020 Bedside Urine Occult Blood - Negative Bedside Urine pH 5.5 Bedside Urine Protein - Negative Bedside Urine Urobilinogen - Negative Bedside Urine Nitrite - Negative Bedside Urine Leukocytes - Negative Esterase Point of care testing: Urine Dip Bedside Urine Glucose Negative Bedside Urine Bilirubin - Negative Bedside Urine Ketone - Negative Urine Specific [place] 1.020 Bedside Urine Occult Blood - Negative Bedside Urine pH 5.5 Bedside Urine Protein - Negative Bedside Urine Urobilinogen - Negative Bedside Urine Nitrite - Negative Bedside Urine Leukocytes - Negative Esterase Imaging Data CT scan - abdomen/pelvis: Radiologist's Impression: PROCEDURE: CT ABDOMEN PELVIS W CON INDICATIONS: Persistent and worsening abdominal pain TECHNIQUE: After the administration of intravenous contrast, axial sections acquired from the lung bases to the pubic symphysis. Coronal and sagittal reformats were performed. For radiation dose reduction, the following was used: automated exposure control, adjustment of mA and/or kV according to patient size. COMPARISON: [facility], CT, CT ABDOMEN PELVIS W CON, 06/11/2023, 18:03. FINDINGS: Image quality: Diagnostic. Lower Chest: No significant findings. ABDOMEN: Liver: No solid mass. Gallbladder: Cholelithiasis without acute inflammation. Biliary ducts: No biliary dilation. Pancreas: No ductal dilation. Spleen: Size is within normal limits. Adrenal Glands: No adrenal nodules. Kidneys and Ureters: No hydronephrosis. No solid mass. No complex renal cystic lesion which requires follow up. Stomach and Bowel: Normal colonic caliber, without significant wall thickening. Diverticulosis without acute inflammation. Normal caliber appendix. Peritoneum: No abnormal intraperitoneal fluid. No free air. Ventral Wall: Redemonstration of postsurgical changes likely related to prior ventral hernia repair. No significant ventral hernia. Abdominal Nodes: No retroperitoneal or mesenteric adenopathy by size criteria. Vessels: Aorta and inferior vena cava are normal in size. Prior abdominal aortic aneurysm repair. Moderate to severe aorto bi iliac atherosclerotic calcifications. PELVIS: Pelvic Organs: Prostatomegaly. Bladder: No bladder wall thickening, accounting for underdistention. Pelvic Nodes: No enlarged lymph nodes. Miscellaneous: No inguinal hernias are seen. Bones: Degenerative changes of the visualized spine without acute or suspicious osseous abnormality. IMPRESSION: No acute abdominopelvic process. Additional findings as above. Approved by: Sarah Leone M.D. on 06/25/2023 at 20:50 MDM Narrative Medical decision making narrative: CC: Persistent abdominal pain Complicating co-morbidities: Coronary artery disease, chronic abdominal pain, reflux, hypertension, hyperlipidemia aneurysm with remote aneurysm repair Data collected from: patient Social determinants of health that may influence the patients condition: Primary caregiver for his who has advanced dementia Medical records reviewed: Notes including ER note on June 11 for similar complaint is reviewed Differential considered: Constipation, mesenteric adenitis, mesenteric ischemia, diverticulitis Exam documented above, pertinent findings include: Patient's exam is relatively benign. His belly is tympanitic mild tenderness throughout the midportion of the abdomen without rebound or guarding. Lab Test results independently reviewed as above. Pertinent findings: CBC is unremarkable Chemistries show no acute abnormalities Independently reviewed EKG: EKG shows a paced rhythm Imaging studies independently reviewed: CT scan of the abdomen was done on June 11, 2023 that showed diverticulosis without diverticulitis, low cholelithiasis and a mild infrarenal abdominal aortic aneurysm. Given the normal labs, abdominal pain that is essentially unchanged from June [address] scan done at that time as well this affect that he is an 88-year-old gentleman sent in by Cardiology with concerns for abdominal pain with request for CT scan we did discuss whether or not to repeat the CT study. At this point with persistent pain uncertain etiology we decided to repeat this study to see if additional findings to explain the abdominal might be identified CT scan of the abdomen today is benign. He has a modest amount of stool and gas but nothing out of the ordinary. Discussion: 88-year-old gentleman with chronic abdominal pain sent in by his operator control room for additional review of the abdominal pain. This point there are no acute findings, no masses, tumors obstructions, leaking from his known aortic aneurism or alternate explanations that would require surgical evaluation or admission. Labs reassuring with no evidence of significant infection, anemia, acute coronary syndrome. He had been complaining of some mild exertional dyspnea and an outpatient echocardiogram has been scheduled by his operator control room. At this point there is no reason for further workup or hospitalization. Findings reviewed with the patient and he is safe for discharge Discharge Plan Departure Patient Disposition: Home Clinical Impression: Abdominal pain Qualifiers: Abdominal location: generalized Qualified Code(s): R10.84 - Generalized abdominal pain Instructions: DI for Abdominal Pain-Adult Activity Restrictions/Additional Instructions: Thank you for coming in today Your workup was actually quite reassuring. I see no signs of infection, heart attack or heart attack like syndrome, kidney issues liver issues. Your CT scan does not show any acute masses, tumors obstructions or alternate explanations for the pain that you are having in your abdomen. I do think that the outpatient echocardiogram for further evaluation of some of the exertional dyspnea you discussed with your operator control room make sense. If you find that you are getting worse or develop any new symptoms, please feel free to return to the emergency department for further evaluation. Prescriptions: No Action metformin 500 mg tablet 1,000 mg PO BIDCC Qty: 360 1RF (DME) FreeStyle Lite Strips Strip See Rx Instructions .ROUTE .COMPLEX Qty: 100 6RF Dose Instruction: USE TO TEST BLOOD SUGARS TWICE A DAY Rx Instructions: USE TO TEST BLOOD SUGARS TWICE A DAY Januvia 100 mg tablet 100 mg PO DAILY Qty: 90 2RF famotidine 20 mg tablet 20 mg PO DAILY Qty: 90 3RF (DME) pen needle, diabetic [BD Ultra-Fine Mini Pen Needle] 31 gauge x 3/16 needle See Rx Instructions .Route Qty: 100 3RF Rx Instructions: use for insulin twice a day insulin glargine [Lantus Solostar U-100 Insulin] 100 unit/mL (3 mL) insulin pen 10 unit SUBCUT QPM Qty: 15 5RF metoprolol succinate 25 mg tablet extended release 24 hr 25 mg PO DAILY atorvastatin 40 mg tablet 40 mg PO BEDTIME Qty: 90 3RF ferrous sulfate 324 mg (65 mg iron) tablet,delayed release (DR/EC) 324 mg PO DAILY Qty: 90 1RF benzonatate 200 mg capsule 200 mg PO BID PRN (Reason: cough) Qty: 60 1RF latanoprost 0.005 % drops 1 drp ophthalmic (eye) DAILY Referrals: Manish Cerda, DO [Primary Care Provider] - Stand Alone Forms: Patient Portal/API
--- NOTE | 2023-06-25 19:36 | DI.CT.S_ITS ---
PROCEDURE: CT ABDOMEN PELVIS W CON INDICATIONS: Persistent and worsening abdominal pain TECHNIQUE: After the administration of intravenous contrast, axial sections acquired from the lung bases to the pubic symphysis. Coronal and sagittal reformats were performed. For radiation dose reduction, the following was used: automated exposure control, adjustment of mA and/or kV according to patient size. COMPARISON: [facility], CT, CT ABDOMEN PELVIS W CON, 06/11/2023, 18:03. FINDINGS: Image quality: Diagnostic. Lower Chest: No significant findings. ABDOMEN: Liver: No solid mass. Gallbladder: Cholelithiasis without acute inflammation. Biliary ducts: No biliary dilation. Pancreas: No ductal dilation. Spleen: Size is within normal limits. Adrenal Glands: No adrenal nodules. Kidneys and Ureters: No hydronephrosis. No solid mass. No complex renal cystic lesion which requires follow up. Stomach and Bowel: Normal colonic caliber, without significant wall thickening. Diverticulosis without acute inflammation. Normal caliber appendix. Peritoneum: No abnormal intraperitoneal fluid. No free air. Ventral Wall: Redemonstration of postsurgical changes likely related to prior ventral hernia repair. No significant ventral hernia. Abdominal Nodes: No retroperitoneal or mesenteric adenopathy by size criteria. Vessels: Aorta and inferior vena cava are normal in size. Prior abdominal aortic aneurysm repair. Moderate to severe aorto bi iliac atherosclerotic calcifications. PELVIS: Pelvic Organs: Prostatomegaly. Bladder: No bladder wall thickening, accounting for underdistention. Pelvic Nodes: No enlarged lymph nodes. Miscellaneous: No inguinal hernias are seen. Bones: Degenerative changes of the visualized spine without acute or suspicious osseous abnormality. IMPRESSION: No acute abdominopelvic process. Additional findings as above. Approved by: Sarah Leone M.D. on 06/25/2023 at 20:50
== END 2023-06-25 21:29 | disposition home or self-care (01) ==
PROVIDERS: Emergency Medicine; Emergency Provider Emergency Medicine; PCP Family Medicine
DX: R10.84 Generalized abdominal pain (principal)
CPT/HCPCS: 36415; 74177; 80053; 81003; 83690; 85025; 93005; 93010; 99284; Q9967

== ENCOUNTER → 2023-06-28 11:30 | Outpatient (CLI) | payer MEDICARE, OTHER, SELFPAY ==
[2021-12-29 16:51] VITALS: BMI 28.2
--- NOTE | 2023-06-28 11:31 | DI.RAD.S_ITS ---
PROCEDURE: XR KNEE RT 3V INDICATIONS: R knee pain TECHNIQUE: 3 views of the knee were acquired. COMPARISON: [facility], , KNEE 3V LEFT, 01/10/2015, 15:21. FINDINGS: Bones: No fractures or dislocations. No suspicious bony lesions. Soft tissues: No joint effusion. Atherosclerotic vascular calcification present. Small vascular clips noted superficially IMPRESSION: No acute bony abnormality or significant effusion. Approved by: Dilshad Martinez M.D. on 06/28/2023 at 13:43
== END ==
PROVIDERS: PCP Family Medicine; Referring Provider Family Medicine; Visit Provider Family Medicine
DX: M25.561 Pain in right knee (principal)
CPT/HCPCS: 73562

== ENCOUNTER → 2023-07-25 07:56 | Outpatient (CLI) | payer MEDICARE, OTHER, SELFPAY ==
[2021-12-29 16:51] VITALS: BMI 28.2
--- NOTE | 2023-07-25 07:58 | DI.ECHO.S_ITS ---
Version: 1 Study ID: [id number] [place] [address] Name: PRASHANT FENG Study Date: 07/25/2023, 8: 34 AM : 1935 BP: 133 / 78 mmHg Gender: Male Height: 69 in Age: 88 Years Weight: 192 lb BSA: 2.03 mA? 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 The ejection fraction is estimated to be 50-55%. There is hypokinesis along the LAD territory. This could in part of RV pacing. The right ventricle is normal in size and function. There is a pacemaker lead in the right ventricle. The left atrial size is normal. There is mild aortic regurgitation. There is mild mitral regurgitation. The ascending aorta is moderately enlarged. Procedure: A two-dimensional transthoracic echocardiogram with color flow and Doppler was performed. The study quality was technically adequate. Comparison is made with the echocardiogram of 12/17/2022. The patient has a paced rhythm. The heart rate ranged between 60-67 bpm during the study. Left Ventricle: The left ventricle is normal in size and wall thickness. The ejection fraction is estimated to be 50-55%. There is hypokinesis along the LAD territory. This could in part of RV pacing. Right Ventricle: The right ventricle is normal in size and function. There is a pacemaker lead in the right ventricle. Atria: The left atrial size is normal. Right atrial size is normal. There is no Doppler evidence for an interatrial shunt. Mitral Valve: There is mild mitral annular calcification. The mitral valve leaflets are slightly calcified. There is mild mitral regurgitation. Aortic Valve: The aortic valve is mildly calcified. The aortic valve is trileaflet. There is no aortic valve stenosis. There is mild aortic regurgitation. Tricuspid Valve: The tricuspid valve is normal in structure and function. There is trace tricuspid regurgitation. The right ventricular systolic pressure is estimated to be at least 26 mmHg based on an estimated right atrial pressure of 3 mm Hg. Pulmonic Valve: The pulmonic valve leaflets are thin and pliable; valve motion is normal. There is trace pulmonic regurgitation. Great Vessels: The aortic root is mildly dilated. The ascending aorta is moderately enlarged. The aortic arch could not be visualized. The IVC is of normal diameter and collapses greater than 50% with a sniff. This suggests a low right atrial pressure of 3 mm Hg. Pericardium/ Pleura: There is no pericardial effusion. There is no pleural effusion. 2D and M-Mode Measurements and Calculations LVIDd: 5.3 cm LVOT diam: 1.97 cm LVIDs: 3.8 cm Ao root diam: 4.5 cm IVSd: 0.88 cm asc Aorta Diam: 4.2 cm LVPWd: 0.79 cm LV perdomo. diameter/BSA (cm/m^2): 2.6 LV sys. diameter/BSA (cm/m^2): 1.89 RVD1 (basal): 3.3 cm RVD2 (mid): 2.39 cm TAPSE: 1.77 cm LA A4 area: 15.3 golf player assistant? IVC diam: 1.61 cm LA A2 area: 18.8 golf player assistant? RA area: 12.1 golf player assistant? LA length (vol): 4.4 cm RA long axis: 4.5 cm LA vol: 54.9 ml RA vol: 27.4 ml LA vol index: 27.0 ml/mA? RA : 13.5 ml/mA? Doppler Measurements and Calculations Ao V2 max: 117.8 cm/sec LVOT Max Romeo: 71.2 cm/sec Ao V2 mean: 81.3 cm/sec LV V1 max P.03 mmHg Ao V2 VTI: 27.2 cm LV V1 VTI: 15.7 cm Ao max P.5 mmHg SV(LVOT): 48.0 ml Ao mean P.0 mmHg KAMERON(I,D): 1.76 golf player assistant? KAMERON(V,D): 1.85 golf player assistant? KAMERON indexed to BSA (cm^2/m^2): 0.87 sev ratio: 0.58 AI P1/2t: 671.9 msec AI dec slope: 138.2 cm/secA? MV E max romeo: 48.0 cm/sec MV dec time: 0.16 sec MV A max romeo: 79.7 cm/sec MV E/A: 0.60 Med Peak E' Romeo: 4.5 cm/sec Lat Peak E' Romeo: 4.6 cm/sec E/e' average: 10.5 TR max romeo: 239.2 cm/sec PA mean P.49 mmHg TR max P.9 mmHg PA V2 max: 84.1 cm/sec Electronically signed by: Shoaib Orozco 07/25/2023, 8: 28 PM
== END ==
PROVIDERS: PCP Family Medicine; Referring Provider Family Medicine; Visit Provider Family Medicine
DX: I08.0 Rheumatic disorders of both mitral and aortic valves (principal); I50.9 Heart failure, unspecified; I77.810 Thoracic aortic ectasia; I77.89 Other specified disorders of arteries and arterioles; Z95.0 Presence of cardiac pacemaker
CPT/HCPCS: 93306

== ENCOUNTER → 2023-09-24 06:38 | Outpatient (CLI) | payer MEDICARE, OTHER, SELFPAY ==
[2021-12-29 16:51] VITALS: BMI 28.2
[2023-09-24 08:31] LABS: Hemoglobin A1C% w Est Avg Glu 7.8 % (4.0-6.0)
[2023-09-24 08:32] LABS: Alanine Aminotransferase 15 IU/L (<50); Albumin 4.2 g/dL (3.5-5.0); Albumin Globulin Ratio 1.9 (1.0-2.8); Alkaline Phosphatase 56 U/L (38-126); Aspartate Aminotransferase 20 IU/L (17-59); Calcium 9.4 mg/dL (8.4-10.2); Carbon Dioxide 32 mmol/L (22-32); Chloride 103 mmol/L (98-107); Globulin 2.2 g/dL (1.7-4.1); Glucose 159 mg/dL (80-110); HEMOLYSIS < 15 (0-50); Potassium 4.7 mmol/L (3.4-5.1); Sodium 140 mmol/L (137-145); Total Protein 6.4 g/dL (6.3-8.2)
[2023-09-24 08:34] LABS: BUN Creatinine Ratio 16.5 (6-22); Bilirubin Total 0.7 mg/dL (0.2-1.3); Blood Urea Nitrogen 16 mg/dL (9-20); Estimated Glomerular Filt Rate > 60 mL/min (>60)
[2023-09-24 09:15] LABS: Vitamin B12 164 pg/mL (239-931)
== END ==
PROVIDERS: PCP Family Medicine; Referring Provider Family Medicine; Visit Provider Family Medicine
DX: I10 Essential (primary) hypertension (principal); E11.69 Type 2 diabetes mellitus with other specified complication; E78.5 Hyperlipidemia, unspecified; E53.8 Deficiency of other specified B group vitamins
CPT/HCPCS: 36415; 80053; 82607; 83036

== ENCOUNTER 2023-10-11 08:59 | Emergency (ER) | payer MEDICARE, OTHER, SELFPAY ==
[2021-12-29 16:51] VITALS: BMI 28.2
[2023-10-11 09:03] VITALS: BP 128/72; PULSE 77; RESP 14; TEMP 36.4; O2SAT 96; BMI 27.1
--- NOTE | 2023-10-11 09:04 | ED_ITS ---
HPI - General Adult General Chief complaint: Neck Pain/Injury Stated complaint: Neck pain going into righ shoulder Time Seen by Provider: 10/11/23 09:01 Source: patient Mode of arrival: Ambulatory Limitations: no limitations History of Present Illness HPI narrative: Patient is an 88-year-old male who on Saturday of this week woke up with right- sided neck discomfort. He stated that it was difficult for him to even turn his neck in order to drive. Has not tried anything for. No specific trauma. He states has been persistent since then but his actually improving somewhat as he is now able to move his neck somewhat more than what he did earlier this week. No fevers. He states that today the pain started to radiate down into his right shoulder. Has not tried anything for the symptoms prior to arrival. Related Data Home Medications Medication Instructions Recorded Confirmed latanoprost 0.005 % eye drops 1 drp ophthalmic (eye) DAILY 12/26/21 09/23/23 metoprolol succinate 25 mg 25 mg PO DAILY 01/10/23 09/23/23 tablet,extended release 24 hr Previous Rx's Medication Instructions Recorded insulin glargine 100 unit/mL (3 10 unit (0.1 mL) SUBCUT QPM #15 mL 12/18/22 mL) subcutaneous pen (Lantus Solostar U-100 Insulin) pen needle, diabetic 31 gauge x #100 ea 12/18/2207/05 (BD Ultra-Fine Mini Pen Needle) atorvastatin 40 mg tablet 40 mg PO BEDTIME #90 tabs 01/10/23 ferrous sulfate 324 mg (65 mg 324 mg PO DAILY #90 tabs 01/10/23 iron) tablet,delayed release benzonatate 200 mg capsule 200 mg PO BID PRN cough #60 caps 04/30/23 blood sugar diagnostic (FreeStyle #100 strips 05/08/23 Lite Strips) sitagliptin phosphate 100 mg 100 mg PO DAILY #90 tabs 05/31/23 tablet (Januvia) famotidine 20 mg tablet 20 mg PO BID #60 tabs 06/28/23 sucralfate 1 gram tablet (Carafate) 1 g PO BID #60 tabs 06/28/23 hydroxyzine HCl 25 mg tablet 25 mg PO BID PRN itching #30 tabs 07/19/23 metformin 500 mg tablet 1,000 mg (2 x 500 mg) PO BIDCC 08/29/23 #360 tabs cyclobenzaprine 10 mg tablet 10 mg PO TID PRN muscle spasm #21 10/11/23 tabs insulin glargine 100 unit/mL (3 12 unit (0.12 mL) SUBCUT QPM #15 mL 10/11/23 mL) subcutaneous pen (Lantus Solostar U-100 Insulin) Allergies Allergy/AdvReac Type Severity Reaction Status Date / Time No Known Drug Allergies Allergy Verified 10/11/23 09:07 Review of Systems Constitutional Constitutional: Reports system reviewed and no additional complaints, except as documented Musculoskeletal Musculoskeletal: Reports system reviewed and no additional complaints, except as documented Integumentary/Breasts Skin/Breast: Reports system reviewed and no additional complaints, except as documented Neurologic Neurologic: Reports system reviewed and no additional complaints, except as documented Patient History Medical History Osteoarthritis of right knee Right knee pain Cholelithiasis Coronary artery aneurysm Sleep apnea Dizziness Costochondritis Pulmonary nodule, left EMILEE (obstructive sleep apnea) BPH (benign prostatic hyperplasia) Diabetes HTN (hypertension) Closed nondisplaced fracture of distal phalanx of right great toe with routine healing, subsequent encounter (03/20/17) Hammer toe of right foot (01/06/16) Abdominal aortic aneurysm (AAA) without rupture (07/26/15) Type 2 diabetes mellitus without complication (04/26/15) Essential hypertension (04/26/15) Benign non-nodular prostatic hyperplasia without lower urinary tract symptoms (04/26/15) Fracture of left great toe Laceration of left great toe Surgical History S/P CABG x 2 Status post epigastric hernia repair, follow-up exam S/P aneurysm repair Family History Father Heart disease Mother Cancer Brother Lung disease Social History marital status: household members: spouse lives independently: Yes Smoking Status: Former smoker alcohol intake: former substance use type: does not use Smoking Status: Former smoker alcohol intake frequency: holidays/special occasions only Substance Use Type: does not use Exam Initial Vital Signs Initial Vital Signs: Vital Signs Temperature 97.6 F 10/11/23 09:03 Pulse Rate 77 10/11/23 09:03 Respiratory Rate 14 10/11/23 09:03 Blood Pressure 128/72 10/11/23 09:03 Pulse Oximetry 96 10/11/23 09:03 Oxygen Delivery Method Room Air 10/11/23 09:03 HENMT Head: normal to inspection and normocephalic Back/Spine/Pelvis Other: Discomfort with palpation to the right-sided paraspinal cervical region. Extrem Other: Discomfort over the right trapezius muscle and anterior portion of the right shoulder. Course Orders Ordered: Discontinued Medications Ketorolac Tromethamine (Ketorolac 30 Mg/Ml Vial) 30 mg IM NOW ONE Stop: 10/11/23 09:16 Vital Signs Vital signs: Vital Signs - 8 hr 10/11/23 09:03 Temperature 97.6 F Pulse Rate 77 Respiratory Rate 14 Blood Pressure 128/72 Pulse Oximetry 96 Oxygen Delivery Method Room Air Medical Decision Making MDM Narrative Medical decision making narrative: This is clearly a muscular etiology hesitant as long the trapezius muscle and is also reproduced with palpation. I have low suspicion that this is ACS or fracture or carotid artery pathology. Patient was given Toradol here in the ER. Was sent home with a prescription for Flexeril. He understands that this can make him drowsy. No indication for imaging studies. Patient was given return precautions. He expressed understanding and agreement. Discharge Plan Departure Patient Disposition: Home Clinical Impression: Cervical muscle strain Instructions: DI for Neck Pain Activity Restrictions/Additional Instructions: Continue with conservative measures to include light stretching and heat. The prescription for cyclobenzaprine as a muscle relaxer and can make you drowsy. Contact your primary doctor for follow-up. Prescriptions: New cyclobenzaprine 10 mg tablet 10 mg PO TID PRN (Reason: muscle spasm) Qty: 21 0RF No Action (DME) FreeStyle Lite Strips Strip See Rx Instructions .ROUTE .COMPLEX Qty: 100 6RF Dose Instruction: USE TO TEST BLOOD SUGARS TWICE A DAY Rx Instructions: USE TO TEST BLOOD SUGARS TWICE A DAY Januvia 100 mg tablet 100 mg PO DAILY Qty: 90 2RF hydroxyzine HCl 25 mg tablet 25 mg PO BID PRN (Reason: itching) Qty: 30 2RF metformin 500 mg tablet 1,000 mg PO BIDCC Qty: 360 1RF insulin glargine [Lantus Solostar U-100 Insulin] 100 unit/mL (3 mL) insulin pen 12 unit SUBCUT QPM Qty: 15 5RF (DME) pen needle, diabetic [BD Ultra-Fine Mini Pen Needle] 31 gauge x 3/16 needle See Rx Instructions .Route Qty: 100 3RF Rx Instructions: use for insulin twice a day insulin glargine [Lantus Solostar U-100 Insulin] 100 unit/mL (3 mL) insulin pen 10 unit SUBCUT QPM Qty: 15 5RF metoprolol succinate 25 mg tablet extended release 24 hr 25 mg PO DAILY atorvastatin 40 mg tablet 40 mg PO BEDTIME Qty: 90 3RF ferrous sulfate 324 mg (65 mg iron) tablet,delayed release (DR/EC) 324 mg PO DAILY Qty: 90 1RF benzonatate 200 mg capsule 200 mg PO BID PRN (Reason: cough) Qty: 60 1RF famotidine 20 mg tablet 20 mg PO BID Qty: 60 3RF sucralfate [Carafate] 1 gram tablet 1 g PO BID Qty: 60 1RF latanoprost 0.005 % drops 1 drp ophthalmic (eye) DAILY Referrals: Manish Cerda, [Primary Care Provider] - Stand Alone Forms: Patient Portal/API
[2023-10-11] MEDS: KETOROLAC 30 MG/ML VIAL IM (09:20)
== END 2023-10-11 09:23 | disposition home or self-care (01) ==
PROVIDERS: Emergency Provider Emergency Medicine; PCP Family Medicine; Referring Provider Emergency Medicine
DX: S16.1XXA Strain of muscle, fascia and tendon at neck level, initial encounter (principal); X58.XXXA Exposure to other specified factors, initial encounter
CPT/HCPCS: 96372; 99283; J1885

== ENCOUNTER → 2023-10-25 06:36 | Outpatient (CLI) | payer MEDICARE, OTHER, SELFPAY ==
[2021-12-29 16:51] VITALS: BMI 28.2
[2023-10-25 07:52] LABS: Cholesterol 174 mg/dL (140-199); HDL Cholesterol 34 mg/dL (40-60); LDL Cholesterol Calculated 103 mg/dL (<100); Triglycerides 185 mg/dL (35-150)
== END ==
LOC: LAB 06:38
PROVIDERS: PCP Family Medicine; Referring Provider Internal Medicine Cardiovascular Disease; Visit Provider Internal Medicine Cardiovascular Disease
DX: I25.719 Atherosclerosis of autologous vein coronary artery bypass graft(s) with unspecified angina pectoris (principal)
CPT/HCPCS: 36415; 80061

== ENCOUNTER → 2023-10-29 13:31 | Outpatient (CLI) | payer MEDICARE, OTHER, SELFPAY ==
[2021-12-29 16:51] VITALS: BMI 28.2
--- NOTE | 2023-10-29 13:33 | DI.RAD.S_ITS ---
PROCEDURE: XR CERVICAL SPINE 2V OR 3V INDICATIONS: neck pain x 1 week, intermittent numbness to arm TECHNIQUE: 3 view(s) of the cervical spine were acquired. COMPARISON: None. FINDINGS: Bones: No fractures or dislocations to the T1 level. The lateral masses of C1 appear intact on the odontoid view. No suspicious bony lesions. Moderate to severe disc space narrowing at C5-6 with trace retrolisthesis. Small anterior osteophytes are present. Multilevel uncovertebral arthropathy is present. Soft tissues: No prevertebral soft tissue swelling. IMPRESSION: Moderate to severe degenerative changes most severe at C5-6. Dictated by: Keely Lerner M.D. on 10/29/2023 at 15:19 Approved by: Keely Lerner M.D. on 10/29/2023 at 15:20
[2023-10-29 15:56] LABS: Vitamin B12 > 1000 pg/mL (239-931)
== END ==
PROVIDERS: PCP Family Medicine; Referring Provider Physician Assistant; Visit Provider Physician Assistant
DX: M54.2 Cervicalgia (principal); E53.8 Deficiency of other specified B group vitamins
CPT/HCPCS: 36415; 72040; 82607

== ENCOUNTER → 2023-12-09 11:38 | Outpatient (CLI) | payer MEDICARE, OTHER, SELFPAY ==
[2021-12-29 16:51] VITALS: BMI 28.2
--- NOTE | 2023-12-09 11:40 | DI.CT.S_ITS ---
PROCEDURE: CT ABDOMEN PELVIS W CON INDICATIONS: llq pain TECHNIQUE: After the administration of intravenous contrast, axial sections acquired from the lung bases to the pubic symphysis. Coronal and sagittal reformats were performed. For radiation dose reduction, the following was used: automated exposure control, adjustment of mA and/or kV according to patient size. COMPARISON: [facility], CT, CT ABDOMEN PELVIS W CON, 06/25/2023, 19:45. FINDINGS: Image quality: Diagnostic. Lower Chest: No significant findings. ABDOMEN: Liver: No solid mass. Gallbladder: Cholelithiasis without wall thickening or adjacent fat stranding to suggest acute cholecystitis. Biliary ducts: No biliary dilation. Pancreas: No ductal dilation. Spleen: Size is within normal limits. Adrenal Glands: No adrenal nodules. Kidneys and Ureters: No hydronephrosis. No solid mass. No complex renal cystic lesion which requires follow up. Stomach and Bowel: Normal colonic caliber, without significant wall thickening. Normal appendix. Macro colonic Peritoneum: No abnormal intraperitoneal fluid. No free air. Ventral Wall: No significant ventral hernia. Prior hernia repair. Abdominal Nodes: No retroperitoneal or mesenteric adenopathy by size criteria. Vessels: Aorta and inferior vena cava are normal in size. Surgical clips surround the lower aorta. PELVIS: Pelvic Organs: Unremarkable. Bladder: No bladder wall thickening, accounting for underdistention. Pelvic Nodes: No enlarged lymph nodes. Miscellaneous: No inguinal hernias are seen. Bones: No aggressive osseous abnormality. IMPRESSION: Colonic diverticulosis without evidence of diverticulitis. Normal appendix. Cholelithiasis without wall thickening or adjacent fat stranding to suggest acute cholecystitis. Dictated by: Everton Rodriguez M.D. on 12/09/2023 at 15:52 Approved by: Everton Rodriguez M.D. on 12/09/2023 at 15:54
[2023-12-09 12:09] LABS: Add Manual Diff / Slide Review NO; Basophils Absolute Auto 100 /uL (0-100); Basophils Percent Auto 0.9 % (0-2); Eosinophils Absolute Auto 300 /uL (0-450); Hematocrit 39.7 % (41-53); Hemoglobin 13.4 g/dL (13.5-17.5); Lymphocytes Absolute Auto 1200 /uL (1100-4500); Lymphocytes Percent Auto 14.6 % (25-40); Mean Corpuscular HGB Conc 33.8 % (30-36); Mean Corpuscular Hemoglobin 31.8 PG (26-34); Mean Corpuscular Volume 93.9 fL (80-100); Monocytes Absolute Auto 800 /uL (0-900); Neutrophils Absolute Auto 6100 /uL (1500-7000); Neutrophils Percent Auto 71.5 % (50-75); Platelet Count 211 X10^3/uL (150-400); Red Blood Cell Count 4.23 X10^6/uL (4.5-5.9); Red Cell Distribution Width 14.4 % (11.6-14.8); White Blood Cell Count 8.5 X10^3/uL (4.5-11.0)
[2023-12-09 12:15] LABS: Appearance Urine UA CLEAR; Bilirubin Urine UA NEGATIVE (NEGATIVE); Color Urine UA YELLOW; Glucose Urine UA NEGATIVE (Negative); Ketones Urine UA NEGATIVE (NEGATIVE); Leukocyte Esterase Urine UA 2+ (NEGATIVE); Nitrite Urine UA NEGATIVE (Negative); Occult Blood Urine UA NEGATIVE (Negative); Protein Urine UA NEGATIVE (Negative); Specific Gravity Urine UA 1.015 (1.000-1.035); Urobilinogen Urine UA 0.2 E.U./dL (0.2); pH Urine UA 5.5 (4.5-8.0)
[2023-12-09 12:51] LABS: Bacteria Urine Occasional (0-1); Culture Indicated Urine Specimen Cultured; RBC Urine 0-1/HPF (0-5/HPF); Squamous Epithelial Cell Urine None Seen (0-5/HPF); Urine Volume 10mL (spun); WBC Urine 1-5/HPF (0-5/HPF)
[2023-12-09 13:00] LABS: Procalcitonin 0.042 ng/mL (<0.5)
[2023-12-09 13:03] LABS: Estimated Glomerular Filt Rate > 60 mL/min (>60)
== END ==
LOC: CT 11:40
PROVIDERS: Radiology Diagnostic Radiology; PCP Family Medicine; Referring Provider Family Medicine; Visit Provider Family Medicine
DX: K80.20 Calculus of gallbladder without cholecystitis without obstruction (principal); K57.32 Diverticulitis of large intestine without perforation or abscess without bleeding; R10.32 Left lower quadrant pain
CPT/HCPCS: 74177; 81001; 82565; 84145; 85025; 87086; Q9967

== ENCOUNTER → 2023-12-17 08:03 | Outpatient (CLI) | payer MEDICARE, OTHER, SELFPAY ==
[2021-12-29 16:51] VITALS: BMI 28.2
--- NOTE | 2023-12-17 08:04 | DI.RAD.S_ITS ---
PROCEDURE: XR LUMBAR SPINE 2-3V INDICATIONS: HIP PAIN, BACK PAIN TECHNIQUE: 3 views of the lumbar spine were acquired. COMPARISON: None. FINDINGS: Bones: 5 [id number] vertebrae are present. There is normal bony alignment. No vertebral body compression fractures. No suspicious bony lesions. Multilevel disc space narrowing and degenerative endplate changes. Multilevel facet hypertrophy. Soft tissues: Overlying bowel gas pattern is normal. Surgical clips project over the abdomen pelvis. Aortic atherosclerotic calcifications. IMPRESSION: Moderate multilevel spondylosis. Approved by: Holger Mcginnis M.D. on 12/17/2023 at 11:10
--- NOTE | 2023-12-17 08:04 | DI.RAD.S_ITS ---
PROCEDURE: XR HIP W PEL IF DONE LT 2V INDICATIONS: HIP PAIN, BACK PAIN TECHNIQUE: AP pelvis with lateral view of the left hip. COMPARISON: None. FINDINGS: Bones: No acute fractures or dislocations. Pelvic ring appears intact. No suspicious bony lesions. [id number] degenerative changes in the hips bilaterally with subchondral sclerosis and marginal osteophytes. Mild degenerative changes in the pubic symphysis and lumbar spine. Soft tissues: The visualized bowel gas pattern is normal. No suspicious soft tissue calcifications. Multiple herniorrhaphy clips are present. Additional surgical clips are seen in the pelvis. IMPRESSION: [id number] bilateral hip osteoarthrosis. Approved by: Holger Mcginnis M.D. on 12/17/2023 at 11:08
== END ==
PROVIDERS: PCP Family Medicine; Referring Provider Family Medicine; Visit Provider Family Medicine
DX: M16.0 Bilateral primary osteoarthritis of hip (principal); M47.816 Spondylosis without myelopathy or radiculopathy, lumbar region; M25.552 Pain in left hip; M54.50 Low back pain, unspecified; M54.9 Dorsalgia, unspecified
CPT/HCPCS: 72100; 73502

== ENCOUNTER 2024-03-22 08:26 | Emergency (ER) | payer MEDICARE, OTHER, SELFPAY ==
[2021-12-29 16:51] VITALS: BMI 28.2
[2024-03-22] VITALS (41 sets, daily range): BP systolic 123–197; BP diastolic 61–88; PULSE 60–81; RESP 12–26; TEMP 36.8; O2SAT 96–99; BMI 27.7
--- NOTE | 2024-03-22 08:29 | ED.CHESTPAIN ---
HPI - Chest Pain General Chief Complaint: Chest Pain Stated Complaint: pain in heart/ o2 was good and has pacemaker Time Seen by Provider: 03/22/24 08:28 Source: patient, RN notes reviewed and old records reviewed Mode of arrival: Family Vehicle Limitations: no limitations History of Present Illness HPI narrative: This is a 89-year-old male history of diabetes, hypertension, coronary artery disease status post CABG, pacemaker, repair AAA with chronic abdominal pain who presents with complaint of chest pain that started yesterday that does radiate a little bit into his left arm. Patient states chest pain did get better yesterday foot came back overnight. Still present this morning he describes a little bit more in the left side but states it was on the right as well. He states he goes little bit into his shoulder. He does note a little bit discomfort with movement of his arm but states he can move it without any major issues. Denies fevers or chills. No diaphoresis. No nausea or vomiting. No shortness of breath. No cough cold or congestion symptoms reported. Patient states had a bowel movement earlier today. Denies any abdominal pain currently. Does note a little bit of increased swelling in his lower extremities recently. Patient has had nitro in the past but states he does not have it anymore. States no anticoagulants, no aspirin or Plavix. Has had prior AAA repair, CABG and pacemaker placement. Former smoker quit in 1989, does not drink alcohol, no recreational drugs. Dr. Cerda is his primary care physician. Dr. Orozco is his sorter lumber straightener. Related Data Home Medications Medication Instructions Recorded Confirmed latanoprost 0.005 % eye drops 1 drp ophthalmic (eye) DAILY 12/26/21 03/18/24 metoprolol succinate 25 mg 25 mg PO DAILY 01/10/23 03/18/24 tablet,extended release 24 hr Previous Rx's Medication Instructions Recorded atorvastatin 40 mg tablet 40 mg PO BEDTIME #90 tabs 01/10/23 ferrous sulfate 324 mg (65 mg 324 mg PO DAILY #90 tabs 01/10/23 iron) tablet,delayed release sucralfate 1 gram tablet (Carafate) 1 g PO BID #60 tabs 06/28/23 hydroxyzine HCl 25 mg tablet 25 mg PO BID PRN itching #30 tabs 07/19/23 cyclobenzaprine 10 mg tablet 10 mg PO TID PRN muscle spasm #21 10/11/23 tabs insulin glargine 100 unit/mL (3 12 unit (0.12 mL) SUBCUT QPM #15 mL 10/11/23 mL) subcutaneous pen (Lantus Solostar U-100 Insulin) pen needle, diabetic 31 gauge x #100 ea 12/27/2307/05 (BD Ultra-Fine Mini Pen Needle) famotidine 20 mg tablet 20 mg PO BID #60 tabs 02/13/24 metformin 500 mg tablet 1,000 mg (2 x 500 mg) PO BIDCC 02/25/24 #360 tabs sitagliptin phosphate 100 mg 100 mg PO DAILY #90 tabs 02/25/24 tablet (Januvia) blood sugar diagnostic (FreeStyle #100 strips 03/05/24 Lite Strips) Allergies Allergy/AdvReac Type Severity Reaction Status Date / Time No Known Drug Allergies Allergy Verified 03/22/24 08:44 Review of Systems Review of Systems ROS Unobtainable: All systems reviewed & are unremarkable except as noted in HPI and below Patient History Medical History Lumbar spondylolysis Osteoarthritis of right knee Right knee pain Cholelithiasis Coronary artery aneurysm Sleep apnea Dizziness Costochondritis Pulmonary nodule, left EMILEE (obstructive sleep apnea) BPH (benign prostatic hyperplasia) Diabetes HTN (hypertension) Closed nondisplaced fracture of distal phalanx of right great toe with routine healing, subsequent encounter (03/20/17) Hammer toe of right foot (01/06/16) Abdominal aortic aneurysm (AAA) without rupture (07/26/15) Type 2 diabetes mellitus without complication (04/26/15) Essential hypertension (04/26/15) Benign non-nodular prostatic hyperplasia without lower urinary tract symptoms (04/26/15) Fracture of left great toe Laceration of left great toe Surgical History S/P CABG x 2 Status post epigastric hernia repair, follow-up exam S/P aneurysm repair Family History Father Heart disease Mother Cancer Brother Lung disease Social History marital status: household members: spouse lives independently: Yes Smoking Status: Former smoker alcohol intake: former substance use type: does not use Smoking Status: Former smoker alcohol intake frequency: holidays/special occasions only Substance Use Type: does not use Exam Narrative Exam Narrative: GENERAL: Alert and oriented x three, elderly male in mild distress HEENT: Head normocephalic, atraumatic, EOMI, pupils reactive, face symmetric, moist mucous membranes NECK: Supple, full range of motion CARDIOVASCULAR: Regular rate and rhythm without murmurs, rubs or gallops. Mild edema bilateral lower extremities. No JVD. RESPIRATORY: Breath sounds equal bilaterally, no wheezes rales or rhonchi. No tachypnea or accessory muscle use. ABDOMEN: Soft, nontender. Normoactive bowel sounds all 4 quadrants. No guarding or rebound, rigidity, no mass : No CVA tenderness EXTREMITIES: Normal range of motion, no clubbing or edema. Neurovascularly intact. Patient has a mild increased pain with movement of the arm but is able to fully move his shoulder. No edema bilateral upper extremities. NEUROLOGICAL: Cranial nerves II through XII grossly intact. Moving all extremities SKIN: Warm, dry, no petechiae, patient has multiple punctate areas of excoriation on his torso and extremities. Initial Vital Signs Initial Vital Signs: Vital Signs Temperature 98.3 F 03/22/24 08:30 Pulse Rate 70 03/22/24 08:30 Respiratory Rate 19 03/22/24 08:30 Blood Pressure 197/88 H 03/22/24 08:30 Pulse Oximetry 98 03/22/24 08:30 Oxygen Delivery Method Room Air 03/22/24 08:30 Course Orders Ordered: ED Orders 03/22/24 08:39 XR chest 1V Stat EKG-12 Lead Stat 03/22/24 08:40 Complete Blood Count AUTO DIFF Stat Comprehensive Metabolic Panel Stat Lipase Stat NT-proBNP (BNP-Adult 18+) Stat Troponin & CK Cardiac Panel Stat 03/22/24 09:01 CT angio chest abdomen pelvis Stat 03/22/24 10:40 Trop I [Troponin I] Stat Discontinued Medications Nitroglycerin (Nitroglycerin 0.4 Mg Sl Tab) 0.4 mg SL [id number] PRN PRN Reason: Chest Pain Last Admin: 03/22/24 08:55 Dose: 0.4 mg Documented By: SPF Vital Signs Vital signs: Vital Signs - 8 hr 03/22/24 08:30 03/22/24 08:33 03/22/24 08:35 Temperature 98.3 F Pulse Rate 70 75 Respiratory Rate 19 Blood Pressure 197/88 H 197/88 H Pulse Oximetry 98 Oxygen Delivery Method Room Air 03/22/24 08:35 03/22/24 08:40 03/22/24 08:45 Temperature Pulse Rate 77 72 67 Respiratory Rate 25 H 15 Blood Pressure Pulse Oximetry 99 99 Oxygen Delivery Method 03/22/24 08:50 03/22/24 08:55 03/22/24 08:55 Temperature Pulse Rate 63 77 Respiratory Rate 22 Blood Pressure 176/79 H 176/79 H Pulse Oximetry 98 Oxygen Delivery Method 03/22/24 08:55 03/22/24 08:59 03/22/24 09:00 Temperature Pulse Rate 74 81 Respiratory Rate 22 26 H Blood Pressure 142/65 H Pulse Oximetry 98 97 Oxygen Delivery Method Room Air Room Air 03/22/24 09:00 03/22/24 09:05 03/22/24 09:05 Temperature Pulse Rate 81 76 Respiratory Rate 17 18 Blood Pressure 129/68 Pulse Oximetry 97 97 Oxygen Delivery Method 03/22/24 09:10 03/22/24 09:10 03/22/24 09:15 Temperature Pulse Rate 79 Respiratory Rate Blood Pressure 123/69 133/71 Pulse Oximetry 96 Oxygen Delivery Method Room Air 03/22/24 09:15 03/22/24 09:15 03/22/24 09:20 Temperature Pulse Rate 72 72 Respiratory Rate 17 17 Blood Pressure 142/70 H Pulse Oximetry 97 97 Oxygen Delivery Method 03/22/24 09:20 03/22/24 09:25 03/22/24 09:25 Temperature Pulse Rate 65 68 Respiratory Rate 19 25 H Blood Pressure 123/61 Pulse Oximetry 97 97 Oxygen Delivery Method Room Air 03/22/24 09:41 03/22/24 09:43 03/22/24 09:43 Temperature Pulse Rate 64 67 Respiratory Rate 13 Blood Pressure 167/74 H Pulse Oximetry 98 Oxygen Delivery Method 03/22/24 09:45 03/22/24 09:45 03/22/24 09:50 Temperature Pulse Rate 67 Respiratory Rate 23 Blood Pressure 153/62 H 147/67 H Pulse Oximetry 98 Oxygen Delivery Method 03/22/24 09:50 03/22/24 09:55 03/22/24 09:55 Temperature Pulse Rate 65 65 Respiratory Rate 12 18 Blood Pressure 152/70 H Pulse Oximetry 97 97 Oxygen Delivery Method 03/22/24 10:00 03/22/24 10:00 03/22/24 10:05 Temperature Pulse Rate 63 64 Respiratory Rate 14 15 Blood Pressure 150/69 H Pulse Oximetry 97 98 Oxygen Delivery Method 03/22/24 10:05 03/22/24 10:10 03/22/24 10:10 Temperature Pulse Rate 60 Respiratory Rate 12 Blood Pressure 147/68 H 143/69 H Pulse Oximetry 96 Oxygen Delivery Method 03/22/24 10:15 03/22/24 10:15 03/22/24 10:20 Temperature Pulse Rate 62 60 Respiratory Rate 15 14 Blood Pressure 155/73 H Pulse Oximetry 98 97 Oxygen Delivery Method 03/22/24 10:20 03/22/24 10:25 03/22/24 10:25 Temperature Pulse Rate 61 Respiratory Rate 14 Blood Pressure 145/66 H 155/74 H Pulse Oximetry 97 Oxygen Delivery Method 03/22/24 10:30 03/22/24 10:30 03/22/24 10:35 Temperature Pulse Rate 60 Respiratory Rate 17 Blood Pressure 146/70 H 154/75 H Pulse Oximetry 98 Oxygen Delivery Method 03/22/24 10:35 03/22/24 10:40 03/22/24 10:40 Temperature Pulse Rate 60 66 Respiratory Rate 22 22 Blood Pressure 169/77 H Pulse Oximetry 97 98 Oxygen Delivery Method 03/22/24 10:48 03/22/24 10:50 03/22/24 10:54 Temperature Pulse Rate 70 68 Respiratory Rate 21 Blood Pressure 158/87 H Pulse Oximetry Oxygen Delivery Method 03/22/24 10:54 03/22/24 10:55 03/22/24 11:00 Temperature Pulse Rate 68 74 70 Respiratory Rate 16 19 Blood Pressure Pulse Oximetry 98 98 97 Oxygen Delivery Method 03/22/24 11:05 03/22/24 11:10 03/22/24 11:15 Temperature Pulse Rate 67 66 67 Respiratory Rate 20 19 Blood Pressure Pulse Oximetry 98 97 97 Oxygen Delivery Method 03/22/24 11:20 03/22/24 11:25 03/22/24 11:30 Temperature Pulse Rate 67 64 63 Respiratory Rate 18 Blood Pressure Pulse Oximetry 98 98 97 Oxygen Delivery Method Room Air 03/22/24 11:35 03/22/24 12:09 03/22/24 12:09 Temperature Pulse Rate 66 60 Respiratory Rate Blood Pressure 179/79 H Pulse Oximetry 98 Oxygen Delivery Method MDM - Chest Pain Lab Data 03/22/24 08:40 03/22/24 08:40 Labs: Lab Results 03/22/24 03/22/24 Range/Units 08:40 10:40 WBC 8.0 (4.5-11.0) X10^3/uL RBC 4.59 (4.5-5.9) X10^6/uL Hgb 14.3 (13.5-17.5) g/dL Hct 42.9 (41-53) % MCV 93.5 (80-100) fL MCH 31.2 (26-34) PG MCHC 33.3 (30-36) % RDW 14.2 (11.6-14.8) % Plt Count 184 (150-400) X10^3/uL Neut % (Auto) 59.0 (50-75) % Lymph % (Auto) 20.8 L (25-40) % [place] % (Auto) 11.0 (3-14) % Eos % (Auto) 7.9 H (2-4) % Baso % (Auto) 1.3 (0-2) % Neut # (Auto) 4700 (7829-1650) /uL Lymph # (Auto) 1700 (3505-3602) /uL [place] # (Auto) 900 (0-900) /uL Eos # (Auto) 600 H (0-450) /uL Baso # (Auto) 100 (0-100) /uL Sodium 136 L (137-145) mmol/L Potassium 4.3 (3.4-5.1) mmol/L Chloride 103 (98-107) mmol/L Carbon Dioxide 26 (22-32) mmol/L BUN 15 (9-20) mg/dL Creatinine 1.00 (0.66-1.25) mg/dL Estimated GFR > 60 (>60) mL/min BUN/Creatinine Ratio 15.0 (6-22) Glucose 223 H (80-110) mg/dL Calcium 9.3 (8.4-10.2) mg/dL Total Bilirubin 0.6 (0.2-1.3) mg/dL AST 27 (17-59) IU/L ALT 21 (<50) IU/L Alkaline Phosphatase 63 (38-126) U/L Total Creatine Kinase 35 L (55-170) U/L Troponin I < 0.012 < 0.012 (0.01-0.034) ng/mL NT-Pro-B Natriuret Pep 386 (<450) pg/mL Total Protein 7.5 (6.3-8.2) g/dL Albumin 4.6 (3.5-5.0) g/dL Globulin 2.9 (1.7-4.1) g/dL Albumin/Globulin Ratio 1.6 (1.0-2.8) Lipase 180 (23-300) U/L Imaging Data Chest x-ray: Radiologist's Impression: [address] [address] XRay Report Signed Patient: Lv Langley MR#: [id number] : 1935 Acct:[id number] Age/Sex: 89 / M Date of Service: 03/22/24 Loc: ED Accession Number: [id number] Procedure: XR chest 1V Ordering Provider: Hoa Zhou D.O. PROCEDURE: XR CHEST 1V INDICATIONS: chest pain TECHNIQUE: One view of the chest was acquired. COMPARISON: [facility], CT, CT ANGIO CHEST ABDOMEN PELVIS, 12/15/2022, 7:49. [facility], CR, XR CHEST 1V, 12/15/2022, 6:39. [facility], CR, XR CHEST 1V, 12/28/2022, 15:27. FINDINGS: Surgical changes and devices: Sternotomy wires and mediastinal clips are seen. There is a left-sided pacer device. The leads are seen in the expected positions. Lungs and pleura: On this semiupright portable chest examination, no large pneumothorax or large pleural effusions are seen. No focal infiltrates are seen. Mediastinum: Mediastinal contours appear normal. Heart size is within normal limits for portable technique. Bones and chest wall: No suspicious bony lesions. Age-appropriate bony degenerative changes are seen. Overlying soft tissues appear unremarkable. IMPRESSION: No acute cardiopulmonary abnormality is seen. Interval placement of a left-sided pacer device. Postoperative and degenerative changes are seen. Dictated by: Sd Pinzon M.D. on 03/22/2024 at 8:25 Approved by: Sd Pinzon M.D. on 03/22/2024 at 8:26 ECG Data Attestation: I personally reviewed and interpreted this ECG as follows: Prior ECG tracings: available for review Interpretation: Ventricularly paced rhythm rate of 67 QRS of 170 QTC 486. Patient has prior from 06/25/2023 which appears similar. Repeat EKG shows AV dual paced rhythm rate of 60 SC 196 QRS of 168 QTC of 476, appears similar to prior MDM Narrative Medical decision making narrative: 89-year-old male known coronary artery history, pacemaker prior AAA repair who presents with complaint of chest pain started yesterday no clear exacerbating factors that he describes but states has gone away and returned. Patient was hypertensive on arrival, bradycardic but paced. Labs white count 8 hemoglobin of 14 platelets of 184. Sodium 136 otherwise chemistries are appropriate BUN 15 with a creatinine of 1 glucose of 223 LFTs are negative CK is 35 with a troponin less than 0.012 and a BNP of 386. Repeat troponin is less than 0.012. EKG shows ventricular paced rhythm appears similar to prior. No dynamic changes on EKG. Chest x-ray shows no acute changes. Interval placement of left-sided pacemaker from prior chest x-ray. CTA chest/abd/pelvis obtained as patient has had prior aortic repair in the abdominal aorta but had some ectasia in the upper chest on prior imaging in 12/15/2022. 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 Cholelithiasis. Submucosal fatty infiltration of the stomach. Mildly increased conspicuity of a 10 mm left upper lobe ground-glass nodule. Recommend CT without contrast at 6-12 months for follow-up and cholelithiasis noted. Patient received nitro sublingual nitro and chest pain resolved. Symptoms have improved. Discussed with patient his findings from today has not extensive cardiac history as well as aneurysmal history. Patient states chest pain has resolved. He has not appointment with his sorter lumber straightener for evaluation and then actual [id number] visit. Patient states he has to return home to care for his we discussed keeping him for observation for chest pain. He states he can not stay but we will follow up with Cardiology on . Discharge Plan Departure Patient Disposition: Home Clinical Impression: Chest pain, Pulmonary nodule, Cholelithiases Activity Restrictions/Additional Instructions: Follow up with Cardiology your appointment on . I would recommend you stay for cardiac observation as you often have had issues with your heart when you have chest pain. There is a pulmonary nodule on your CT imaging in the left upper lobe you should have follow up CT of your chest without contrast at 6-12 months for re-evaluation. Your imaging does show some ectasia or enlargement of your aorta but has not changed, you do have some calcified aneurysms of the coronary arteries as well as enlargement of the iliac artery on your imaging. Please return for new or worsening chest pain, shortness of breath, lightheadedness or passing out, new swelling of your extremities or other new or concerning changes. Prescriptions: No Action hydroxyzine HCl 25 mg tablet 25 mg PO BID PRN (Reason: itching) Qty: 30 2RF insulin glargine [Lantus Solostar U-100 Insulin] 100 unit/mL (3 mL) insulin pen 12 unit SUBCUT QPM Qty: 15 5RF (DME) pen needle, diabetic [BD Ultra-Fine Mini Pen Needle] 31 gauge x 3/16 needle See Rx Instructions .Route Qty: 100 3RF Rx Instructions: use for insulin twice a day famotidine 20 mg tablet 20 mg PO BID Qty: 60 3RF metformin 500 mg tablet 1,000 mg PO BIDCC Qty: 360 2RF Januvia 100 mg tablet 100 mg PO DAILY Qty: 90 2RF (DME) FreeStyle Lite Strips Strip See Rx Instructions .ROUTE .COMPLEX Qty: 100 6RF Dose Instruction: USE TO TEST BLOOD SUGARS TWICE A DAY Rx Instructions: USE TO TEST BLOOD SUGARS TWICE A DAY metoprolol succinate 25 mg tablet extended release 24 hr 25 mg PO DAILY atorvastatin 40 mg tablet 40 mg PO BEDTIME Qty: 90 3RF ferrous sulfate 324 mg (65 mg iron) tablet,delayed release (DR/EC) 324 mg PO DAILY Qty: 90 1RF sucralfate [Carafate] 1 gram tablet 1 g PO BID Qty: 60 1RF latanoprost 0.005 % drops 1 drp ophthalmic (eye) DAILY cyclobenzaprine 10 mg tablet 10 mg PO TID PRN (Reason: muscle spasm) Qty: 21 0RF Referrals: Shoaib Orozco MD [Physician] - Manish Cerda DO [Primary Care Provider] - Stand Alone Forms: Patient Portal/API/Survey
--- NOTE | 2024-03-22 08:38 | EKG_ITS ---
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
--- NOTE | 2024-03-22 08:39 | DI.RAD.S_ITS ---
PROCEDURE: XR CHEST 1V INDICATIONS: chest pain TECHNIQUE: One view of the chest was acquired. COMPARISON: [facility], CT, CT ANGIO CHEST ABDOMEN PELVIS, 12/15/2022, 7:49. [facility], CR, XR CHEST 1V, 12/15/2022, 6:39. [facility], CR, XR CHEST 1V, 12/28/2022, 15:27. FINDINGS: Surgical changes and devices: Sternotomy wires and mediastinal clips are seen. There is a left-sided pacer device. The leads are seen in the expected positions. Lungs and pleura: On this semiupright portable chest examination, no large pneumothorax or large pleural effusions are seen. No focal infiltrates are seen. Mediastinum: Mediastinal contours appear normal. Heart size is within normal limits for portable technique. Bones and chest wall: No suspicious bony lesions. Age-appropriate bony degenerative changes are seen. Overlying soft tissues appear unremarkable. IMPRESSION: No acute cardiopulmonary abnormality is seen. Interval placement of a left-sided pacer device. Postoperative and degenerative changes are seen. Dictated by: Sd Pinzon M.D. on 03/22/2024 at 8:25 Approved by: Sd Pinzon M.D. on 03/22/2024 at 8:26
[2024-03-22 08:53] LABS: Add Manual Diff / Slide Review NO; Basophils Absolute Auto 100 /uL (0-100); Basophils Percent Auto 1.3 % (0-2); Eosinophils Absolute Auto 600 /uL (0-450); Eosinophils Percent Auto 7.9 % (2-4); Hematocrit 42.9 % (41-53); Hemoglobin 14.3 g/dL (13.5-17.5); Lymphocytes Absolute Auto 1700 /uL (1100-4500); Lymphocytes Percent Auto 20.8 % (25-40); Mean Corpuscular HGB Conc 33.3 % (30-36); Mean Corpuscular Hemoglobin 31.2 PG (26-34); Mean Corpuscular Volume 93.5 fL (80-100); Monocytes Absolute Auto 900 /uL (0-900); Neutrophils Absolute Auto 4700 /uL (1500-7000); Platelet Count 184 X10^3/uL (150-400); Red Blood Cell Count 4.59 X10^6/uL (4.5-5.9); Red Cell Distribution Width 14.2 % (11.6-14.8)
[2024-03-22] MEDS: NITROGLYCERIN 0.4 MG SL TAB SL (08:55)
--- NOTE | 2024-03-22 09:01 | DI.CT.S_ITS ---
PROCEDURE: CT ANGIO CHEST ABDOMEN PELVIS INDICATIONS: chest pain, hx AAA repaired w/ ectasia on priors. TECHNIQUE: Precontrast 5 mm thick sections acquired from the lung apices to the iliac crests. After the administration of intravenous contrast, 2.5 mm thick sections again acquired from the lung apices to the iliac crests. Maximum intensity projection (MIP) oblique sagittal and coronal reformats were then acquired. For radiation dose reduction, the following was used: automated exposure control. COMPARISON: [facility], CR, XR CHEST 1V, 03/22/2024, 8:41. [facility], CT, CT ANGIO CHEST ABDOMEN PELVIS, 12/15/2022, 7:49. [facility], CT, CT ANGIO CHEST ABDOMEN PELVIS, 01/01/2022, 7:51. [facility], CT, CT ABDOMEN PELVIS W CON, 12/09/2023, 13:24. FINDINGS: Image quality: Diagnostic. 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 Mild aortoiliac atherosclerosis. Prior repair of an infrarenal abdominal aortic aneurysm with bi-iliac extension. Unchanged borderline ectasia of the left common iliac artery up to 1.8 cm (/230). No dissection. CHEST: Lower Neck: No enlarged lymph nodes. Thyroid: No thyroid nodules which require sonographic evaluation. Axillae: No enlarged lymph nodes. Chest Wall: Unremarkable. Lungs and Pleura: No pneumothorax or pleural effusions. Slightly more conspicuous 10 mm ground-glass nodule in the left upper lobe anterior segment (59). Mild bibasilar bronchiolectasis. Heart: Heart size is normal. No pericardial effusion. Pacemaker leads in the right atrium and right ventricle. Unchanged focal calcified aneurysms of the left anterior descending and right coronary artery (; Thoracic Vessels: Pulmonary arteries demonstrate normal size. Mediastinum and [place]: No enlarged lymph nodes. Esophagus: No wall thickening. No hiatal hernia. ABDOMEN: Liver: No solid mass. Gallbladder: Cholelithiasis. Biliary ducts: No biliary dilation. Pancreas: No ductal dilation. Spleen: Size is within normal limits. Adrenal Glands: No adrenal nodules. Kidneys and Ureters: No hydronephrosis. No solid mass. No complex renal cystic lesion which requires follow up. Stomach and Bowel: Submucosal fatty infiltration of the stomach (4/142). No dilated loops of bowel. Extensive colonic diverticulosis. Normal appendix in the right lower quadrant (4/228). Peritoneum: No abnormal intraperitoneal fluid. No free air. Ventral Wall: Status post prior ventral abdominal hernia repair. Abdominal Nodes: No retroperitoneal or mesenteric adenopathy by size criteria. Vessels: Inferior vena cava is normal in size. PELVIS: Pelvic Organs: Prostatic calcifications. Bladder: Unremarkable. Pelvic Nodes: No enlarged lymph nodes. Miscellaneous: No inguinal hernias are seen. Bones: Prior median sternotomy. Diffuse osseous demineralization. The visualized vertebral body heights are preserved. Mild bilateral hip osteoarthritis with a small amount of fluid in the right iliopsoas bursa (4/280). IMPRESSION: 1. No CT evidence of aortic dissection. 2. Re-identified thoracic aortic ectasia and infrarenal abdominal aneurysm status post repair. 3. Mildly increased conspicuity of a 10 mm left upper lobe ground-glass nodule. Follow-up CT chest without contrast recommended in 6-12 months, per the [employer] recommendations for single subsolid non nodule follow-up. 4. Cholelithiasis. 5. Other chronic findings noted above. Dictated by: Kendall Ferrara M.D. on 03/22/2024 at 9:59 Approved by: Kendall Ferrara M.D. on 03/22/2024 at 10:18
[2024-03-22 09:07] LABS: Alanine Aminotransferase 21 IU/L (<50); Albumin 4.6 g/dL (3.5-5.0); Albumin Globulin Ratio 1.6 (1.0-2.8); Alkaline Phosphatase 63 U/L (38-126); Aspartate Aminotransferase 27 IU/L (17-59); Bilirubin Total 0.6 mg/dL (0.2-1.3); Blood Urea Nitrogen 15 mg/dL (9-20); Calcium 9.3 mg/dL (8.4-10.2); Carbon Dioxide 26 mmol/L (22-32); Chloride 103 mmol/L (98-107); Creatine Kinase 35 U/L (55-170); Estimated Glomerular Filt Rate > 60 mL/min (>60); Globulin 2.9 g/dL (1.7-4.1); Glucose 223 mg/dL (80-110); HEMOLYSIS < 15 (0-50); Lipase 180 U/L (23-300); Potassium 4.3 mmol/L (3.4-5.1); Sodium 136 mmol/L (137-145); Total Protein 7.5 g/dL (6.3-8.2)
[2024-03-22 09:18] LABS: NT-proBNP (BNP-Adult 18+) 386 pg/mL (<450); Troponin I < 0.012 ng/mL (0.01-0.034)
--- NOTE | 2024-03-22 10:41 | EKG_ITS ---
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
[2024-03-22 11:11] LABS: Troponin I < 0.012 ng/mL (0.01-0.034)
--- NOTE | 2024-03-22 11:52 | CM.SWNOTE ---
ED SKI BINDING FITTER AND REPAIRER Note: Reviewed EMR and discussed with ED staff for pt?s medical status. Patient is a 89yo male, resident of [place], lives with his who is experiencing Dementia. Per patient, he is the primary caregiver for his . ED SKI BINDING FITTER AND REPAIRER entered room, introduced self and role. Per patient, he feels he has enough support with his sons and local family to assist with when he is tending to his own medical needs and declined referral at his time for [employer] and [facility] Family Caregiver Support Program. Pt stated he would appreciate a list of caregivers in [facility] he could employ for a few hours a week. ED SKI BINDING FITTER AND REPAIRER provided [facility] In-home Provider list and Senior Resource guide for his review. No other needs identified. Plan: Pt cleared for discharge home, will transport self home and follow up with PCP when available. JANE Stewart
== END 2024-03-22 12:12 | disposition home or self-care (01) ==
PROVIDERS: Emergency Provider Emergency Medicine; PCP Family Medicine
DX: K80.20 Calculus of gallbladder without cholecystitis without obstruction (principal); R07.9 Chest pain, unspecified; R91.1 Solitary pulmonary nodule; M79.602 Pain in left arm; Z95.0 Presence of cardiac pacemaker
CPT/HCPCS: 36415; 71045; 71275; 74174; 80053; 82550; 83690; 83880; 84484; 85025; 93005; 93010; 99284; Q9967

== ENCOUNTER → 2024-08-19 13:06 | Outpatient (CLI) | payer MEDICARE, OTHER, SELFPAY ==
[2024-05-04 11:22] VITALS: BMI 28.2
--- NOTE | 2024-08-19 13:08 | DI.CT.S_ITS ---
PROCEDURE: CT CERVICAL SPINE WO CON INDICATIONS: Para Right C6/7 TL GILBERT TECHNIQUE: Noncontrast 3 mm thick sections acquired from the skull base to the T4 level. Sagittal and coronal reformats were then constructed. For radiation dose reduction, the following was used: automated exposure control, adjustment of mA and/or kV according to patient size. COMPARISON: [facility], CT, CT ANGIO CHEST ABDOMEN PELVIS, 03/22/2024, 9:27. [facility], CR, XR CERVICAL SPINE 2V OR 3V, 10/29/2023, 13:32. FINDINGS: Image quality: Excellent. Bones: 7 cervical vertebrae. The vertebral body heights are preserved. Diffuse osseous demineralization. No acute fracture or subluxation. Multilevel facet and uncinate arthropathy, severe at the left C3-C4 level. Alignment: Straightening of the cervical lordosis. Discs: Intervertebral disc height loss with associated endplate changes at the C5-C6 level. Central canal: Although the epidural space is not well assessed on CT, there is no severe central canal stenosis. Neural foramina: Severe left C3-C4 neural foraminal stenosis secondary to subarticular and foraminal osteophyte formation from facet/uncinate arthropathy (3/26; 5/38). Moderate-severe foraminal stenoses at the bilateral C5-C6 level secondary to a facet/uncinate arthropathy (5/50; 5/37). Otherwise, no severe foraminal stenosis. Prevertebral soft tissues: Moderate bilateral common carotid bulb calcifications. Thyroid gland within normal limits. No pneumothorax in the lung apices. Right upper lobe 3 mm calcified pulmonary granuloma (3/67). Partially identified median sternotomy wires and pacemaker leads. No prevertebral soft tissue edema. IMPRESSION: 1. Severe left C3-C4 neural foraminal stenosis with possible compression of the exiting C3 nerve root. Please correlate with symptomatology in the corresponding dermatomal distribution. 2. Moderate-severe foraminal stenoses at the bilateral C5-C6 levels. 3. No severe central canal stenosis. Dictated by: Kendall Ferrara M.D. on 08/21/2024 at 9:52 Approved by: Kendall Ferrara M.D. on 08/21/2024 at 10:06
== END ==
PROVIDERS: PCP Family Medicine; Referring Provider Physical Medicine & Rehabilitation; Visit Provider Physical Medicine & Rehabilitation
DX: M54.12 Radiculopathy, cervical region (principal); M48.02 Spinal stenosis, cervical region
CPT/HCPCS: 72125

== ENCOUNTER 2024-08-20 07:17 | Outpatient (CLI) | payer MEDICARE, OTHER, SELFPAY ==
[2024-05-04 11:22] VITALS: BMI 28.2
[2024-08-20] VITALS (8 sets, daily range): BP systolic 135–179; BP diastolic 58–83; PULSE 61–71; RESP 16–18; TEMP 36.1; O2SAT 95–100
[2024-08-20] MEDS: MIDAZOLAM 2 MG/2 ML VIAL 1 MG IV (08:28)
[2024-08-20] MEDS: BUPIVACAINE 0.25% (PF) VIAL 2 ML INJ (08:35)
[2024-08-20] MEDS: DEXAMETHASONE 10 MG/ML VIAL 20 MG INJ (08:35)
[2024-08-20] MEDS: iopamidoL 15 ML VIAL 3 ML INJ (08:36)
--- NOTE | 2024-08-20 08:48 | P.PCN_ITS ---
Date/Time/Diagnoses Date of procedure: 08/20/24 Time of procedure: 08:48 Pre-procedure diagnosis: 1. CERVICAL STENOSIS, 2. CERVICAL HNP WITH UPPER EXTREMITY RADICULAR FEATURES Post-procedure diagnosis: same Procedure Notes Procedure: 1. FLUORSCOPICALLY GUIDED CONTRAST CONTROLLED INTERLAMINAR EPIDURAL STEROID INJECTION - C6/7 TL GILBERT Indications: Lv is referred by Dr. Cerda for treatment of Cervical HNP with Upper Extremity Paresthesias. Physician: Michael Huang Total Fluoroscopy time (seconds): 28 Total sedation minutes: 15 Complications: none Procedure in detail & Post-procedure care: FINDINGS Cervical Stenosis due to disc deterioration and nerve root irritation and nerve root irritation DESCRIPTION OF PROCEDURE Fluoroscopically guided, contrast-controlled C6/7 translaminar epidural steroid injection with conscious sedation. Following review of allergy and review of potential side effects and complications, including, but not necessarily limited to, infection, allergic reaction, local tissue breakdown, temporary as well as permanent nerve injury, stroke, paralysis, and possible , the patient indicated that patient understood and agreed to proceed. An informed consent document was signed by the patient, witnessed by a nurse, and placed in the patient's chart. Additionally, other treatment options including modalities, medications, and physical therapy were reviewed with the patient. After review of previous anaesthesic history and IV conscious sedation the patient was deemed safe to proceed with today?s procedure with IV conscious sed ation as ASA class II designation. Safety time-out was performed to confirm patient ID, procedure to be performed and site of procedure. IV sedation was accomplished with a combination of 1mg of Versed administered by the RN after DO order, titrated to patient comfort during the course of the procedure while the patient remained responsive to all verbal commands. In the prone position, following sterile prep and drape of the cervical region, the C6/7 translaminar space was identified fluoroscopically. The skin was anesthetized via a 25-gauge 1.5-inch needle with 1% lidocaine solution. At this point, a 25-gauge, 2.5-inch short bevel spinal needle was atraumatically introduced and advanced under fluoroscopic guidance into epidural space at the C6/7 translaminar space. Depth was confirmed on lateral view. Radiological data, including multiple fluoroscopic views of the cervical spine, reveal a spinal needle at the C6/7 translaminar space. Lateral views then show placement of the needle in the epidural space. Subsequent views show contrast material flowing superiorly and inferiorly in the epidural space. DSA fluoroscopy with live contrast injection, once again, confirmed no vascular or intrathecal uptake. At this point, using loss of resistance technique with saline and air, the epidural space was entered. Following negative aspiration, injection of approximately 1.5 cc of Isovue-200 with live fluoroscopy in the AP view confirmed epidural flow in the epidural space without vascular or intrathecal uptake observed. Subsequently, a test dose of 1 cc of 1% lidocaine solution was injected and patient was observed for two minutes without signs or symptoms of complications, including abdominal pain, shortness of breath, bilateral upper or lower extremity weakness, nausea and vomiting, prior to steroid injection. At this point, 2cc or 20mg of dexamethasone was then injected without incident. The patient tolerated the procedure well without signs or symptoms of co mplications prior to being transferred to the recovery area for further monitoring, The patient was then transferred to the recovery area where they were observed for an appropriate period of time after the injection. The patient reported a VAS score of 6 prior to the procedure and a post-procedure VAS of 0. POST OP INSTRUCTIONS The patient was provided a Pain Log to continue to record their response to the target-specific procedure prior to follow-up visit with the referring provider. Additionally, specific post-injection care instructions and a contact number to our office were provided if concerns arise regarding possible complications associated with the procedure are suspected.
== END 2024-08-20 09:03 | disposition home or self-care (01) ==
PROVIDERS: PCP Family Medicine; Referring Provider Physical Medicine & Rehabilitation; Visit Provider Physical Medicine & Rehabilitation
DX: M48.02 Spinal stenosis, cervical region (principal); M50.123 Cervical disc disorder at C6-C7 level with radiculopathy
CPT/HCPCS: 62321; 99152; J1100; J2250; J3490

== ENCOUNTER → 2024-08-26 06:32 | Outpatient (CLI) | payer MEDICARE, OTHER, SELFPAY ==
[2024-05-04 11:22] VITALS: BMI 28.2
--- NOTE | 2024-08-26 06:34 | DI.US.S_ITS ---
PROCEDURE: US CAROTID DOPPLER BI INDICATIONS: Orthostatic Hypotension TECHNIQUE: Color and pulse Doppler interrogation was performed of both carotid systems, with image documentation and velocity measurements. COMPARISON: [facility], US, CAROTID DOPPLER BI, 12/21/2022, 9:14 FINDINGS: Stenosis calculations are based on SRU (Society of Radiologists in Ultrasound) criteria. The flow velocities and the arterial waveforms are normal within both carotid arterial systems. Atherosclerotic plaque is seen on both sides. The estimated degree of internal carotid artery stenosis is less than 50%. There is increased flow velocity seen within the right external carotid artery, which is similar to the prior. Antegrade flow is confirmed within both vertebral arteries. IMPRESSION: No hemodynamically significant stenosis is seen of the internal carotid arteries. By velocity criteria, there is a greater than 50% stenosis of the right external carotid artery. Atherosclerotic plaque is noted bilaterally. Dictated by: Sd Pinzon M.D. on 08/26/2024 at 13:20 Approved by: Sd Pinzon M.D. on 08/26/2024 at 13:22
--- NOTE | 2024-08-26 06:34 | DI.CT.S_ITS ---
PROCEDURE: CT CHEST WO CON INDICATIONS: Right upper lobe 3 mm calcified pulmonary granuloma TECHNIQUE: Noncontrast 5 mm thick sections acquired from the pulmonary apices to the posterior costophrenic angles. 1 mm lung window, 5 mm thick coronal and sagittal and 7 mm axial MIP reformats were then acquired. For radiation dose reduction, the following was used: automated exposure control, adjustment of mA and/or kV according to patient size. COMPARISON: Prior CT chest March 22, 2024 [facility] FINDINGS: Image quality: Diagnostic. Some images are limited by beam hardening artifacts. Pulmonary nodules: Left upper lobe anteriorly 5 mm solid unchanged (series 3, image 101) Left upper lobe anteriorly 8 mm sub-solid ground-glass nodule (series 3, image 126) unchanged. 3 mm left lower lobe superior segment perifissural solid nodule (series 3, image 149) unchanged. 4 mm solid nodule lingula laterally unchanged (series 3, image 160) 7 mm partially calcified suspected granuloma inferior lingula (series 3, image 193) unchanged. Right upper lobe 4 mm solid nodule probable granuloma unchanged (series 3, image 95). Other scattered small 2 and 3 mm bilateral nodules relatively unchanged. Moderate calcifications of the coronary arteries, aortic arch, ascending and descending aorta unchanged. Degenerative changes of the thoracic spine unchanged. Ascending aortic aneurysm measuring up to approximately 4.4 cm maximal diameter minimally increased from 4.2 cm. Left atrial appendage clip unchanged. Mild cardiomegaly predominantly left ventricular enlargement unchanged. Thyroid: No thyroid nodules which require sonographic follow up, per consensus guidelines. Lungs and Pleura: No pneumothorax or pleural effusions focal consolidate. Heart: No pericardial effusion. Mediastinum and Hannah: No enlarged lymph nodes. Esophagus: No wall thickening. No hiatal hernia. Upper Abdomen: Anterior abdominal wall hernia Amairani with mesh and metallic anchors upper abdomen. Pattern of constipation. Visualized upper abdomen solid organs and bowel loops appear normal. IMPRESSION: Bilateral nodules as discussed above unchanged. 4.4 cm ascending aortic aneurysm minimally increased from 4.2 cm. Mild cardiomegaly unchanged. Vascular calcifications. Dictated by: eLe Senior M.D. on 08/26/2024 at 9:40 Approved by: Lee Senior M.D. on 08/26/2024 at 10:13
[2024-08-26 07:59] LABS: Hemoglobin A1C% w Est Avg Glu 7.4 % (4.0-6.0)
[2024-08-26 08:02] LABS: Alanine Aminotransferase 18 IU/L (<50); Albumin 4.5 g/dL (3.5-5.0); Albumin Globulin Ratio 1.7 (1.0-2.8); Alkaline Phosphatase 57 U/L (38-126); Aspartate Aminotransferase 22 IU/L (17-59); BUN Creatinine Ratio 23.9 (6-22); Bilirubin Total 0.8 mg/dL (0.2-1.3); Blood Urea Nitrogen 27 mg/dL (9-20); Calcium 10.3 mg/dL (8.4-10.2); Carbon Dioxide 29 mmol/L (22-32); Chloride 101 mmol/L (98-107); Estimated Glomerular Filt Rate > 60 mL/min (>60); Globulin 2.7 g/dL (1.7-4.1); Glucose 174 mg/dL (70-99); HEMOLYSIS < 15 (0-50); Potassium 4.9 mmol/L (3.4-5.1); Sodium 138 mmol/L (137-145); Total Protein 7.2 g/dL (6.3-8.2)
== END ==
PROVIDERS: PCP Family Medicine; Referring Provider Family Medicine; Visit Provider Family Medicine
DX: E11.9 Type 2 diabetes mellitus without complications (principal); I95.1 Orthostatic hypotension; R91.8 Other nonspecific abnormal finding of lung field; I25.10 Atherosclerotic heart disease of native coronary artery without angina pectoris; I70.0 Atherosclerosis of aorta; I71.21 Aneurysm of the ascending aorta, without rupture; I51.7 Cardiomegaly
CPT/HCPCS: 36415; 71250; 80053; 83036; 93880

== ENCOUNTER 2024-09-20 12:50 | Emergency (ER) | payer MEDICARE, OTHER, SELFPAY ==
[2024-05-04 11:22] VITALS: BMI 28.2
--- NOTE | 2024-09-20 12:59 | DI.RAD.S_ITS ---
PROCEDURE: XR CHEST 1V INDICATIONS: Chest Pain TECHNIQUE: One view of the chest was acquired. COMPARISON: [facility], CR, XR CHEST 1V, 03/22/2024, 8:41. FINDINGS: Surgical changes and devices: Left chest wall pacemaker and median sternotomy wires are unchanged. Lungs and pleura: Lungs are clear. No pleural effusions or pneumothorax. Mediastinum: Mediastinal contours appear normal. Heart size is normal. Bones and chest wall: No suspicious bony lesions. Overlying soft tissues appear unremarkable. IMPRESSION: No acute cardiopulmonary pathology. Dictated by: Franki Dior M.D. on 09/20/2024 at 13:37 Approved by: Franki Dior M.D. on 09/20/2024 at 13:37
[2024-09-20 13:02] VITALS: BP 170/74; PULSE 73; RESP 18; TEMP 36.4; O2SAT 97; BMI 25.8
--- NOTE | 2024-09-20 13:07 | EKG_ITS ---
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
--- NOTE | 2024-09-20 13:09 | EKG_ITS ---
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
[2024-09-20 13:39] LABS: Add Manual Diff / Slide Review NO; Basophils Absolute Auto 100 /uL (0-100); Basophils Percent Auto 1.2 % (0-2); Eosinophils Absolute Auto 500 /uL (0-450); Eosinophils Percent Auto 7.2 % (2-4); Hematocrit 37.2 % (41-53); Hemoglobin 12.7 g/dL (13.5-17.5); Lymphocytes Absolute Auto 1400 /uL (1100-4500); Lymphocytes Percent Auto 20.6 % (25-40); Mean Corpuscular HGB Conc 34.1 % (30-36); Mean Corpuscular Hemoglobin 31.5 PG (26-34); Mean Corpuscular Volume 92.5 fL (80-100); Monocytes Absolute Auto 600 /uL (0-900); Monocytes Percent Auto 9.3 % (3-14); Neutrophils Absolute Auto 4100 /uL (1500-7000); Neutrophils Percent Auto 61.7 % (50-75); Platelet Count 190 X10^3/uL (150-400); Red Blood Cell Count 4.02 X10^6/uL (4.5-5.9); Red Cell Distribution Width 14.6 % (11.6-14.8); White Blood Cell Count 6.7 X10^3/uL (4.5-11.0)
[2024-09-20 13:44] LABS: Prothrombin Time 11.5 SECONDS (9.4-12.5)
[2024-09-20 13:47] LABS: PTT Partial Thromboplastin Tim 33 SECONDS (25.1-36.5)
[2024-09-20 13:48] LABS: Alanine Aminotransferase 19 IU/L (<50); Albumin 4.1 g/dL (3.5-5.0); Albumin Globulin Ratio 1.6 (1.0-2.8); Alkaline Phosphatase 66 U/L (38-126); Aspartate Aminotransferase 23 IU/L (17-59); BUN Creatinine Ratio 20.6 (6-22); Bilirubin Total 0.7 mg/dL (0.2-1.3); Blood Urea Nitrogen 21 mg/dL (9-20); Carbon Dioxide 22 mmol/L (22-32); Chloride 102 mmol/L (98-107); Creatine Kinase 31 U/L (55-170); Estimated Glomerular Filt Rate > 60 mL/min (>60); Globulin 2.6 g/dL (1.7-4.1); Glucose 276 mg/dL (70-99); HEMOLYSIS < 15 (0-50); Lipase 119 U/L (23-300); Magnesium 1.6 mg/dL (1.6-2.3); Potassium 4.4 mmol/L (3.4-5.1); Sodium 135 mmol/L (137-145); Total Protein 6.7 g/dL (6.3-8.2)
[2024-09-20 14:00] LABS: NT-proBNP (BNP-Adult 18+) 294 pg/mL (<450); Troponin I < 0.012 ng/mL (0.01-0.034)
--- NOTE | 2024-09-20 14:30 | ED.CHESTPAIN ---
HPI - Chest Pain General Chief Complaint: Chest Pain Stated Complaint: Chest hurts when he moves his left arm x 4 days Time Seen by Provider: 09/20/24 13:54 Source: patient Mode of arrival: Ambulatory History of Present Illness HPI narrative: PT is an 89 y/o m with history of aortic aneurysm, CAD, EMILEE, GERD, HTN, HLD, DM, p/w chest pain. Patient states that he has noticed chest pain over the last 4 days. Pain is worse with movement of his left arm. He denies any associated shortness of breath or lightheadedness. States pain initially began 4 days prior with a sharp pain while walking, now having pain mostly with movement of his arm. No significant pain while at rest. Patient denies palpitations. He has not had nausea, vomiting, abdominal pain, urinary changes, lower extremity swelling. Denies any known trauma to the area. MD complaint: chest pain Onset (ago): day(s) (4) Related Data Home Medications Medication Instructions Recorded Confirmed latanoprost 0.005 % eye drops 1 drp ophthalmic (eye) DAILY 12/26/21 08/28/24 metoprolol succinate 25 mg 25 mg PO DAILY 01/10/23 08/28/24 tablet,extended release 24 hr nitroglycerin 0.4 mg sublingual mg sublingual 04/03/24 08/28/24 tablet dorzolamide 22.3 mg-timolol 6.8 1 drp EYE-BOTH ONCE 08/17/24 08/28/24 mg/mL eye drops torsemide 10 mg tablet 10 mg PO DAILY 08/17/24 08/28/24 Previous Rx's Medication Instructions Recorded atorvastatin 40 mg tablet 40 mg PO BEDTIME #90 tabs 01/10/23 ferrous sulfate 324 mg (65 mg 324 mg PO DAILY #90 tabs 01/10/23 iron) tablet,delayed release insulin glargine 100 unit/mL (3 12 unit (0.12 mL) SUBCUT QPM #15 mL 10/11/23 mL) subcutaneous pen (Lantus Solostar U-100 Insulin) pen needle, diabetic 31 gauge x #100 ea 12/27/23 3/16 (BD Ultra-Fine Mini Pen Needle) metformin 500 mg tablet 1,000 mg (2 x 500 mg) PO BIDCC 02/25/24 #360 tabs sitagliptin phosphate 100 mg 100 mg PO DAILY #90 tabs 02/25/24 tablet (Januvia) blood sugar diagnostic (FreeStyle #100 strips 03/05/24 Lite Strips) famotidine 20 mg tablet 20 mg PO BID #60 tabs 06/04/24 Allergies Allergy/AdvReac Type Severity Reaction Status Date / Time No Known Drug Allergies Allergy Verified 09/20/24 13:04 Review of Systems Constitutional Constitutional: Denies chills, Denies fever(s), Denies frequent falls and Denies weakness Eyes Eyes: Denies change in vision ENT Ears, Nose, Mouth, and Throat: Denies dizziness Cardiovascular Cardiovascular: Reports chest pain, Denies lightheadedness, Denies palpitations and Denies dyspnea Respiratory Respiratory: Denies cough and Denies dyspnea Gastrointestinal Gastrointestinal: Denies nausea and Denies vomiting Neurologic Neurologic: Denies dizziness, Denies frequent falls and Denies weakness Endocrine Endocrine: Denies palpitations Patient History Medical History Carotid artery disease Aortic aneurysm Lung nodule, solitary Orthostatic hypotension Cervical radiculopathy at C6 Degenerative joint disease of both hips Lumbar radiculopathy Lumbar spondylolysis Osteoarthritis of right knee Right knee pain Cholelithiasis Coronary artery aneurysm Sleep apnea Dizziness Costochondritis Pulmonary nodule, left EMILEE (obstructive sleep apnea) BPH (benign prostatic hyperplasia) Diabetes HTN (hypertension) Closed nondisplaced fracture of distal phalanx of right great toe with routine healing, subsequent encounter (03/20/17) Hammer toe of right foot (01/06/16) Abdominal aortic aneurysm (AAA) without rupture (07/26/15) Type 2 diabetes mellitus without complication (04/26/15) Essential hypertension (04/26/15) Benign non-nodular prostatic hyperplasia without lower urinary tract symptoms (04/26/15) Fracture of left great toe Laceration of left great toe Surgical History S/P CABG x 2 Status post epigastric hernia repair, follow-up exam S/P aneurysm repair Family History Father Heart disease Mother Cancer Brother Lung disease Social History marital status: household members: spouse lives independently: Yes Smoking Status: Former smoker alcohol intake: former substance use type: does not use Smoking Status: Former smoker alcohol intake frequency: holidays/special occasions only Exam Initial Vital Signs Initial Vital Signs: Vital Signs Temperature 97.6 F 09/20/24 13:02 Pulse Rate 73 09/20/24 13:02 Respiratory Rate 18 09/20/24 13:02 Blood Pressure 170/74 H 09/20/24 13:02 Pulse Oximetry 97 09/20/24 13:02 Oxygen Delivery Method Room Air 09/20/24 13:02 Const General: cooperative [facility] Head: normocephalic and atraumatic Chest Chest: No crepitus, tenderness and pacemaker Resp Effort & Inspection: normal respiratory effort, able to speak in complete sentences and no respiratory distress Auscultation: clear to auscultation bilaterally Cardio Rate: regular rate Rhythm: regular rhythm GI Palpation: soft and No tender Extrem General: full ROM and no pedal edema Psych Mental Status: mental status grossly normal Course Orders Ordered: Discontinued Medications Aspirin (Aspirin 81 Mg Chew Tab) 324 mg PO NOW ONE Stop: 09/20/24 13:00 Vital Signs Vital signs: Vital Signs - 8 hr 09/20/24 13:02 Temperature 97.6 F Pulse Rate 73 Respiratory Rate 18 Blood Pressure 170/74 H Pulse Oximetry 97 Oxygen Delivery Method Room Air MDM - Chest Pain Differential Diagnosis Differential diagnosis: Likely fracture of rib, pneumothorax, stable angina, atypical chest pain, costochondritis and chest pain Medical Records Data Attestation: I reviewed the patient's medical records. Lab Data Attestation: I reviewed the patient's lab results. 09/20/24 13:26 09/20/24 13:26 Labs: Lab Results 09/20/24 Range/Units 13:26 WBC 6.7 (4.5-11.0) X10^3/uL RBC 4.02 L (4.5-5.9) X10^6/uL Hgb 12.7 L (13.5-17.5) g/dL Hct 37.2 L (41-53) % MCV 92.5 (80-100) fL MCH 31.5 (26-34) PG MCHC 34.1 (30-36) % RDW 14.6 (11.6-14.8) % Plt Count 190 (150-400) X10^3/uL Neut % (Auto) 61.7 (50-75) % Lymph % (Auto) 20.6 L (25-40) % [place] % (Auto) 9.3 (3-14) % Eos % (Auto) 7.2 H (2-4) % Baso % (Auto) 1.2 (0-2) % Neut # (Auto) 4100 (7578-3391) /uL Lymph # (Auto) 1400 (6153-4364) /uL [place] # (Auto) 600 (0-900) /uL Eos # (Auto) 500 H (0-450) /uL Baso # (Auto) 100 (0-100) /uL PT 11.5 (9.4-12.5) SECONDS INR 1.0 (0.9-1.3) APTT 33 (25.1-36.5) SECONDS Sodium 135 L (137-145) mmol/L Potassium 4.4 (3.4-5.1) mmol/L Chloride 102 (98-107) mmol/L Carbon Dioxide 22 (22-32) mmol/L BUN 21 H (9-20) mg/dL Creatinine 1.02 (0.66-1.25) mg/dL Estimated GFR > 60 (>60) mL/min BUN/Creatinine Ratio 20.6 (6-22) Glucose 276 H (70-99) mg/dL Calcium 9.0 (8.4-10.2) mg/dL Magnesium 1.6 (1.6-2.3) mg/dL Total Bilirubin 0.7 (0.2-1.3) mg/dL AST 23 (17-59) IU/L ALT 19 (<50) IU/L Alkaline Phosphatase 66 (38-126) U/L Total Creatine Kinase 31 L (55-170) U/L Troponin I < 0.012 (0.01-0.034) ng/mL NT-Pro-B Natriuret Pep 294 (<450) pg/mL Total Protein 6.7 (6.3-8.2) g/dL Albumin 4.1 (3.5-5.0) g/dL Globulin 2.6 (1.7-4.1) g/dL Albumin/Globulin Ratio 1.6 (1.0-2.8) Lipase 119 (23-300) U/L ECG Data Attestation: I personally reviewed and interpreted this ECG as follows: Interpretation: ECG demonstrating atrial sensed, ventricular paced rhythm at a rate of 78, without evidence of acute ischemic changes, [id number], similar when compared to prior from 03/22/24 Pacemaker function: normal pacer function MDM Narrative Medical decision making narrative: After history and exam, exam is overall most consistent with musculoskeletal chest pain given that it is reproducible both with palpation and movement of the left upper extremity. Medical records reviewed: primary care notes and cardiology evaluation Differential considered: Includes but not limited to costochondritis, rib fracture, pneumothorax, aortic aneurysm, aortic dissection, ACS, PE Lab Test results independently reviewed as above. Re-evaluations: Pt remains hemodynamically stable and in no acute distress. In no pain at the time of reevaluation and eager to discharge. Patient does have appointment scheduled with his technical applications specialist for this week. Given overall reassuring exam and workup, following shared decision making, will plan for discharge and close cardiology follow up. provided with strict return precautions. Discharge Plan Departure Patient Disposition: Home Clinical Impression: Chest wall pain Instructions: DI for Chest Pain Activity Restrictions/Additional Instructions: You were seen in the emergency department for your left-sided chest pain. Evaluation here including examination, lab work, and EKG was overall reassuring. I suspect that this pain is most likely musculoskeletal in nature. Please follow-up closely with your primary care provider as well as with your technical applications specialist. You can use Tylenol or lidocaine patches as these may be helpful for the musculoskeletal pain. If you develop worsening chest pain, shortness of breath, lightheadedness, fevers, chills, syncope or other symptoms that are concerning to you, please return to the emergency department for further evaluation. Prescriptions: No Action insulin glargine [Lantus Solostar U-100 Insulin] 100 unit/mL (3 mL) insulin pen 12 unit SUBCUT QPM Qty: 15 5RF (DME) pen needle, diabetic [BD Ultra-Fine Mini Pen Needle] 31 gauge x 3/16 needle See Rx Instructions .Route Qty: 100 3RF Rx Instructions: use for insulin twice a day metformin 500 mg tablet 1,000 mg PO BIDCC Qty: 360 2RF Januvia 100 mg tablet 100 mg PO DAILY Qty: 90 2RF (DME) FreeStyle Lite Strips Strip See Rx Instructions .ROUTE .COMPLEX Qty: 100 6RF Dose Instruction: USE TO TEST BLOOD SUGARS TWICE A DAY Rx Instructions: USE TO TEST BLOOD SUGARS TWICE A DAY famotidine 20 mg tablet 20 mg PO BID Qty: 60 3RF metoprolol succinate 25 mg tablet extended release 24 hr 25 mg PO DAILY atorvastatin 40 mg tablet 40 mg PO BEDTIME Qty: 90 3RF ferrous sulfate 324 mg (65 mg iron) tablet,delayed release (DR/EC) 324 mg PO DAILY Qty: 90 1RF nitroglycerin 0.4 mg tablet, sublingual sublingual latanoprost 0.005 % drops 1 drp ophthalmic (eye) DAILY torsemide 10 mg tablet 10 mg PO DAILY dorzolamide-timolol 22.3-6.8 mg/mL drops 1 drp EYE-BOTH ONCE Referrals: Manish Cerda DO [Primary Care Provider] - Stand Alone Forms: Patient Portal/API/Survey
== END 2024-09-20 14:40 | disposition home or self-care (01) ==
PROVIDERS: Emergency Provider Student in an Organized Health Care Education/Training Program; PCP Family Medicine
DX: R07.89 Other chest pain (principal); Z95.0 Presence of cardiac pacemaker
CPT/HCPCS: 71045; 80053; 82550; 83690; 83735; 83880; 84484; 85025; 85610; 85730; 93005; 99281; 99284

== ENCOUNTER 2024-11-05 09:01 | Emergency (ER) | payer MEDICARE, OTHER, SELFPAY ==
[2024-05-04 11:22] VITALS: BMI 28.2
[2024-11-05] VITALS (14 sets, daily range): BP systolic 129–149; BP diastolic 62–95; PULSE 72–90; RESP 18–32; O2SAT 91–909; BMI 26.2
--- NOTE | 2024-11-05 09:11 | EKG_ITS ---
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
[2024-11-05 09:21] LABS: Add Manual Diff / Slide Review NO; Hematocrit 38.4 % (41-53); Hemoglobin 12.8 g/dL (13.5-17.5); Lymphocytes Absolute Auto 800 /uL (1100-4500); Mean Corpuscular HGB Conc 33.2 % (30-36); Mean Corpuscular Hemoglobin 30.9 PG (26-34); Mean Corpuscular Volume 93.0 fL (80-100); Platelet Count 195 X10^3/uL (150-400)
[2024-11-05 09:34] LABS: Alanine Aminotransferase 19 IU/L (<50); Albumin 4.1 g/dL (3.5-5.0); Albumin Globulin Ratio 1.4 (1.0-2.8); Alkaline Phosphatase 70 U/L (38-126); Blood Urea Nitrogen 19 mg/dL (9-20); Calcium 9.6 mg/dL (8.4-10.2); Carbon Dioxide 26 mmol/L (22-32); Chloride 101 mmol/L (98-107); Estimated Glomerular Filt Rate > 60 mL/min (>60); Globulin 2.9 g/dL (1.7-4.1); Glucose 241 mg/dL (70-99); HEMOLYSIS < 15 (0-50); Lipase 77 U/L (23-300); Potassium 4.1 mmol/L (3.4-5.1); Sodium 135 mmol/L (137-145); Total Protein 7.0 g/dL (6.3-8.2)
--- NOTE | 2024-11-05 09:47 | ED.ABDPAIN ---
HPI - Abdominal Pain General Chief Complaint: Abdominal Pain Stated Complaint: per patient, Dehydrated needs fluids Time Seen by Provider: 11/05/24 09:36 Source: patient Mode of arrival: Ambulatory History of Present Illness HPI narrative: Patient complains 5 days of odorous watery diarrhea nonbloody. Has bloating pressure sensation to of the abdomen. No back pain. No urinary complaints. No new chest pain. Patient denies any recent travel foreign travel contaminated foods or recent antibiotics. Patient does have history of infrarenal abdominal aneurysm with repair. Denies any syncope. Patient states he has had a lot of watery diarrhea and feels dehydrated. Has had off and on dizziness. Related Data Home Medications ?Medication ?Instructions ?Recorded ?Confirmed latanoprost 0.005 % eye drops 1 drp ophthalmic (eye) DAILY 12/26/21 08/28/24 metoprolol succinate 25 mg 25 mg PO DAILY 01/10/23 08/28/24 tablet,extended release 24 hr nitroglycerin 0.4 mg sublingual mg sublingual 04/03/24 08/28/24 tablet dorzolamide 22.3 mg-timolol 6.8 1 drp EYE-BOTH ONCE 08/17/24 08/28/24 mg/mL eye drops torsemide 10 mg tablet 10 mg PO DAILY 08/17/24 08/28/24 Previous Rx's ?Medication ?Instructions ?Recorded atorvastatin 40 mg tablet 40 mg PO BEDTIME #90 tabs 01/10/23 ferrous sulfate 324 mg (65 mg 324 mg PO DAILY #90 tabs 01/10/23 iron) tablet,delayed release pen needle, diabetic 31 gauge x #100 ea 12/27/2307/05 (BD Ultra-Fine Mini Pen Needle) sitagliptin phosphate 100 mg 100 mg PO DAILY #90 tabs 02/25/24 tablet (Januvia) blood sugar diagnostic (FreeStyle #100 strips 03/05/24 Lite Strips) famotidine 20 mg tablet 20 mg PO BID #60 tabs 09/28/24 insulin glargine 100 unit/mL (3 10 unit (0.1 mL) SUBCUT QPM #15 mL 10/27/24 mL) subcutaneous pen (Lantus Solostar U-100 Insulin) metformin 500 mg tablet 1,000 mg (2 x 500 mg) PO BID #360 11/02/24 tabs Allergies Allergy/AdvReac Type Severity Reaction Status Date / Time No Known Drug Allergies Allergy Verified 11/05/24 09:11 Review of Systems Review of Systems Narrative: GENERAL: Negative chills, fatigue, malaise, fever, sweats. HEENT: Negative sinus pain, ear pain, sore throat RESPIRATORY: Negative dyspnea, cough CARDIOVASCULAR: Negative chest pain, palpitations GASTROINTESTINAL: Negative vomiting, nausea, abdominal pain, positive diarrhea : Negative dysuria, frequency, hematuria MUSCULOSKELETAL: Negative muscle or bony pain SKIN: Negative rash, skin lesions NEUROLOGIC: Negative weakness, numbness ROS Unobtainable: All systems reviewed & are unremarkable except as noted in HPI and below Patient History Medical History Carotid artery disease Aortic aneurysm Lung nodule, solitary Orthostatic hypotension Cervical radiculopathy at C6 Degenerative joint disease of both hips Lumbar radiculopathy Lumbar spondylolysis Osteoarthritis of right knee Right knee pain Cholelithiasis Coronary artery aneurysm Sleep apnea Dizziness Costochondritis Pulmonary nodule, left EMILEE (obstructive sleep apnea) BPH (benign prostatic hyperplasia) Diabetes HTN (hypertension) Closed nondisplaced fracture of distal phalanx of right great toe with routine healing, subsequent encounter (03/20/17) Hammer toe of right foot (01/06/16) Abdominal aortic aneurysm (AAA) without rupture (07/26/15) Type 2 diabetes mellitus without complication (04/26/15) Essential hypertension (04/26/15) Benign non-nodular prostatic hyperplasia without lower urinary tract symptoms (04/26/15) Fracture of left great toe Laceration of left great toe Surgical History S/P CABG x 2 Status post epigastric hernia repair, follow-up exam S/P aneurysm repair Family History Father Heart disease Mother Cancer Brother Lung disease Social History marital status: household members: spouse lives independently: Yes Smoking Status: Former smoker alcohol intake: former substance use type: does not use Smoking Status: Former smoker alcohol intake frequency: holidays/special occasions only Exam Narrative Exam Narrative: GENERAL: in no distress, not toxic not dyspneic HEAD: Normocephalic. EYES: Pupils equal round ENT: Mucous membranes moist. NECK: Trachea midline. CARDIOVASCULAR: Regular rate and rhythm RESPIRATORY: Clear to auscultation. Breath sounds equal bilaterally. No wheezes, rales, or rhonchi. GASTROINTESTINAL: Abdomen soft, non-tender, no peritoneal signs bowel sounds are present. No guarding or rebound. No CVA tenderness. EXTREMITIES: No gross deformities. BACK: No flank tenderness. NEURO: AOx4. Clear speech, patient has had stay self gait to the bathroom and back without assist. SKIN: Warm and dry PSYCH: Not anxious, is cooperative Initial Vital Signs Initial Vital Signs: Vital Signs Pulse Rate 77 11/05/24 09:11 Respiratory Rate 18 11/05/24 09:11 Blood Pressure 139/66 11/05/24 09:11 Pulse Oximetry 95 11/05/24 09:11 Oxygen Delivery Method Room Air 11/05/24 09:11 Course Orders Ordered: Discontinued Medications Sodium Chloride (Normal Saline 0.9%) 1,000 mls @ 1,000 mls/hr IV BOLUS ONE Stop: 11/05/24 10:41 Last Infusion: 11/05/24 11:01 Dose: Infused Documented By: Admin: 11/05/24 10:02 Dose: 1,000 mls/hr Documented By: GURMEET Ondansetron HCl (Ondansetron 4 Mg/2 Ml Inj) 4 mg IV NOW PRN PRN Reason: Nausea And Vomiting Ondansetron HCl (Ondansetron 4 Mg Odt) 4 mg PO NOW PRN PRN Reason: Nausea And Vomiting Vital Signs Vital signs: Vital Signs - 8 hr 11/05/24 09:11 11/05/24 09:14 11/05/24 09:32 Pulse Rate 77 78 79 Respiratory Rate 18 Blood Pressure 139/66 Pulse Oximetry 95 93 Oxygen Delivery Method Room Air 11/05/24 09:36 11/05/24 09:36 11/05/24 10:00 Pulse Rate 77 78 Respiratory Rate 32 H 19 Blood Pressure 149/63 H Pulse Oximetry 94 94 Oxygen Delivery Method 11/05/24 10:00 11/05/24 10:30 11/05/24 10:45 Pulse Rate 78 Respiratory Rate Blood Pressure 130/62 138/95 H Pulse Oximetry 94 Oxygen Delivery Method 11/05/24 10:45 11/05/24 11:00 11/05/24 11:00 Pulse Rate 83 74 Respiratory Rate 20 21 Blood Pressure 146/71 H Pulse Oximetry 91 96 Oxygen Delivery Method MDM - Abdominal Pain Lab Data 11/05/24 12:02 11/05/24 09:12 Labs: Lab Results 11/05/24 11/05/24 Range/Units 09:12 12:02 WBC 10.5 8.7 (4.5-11.0) X10^3/uL RBC 4.12 L 3.73 L (4.5-5.9) X10^6/uL Hgb 12.8 L 11.8 L (13.5-17.5) g/dL Hct 38.4 L 34.8 L (41-53) % MCV 93.0 93.2 (80-100) fL MCH 30.9 31.7 (26-34) PG MCHC 33.2 34.0 (30-36) % RDW 14.3 14.2 (11.6-14.8) % Plt Count 195 168 (150-400) X10^3/uL Neut % (Auto) 78.7 H 78.6 H (50-75) % Lymph % (Auto) 7.4 L 7.8 L (25-40) % [place] % (Auto) 11.5 11.6 (3-14) % Eos % (Auto) 1.9 L 1.7 L (2-4) % Baso % (Auto) 0.5 0.3 (0-2) % Neut # (Auto) 8300 H 6800 (6417-0385) /uL Lymph # (Auto) 800 L 700 L (4939-0894) /uL [place] # (Auto) 1200 H 1000 H (0-900) /uL Eos # (Auto) 200 100 (0-450) /uL Baso # (Auto) 100 0 (0-100) /uL Sodium 135 L (137-145) mmol/L Potassium 4.1 (3.4-5.1) mmol/L Chloride 101 (98-107) mmol/L Carbon Dioxide 26 (22-32) mmol/L BUN 19 (9-20) mg/dL Creatinine 1.12 (0.66-1.25) mg/dL Estimated GFR > 60 (>60) mL/min BUN/Creatinine Ratio 17.0 (6-22) Glucose 241 H (70-99) mg/dL Calcium 9.6 (8.4-10.2) mg/dL Total Bilirubin 0.9 (0.2-1.3) mg/dL AST 25 (17-59) IU/L ALT 19 (<50) IU/L Alkaline Phosphatase 70 (38-126) U/L Total Protein 7.0 (6.3-8.2) g/dL Albumin 4.1 (3.5-5.0) g/dL Globulin 2.9 (1.7-4.1) g/dL Albumin/Globulin Ratio 1.4 (1.0-2.8) Lipase 77 (23-300) U/L Point of care testing: Urine Dip Bedside Urine Glucose Negative Bedside Urine Bilirubin - Negative Bedside Urine Ketone - Negative Urine Specific [place] 1.015 Bedside Urine Occult Blood - Negative Bedside Urine pH 5.5 Bedside Urine Protein - Negative Bedside Urine Urobilinogen - Negative Bedside Urine Nitrite - Negative Bedside Urine Leukocytes +/- [address] scan - abdomen/pelvis: Radiologist's Impression: [place] [address] CT Scan Report Signed Patient: Lv Langley MR#: [id number] : 1935 Acct:[id number] Age/Sex: 89 / M Date of Service: 11/05/24 Loc: ED Accession Number: [id number] Procedure: CT abdomen pelvis w con Ordering Provider: Satya Dumas MD PROCEDURE: CT ABDOMEN PELVIS W CON INDICATIONS: Abdominal pain/diarrhea TECHNIQUE: After the administration of intravenous contrast, axial sections acquired from the lung bases to the pubic symphysis. Coronal and sagittal reformats were performed. For radiation dose reduction, the following was used: automated exposure control, adjustment of mA and/or kV according to patient size. COMPARISON: [facility], CT, CT ABDOMEN PELVIS W CON, 12/09/2023, 13:24. [facility], CT, CT ABDOMEN PELVIS W CON, 06/25/2023, 19:45. FINDINGS: Image quality: Diagnostic. Lower Chest: No significant findings. ABDOMEN: Liver: No solid mass. Gallbladder: There are dependent layering radiopaque gallstones but no gallbladder inflammation or wall thickening. Biliary ducts: No biliary dilation. Pancreas: No ductal dilation. Spleen: Size is within normal limits. Adrenal Glands: No adrenal nodules. Kidneys and Ureters: No hydronephrosis. No solid mass. No complex renal cystic lesion which requires follow up. Stomach and Bowel: Normal small bowel and colonic caliber, but with proximal and transverse colonic mild wall thickening which may indicate colitis in those areas. Peritoneum: No abnormal intraperitoneal fluid. No free air. Ventral Wall: No significant ventral hernia. Prior ventral herniorrhaphy. Abdominal Nodes: No retroperitoneal or mesenteric adenopathy by size criteria. Vessels: Aorta and inferior vena cava are normal in size. Prior lower aortic surgical intervention, patent iliac arteries bilaterally. PELVIS: Pelvic Organs: Unremarkable. Bladder: No bladder wall thickening, accounting for underdistention. Pelvic Nodes: No enlarged lymph nodes. Miscellaneous: No inguinal hernias are seen. Normal appendix found right lower quadrant. Sigmoid diverticulosis without acute diverticulitis. Bones: No aggressive osseous abnormality. IMPRESSION: Dependent layering gallstones within the gallbladder lumen are present without evidence of acute cholecystitis or biliary obstruction. [id number] right and transverse colonic wall thickening, which may indicate colitis in these areas. Sigmoid diverticulosis is relatively prominent but without acute diverticulitis. Dictated by: Dedrick Zhou M.D. on 11/05/2024 at 11:43 Approved by: Dedrick Zhou M.D. on 11/05/2024 at 11:48 [facility] Narrative Medical decision making narrative: Patient complains 5 days of odorous watery diarrhea nonbloody. Has bloating pressure sensation to of the abdomen. No back pain. No urinary complaints. No new chest pain. Patient denies any recent travel foreign travel contaminated foods or recent antibiotics. Patient does have history of infrarenal abdominal aneurysm with repair. Denies any syncope. Patient states he has had a lot of watery diarrhea and feels dehydrated. Has had off and on dizziness. After history and exam, CBC CMP GI panel normal saline CT abdomen pelvis [facility] Medical records reviewed: CT angiogram chest abdomen pelvis March 22, 2024 Differential considered: Includes but not limited to aortic aneurysm viral gastroenteritis C diff bowel obstruction Lab Test results independently reviewed as above. Pertinent findings: WBC 10.5 hemoglobin 12.8 sodium 135 potassium 4.1 BUN 19 creatinine 1.12 Independently reviewed EKG atrial sensed ventricular paced rhythm rate 76 Imaging studies independently reviewed: CT abdomen pelvis mild to moderate right and transverse colonic thickening which may indicate colitis, no diverticulitis. No signs of cholecystitis Consultations: None indicated this time. Re-evaluations: 12:54 p.m.. Patient states feeling much better with IV fluids but he does not want wait any longer. He had to take care of his . Reviewed results with him so far. He states he can not provide a stool sample. Discussion: Appropriate for discharge home exam is reassuring. Return precautions reviewed with patient. Not toxic. Does not want to wait to try to give stool sample.. Return precautions reviewed he desires discharge home. Diagnosis: Colitis diarrhea Discharge Plan Departure Patient Disposition: Home Clinical Impression: Colitis Diarrhea Qualifiers: Diarrhea type: unspecified type Qualified Code(s): R19.7 - Diarrhea, unspecified Instructions: DI for Diarrhea and Traveler's Diarrhea -- Adult, DI for Colitis Activity Restrictions/Additional Instructions: Your blood work and imaging studies are reassuring. It is likely have colitis but unknown source at this time. Return immediately if worse if any questions or concerns. Keep well hydrated. CT scan does show colitis causing your symptoms and diarrhea. Please see family doctor within a week for re-evaluation. Prescriptions: No Action (DME) pen needle, diabetic [BD Ultra-Fine Mini Pen Needle] 31 gauge x 3/16 needle See Rx Instructions .Route Qty: 100 3RF Rx Instructions: use for insulin twice a day Januvia 100 mg tablet 100 mg PO DAILY Qty: 90 2RF (DME) FreeStyle Lite Strips Strip See Rx Instructions .ROUTE .COMPLEX Qty: 100 6RF Dose Instruction: USE TO TEST BLOOD SUGARS TWICE A DAY Rx Instructions: USE TO TEST BLOOD SUGARS TWICE A DAY famotidine 20 mg tablet 20 mg PO BID Qty: 60 0RF insulin glargine [Lantus Solostar U-100 Insulin] 100 unit/mL (3 mL) insulin pen 10 unit SUBCUT QPM Qty: 15 2RF metformin 500 mg tablet 1,000 mg PO BID Qty: 360 3RF metoprolol succinate 25 mg tablet extended release 24 hr 25 mg PO DAILY atorvastatin 40 mg tablet 40 mg PO BEDTIME Qty: 90 3RF ferrous sulfate 324 mg (65 mg iron) tablet,delayed release (DR/EC) 324 mg PO DAILY Qty: 90 1RF nitroglycerin 0.4 mg tablet, sublingual sublingual latanoprost 0.005 % drops 1 drp ophthalmic (eye) DAILY torsemide 10 mg tablet 10 mg PO DAILY dorzolamide-timolol 22.3-6.8 mg/mL drops 1 drp EYE-BOTH ONCE Referrals: Manish Cerda DO [Primary Care Provider, Family Practice] Stand Alone Forms: Patient Portal/API
[2024-11-05] MEDS: SODIUM CHLORIDE 0.9% 1,000 ML 1000 ML IV (10:02)
--- NOTE | 2024-11-05 10:43 | DI.CT.S_ITS ---
PROCEDURE: CT ABDOMEN PELVIS W CON INDICATIONS: Abdominal pain/diarrhea TECHNIQUE: After the administration of intravenous contrast, axial sections acquired from the lung bases to the pubic symphysis. Coronal and sagittal reformats were performed. For radiation dose reduction, the following was used: automated exposure control, adjustment of mA and/or kV according to patient size. COMPARISON: [facility], CT, CT ABDOMEN PELVIS W CON, 12/09/2023, 13:24. [facility], CT, CT ABDOMEN PELVIS W CON, 06/25/2023, 19:45. FINDINGS: Image quality: Diagnostic. Lower Chest: No significant findings. ABDOMEN: Liver: No solid mass. Gallbladder: There are dependent layering radiopaque gallstones but no gallbladder inflammation or wall thickening. Biliary ducts: No biliary dilation. Pancreas: No ductal dilation. Spleen: Size is within normal limits. Adrenal Glands: No adrenal nodules. Kidneys and Ureters: No hydronephrosis. No solid mass. No complex renal cystic lesion which requires follow up. Stomach and Bowel: Normal small bowel and colonic caliber, but with proximal and transverse colonic mild wall thickening which may indicate colitis in those areas. Peritoneum: No abnormal intraperitoneal fluid. No free air. Ventral Wall: No significant ventral hernia. Prior ventral herniorrhaphy. Abdominal Nodes: No retroperitoneal or mesenteric adenopathy by size criteria. Vessels: Aorta and inferior vena cava are normal in size. Prior lower aortic surgical intervention, patent iliac arteries bilaterally. PELVIS: Pelvic Organs: Unremarkable. Bladder: No bladder wall thickening, accounting for underdistention. Pelvic Nodes: No enlarged lymph nodes. Miscellaneous: No inguinal hernias are seen. Normal appendix found right lower quadrant. Sigmoid diverticulosis without acute diverticulitis. Bones: No aggressive osseous abnormality. IMPRESSION: Dependent layering gallstones within the gallbladder lumen are present without evidence of acute cholecystitis or biliary obstruction. [id number] right and transverse colonic wall thickening, which may indicate colitis in these areas. Sigmoid diverticulosis is relatively prominent but without acute diverticulitis. Dictated by: Dedrick Zhou M.D. on 11/05/2024 at 11:43 Approved by: Dedrick Zhou M.D. on 11/05/2024 at 11:48
[2024-11-05 12:25] LABS: Add Manual Diff / Slide Review NO; Hematocrit 34.8 % (41-53); Hemoglobin 11.8 g/dL (13.5-17.5); Lymphocytes Absolute Auto 700 /uL (1100-4500); Mean Corpuscular HGB Conc 34.0 % (30-36); Mean Corpuscular Hemoglobin 31.7 PG (26-34); Mean Corpuscular Volume 93.2 fL (80-100); Platelet Count 168 X10^3/uL (150-400)
== END 2024-11-05 13:06 | disposition home or self-care (01) ==
PROVIDERS: Emergency Provider Emergency Medicine; PCP Family Medicine
DX: K52.9 Noninfective gastroenteritis and colitis, unspecified (principal); I10 Essential (primary) hypertension; Z87.891 Personal history of nicotine dependence
CPT/HCPCS: 36415; 74177; 80053; 81003; 83690; 85025; 93005; 96360; 99284; Q9967

== ENCOUNTER → 2025-02-22 12:58 | Outpatient (CLI) | payer MEDICARE, OTHER, SELFPAY ==
[2024-05-04 11:22] VITALS: BMI 28.2
--- NOTE | 2025-02-22 13:02 | DI.CT.S_ITS ---
PROCEDURE: CT ANGIO CHEST INDICATIONS: Follow-up enlarging aortic aneurysm TECHNIQUE: After the administration of intravenous contrast, 2.5 mm thick sections acquired from the lung apices to the posterior lung bases. Maximum intensity projection (MIP) oblique sagittal reformats were then acquired parallel to the aortic arch. For radiation dose reduction, the following was used: automated exposure control. COMPARISON: [facility], CT, CT ANGIO CHEST ABDOMEN PELVIS, 03/22/2024, 9:27. FINDINGS: Image quality: Excellent. Aorta: Ascending thoracic aorta measures 4.2 cm. Lower Neck: No enlarged lymph nodes. Thyroid: No thyroid nodules which require sonographic follow up, per consensus guidelines. Axillae: No enlarged lymph nodes. Chest Wall: Unremarkable. Bones: Unremarkable. Lungs and Pleura: No pneumothorax or pleural effusions. Upper lobe nodules are unchanged. Heart: Heart size is normal. No pericardial effusion. Thoracic Vessels: Pulmonary arteries demonstrate normal size. Mediastinum and [place]: No enlarged lymph nodes. Esophagus: No wall thickening. Minimal hiatal hernia. Upper Abdomen: Partially visualized renal cysts.. 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 Dictated by: Keely Lerner M.D. on 02/22/2025 at 16:38 Approved by: Keely Lerner M.D. on 02/22/2025 at 16:39
[2025-02-22 13:22] LABS: Estimated Glomerular Filt Rate > 60 mL/min (>60)
== END ==
LOC: CT 12:59
PROVIDERS: PCP Family Medicine; Referring Provider Family Medicine; Visit Provider Family Medicine
DX: I71.21 Aneurysm of the ascending aorta, without rupture (principal); I77.9 Disorder of arteries and arterioles, unspecified
CPT/HCPCS: 36415; 71275; 82565; Q9967